=== PATIENT | male | born 1960 | race African-American/Black ===

== ENCOUNTER 2017-01-24 17:33 | Inpatient (IN) | payer OTHER ==
--- NOTE | 2017-01-24 17:42 | PDOC ---
History of Present Illness - General History Source: Patient, EMS Exam Limitations: Physical Impairment - History of Present Illness Initial Comments: 01/24/17 17:56 The patient is a 56 year old male, with a significant past medical history of hypertension, hyperlipidemia, diabetes mellitus, multiple CVAs(x4 one in 2005, one in 2006, and 2 in 2007) in the past with right sided hemiparesis(wheelchair bound due to CVAs), neuropathy, and ESRD on hemodialysis (, , Tue), who presents to the emergency department BIBA s/p stroke at unknown time earlier today. Per EMS, the patient presented to the dialysis center with stroke symptoms upon arrival, however, dialysis staff decided to call 911 two hours after the patient got there. However, per Claim Review Medical Director Dr. Prasad, the patient missed his dialysis this past Tuesday (01/22/17). Since his missed dialysis the patient had been feeling fatigued and tired. Today, the patient was sent to dialysis for several hours to see if he would improve. Upon arrival the patient had unintelligible speech and was fatigued. During his dialysis the patient b.p. fell, thus dialysis staff sent him to the ED for further evaluation. Per Dr. Prasad, the patient current deficits are from prior CVA's , however, today there is new onset of right arm swelling. The patient is currently unable to speak, but can nod his head that he understands questions being asked. The patients history is limited due to current clinical condition. Allergies: None reported. Past Surgical History: None reported. Social History: Non-smoker. Denies alcohol or drug use. PCP: Dr. Dillard This documentation was charted after patient was seen. However, the patient was examined immediately on arrival to the ED and sent for a head CT. <Negrito Baugh - Last Filed: 01/24/17 18:24> <Mohit Martinez - Last Filed: 01/24/17 19:05> - General Chief Complaint: CVA/TIA Stated Complaint: R/O STROKE Time Seen by Provider: 01/24/17 17:36 Past History <Negrito Baugh - Last Filed: 01/24/17 18:24> - Past Medical History Anemia: No Asthma: No Cancer: No Cardiac Disorders: Yes CVA: Yes (x 4IN 2005, IN 2006 MASSIVE STROKE, 2008 2 MINI STROKES.) COPD: No CHF: No Dementia: No Diabetes: Yes (NIDDM) Dialysis: Yes (TUES,THR,SAT,RT ARM FISTULA) GI Disorders: No Disorders: No HTN: Yes Hypercholesterolemia: Yes Liver Disease: No Seizures: No Thyroid Disease: No - Psycho/Social/Smoking Cessation Hx Anxiety: No Suicidal Ideation: No Smoking Status: No Smoking History: Never smoked Number of Cigarettes Smoked Daily: 0 Hx Alcohol Use: No Drug/Substance Use Hx: No Substance Use Type: None <Mohit Martinez - Last Filed: 01/24/17 19:05> - Past Medical History Allergies/Adverse Reactions: Allergies Allergy/AdvReac Type Severity Reaction Status Date / Time No Known Allergies Allergy Verified 09/11/16 11:59 Home Medications: Ambulatory Orders Aspirin/Dipyridamole [Aggrenox -] 1 combo PO BID 01/24/17 Escitalopram Oxalate [Lexapro -] 20 mg PO DAILY 01/24/17 Folic Acid - 30 mg PO DAILY 01/24/17 Gabapentin [Neurontin -] 100 mg PO DAILY 01/24/17 Insulin Glargine,Hum.rec.anlog [Lantus Solostar PEN (NF)] 0 units SQ HS Insulin NPH Hum/Reg Insulin Hm [Novolin 70-30 100 Unit/ml Vial] 100 unit SQ DAILY 01/24/17 Sevelamer Carbonate [Renvela] 800 mg PO CM 01/24/17 Simvastatin [Zocor -] 40 mg PO HS 01/24/17 Sitagliptin Phosphate [Januvia] 50 mg PO DAILY 01/24/17 Review of Systems - Review of Systems Able to Perform ROS?: No Comments:: 01/24/17 17:58 Patient's history is limited due to current clinical condition. GENERAL/CONSTITUTIONAL: +Fatigue, +tiredness. No fever or chills. HEAD, EYES, EARS, NOSE AND THROAT: No change in vision. No ear pain or discharge. No sore throat. CARDIOVASCULAR: No chest pain or shortness of breath. RESPIRATORY: No cough, wheezing, or hemoptysis. GASTROINTESTINAL: No nausea, vomiting, diarrhea or constipation. GENITOURINARY: No dysuria, frequency, or change in urination. MUSCULOSKELETAL: +Right arm swelling. No joint or muscle pain. No neck or back pain. SKIN: No rash NEUROLOGIC: +Decreased speech. No headache, vertigo, loss of consciousness. ENDOCRINE: No increased thirst. No abnormal weight change. HEMATOLOGIC/LYMPHATIC: No anemia, easy bleeding, or history of blood clots. ALLERGIC/IMMUNOLOGIC: No hives or skin allergy. <BaughBernadetterajwinder - Last Filed: 01/24/17 18:24> *Physical Exam - Physical Exam Comments: 01/24/17 18:03 GENERAL: Awake and alert. Patient can nod his head that he can answer questions.HEAD: Minimal facial paralysis EYES: PERRLA, EOMI, sclera anicteric, conjunctiva clear ENT: Auricles normal inspection, hearing grossly normal, nares patent, oropharynx clear without exudates. Moist mucosa NECK: Normal ROM, supple, no lymphadenopathy, JVD, or masses LUNGS: Breath sounds equal, clear to auscultation bilaterally. No wheezes, and no crackles HEART: Regular rate and rhythm, normal S1 and S2, no murmurs, rubs or gallops ABDOMEN: Soft, nontender, normoactive bowel sounds. No guarding, no rebound. No masses EXTREMITIES : No edema. No clubbing or cyanosis. No cords, erythema, or tenderness NEUROLOGICAL: Dense right leg and right arm paralysis. Unable to speak intelligibly. SKIN: Warm, Dry, normal turgor, no rashes or lesions noted. <Bernadette Baughrajwinder - Last Filed: 01/24/17 18:24> NIH Stroke Scale - Last Known Well Date/Time & Onset Date Last Known Well: 01/24/17 (Unkown Time of Onset) - Initial Evaluation Level of consciousness: Alert Ask patient the month and their age: Answers both correctly Ask patient to open & close eyes; make fist and let go: Obeys both correctly Best gaze (horizontal eye movement): Normal Visual field testing: No visual field loss Facial paresis (Show teeth/raise eyebrows/close eyes tight): Minor paralysis ( flattened nasolabial fold, asymmetry on smiling) Motor Function: Left Arm: Some effort against gravity Motor Function: Right Arm: No movement Motor Function: Left Leg: No effort against gravity Motor Function: Right Leg: No movement Limb Ataxia: No ataxia Sensory(Use pinprick test arms,legs,trunk,face/side to side): Mild to moderate decrease in sensation Best language (Describe picture, name items, read sentences): Severe aphasia Dysarthria (read several words): Near unintelligible or unable to speak Extinction and Inattention: No abnormality - Total Score NIH Stroke Scale Score: 19 <Mohit Martinez - Last Filed: 01/24/17 19:05> Critical Care Time/MDM Note - Medical Decision Making Note: 01/24/17 18:04 EXAM: Head CT INTERPRETED BY: Dr. Whitman REVIEWED BY: Dr. Martinez IMPRESSION: No definite CT evidence of acute pathology. Small chronic right frontal subcortical infarct. Small chronic right pontine infarct. Documentation prepared by Negrito Baugh, acting as medical chemist for Mohit Martinez DO. <Negrito Baugh - Last Filed: 01/24/17 18:24> - Medical Decision Making Note: 01/24/17 17:38 I, Dr. Mohit Martinez, attest that this document has been prepared under my direction and personally reviewed by me in its entirety. I further attest, that it accurately reflects all work, treatment, procedures and medical decision -making performed by me. <Mohit Martinez - Last Filed: 01/24/17 19:05> Discharge Disposition <Negrito Baugh - Last Filed: 01/24/17 18:24> - Discharge Dispostion Admit: Yes <Mohit Martinez - Last Filed: 01/24/17 19:05> - Diagnosis Old cerebrovascular accident (CVA) without late effect, Swelling of right upper extremity, Confusion - Discharge Dispostion Condition at time of disposition: Improved - Referrals Referrals: Rachell Dillard [Primary Care Provider] -
[2017-01-24] MEDS ORDERED: SODIUM CHLORIDE 1,000 ML IV SCH ×2 (17:45→19:30)
[2017-01-24 18:15] VITALS: BMI 31.4
[2017-01-24 18:53] LABS: BASOPHIL 0.3 % (0-2.0); EOSINOPHIL 1.6 % (0-4.5); MCH 32.5 pg (25.7-33.7); MCHC 32.9 g/dl (32.0-35.9); MEAN CELL VOLUME 98.6 fl (80-96); MEAN PLT VOLUME 8.1 fl (7.5-11.1); NEUTROPHILS 79.6 % (42.8-82.8); PLATELET COUNT 262 K/MM3 (134-434); WHITE BLOOD COUNT 10.9 K/mm3 (4.0-10.0)
[2017-01-24 19:04] LABS: INR 1.1 (0.82-1.09); PROTHROMBIN TIME (PATIENT) 12.1 SEC (9.98-11.88)
[2017-01-24 19:16] LABS: ALBUMIN 3.8 g/dl (3.4-5.0); ANION GAP 13 (8-16); BILIRUBIN,TOTAL 0.3 mg/dL (0.2-1.0); CALCIUM 8.2 mg/dL (8.5-10.1); CHOLESTEROL 133 mg/dL (50-200); CO2 23 mmol/L (21-32); GLUCOSE,RANDOM 132 mg/dL (74-106); LDL CHOLESTEROL (ONLY SJRH) 68 mg/dL (5-100); SGPT/ALT 18 U/L (12-78); TOT PROT 7.8 g/dl (6.4-8.2)
--- NOTE | 2017-01-24 19:16 | HP ---
[id number] HISTORY OF PRESENT ILLNESS: The patient is a 56 year old male, accompanied by , with a significant past medical history of hypertension, hyperlipidemia, diabetes mellitus, multiple CVAs(x4 one in 2005, one in 2006, and 2 in 2007) in the past with right sided hemiparesis(wheelchair bound due to CVAs), neuropathy, and ESRD on hemodialysis (, , Tue), who presented to the emergency department [facility] for AMS. In the emergency department the patient was on bipap. As per the patient missed dialysis on Tuesday and was told to go in today. The patient's stated that he was sent home from dialysis after 3 hours because he was not responding well to his treatment. As per the patient began feeling weak and confused during dialysis and symptoms worsened after leaving dialysis. Patient's notes that he has missed Tuesday dialysis in the past but did not experience similar symptoms. ER course was notable for: (1) Normal potassium (2) Negative head CT (3) Hypercapnic on EBG Recent Travel: PAST MEDICAL HISTORY: Hypertension, hyperlipidemia, diabetes mellitus, CVA x4, right sided hemiparesis , neuropathy, and ESRD (on HD , , Tue). PAST SURGICAL HISTORY: None reported Social History: Smoking: None reported Alcohol: None reported Drugs: None reported Family History: None reported HOME MEDICATIONS: Home Medications Medication Instructions Recorded Aspirin/Dipyridamole [Aggrenox -] 1 combo PO BID 01/24/17 Escitalopram Oxalate [Lexapro -] 20 mg PO DAILY 01/24/17 Folic Acid - 30 mg PO DAILY 01/24/17 Gabapentin [Neurontin -] 100 mg PO DAILY 01/24/17 Insulin Glargine,Hum.rec.anlog 0 units SQ HS 01/24/17 [Lantus Solostar PEN (NF)] Insulin NPH Hum/Reg Insulin Hm 100 unit SQ DAILY 01/24/17 [Novolin 70-30 100 Unit/ml Vial] Sevelamer Carbonate [Renvela] 800 mg PO CM 01/24/17 Simvastatin [Zocor -] 40 mg PO HS 01/24/17 Sitagliptin Phosphate [Januvia] 50 mg PO DAILY 01/24/17 REVIEW OF SYSTEMS CONSTITUTIONAL: Absent: fever, chills, diaphoresis, weight change HEENT: Absent: rhinorrhea, nasal congestion, throat pain, throat swelling, difficulty swallowing, mouth swelling, ear pain, eye pain, visual changes CARDIOVASCULAR: Absent: chest pain, syncope, palpitations, irregular heart rate, lightheadedness , peripheral edema RESPIRATORY: Absent: cough, shortness of breath, dyspnea with exertion, orthopnea, wheezing, stridor, hemoptysis GASTROINTESTINAL: Absent: abdominal pain, abdominal distension, nausea, vomiting, diarrhea, constipation, melena, hematochezia GENITOURINARY: Absent: dysuria, frequency, urgency, hesitancy, hematuria, flank pain, genital pain MUSCULOSKELETAL: Absent: myalgia, arthralgia, joint swelling, back pain, neck pain SKIN: Absent: rash, itching, pallor HEMATOLOGIC/IMMUNOLOGIC: Absent: easy bleeding, easy bruising, lymphadenopathy, frequent infections ENDOCRINE: Absent: unexplained weight gain, unexplained weight loss, heat intolerance, cold intolerance NEUROLOGIC: Present: Altered mental status Absent: headache, focal weakness or paresthesias, dizziness, unsteady gait, seizure, bladder or bowel incontinence PSYCHIATRIC: Absent: anxiety, depression, suicidal or homicidal ideation, hallucinations. PHYSICAL EXAMINATION Vital Signs - 24 hr 01/24/17 17:35 Temperature 97.6 F Pulse Rate 61 Respiratory 20 Rate Blood Pressure 103/80 O2 Sat by Pulse 98 Oximetry (%) GENERAL: (+) Male lying in bed, on bipap, able to follow commands. HEAD: Normal with no signs of trauma. EYES: Pupils equal, round and reactive to light, extraocular movements intact, sclera anicteric, conjunctiva clear. No lid lag. EARS, NOSE, THROAT: Ears normal, nares patent, oropharynx clear without exudates. Moist mucous membranes. NECK: Normal range of motion, supple without lymphadenopathy, JVD, or masses. LUNGS: (+) Decreased breath sounds at bases. Clear to auscultation bilaterally. No wheezes, and no crackles. No accessory muscle use. HEART: Regular rate and rhythm, normal S1 and S2 without murmur, rub or gallop. ABDOMEN: (+) Obese, soft, nontender, not distended, normoactive bowel sounds, no guarding, no rebound, no masses. No hepatomegaly or splenomegaly. MUSCULOSKELETAL: Normal range of motion at all joints. No bony deformities or tenderness. No CVA tenderness. UPPER EXTREMITIES: (+) Right arm edema. 2+ pulses, warm, well-perfused. No cyanosis. No clubbing. Cap refill <2 seconds. LOWER EXTREMITIES: 2+ pulses, warm, well-perfused. No calf tenderness. No peripheral edema. NEUROLOGICAL: Cranial nerves II-XII intact. Normal speech. Normal gait. PSYCHIATRIC: Cooperative. Good eye contact. Appropriate mood and affect. SKIN: Warm, dry, normal turgor, no rashes or lesions noted. Laboratory Results - last 24 hr 01/24/17 01/24/17 01/24/17 18:44 18:44 18:44 WBC 10.9 H RBC 3.99 L D Hgb 13.0 D Hct 39.3 D MCV 98.6 H MCHC 32.9 RDW 15.0 Plt Count 262 D MPV 8.1 Neutrophils % 79.6 Lymphocytes % 11.1 D Monocytes % 7.4 Eosinophils % 1.6 Basophils % 0.3 INR 1.10 Sodium 138 Potassium 4.8 D Chloride 102 Carbon Dioxide 23 Anion Gap 13 BUN 49 H Creatinine 10.1 H* Creat Clearance w eGFR 5.32 Random Glucose 132 H Calcium 8.2 L Total Bilirubin 0.3 D AST 19 D ALT 18 Alkaline Phosphatase 71 D Creatine Kinase 830 H D Creatine Kinase Index 0.4 CK-MB (CK-2) 2.950 Troponin I < 0.02 Total Protein 7.8 Albumin 3.8 Triglycerides 162 H Cholesterol 133 Total LDL Cholesterol 68 HDL Cholesterol [address] without contrast Clinical information: evaluate for CVA No intracranial hemorrhage is identified. There is no evidence of acute infarction within the limitations of CT. No definite interval change is identified in comparison to a previous CT exam of 03/29/2009. There is a small chronic infarct within the right paramedian aspect of the basis pontis. A small chronic right frontal subcortical infarct is noted. No obvious mass lesion is seen. There is no extra-axial fluid collection. The ventricles and cisterns appear unremarkable. Atherosclerotic vascular calcifications are noted which are more prominent than would be expected for the patient's chronologic age. Correlate with clinical risk factors. Impression: No definite CT evidence of acute pathology. Small chronic right frontal subcortical infarct. Small chronic right pontine infarct. Reported By: Mark Whitman MD 2. EXAM: X-RAY CHEST No focal lung consolidation or pleural effusions. Cardiomegaly versus heart size accentuated by hypoinflation lungs. Prominent descending arota and right paratracheal soft tissues, presumably accentuated by rotation. THIS DOCUMENT HAS BEEN ELECTRONICALLY SIGNED Sharona Ramey M.D. 3. ECG Impression: Normal sinus rhythm. Nonspecific T wave abnormality. Abnormal ECG. ASSESSMENT/PLAN: The patient is a 56 year old male with a significant past medical history of hypertension, hyperlipidemia, diabetes mellitus, multiple CVAs(x4 one in 2005, one in 2006, and 2 in 2007) in the past with right sided hemiparesis(wheelchair bound due to CVAs), neuropathy, and ESRD on hemodialysis (, , Tue), who presents with AMS and inability to speak. 1. AMS-CVA/TIA/Hypercapnic respiratory failure -Continue with bipap -Repeat ABG -CT head negative but show old chronic infarcts -MRI brain without contrast -Neurology consult -Trend troponin -ECG -TSH B12 and ESR in AM -Lipid panel -Continue with aggrenox -CVC in AM -ECHO complete carotid US -Chest x-ray stat -Uremic encephalopathy 2. CKD- on esrd s/p HD today - Nephrology consult 3. HTN -Continue home meds 4. Diabetes -Finger sticks -Rapid acting insulin -Recently assessed 5. HLD -Continue statin 6. Right arm swelling -Duplex stat 7. DVT PPX -SCDs Admit to stroke tele. Documentation prepared by Avtar Oconnell, acting as medical aide for Dr. Genevieve Diaz MD. Addendum: Patient with no improvement in ABG. Transfer to ICU for AMS/ intubation. Intubated in ICU. 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 Critical care time 40 minutes. Visit type - Critical Care Critical Care patient: Yes Total Critical Care Time (in minutes): 40 Critical Care Statement: The care of this patient involved high complexity decision making to prevent further life threatening deterioration of the patient 's condition and/or to evalute & treat vital organ system(s) failure or risk of failure. <Genevieve Diaz - Last Filed: 01/25/17 19:18> Visit type - Emergency Visit Emergency Visit: Yes ED Registration Date: 01/24/17 Care time: The patient presented to the Emergency Department on the above date and was hospitalized for further evaluation of their emergent condition. - New Patient This patient is new to me today: Yes Date on this admission: 01/25/17 - Critical Care Critical Care patient: Yes Total Critical Care Time (in minutes): 40 Critical Care Statement: The care of this patient involved high complexity decision making to prevent further life threatening deterioration of the patient 's condition and/or to evalute & treat vital organ system(s) failure or risk of failure.
[2017-01-24 19:22] LABS: ALK PHOS 71 U/L (45-117); TROPONIN I < 0.02 ng/ml (0.00-0.05)
[2017-01-24 19:25] LABS: SGOT/AST 19 U/L (15-37)
[2017-01-24 19:27] LABS: CREATININE 10.1 mg/dL (0.7-1.3)
[2017-01-24] MEDS ORDERED: SEVELAMER CARBONATE 800 MG TAB (FP) PO SCH (19:45)
[2017-01-24 20:07] LABS: ARTERIAL BLD GAS O2 SATURATION 95.3 % (90-98.9); ARTERIAL BLOOD GAS BASE EXCESS -3.9 meq/l (-2-2); ARTERIAL BLOOD GAS HCO3 24.2 meq/L (22-26); ARTERIAL BLOOD GAS PO2 92.7 mmHg (80-100)
[2017-01-24 20:09] LABS: ALLENS TEST POSITIVE; ART PUNCT SITE LEFT RADIAL; ARTERIAL BLOOD GAS pH 7.22 (7.35-7.45); LPM/O2% 2L; PT. ON O2? YES; TYPE OF O2 NASAL
[2017-01-24 21:04] LABS: ARTERIAL BLOOD GAS BASE EXCESS -4.1 meq/l (-2-2); ARTERIAL BLOOD GAS HCO3 23.9 meq/L (22-26); ARTERIAL BLOOD GAS PO2 98.1 mmHg (80-100)
[2017-01-24 21:05] LABS: ALLENS TEST POSITIVE; ART PUNCT SITE LEFT RADIAL; LPM/O2% 30; PT. ON O2? YES; TYPE OF O2 BIPAP; VENT RATE 14; VT/PRESS 16/4
[2017-01-24 21:12] LABS: ARTERIAL BLOOD GAS pH 7.23 (7.35-7.45)
[2017-01-24 21:56] LABS: BASOPHIL 0.2 % (0-2.0); EOSINOPHIL 1.9 % (0-4.5); MCH 32.6 pg (25.7-33.7); MCHC 32.5 g/dl (32.0-35.9); MEAN CELL VOLUME 100.3 fl (80-96); MEAN PLT VOLUME 7.6 fl (7.5-11.1); PLATELET COUNT 237 K/MM3 (134-434); RDW 14.9 % (11.9-15.9)
[2017-01-24] MEDS: INSULIN SLIDING SCALE (NOVOLOG) 1 VIAL SQ SCH (22:00)
[2017-01-24] MEDS ORDERED: ASPIRIN/DIPYRIDAMOLE 25 MG/200 MG CAPSULE (FP) PO SCH (22:00)
[2017-01-24] MEDS ORDERED: ATORVASTATIN CA 20 MG TABLET (FP) PO SCH (22:00)
[2017-01-25 00:22] LABS: ARTERIAL BLOOD GAS HCO3 23.5 meq/L (22-26); ARTERIAL BLOOD GAS PO2 91.9 mmHg (80-100)
[2017-01-25 00:23] LABS: ALLENS TEST POSITIVE; ART PUNCT SITE LEFT RADIAL; LPM/O2% 30%; PT. ON O2? YES; TYPE OF O2 BIPAP; VT/PRESS 20/4
[2017-01-25 00:24] LABS: ARTERIAL BLOOD GAS pH 7.21 (7.35-7.45); VENT RATE 20
[2017-01-25] MEDS ORDERED: PROPOFOL 100 ML ONE (01:18)
[2017-01-25] MEDS ORDERED: MIDAZOLAM HCL 2 MG/2 ML SINGLE DOSE VIAL ONE (01:34)
[2017-01-25] MEDS ORDERED: MIDAZOLAM HCL 2 MG/2 ML SINGLE DOSE VIAL IVPUSH ONE (01:45)
[2017-01-25] MEDS: PROPOFOL 100 ML IVPB SCH (02:00)
[2017-01-25] MEDS ORDERED: SUCCINYLCHOLINE CHLORIDE 200 MG/10 ML VIAL ONE (02:06)
--- NOTE | 2017-01-25 02:18 | PN ---
Progress Note (short form) - Note Progress Note: called to intubate this patient who is in acute respiratory failure.Patient being ambu bagged with 100% o2. Propofol 100mg was given IV.DL with glige scope.VCV 7.5.Posative Etco2.Advised ABG and CXR.P 85,Bp 165/84 Spo2 100% on o2 100%.
--- NOTE | 2017-01-25 02:26 | CONSULT ---
Consult Consult Specialty:: Pulm/CC - History of Present Illness History of Present Illness: Pt is a 56yr old man with PMHx of HTN, HLD, ESRD (HD T//Tue), DM, CVAx4 with rt side hemiparesis, wheelchair bound and neuropathy. He presents to the ER from dialysis center with "stroke symptoms". Per report pt with missed dialysis on 01/22 secondary to malfunctioning wheelchair. On 01/24 during dialysis he had reported unintelligible speech and increased fatigue with drop in BP and sent to ER here at [facility]. Pt with increasing lethargy and respiratory acidosis unimproved with bipap on floor and transferred to the ICU. Upon assessment pt is lethargic but arousable, speech garbled, copious secretions (tenacious/ greenish yellow) and drooling. Poor inspiratory effort. SBP 140s, HR 70s, 100% on RA. Pt intubated for acute hypercapneic respiratory failure. 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 Cardio/Vascular: Yes: HTN, Hyperlipdemia Renal/: Yes: Renal Failure, Hemodialysis Endocrine: Yes: Diabetes Mellitus - Past Surgical History Past Surgical History: Yes: AV Fistula/Graft - Alcohol/Substance Use Hx Alcohol Use: No - Smoking History Smoking history: Never smoked Have you smoked in the past 12 months: No Aproximately how many cigarettes per day: 0 Home Medications - Allergies Allergies/Adverse Reactions: Allergies Allergy/AdvReac Type Severity Reaction Status Date / Time No Known Allergies Allergy Verified 09/11/16 11:59 - Home Medications Home Medications: Ambulatory Orders Aggrenox - 1 tablet 01/24/17 Aspirin/Dipyridamole [Aggrenox -] 1 combo PO BID 01/24/17 Escitalopram Oxalate [Lexapro -] 20 mg PO BID 01/24/17 Folic Acid - 30 mg PO DAILY 01/24/17 Gabapentin [Neurontin -] 100 mg PO BID 01/24/17 Insulin Glargine,Hum.rec.anlog [Lantus Solostar PEN (NF)] 0 units SQ HS Insulin NPH Hum/Reg Insulin Hm [Novolin 70-30 100 Unit/ml Vial] 100 unit SQ DAILY 01/24/17 Sevelamer Carbonate [Renvela] 800 mg PO TID 01/24/17 Simvastatin [Zocor -] 40 mg PO HS 01/24/17 Sitagliptin Phosphate [Januvia] 50 mg PO DAILY 01/24/17 Family Disease History - Family Disease History Family History: Unable to Obtain Family Disease History: Heart Disease: Father, Mother, CA: Mother Review of Systems Unable to obtain ROS, reason: ABBIE 2nd clinical condion Physical Exam Vital Signs: Vital Signs Period Temp Pulse Resp BP Sys/Todd Pulse Ox Last 24 Hr 97.6 F-98.1 F 61-87 13-20 103-137/72-97 97-100 Intake & Output 01/22/17 01/23/17 01/24/17 01/25/17 22:59 23:59 23:59 23:59 Weight 245 lb 245 lb Constitutional: Yes: Well Nourished, No Distress, Calm Eyes: Yes: WNL HENT: Yes: Drooling, Other (crowded oralpharynx) Cardiovascular: Yes: S1, S2 Respiratory: Yes: Diminished, Wheezes (faint expiratory), Other (poor inspiratory effort) Gastrointestinal: Yes: Abdomen, Obese, Hypoactive Bowel Sounds ...Rectal Exam: Yes: Deferred Musculoskeletal: Yes: Other (rt side hemiparesis) Edema: No Peripheral Pulses WNL: Yes (+1 bilateral pedal pulses) Integumentary: Yes: Other (appears dry) Neurological: Yes: Aphasia, Facial Droop (rt) Labs: Abnormal Lab Results 01/24/17 01/24/17 01/24/17 18:44 18:44 20:00 WBC 10.9 H RBC 3.99 L D MCV 98.6 H ABG pH 7.22 L* ABG pCO2 at Pt Temp 60.9 H* ABG Base Excess -3.9 L BUN 49 H Creatinine 10.1 H* Random Glucose 132 H Calcium 8.2 L Creatine Kinase 830 H D Triglycerides 162 H 01/24/17 01/24/17 01/25/17 21:02 21:40 00:11 WBC 11.0 H RBC 3.99 L MCV 100.3 H ABG pH 7.23 L* 7.21 L* ABG pCO2 at Pt Temp 59.3 H 61.3 H* ABG Base Excess -4.1 L -5.0 L BUN Creatinine Random Glucose Calcium Creatine Kinase Triglycerides Imaging - Results Chest X-ray: Image Reviewed Cat Scan: Report Reviewed Ultrasound: Report Reviewed (duplex) Assessment/Plan Pt is a 56yr old man with PMHx of HTN, HLD, ESRD (HD T/Th/Sat), DM, CVAx4 with rt side hemiparesis, wheelchair bound and neuropathy. Pt now in the ICU for acute hypercapneic respiratory failure requiring intubation, AMS with possible CVA +/- metabolic encephalopathy. Pulm: Intubation in setting of acute hypercapneic respiratory failure, likely component of OHS -Continue intubation overnight -Fio2 for sat >94% -f/u chest xray/abg -Nebulizers prn ID: -f/u cultures -Consult -Will start Ceftriaxone, continue as clinically warranted Neuro: s/p code winslow, no acute pathology noted on head CT. Low suspicion but possible seizure activity upon presentation to ICU (brief, self resolved drooling/"gurgling" and rapid eye movement) -Consult -Repeat head ct -Mri when more stable -Sedation with versed -Consider EEG -Pain management Renal: -Consult -HD per renal -Renal dose medication -Monitor electrolytes Cardiac -F/u cardiac enzymes -BP control -Statin Endo: -BGM -Glycemic control Prophylactic -PPI -Aspiration precautions -DVT
[2017-01-25 02:44] LABS: ARTERIAL BLD GAS O2 SATURATION 97.1 % (90-98.9); ARTERIAL BLOOD GAS BASE EXCESS -4.5 meq/l (-2-2); ARTERIAL BLOOD GAS HCO3 22.3 meq/L (22-26)
[2017-01-25 02:45] LABS: ALLENS TEST POSITIVE; ART PUNCT SITE LEFT RADIAL; LPM/O2% 40; MECH. VENT. YES; PT. ON O2? YES; TYPE OF O2 VENT; VENT RATE 16; VT/PRESS 450
[2017-01-25] MEDS: MIDAZOLAM 100 MG in SODIUM CHLORIDE 100 ML IVPB SCH (02:45)
[2017-01-25] MEDS: FENTANYL INJECTION 500 MCG in DEXTROSE 5%-WATER - 90 ML IJ SCH ×2 (02:45→07:01)
[2017-01-25 02:46] LABS: ARTERIAL BLOOD GAS pH 7.26 (7.35-7.45)
[2017-01-25] MEDS ORDERED: DOPAMINE 400 MG/D5W - 250 ML IVPB ONE (04:31)
[2017-01-25 04:40] LABS: BASOPHIL 0.4 % (0-2.0); EOSINOPHIL 1.4 % (0-4.5); MCH 32.9 pg (25.7-33.7); MCHC 33.4 g/dl (32.0-35.9); MEAN CELL VOLUME 98.7 fl (80-96); MEAN PLT VOLUME 7.5 fl (7.5-11.1); PLATELET COUNT 204 K/MM3 (134-434); RDW 14.5 % (11.9-15.9)
[2017-01-25 04:53] LABS: INR 1.13 (0.82-1.09); PROTHROMBIN TIME (PATIENT) 12.5 SEC (9.98-11.88)
[2017-01-25 04:56] LABS: ACTIVATED PTT 29.8 SECONDS (26.9-34.4)
[2017-01-25 05:05] LABS: C-REACTIVE PROTEIN 0.4 MG/DL (0.00-0.3); CALCIUM 8.2 mg/dL (8.5-10.1); MAGNESIUM 2.2 mg/dL (1.8-2.4); PHOSPHOROUS 6.5 mg/dL (2.5-4.9)
[2017-01-25 05:11] LABS: MAGNESIUM 2.2 mg/dL (1.8-2.4); PHOSPHOROUS 6.2 mg/dL (2.5-4.9); THYROID STIMULATING HORMONE 4.57 uIU/ml (0.358-3.74)
[2017-01-25 05:13] LABS: CREATININE 12.5 mg/dL (0.7-1.3)
[2017-01-25] MEDS ORDERED: CEFTRIAXONE 50 ML IVPB ONE (05:22)
[2017-01-25 06:20] LABS: ERYTHROCYTE SEDIMENTATION RATE 52 mm/hr (0-20)
[2017-01-25] MEDS: INSULIN SLIDING SCALE (NOVOLOG) 1 VIAL SQ SCH ×6 (06:44→18:36)
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
[2017-01-25 09:09] LABS: HIV 1 & 2 AB NEGATIVE; HIV 1 AGp24 NEGATIVE
[2017-01-25] MEDS ORDERED: FOLIC ACID 1 MG TABLET (FP) PO SCH (10:00)
[2017-01-25] MEDS ORDERED: GABAPENTIN 100 MG CAPSULE (FP) PO SCH (10:00)
[2017-01-25] MEDS ORDERED: ESCITALOPRAM OXALATE 20 MG TABLET (FP) PO SCH (10:00)
--- NOTE | 2017-01-25 12:08 | PN ---
Teaching Attending Note Name of Resident: Bruce Lorenzo ATTENDING PHYSICIAN STATEMENT I saw and evaluated the patient. I reviewed the resident's note and discussed the case with the resident. I agree with the resident's findings and plan as documented. SUBJECTIVE: unable to obtain hx . events over night noted for worsening mental status and intubation OBJECTIVE: intubated , sedated. Neuro: unable to evaluate facial symmetry while intubated. L pupil reactive to light . R pupil not reactive to direct light but reactive to indirect light , cataract noted in R eye . unable to evaluate strength and sensation Lungs : CTAB anteriorly Ext: no edema . poor feet care CV: RRR, no MRG ASSESSMENT AND PLAN: 56 Y/o man with h/o CVAs, ESRD , IDDM , and other medical problems who presented with AMS and dysarthria after HD . He was intubated shortly after admission due to worsening mental status 1- AMS, dysarthria: possibly due to a new stroke. Hypotension was noted in HD out pt unit , which might have contributed . - cont intubation for air way protection. extubate when appropriate. - check MRI of the brain to r/o new stroke - Echo pending ( last o ne in 2012 with NL EF and some valvular problems ) - Resume aggrenox. if he has a new stroke , might consider switching to a new anti-platelet agent - monitor bP and avoid hypotension . permissive HTN until ischemic stroke is ruled out - he has no signs of infection at this point. 2- Acute hypercapnic resp failure . CO2 improved , but ABG still show Met acidosis . likely due to uremia . Lactic acid NL . - cont vent 3- ESRD: on HD TTS . - getting HD now in ICU - renal on board - cont renvela 4- DM : will confirm his home meds . in mean time , SSI q6 hr , switch to AC when extubated 5- DVT px : start heparin sq Critical Care Total Critical Care Time (in minutes): 35 Critical Care Statement: The care of this patient involved high complexity decision making to prevent further life threatening deterioration of the patient 's condition and/or to evalute & treat vital organ system(s) failure or risk of failure.
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
[2017-01-25] MEDS ORDERED: ASPIRIN 300 MG SUPP.RECT RC ONE (12:26)
--- NOTE | 2017-01-25 12:28 | PROC ---
Central Line Insertion Indication: Poor Venous Access Risks and Benefits Explained: No (emergent due to lack of access) Central Line: Triple Lumen Catheter Anesthesia: 1% Lidocaine Sterile Technique: Yes Ultrasound Guided Assistance: Yes Position: Left Internal Jugular Post Insertion: Yes: Bilateral Chest Expansion, Chest X-Ray Ordered Sterile Dressing Applied: Yes
[2017-01-25] MEDS: ESCITALOPRAM OXALATE 20 MG TABLET (FP) PO SCH (12:34)
[2017-01-25] MEDS: ALBUMIN HUMAN 25% 100 ML VIAL IVPB SCH ×2 (14:00→14:01)
--- NOTE | 2017-01-25 16:01 | PN ---
Physical Exam: SUBJECTIVE: Patient seen and examined in the ICU. Intubated and sedated OBJECTIVE: Vital Signs Period Temp Pulse Resp BP Sys/Todd Pulse Ox Last 24 Hr 98 F-98.8 F 62-95 13-21 99-192/61-105 97-100 GENERAL: Intubated and sedated EYES: PERRL, extraocular movements intact, sclera anicteric, conjunctiva clear. No ptosis. ENT: Ears normal, nares patent, oropharynx clear without exudates, moist mucous membranes. NECK: Trachea midline, full range of motion, supple. LUNGS: Breath sounds equal, clear to auscultation bilaterally, no wheezes HEART: Regular rate and rhythm S1 S2 ABDOMEN: Soft, no grimacing to palpation nondistended, hypoactive bowel sounds EXTREMITIES: no edema. NEUROLOGICAL: Could not do an accurate neurological exam as patient is intubated and sedated on versed and fentanyl. Right pupils minimally reactive on my exam. Right eye cataracts. left eye reactive to light. right eye reactive when light is shining into left eye. Reflexes: biceps jerk and knee jerk are brisk bilaterally Laboratory Results - last 24 hr 01/24/17 01/25/17 01/25/17 21:59 00:11 00:13 WBC RBC Hgb Hct MCV MCHC RDW Plt Count MPV Neutrophils % Lymphocytes % Monocytes % Eosinophils % Basophils % ESR INR PTT (Actin FS) Puncture Site Left radial ABG pH 7.21 L* ABG pCO2 at Pt Temp 61.3 H* ABG pO2 at Pt Temp 91.9 ABG HCO3 23.5 ABG O2 Sat (Measured) 95.0 ABG O2 Content 17.5 ABG Base Excess -5.0 L Eliseo Test Positive O2 Delivery Device Bipap Oxygen Flow Rate 30% Vent Mode S/t Vent Rate 20 Mechanical Rate PEEP 0.0 Pressure Support Vent 20/4 Sodium Potassium Chloride Carbon Dioxide Anion Gap BUN Creatinine POC Glucometer 105.42046 135 Random Glucose Lactic Acid Calcium Phosphorus Magnesium Troponin I C-Reactive Protein Vitamin B12 TSH HIV 1&2 Antibody Screen HIV P24 Antigen 01/25/17 01/25/17 01/25/17 02:20 04:25 04:30 WBC RBC Hgb Hct MCV MCHC RDW Plt Count MPV Neutrophils % Lymphocytes % Monocytes % Eosinophils % Basophils % ESR INR PTT (Actin FS) Puncture Site Left radial ABG pH 7.26 L ABG pCO2 at Pt Temp 51.2 H ABG pO2 at Pt Temp 104.0 H ABG HCO3 22.3 ABG O2 Sat (Measured) 97.1 ABG O2 Content 16.3 ABG Base Excess -4.5 L Eliseo Test Positive O2 Delivery Device Vent Oxygen Flow Rate 40 Vent Mode A/c Vent Rate 16 Mechanical Rate Yes PEEP 10.0 Pressure Support Vent 450 Sodium 137 Potassium 5.1 Chloride 101 Carbon Dioxide 24 Anion Gap 12 BUN 58 H Creatinine 12.5 H* D POC Glucometer 121.95045 Random Glucose 101 D Lactic Acid Calcium 8.2 L Phosphorus 6.5 H D Magnesium 2.2 Troponin I C-Reactive Protein 0.4 H Vitamin B12 915 H TSH 4.57 H HIV 1&2 Antibody Screen HIV P24 Antigen 01/25/17 01/25/17 01/25/17 04:30 04:30 04:30 WBC 10.0 RBC 3.44 L Hgb 11.3 L D Hct 33.9 L D MCV 98.7 H MCHC 33.4 RDW 14.5 Plt Count 204 MPV 7.5 Neutrophils % 81.0 Lymphocytes % 8.3 D Monocytes % 8.9 Eosinophils % 1.4 Basophils % 0.4 ESR 52 H INR 1.13 PTT (Actin FS) 29.8 Puncture Site ABG pH ABG pCO2 at Pt Temp ABG pO2 at Pt Temp ABG HCO3 ABG O2 Sat (Measured) ABG O2 Content ABG Base Excess Eliseo Test O2 Delivery Device Oxygen Flow Rate Vent Mode Vent Rate Mechanical Rate PEEP Pressure Support Vent Sodium Potassium Chloride Carbon Dioxide Anion Gap BUN Creatinine POC Glucometer Random Glucose Lactic Acid 0.834 Calcium Phosphorus Magnesium Troponin I C-Reactive Protein Vitamin B12 TSH HIV 1&2 Antibody Screen HIV P24 Antigen 01/25/17 01/25/17 01/25/17 04:30 04:30 05:05 WBC RBC Hgb Hct MCV MCHC RDW Plt Count MPV Neutrophils % Lymphocytes % Monocytes % Eosinophils % Basophils % ESR INR PTT (Actin FS) Puncture Site ABG pH ABG pCO2 at Pt Temp ABG pO2 at Pt Temp ABG HCO3 ABG O2 Sat (Measured) ABG O2 Content ABG Base Excess Eliseo Test O2 Delivery Device Oxygen Flow Rate Vent Mode Vent Rate Mechanical Rate PEEP Pressure Support Vent Sodium Potassium Chloride Carbon Dioxide Anion Gap BUN Creatinine POC Glucometer Random Glucose Lactic Acid Calcium Phosphorus 6.2 H Magnesium 2.2 Troponin I < 0.02 C-Reactive Protein Vitamin B12 TSH HIV 1&2 Antibody Screen Negative HIV P24 Antigen Negative 01/25/17 01/25/17 11:00 11:25 WBC RBC Hgb Hct MCV MCHC RDW Plt Count MPV Neutrophils % Lymphocytes % Monocytes % Eosinophils % Basophils % ESR INR PTT (Actin FS) Puncture Site ABG pH ABG pCO2 at Pt Temp ABG pO2 at Pt Temp ABG HCO3 ABG O2 Sat (Measured) ABG O2 Content ABG Base Excess Eliseo Test O2 Delivery Device Oxygen Flow Rate Vent Mode Vent Rate Mechanical Rate PEEP Pressure Support Vent Sodium Potassium Chloride Carbon Dioxide Anion Gap BUN Creatinine POC Glucometer 77.66452 Random Glucose Lactic Acid Calcium Phosphorus Magnesium Troponin I < 0.02 C-Reactive Protein Vitamin B12 TSH HIV 1&2 Antibody Screen HIV P24 Antigen Active Medications Generic Name Dose Route Start Last Admin Trade Name Freq PRN Reason Stop Dose Admin Aspirin 81 mg 01/26/17 10:00 Asa - NGT DAILY [facility] Escitalopram Oxalate 20 mg 01/25/17 10:00 01/25/17 12:34 Lexapro - PO Not Given DAILY [facility] Heparin Sodium (Porcine) 5,000 unit 01/25/17 15:15 Heparin - SQ TID [facility] Fentanyl 500 mcg/ Dextrose 100 mls @ 10 mls/hr 01/25/17 02:45 01/25/17 07:01 IJ 01/26/17 02:44 20 mls/hr TITR JASON Administration 50 MCG/HR Midazolam HCl 100 mg/ Sodium 100 mls @ 3 mls/hr 01/25/17 02:45 01/25/17 03:00 Chloride IVPB 5 mg/hr TITR JASON Titration Protocol 3 MG/HR Propofol 100 mls @ 3.334 mls/hr 01/25/17 02:00 01/25/17 02:00 Diprivan - IVPB 3.334 mls/hr TITR JASON Administration Protocol 5 MCG/KG/MIN Insulin Aspart 1 vial 01/25/17 15:15 01/25/17 15:25 Novolog Vial Sliding Scale - SQ Not Given Q6HPO JASON Protocol ASSESSMENT/PLAN: 56M with multiple medical problems including multiple CVAs x4, ESRD on HD Tue/ /Tue, DM (insulin dependant) presented to the emergency room after dialysis he was noted to have unintelligible speech, altered mental status, hypotension, and given his history concern for CVA. Altered mental status. There is a concern for another stroke. patient was hypotensive at the dialysis center and low blood pressure leading to low cerebral perfusion pressure makes this patient at risk for CVA. CT scan negative for acute stroke will need MRI Aggrenox can not be crushed so will give 325 aspirin and then 81 daily resume aggrenox when able to take PO if patient did have a CVA on aggrenox it is worth exploring whether he should be switched to another antiplatelet will discuss this with neurology f/u echo Carotid duplex WNL Premissive hypertension for now continue ventilatory support for now-daily awakening trials to assess for extubation ESRD on HD was dialyzed today in ICU continue Renvela-ordered Renal consult appreciated DM: ISS q6h for now while intubated Acute Hypercapneic respiratory failure: patient intubated for airway protection altered mental status and hypercapnea Patient still has metabolic acidosis likely secondary to uremia vs an unmeasured acid in the blood cotninue ventilatory support daily awakening trials to assess for extubation HLD: on Zocor as outpatient ICU team to send lipid panel Restart Zocor FEN: no IVF no electrolyte issues if unable to be extubated tomorrow consider starting enteral feeds PPx: HSQ protonix start tomorrow if still intubated PT consult when able to participate patient seen and case discussed with attending Dr. Diaz Visit type - Emergency Visit Emergency Visit: Yes ED Registration Date: 01/24/17 Care time: The patient presented to the Emergency Department on the above date and was hospitalized for further evaluation of their emergent condition. - New Patient This patient is new to me today: Yes Date on this admission: 01/25/17 - Critical Care Critical Care patient: Yes Total Critical Care Time (in minutes): 60 Critical Care Statement: The care of this patient involved high complexity decision making to prevent further life threatening deterioration of the patient 's condition and/or to evalute & treat vital organ system(s) failure or risk of failure.
--- NOTE | 2017-01-25 16:06 | PN ---
Physical Exam: SUBJECTIVE: Patient seen and examined at bedside. He's intubated and sedated. OBJECTIVE: Sedated and intubated on mechanical ventilation Vent settings: AC, RR 16, TV 550, FiO2 40, PEEP 10 Off pressors On versed 5mcg and fentanyl 25mcg Left IJ placed on 01/25, day 1 Vital Signs Period Temp Pulse Resp BP Sys/Todd Pulse Ox Last 24 Hr 98 F-98.8 F 62-95 13-21 99-192/61-105 97-100 GENERAL: Intubated and sedated, RSS -1 EYES: sclera anicteric, conjunctiva clear, R cataract LUNGS: CTAB HEART: distant heart sounds ABDOMEN: Soft, obese, not distended, no grimace on face upon palpation EXTREMITIES: cold 4 extremities, No edema ABG Results ABG pH 7.26 (7.35-7.45) L 01/25/17 02:20 ABG pCO2 at Pt Temp 51.2 mmHg (35-45) H 01/25/17 02:20 ABG pO2 at Pt Temp 104.0 mmHg (80-100) H 01/25/17 02:20 ABG HCO3 22.3 meq/L (22-26) 01/25/17 02:20 ABG O2 Sat (Measured) 97.1 % (90-98.9) 01/25/17 02:20 ABG O2 Content 16.3 % vol (15-22) 01/25/17 02:20 ABG Base Excess -4.5 meq/l (-2-2) L 01/25/17 02:20 CBCD WBC 10.0 K/mm3 (4.0-10.0) 01/25/17 04:30 RBC 3.44 M/mm3 (4.00-5.60) L 01/25/17 04:30 Hgb 11.3 GM/dL (11.7-16.9) L D 01/25/17 04:30 Hct 33.9 % (35.4-49) L D 01/25/17 04:30 MCV 98.7 fl (80-96) H 01/25/17 04:30 MCHC 33.4 g/dl (32.0-35.9) 01/25/17 04:30 RDW 14.5 % (11.9-15.9) 01/25/17 04:30 Plt Count 204 K/MM3 (134-434) 01/25/17 04:30 MPV 7.5 fl (7.5-11.1) 01/25/17 04:30 CMP Sodium 137 mmol/L (136-145) 01/25/17 04:30 Potassium 5.1 mmol/L (3.5-5.1) 01/25/17 04:30 Chloride 101 mmol/L (98-107) 01/25/17 04:30 Carbon Dioxide 24 mmol/L (21-32) 01/25/17 04:30 Anion Gap 12 (8-16) 01/25/17 04:30 BUN 58 mg/dL (7-18) H 01/25/17 04:30 Creatinine 12.5 mg/dL (0.7-1.3) H* D 01/25/17 04:30 Creat Clearance w eGFR 5.32 (>60) 01/24/17 18:44 Calcium 8.2 mg/dL (8.5-10.1) L 01/25/17 04:30 Total Bilirubin 0.3 mg/dL (0.2-1.0) D 01/24/17 18:44 AST 19 U/L (15-37) D 01/24/17 18:44 ALT 18 U/L (12-78) 01/24/17 18:44 Alkaline Phosphatase 71 U/L (45-117) D 01/24/17 18:44 Total Protein 7.8 g/dl (6.4-8.2) 01/24/17 18:44 Albumin 3.8 g/dl (3.4-5.0) 01/24/17 18:44 Intake & Output 01/22/17 01/23/17 01/24/17 01/25/17 22:59 23:59 23:59 23:59 Intake Total 480 Output Total 500 Balance -20 Weight 111.13 kg 105.035 kg Active Medications Generic Name Dose Route Start Last Admin Trade Name Freq PRN Reason Stop Dose Admin Aspirin 81 mg 01/26/17 10:00 Asa - NGT DAILY [facility] Escitalopram Oxalate 20 mg 01/25/17 10:00 01/25/17 12:34 Lexapro - PO Not Given DAILY JASON Fentanyl 500 mcg/ Dextrose 100 mls @ 10 mls/hr 01/25/17 02:45 01/25/17 07:01 IJ 01/26/17 02:44 20 mls/hr TITR JASON Administration 50 MCG/HR Midazolam HCl 100 mg/ Sodium 100 mls @ 3 mls/hr 01/25/17 02:45 01/25/17 03:00 Chloride IVPB 5 mg/hr TITR JASON Titration Protocol 3 MG/HR Propofol 100 mls @ 3.334 mls/hr 01/25/17 02:00 01/25/17 02:00 Diprivan - IVPB 3.334 mls/hr TITR JASON Administration Protocol 5 MCG/KG/MIN Insulin Aspart 1 vial 01/25/17 06:00 01/25/17 12:34 Novolog Vial Sliding Scale - SQ Not Given Q4HPO JASON Protocol Microbiology 01/25/17 06:00 Sputum - Endotrachea Suction/Ventilator Gram Stain - Final 01/25/17 06:00 Nasopharyngeal Swab Influenza Types A,B Antigen (TRAY) - Final 01/25/17 06:00 Nasopharyngeal Swab - Final Imaging CXR on 01/25: The endotracheal tube and nasogastric tube are present. Again noted is a tortuous aorta with weak inspiration and prominent mediastinum. New left jugular line. No pneumothorax. ET tube and NG tube US doppler of Arm on 01/24: There is no sonographic evidence of DVT involving the right arm. Soft tissue edema is noted. Carotid doppler on 01/24: Minimal atherosclerotic disease with no evidence of hemodynamically significant stenoses CT head on 01/24: No definite CT evidence of acute pathology. Small chronic right frontal subcortical infarct. Small chronic right pontine infarct ASSESSMENT/PLAN: 56 yo wheelchair bound M h/o HTN, HLD, ESRD on HD, DM2 and neuropathy, multiple CVA with R hemiparesis admitted to the ICU for acute respiratory failure and AMS. Pulm: Acute respiratory failure - Intubated on vent - ABG improving - SBT tomorrow - Maintain O2 Sat > 88% - Daily CXR and ABG Neuro: AMS 2/2 metabolic encephalopathy vs. stroke - Missed 1 dialysis * BUN/Cr on admission 49/10 * received HD today - CT shows chronic infarcts * new stroke on aggrenox? * MRI when stable - BP control SBP < 220 * lopressor push PRN and hold when SBP < 140 - F/U lipid and a1c - Restart asa PO (currently on asa via NGT), lipitor, and aggrenox - Neuro consult appreciated ID: Elevated WBC without fever - Resolved - Normal lactic acid - Negative CXR - Infection unlikely, observe off abx Renal: ESRD on HD - HD in unit - Renal consult appreciated - Restart renvela after starting feed - Renally dose all meds Endo: DM2 - Maintain normaglycemia at 60 to 180 - On sliding scale - BGM FEN - IVF held - Cont. to monitor lytes - NPO, will try enteral feed tomorrow Prophylaxis - DVT: heparin SQ 5000 BID - GI: start PPI tomorrow if remained intubated Disposition - Cont. to monitor in ICU Code status - Full code Visit type - Emergency Visit Emergency Visit: No - New Patient This patient is new to me today: Yes Date on this admission: 01/25/17 - Critical Care Critical Care patient: Yes Total Critical Care Time (in minutes): 50 Critical Care Statement: The care of this patient involved high complexity decision making to prevent further life threatening deterioration of the patient 's condition and/or to evalute & treat vital organ system(s) failure or risk of failure.
[2017-01-25] MEDS ORDERED: METOPROLOL TARTRATE 5 MG/5 ML VIAL IVPUSH PRN (16:16)
[2017-01-25] MEDS: HEPARIN NA (PORCINE) 5,000 UNITS/ML 1ML VIAL SQ SCH ×2 (17:40→22:45)
[2017-01-25] MEDS: SEVELAMER CARBONATE 800 MG TAB (FP) PO SCH (17:54)
[2017-01-25 18:00] LABS: CALCIUM 8.6 mg/dL (8.5-10.1); MAGNESIUM 1.9 mg/dL (1.8-2.4); PHOSPHOROUS 2.6 mg/dL (2.5-4.9)
[2017-01-26] MEDS: INSULIN SLIDING SCALE (NOVOLOG) 1 VIAL SQ SCH ×5 (00:14→17:50)
[2017-01-26] MEDS ORDERED: NOREPINEPHRINE BITARTRATE 4 MG/4 ML ML IV ONE (03:30)
[2017-01-26] MEDS ORDERED: ACETAMINOPHEN 1000 MG/100 ML VIAL (NON FORMULARY) IVPB ONE (03:40)
[2017-01-26] MEDS ORDERED: VANCOMYCIN 1 GRAM (PRE-DOCKED) 250 ML IVPB ONE (03:41)
[2017-01-26] MEDS ORDERED: SODIUM CHLORIDE 250 ML IV STA (03:59)
--- NOTE | 2017-01-26 03:59 | PN ---
Progress Note (short form) - Note Progress Note: Called to bedside 0320 for acute drop in bp, SBP 70s. Gen: Arousable on 3mg/hr Versed and 5mcg/hr Fentanyl Pulm: No adventitious breath sounds appreciated in anterior bowers Cardiac: SBP 70s, HR low 100s sinus on tele, s1/s2 Ab: Hypoactive bowel sounds, no grimace with palpation : Anuric Ex: Warm to touch, weak peripheral pulses +thrill on rt arm fistula SBP 70s, HR 100s, temp 101.1 rectal Vent AC mode 550/17/35/10 with o2 sat 100% -Will start Levophed -Reculture -Ceftriaxone/Vanc -Stat labs -IV Tylenol for fever -Continue mechanical ventilation through the night with sedation -Flat plate abdomen (hypoactive b.s and no bowel movement during hospital stay per RN) -Chest xray -f/u abg -Q2H CVP -Strict i/os
[2017-01-26 04:05] LABS: MCH 32.8 pg (25.7-33.7); MCHC 34.1 g/dl (32.0-35.9); MEAN CELL VOLUME 96.2 fl (80-96); MEAN PLT VOLUME 7.8 fl (7.5-11.1); PLATELET COUNT 204 K/MM3 (134-434); RDW 14.5 % (11.9-15.9); WHITE BLOOD COUNT 9.3 K/mm3 (4.0-10.0)
[2017-01-26 04:10] LABS: ARTERIAL BLD GAS O2 SATURATION 99.2 % (90-98.9); ARTERIAL BLOOD GAS BASE EXCESS 2.5 meq/l (-2-2); ARTERIAL BLOOD GAS HCO3 24.1 meq/L (22-26)
[2017-01-26 04:11] LABS: ALLENS TEST POSITIVE; ART PUNCT SITE LEFT RADIAL; ARTERIAL BLOOD GAS pH 7.54 (7.35-7.45); LPM/O2% 35%; MECH. VENT. YES; PT. ON O2? YES; TYPE OF O2 MECH VENT; VENT RATE 17; VT/PRESS 550
[2017-01-26] MEDS: NOREPINEPHRINE BITARTRATE 16,000 MCG in DEXTROSE 5%-WATER - 484 ML IV SCH (04:12)
[2017-01-26] MEDS: CEFTRIAXONE 50 ML IVPB SCH ×2 (04:12→10:33)
[2017-01-26 04:19] LABS: INR 1.22 (0.82-1.09); PROTHROMBIN TIME (PATIENT) 13.5 SEC (9.98-11.88)
[2017-01-26] MEDS: PROPOFOL 100 ML IVPB SCH (04:20)
[2017-01-26 04:21] LABS: ACTIVATED PTT 37.2 SECONDS (26.9-34.4)
[2017-01-26] MEDS: MIDAZOLAM 100 MG in SODIUM CHLORIDE 100 ML IVPB SCH (04:21)
[2017-01-26 04:28] LABS: ALBUMIN 3.3 g/dl (3.4-5.0); CALCIUM 8.7 mg/dL (8.5-10.1); MAGNESIUM 1.9 mg/dL (1.8-2.4); PHOSPHOROUS 3.5 mg/dL (2.5-4.9); TOT PROT 6.8 g/dl (6.4-8.2)
[2017-01-26 04:33] LABS: BILIRUBIN,TOTAL 0.5 mg/dL (0.2-1.0)
[2017-01-26 04:35] LABS: CREATININE 10.4 mg/dL (0.7-1.3)
[2017-01-26 04:40] LABS: TROPONIN I 0.06 ng/ml (0.00-0.05)
[2017-01-26] MEDS: HEPARIN NA (PORCINE) 5,000 UNITS/ML 1ML VIAL SQ SCH (06:18)
[2017-01-26] MEDS: ATORVASTATIN CA 80 MG TABLET (FP) PO SCH (06:18)
[2017-01-26] MEDS ORDERED: FENTANYL INJECTION 500 MCG in DEXTROSE 5%-WATER - 90 ML IJ SCH (06:30)
--- NOTE | 2017-01-26 09:42 | PN ---
Progress Note (short form) - Note Progress Note: ID consult dictated imp/reccd 56 year old man with PMH esrd/hd, multiple CVA, HTN, DM wheel chair bound due to right hemiparesis admitted 01/24/17 with weakness, confusion, aphasic in ED but nodding yes/no to questions no fevers on admission he developed hypercapneic respiratory failure and was intubated 01/25 early am central line placed 01/25 last night he developed fever and hypotension cultures were drawn and he was started on vancomycin and ceftriaxone levophed started as well for hypotension this am with guaic positive black NGT drainage sedated and intubated +NGT +Left IJ CVP right arm swelling acute respiratory failure fevers/hypotension- possible sepsis ?aspiration suspicion for new cva UGI bleed esrd/hd history CVA DM agree with present antibiotic converage-vanco/rocephin ?pneumonia in the setting of recent intubation-f/u cultures, consider chest ct as cxray is not revealing consider repeat head ct as we cannot do MRI while patient is on vent check vanco level, redose less then 15 (d/w iCU resident)
[2017-01-26] MEDS: SEVELAMER CARBONATE 800 MG TAB (FP) PO SCH ×3 (09:44→17:32)
[2017-01-26] MEDS: ESCITALOPRAM OXALATE 20 MG TABLET (FP) PO SCH (09:44)
[2017-01-26] MEDS ORDERED: PANTOPRAZOLE SODIUM 100 ML IVPB ONE (09:45)
[2017-01-26] MEDS: ASPIRIN 81 MG CHEWABLE TABLETS NGT SCH (10:38)
[2017-01-26 11:06] LABS: ALLENS TEST POSITIVE; ART PUNCT SITE RIGHT RADIAL; ARTERIAL BLOOD GAS BASE EXCESS 1.4 meq/l (-2-2); ARTERIAL BLOOD GAS HCO3 24.1 meq/L (22-26); LPM/O2% 21%; PT. ON O2? NO
[2017-01-26 11:07] LABS: ARTERIAL BLOOD GAS pH 7.48 (7.35-7.45); MECH. VENT. ESPRIT; TYPE OF O2 MEC.VENT; VENT RATE 12; VT/PRESS 550
--- NOTE | 2017-01-26 11:12 | CONS ---
DATE OF CONSULTATION: DATE OF DICTATION: 01/26/2017 REQUESTING PHYSICIAN: Hospitalist Service. SATIN FINISHER: Ratna Shah M.D. HISTORY OF PRESENT ILLNESS: This is a 56-year-old man with a past medical history of end-stage renal disease on dialysis. He has had multiple CVAs in the past with left and a right hemiparesis. He is wheelchair-bound, who was sent by the lasting floorworker to the emergency room on January 24 for change in mental status. He had missed dialysis on Tuesday and, then when he arrived at dialysis on Tuesday, he was complaining of weakness. He later had confusion and lethargy. He became hypotensive and he was sent from dialysis to the emergency room. In the emergency room, he was noted to be aphasic, but alert and able to nod yes and no. He had a head CT that did not show any new CVA. He had no fevers. He developed progressive hypercapnic respiratory failure. He was intubated by Anesthesia overnight early January 25. He later that day had a central in placed. He was noted as well to have swelling of his right arm, which is the arm with his AV fistula. He had a duplex of that arm done and no evidence of DVT. He was noted to have soft tissue swelling. Overnight, he developed fever with hypotension. He was noted as well to have dark drainage from his NG tube, which was guaiac positive. He had blood cultures drawn. He was given vancomycin and Rocephin. I am asked to see him for his fever and hypotension. PAST MEDICAL HISTORY: His past medical history is notable for a CVA. He has had multiple CVAs in the past, hypertension, hyperlipidemia, end-stage renal disease on dialysis, diabetes, and he has an AV fistula. He has a right-sided hemiparesis left over from his a CVA and he has a history of neuropathy. SOCIAL HISTORY: He lives at home with his . There is no history of any cigarette, alcohol, or drug use. FAMILY HISTORY: Not available, as the patient is intubated. MEDICATIONS: His home medications include: 1. Aggrenox. 2. Lexapro. 3. Folic acid. 4. Neurontin. 5. Insulin. 6. Renvela. 7. Zocor. 8. Januvia. ALLERGIES: He has no known drug allergies. REVIEW OF SYSTEMS: No review of systems is obtainable, as the patient is intubated and sedated, though per the admitting H and P, the review of systems was essentially normal. PHYSICAL EXAMINATION: General: He is intubated and sedated. Vitals: His temperature is 99.9 rectally. His T max is 101.2 rectally. His pulse is 83. His blood pressure is 104/79 and his respiratory rate is 12. His vent FIO2 is 40%. HEENT: He is normocephalic. His eyes are anicteric. Neck: Supple. He is orally intubated. He has an NG tube in place with dark drainage. Lungs: Have diminished breath sounds at the bases. Heart: Regular rate and rhythm. Abdomen: Soft. He has no distention. He has active bowel sounds. Extremities: Are without edema. They are cool. He has a left IJ in place and he has diffuse swelling of his right arm. LABORATORY DATA: His labs are notable for a white count of 10.9 on admission, this morning 9.3, hemoglobin 11.3, platelets are 204. INR is 1.2. BUN 42 and creatinine 10.4. CPK is 2323 with a troponin of 0.06 and his HIV testing is negative. Influenza swab was done and is negative and blood cultures and sputum culture are pending. Chest x-ray shows no definite infiltrate. In summary, this is a 56-year-old man with fever, hypotension, on pressors, possible sepsis. One possible source would be his lungs, as he was intubated 24 hours ago for hypercapnic respiratory failure and was noted to have copious secretions. I would follow up his cultures. I would consider a chest CT, as his chest x-ray is not revealing. I would consider repeat CT of his head, as we cannot do an MRI while he is on the vent. I agree with his present antibiotic coverage of vancomycin and Rocephin. I would check a vancomycin level and re-dose if less than 15. This was discussed with the ICU resident. In summary, this is a man with fever, hypotension, possible sepsis, possible aspiration given the fact he was recently intubated. Suspicion for a new CVA has been raised currently with the GI bleed as well on the setting of end-stage renal disease on dialysis. This is all in the setting of acute respiratory failure and intubation 24 hours ago. Further recommendations to follow based on his clinical course. Maryann ORDAZ/[id number]
--- NOTE | 2017-01-26 11:13 | EKG ---
Test Reason : Blood Pressure : / mmHG Vent. Rate : 083 BPM Atrial Rate : 083 BPM P-R Int : 184 ms QRS Dur : 094 ms QT Int : 408 ms P-R-T Axes : 054 006 052 degrees QTc Int : 479 ms NORMAL SINUS RHYTHM NORMAL ECG WHEN COMPARED WITH ECG OF 24-JAN-2017 18:21, NONSPECIFIC T WAVE ABNORMALITY, IMPROVED IN LATERAL LEADS Confirmed by STEPHANIE HERNANDEZ, SHABBIR ([id number]) on 01/26/2017 11:13:29 AM Referred By: SARA Confirmed By:SHABBIR BROWN MD
--- NOTE | 2017-01-26 12:24 | CON.NEURO ---
Consult Consult Specialty:: NEUROLOGY Reason for Consultation:: altered mental status, syncope, - History of Present Illness History of Present Illness: 56 year old male, with past medical history of hypertension, hyperlipidemia, diabetes mellitus, multiple CVAs(x4 one in 2005, one in 2006, and 2 in 2007) in the past with right sided hemiparesis(wheelchair bound due to CVAs), neuropathy , and ESRD on hemodialysis (, , Tue), was admitted two days ago for altered mental status during dialysis. He missed his dialysis on Tuesday as he had problems with his scooter. He presented to HD on Tuesday and complained of weakness. He developed increased confusion and lethargy during dialysis, became hypotensive during dialysis. He was taken off and sent to the ER . He had a ct scan of the head that was negative for new acute pathology, bleed. He developed progressive shortness of breath through the night and was intubated. He is currently intubated and sedated in the ICU. 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 Cardio/Vascular: Yes: HTN, Hyperlipdemia Renal/: Yes: Renal Failure, Hemodialysis Endocrine: Yes: Diabetes Mellitus - Past Surgical History Past Surgical History: Yes: AV Fistula/Graft - Alcohol/Substance Use Hx Alcohol Use: No - Smoking History Smoking history: Never smoked Have you smoked in the past 12 months: No Aproximately how many cigarettes per day: 0 Home Medications - Allergies Allergies/Adverse Reactions: Allergies Allergy/AdvReac Type Severity Reaction Status Date / Time No Known Allergies Allergy Verified 09/11/16 11:59 - Home Medications Home Medications: Ambulatory Orders Aggrenox - 1 tablet 01/24/17 Aspirin/Dipyridamole [Aggrenox -] 1 combo PO BID 01/24/17 Escitalopram Oxalate [Lexapro -] 20 mg PO BID 01/24/17 Folic Acid - 30 mg PO DAILY 01/24/17 Gabapentin [Neurontin -] 100 mg PO BID 01/24/17 Insulin Glargine,Hum.rec.anlog [Lantus Solostar PEN (NF)] 0 units SQ HS Insulin NPH Hum/Reg Insulin Hm [Novolin 70-30 100 Unit/ml Vial] 100 unit SQ DAILY 01/24/17 Sevelamer Carbonate [Renvela] 800 mg PO TID 01/24/17 Simvastatin [Zocor -] 40 mg PO HS 01/24/17 Sitagliptin Phosphate [Januvia] 50 mg PO DAILY 01/24/17 Family Disease History - Family Disease History Family Disease History: Heart Disease: Father, Mother, CA: Mother Review of Systems - Review of Systems Constitutional: reports: No Symptoms Eyes: reports: No Symptoms HENT: reports: No Symptoms Neck: reports: No Symptoms Cardiovascular: reports: No Symptoms Respiratory: reports: No Symptoms Gastrointestinal: reports: No Symptoms Musculoskeletal: reports: No Symptoms, Muscle Weakness Neurological: reports: Pre-Existing Deficit (right hemiparesis.), Unsteady Gait Endocrine: reports: No Symptoms Hematology/Lymphatic: reports: No Symptoms Physical Exam-Neuro Vital Signs: Vital Signs Temperature 99.9 F H 01/26/17 08:00 Pulse Rate 85 01/26/17 11:30 Respiratory Rate 12 01/26/17 11:30 Blood Pressure 104/79 01/26/17 08:00 O2 Sat by Pulse Oximetry (%) 94 L 01/26/17 11:30 Constitutional: Yes: No Distress Neck: Yes: Supple, Trachea Midline Cardiovascular: Yes: Regular Rate and Rhythm, S1, S2 Respiratory: Yes: Regular, CTA Bilaterally, Mechanically Ventilated Gastrointestinal: Yes: Normal Bowel Sounds, Soft Renal/: Yes: Other (dialysis patient) Musculoskeletal: Yes: WNL, Other (sedated) Edema: Yes Edema: LLE: 2+, RLE: 2+ Labs: CBC, BMP 01/26/17 03:45 01/26/17 03:45 INR, PTT INR 1.22 (0.82-1.09) H 01/26/17 03:45 - Neuro Exam Level Of Consciousness: Yes: Sedated Eyes: Yes: PERRLA Dominant Hand: Right Cranial Nerves II-XII Intact: Yes DTR's: 1+ Left Bicep, 1+ Right Bicep, 1+ Left Tricep, 1+ Right Tricep, 1+ Left Brachioradialis, 1+ Right Brachioradialis, 1+ Left Achilles, 1+ Right Achilles Gait: Deferred (the patient is sedated, open eyes spontaneously, no facial droop. ) NIH Stroke Scale - Total Score NIH Stroke Scale Score: 0 Imaging - Results Chest X-ray: Report Reviewed, Image Reviewed Cat Scan: Report Reviewed, Image Reviewed Ultrasound: Report Reviewed, Image Reviewed Problem List - Problems (1) Old cerebrovascular accident (CVA) without late effect Code(s): Z86.73 - PRSNL HX OF TIA (TIA), AND CEREB INFRC W/O RESID DEFICITS (2) Syncope and collapse Code(s): R55 - SYNCOPE AND COLLAPSE (3) Dialysis patient Code(s): Z99.2 - DEPENDENCE ON RENAL DIALYSIS (4) Hypotension Code(s): I95.9 - HYPOTENSION, UNSPECIFIED (5) Hemiparesis Code(s): G81.90 - HEMIPLEGIA, UNSPECIFIED AFFECTING UNSPECIFIED SIDE Assessment/Plan 56 year old male with pmhx of ESRD on HD, DM, multiple CVA, residual right hemiparesis, wheelchairbound and HTN who was admitted two days ago for altered mental status during dialysis. He missed his dialysis on Tuesday as he had problems with his scooter. He presented to HD on Tuesday and complained of weakness. He developed increased confusion and lethargy during dialysis, became hypotensive during dialysis. He was taken off and sent to the ER . He had a ct scan of the head that was negative for new acute pathology, bleed. He developed progressive shortness of breath through the night and was intubated. He is currently intubated and sedated in the ICU. Impression: syncope and collapse, hypotension during dialysis, metabolic encephalopathy, sepsis. Plan: - CT head is negative for intracranial bleed. - patient is sedated - check urine culture, blood culture, treat sepsis per medical team. - DVT prophylaxis - iv.fluids, correct electrolytes - continues aggrenox for now. - echocardiogram, doppler carotids , lipids profile. Critical Care Time spent in ICU 45min. thank you for this referral will follow.
--- NOTE | 2017-01-26 13:12 | PN ---
Physical Exam: SUBJECTIVE: Patient seen and examined at bedside in the ICU. remains intubated and sedated. He had a hypotensive episode early this morning at 3am. He was also febrile. He was pancultured and labs drawn. levophed gtt started he also has coffee grounds in the NG tube. OBJECTIVE: Vital Signs Period Temp Pulse Resp BP Sys/Todd Pulse Ox Last 24 Hr 98.4 F-101.2 F 66-105 12-18 75-137/51-89 94-100 GENERAL: Intubated and sedated EYES: PERRL, extraocular movements intact, sclera anicteric, conjunctiva clear. No ptosis. ENT: Ears normal, nares patent, oropharynx clear without exudates, moist mucous membranes. NECK: Trachea midline, full range of motion, supple. LUNGS: Breath sounds equal, clear to auscultation bilaterally, no wheezes HEART: Regular rate and rhythm S1 S2 ABDOMEN: Soft, no grimacing to palpation nondistended, hypoactive bowel sounds EXTREMITIES: no edema. NEUROLOGICAL: Could not do an accurate neurological exam as patient is intubated and sedated on versed and fentanyl. Right and left pupils are reactive to light today. Right eye cataracts. Reflexes: right biceps jerk is brisk otherwise bilateral knee jerks and left biceps jerk are 2+ Laboratory Results - last 24 hr 01/25/17 01/25/17 01/25/17 15:18 17:00 18:16 WBC RBC Hgb Hct MCV MCHC RDW Plt Count MPV INR PTT (Actin FS) Puncture Site ABG pH ABG pCO2 at Pt Temp ABG pO2 at Pt Temp ABG HCO3 ABG O2 Sat (Measured) ABG O2 Content ABG Base Excess Eliseo Test O2 Delivery Device Oxygen Flow Rate Vent Mode Vent Rate Mechanical Rate PEEP Pressure Support Vent Sodium 141 Potassium 3.5 D Chloride 99 Carbon Dioxide 27 Anion Gap 15 BUN 33 H D Creatinine 8.0 H* D Creat Clearance w eGFR POC Glucometer 70.31090 89.15158 Random Glucose 105 Hemoglobin A1c % Lactic Acid Calcium 8.6 Phosphorus 2.6 D Magnesium 1.9 Total Bilirubin AST ALT Alkaline Phosphatase Creatine Kinase Creatine Kinase Index CK-MB (CK-2) CK-MB (CK-2) Rel Index Troponin I Total Protein Albumin Triglycerides Cholesterol Total LDL Cholesterol HDL Cholesterol 01/25/17 01/26/17 01/26/17 22:53 03:40 03:45 WBC RBC Hgb Hct MCV MCHC RDW Plt Count MPV INR PTT (Actin FS) Puncture Site ABG pH ABG pCO2 at Pt Temp ABG pO2 at Pt Temp ABG HCO3 ABG O2 Sat (Measured) ABG O2 Content ABG Base Excess Eliseo Test O2 Delivery Device Oxygen Flow Rate Vent Mode Vent Rate Mechanical Rate PEEP Pressure Support Vent Sodium 141 Potassium 3.7 Chloride 101 Carbon Dioxide 27 Anion Gap 13 BUN 42 H D Creatinine 10.4 H* D Creat Clearance w eGFR 5.15 POC Glucometer [phone] Random Glucose 115 H Hemoglobin A1c % Lactic Acid 1.709 Calcium 8.7 Phosphorus 3.5 D Magnesium 1.9 Total Bilirubin 0.5 D AST 61 H D ALT 24 D Alkaline Phosphatase 57 Creatine Kinase Creatine Kinase Index CK-MB (CK-2) CK-MB (CK-2) Rel Index Troponin I Total Protein 6.8 Albumin 3.3 L Triglycerides 169 H Cholesterol 117 Total LDL Cholesterol 61 HDL Cholesterol 43 01/26/17 01/26/17 01/26/17 03:45 03:45 03:45 WBC 9.3 RBC 3.46 L Hgb 11.3 L Hct 33.3 L MCV 96.2 H MCHC 34.1 RDW 14.5 Plt Count 204 MPV 7.8 INR 1.22 H PTT (Actin FS) 37.2 H Puncture Site ABG pH ABG pCO2 at Pt Temp ABG pO2 at Pt Temp ABG HCO3 ABG O2 Sat (Measured) ABG O2 Content ABG Base Excess Eliseo Test O2 Delivery Device Oxygen Flow Rate Vent Mode Vent Rate Mechanical Rate PEEP Pressure Support Vent Sodium Potassium Chloride Carbon Dioxide Anion Gap BUN Creatinine Creat Clearance w eGFR POC Glucometer Random Glucose Hemoglobin A1c % 5.0 Lactic Acid Calcium Phosphorus Magnesium Total Bilirubin AST ALT Alkaline Phosphatase Creatine Kinase Creatine Kinase Index CK-MB (CK-2) CK-MB (CK-2) Rel Index Troponin I Total Protein Albumin Triglycerides Cholesterol Total LDL Cholesterol HDL Cholesterol 01/26/17 01/26/17 01/26/17 03:45 03:45 04:00 WBC RBC Hgb Hct MCV MCHC RDW Plt Count MPV INR PTT (Actin FS) Puncture Site Left radial ABG pH 7.54 H D ABG pCO2 at Pt Temp 28.5 L D ABG pO2 at Pt Temp 140.0 H D ABG HCO3 24.1 ABG O2 Sat (Measured) 99.2 H ABG O2 Content 16.2 ABG Base Excess 2.5 H Eliseo Test Positive O2 Delivery Device Mech vent Oxygen Flow Rate 35% Vent Mode A/c Vent Rate 17 Mechanical Rate Yes PEEP 10.0 Pressure Support Vent 550 Sodium Potassium Chloride Carbon Dioxide Anion Gap BUN Creatinine Creat Clearance w eGFR POC Glucometer Random Glucose Hemoglobin A1c % Lactic Acid Calcium Phosphorus Magnesium Total Bilirubin AST ALT Alkaline Phosphatase Creatine Kinase 2323 H D Creatine Kinase Index 0.6 CK-MB (CK-2) 13.075 H CK-MB (CK-2) Rel Index Cancelled Troponin I 0.06 H D Total Protein Albumin Triglycerides Cholesterol Total LDL Cholesterol HDL Cholesterol 01/26/17 01/26/17 11:00 11:08 WBC RBC Hgb Hct MCV MCHC RDW Plt Count MPV INR PTT (Actin FS) Puncture Site Right radial ABG pH 7.48 H ABG pCO2 at Pt Temp 32.9 L ABG pO2 at Pt Temp 82.0 D ABG HCO3 24.1 ABG O2 Sat (Measured) 96.0 ABG O2 Content 14.6 L ABG Base Excess 1.4 Eliseo Test Positive O2 Delivery Device Mec.vent Oxygen Flow Rate 21% Vent Mode A/c Vent Rate 12 Mechanical Rate Esprit PEEP 10.0 Pressure Support Vent 550 Sodium Potassium Chloride Carbon Dioxide Anion Gap BUN Creatinine Creat Clearance w eGFR POC Glucometer 133.44870 Random Glucose Hemoglobin A1c % Lactic Acid Calcium Phosphorus Magnesium Total Bilirubin AST ALT Alkaline Phosphatase Creatine Kinase Creatine Kinase Index CK-MB (CK-2) CK-MB (CK-2) Rel Index Troponin I Total Protein Albumin Triglycerides Cholesterol Total LDL Cholesterol HDL Cholesterol Active Medications Generic Name Dose Route Start Last Admin Trade Name Freq PRN Reason Stop Dose Admin Aspirin 81 mg 01/26/17 10:00 01/26/17 10:38 Asa - NGT 81 mg DAILY JASON Administration Atorvastatin Calcium 80 mg 01/26/17 06:00 01/26/17 06:18 Lipitor - PO 80 mg DAILY@0600 JASON Administration Escitalopram Oxalate 20 mg 01/25/17 10:00 01/26/17 09:44 Lexapro - PO Not Given DAILY [facility] Heparin Sodium (Porcine) 5,000 unit 01/25/17 15:15 01/26/17 06:18 Heparin - SQ 5,000 unit TID JASON Administration Propofol 100 mls @ 3.334 mls/hr 01/25/17 02:00 01/26/17 04:20 Diprivan - IVPB Not Given TITR [facility] Protocol 5 MCG/KG/MIN Norepinephrine Bitartrate 16, 500 mls @ 9.37 mls/hr 01/26/17 03:30 01/26/17 04: 19 000 mcg/ Dextrose IV 4 mcg/min TITR [facility] Titration Protocol 5 MCG/MIN Ceftriaxone Sodium 50 mls @ 100 mls/hr 01/26/17 03:45 01/26/17 10:33 Rocephin 1gm Ivpb (Pre-Docked) IVPB 100 mls/hr DAILY [facility] Administration Insulin Aspart 1 vial 01/25/17 15:15 01/26/17 11:11 Novolog Vial Sliding Scale - SQ Not Given Q6HPO [facility] Protocol Sevelamer Carbonate 800 mg 01/25/17 17:30 01/26/17 11:03 Renvela - PO Not Given TIDCM [facility] ASSESSMENT/PLAN: 56M with multiple medical problems including multiple CVAs x4, ESRD on HD Tue/ /Sat, DM (insulin dependant) presented to the emergency room after dialysis he was noted to have unintelligible speech, altered mental status, hypotension, and given his history concern for CVA. Altered mental status. There is a concern for another stroke. however after discussing case with neurology it is unlikely patient had a stroke. it is more likely patient had a hypotensive/syncopal event. but patient was hypotensive at the dialysis center and low blood pressure leading to low cerebral perfusion pressure makes this patient at risk for CVA. CT scan negative for acute stroke will need MRI-intubated and not stable for MRI at this time Aspirin 81mg daily if patient did have a CVA on aggrenox it is worth exploring whether he should be switched to another antiplatelet will discuss this with neurology-since it is not likely patient had a stroke he should go back on aggrenox when able to take PO (can not be crushed give aspirin) echo-techinically difficult study right and left ventricular function could not be assess otherwise normal echo. Echo from 2015 WNL Carotid duplex WNL continue ventilatory support for now-daily awakening trials to assess for extubation Upper GI bleed: quickly resolved likely from NG tube trauma observe Troponinemia: Troponin was negative x3 after admission this troponin that is 0.06 was sent during his hypotensive episode no EKG changes likely from demand ischemia secondary to hypotension Sepsis/septic shock: patient was hypotensive and febrile now on levophed gtt possible infectious source could be aspiration during intubation ID consult appreciated continue vanco by level and rocephin for now CT chest when patient is stable per ID to r/o PNA wean off levophed as tolerated ESRD on HD dialysis per nephrology continue Renvela-ordered Renal consult appreciated DM: ISS q6h for now while intubated Acute Hypercapneic respiratory failure: Metabolic acidosis resolved patient intubated for airway protection altered mental status and hypercapnea continue ventilatory support daily awakening trials to assess for extubation HLD: on Zocor as outpatient ICU team to send lipid panel continue Zocor FEN: no IVF no electrolyte issues enteral feeds were being considered but patient now having upper GI bleed-keep NPO for now PPx: HSQ/SCDs protonix IV PT consult when able to participate patient seen and case discussed with attending Dr. moon Visit type - Emergency Visit Emergency Visit: Yes ED Registration Date: 01/24/17 Care time: The patient presented to the Emergency Department on the above date and was hospitalized for further evaluation of their emergent condition. - New Patient This patient is new to me today: No - Critical Care Critical Care patient: Yes Total Critical Care Time (in minutes): 45 Critical Care Statement: The care of this patient involved high complexity decision making to prevent further life threatening deterioration of the patient 's condition and/or to evalute & treat vital organ system(s) failure or risk of failure.
--- NOTE | 2017-01-26 13:26 | PN ---
Physical Exam: SUBJECTIVE: Patient seen and examined at bedside. He's intubated and sedated. OBJECTIVE: Sedated and intubated on mechanical ventilation Vent settings: AC, RR 12, TV 550, FiO2 20, PEEP 10 On levophed 4mcg On versed 5mcg and fentanyl 25mcg since midnight, all stopped at 12:47pm Left IJ placed on 01/25, day 2 Last Vital Signs Temp Pulse Resp BP Pulse Ox 99.9 F H 85 12 104/79 94 L 01/26/17 08:00 01/26/17 11:30 01/26/17 11:30 01/26/17 08:00 01/26/17 11:30 GENERAL: Intubated and sedated on pressor, RSS -5 EYES: R cataract, b/l constricted pupils, non-reactive LUNGS: CTAB HEART: distant heart sounds ABDOMEN: Soft, obese, not distended, no grimace on face upon palpation EXTREMITIES: warm extremities, No edema ABG Results ABG pH 7.48 (7.35-7.45) H 01/26/17 11:00 ABG pCO2 at Pt Temp 32.9 mmHg (35-45) L 01/26/17 11:00 ABG pO2 at Pt Temp 82.0 mmHg (80-100) D 01/26/17 11:00 ABG HCO3 24.1 meq/L (22-26) 01/26/17 11:00 ABG O2 Sat (Measured) 96.0 % (90-98.9) 01/26/17 11:00 ABG O2 Content 14.6 % vol (15-22) L 01/26/17 11:00 ABG Base Excess 1.4 meq/l (-2-2) 01/26/17 11:00 CBCD WBC 9.3 K/mm3 (4.0-10.0) 01/26/17 03:45 RBC 3.46 M/mm3 (4.00-5.60) L 01/26/17 03:45 Hgb 11.3 GM/dL (11.7-16.9) L 01/26/17 03:45 Hct 33.3 % (35.4-49) L 01/26/17 03:45 MCV 96.2 fl (80-96) H 01/26/17 03:45 MCHC 34.1 g/dl (32.0-35.9) 01/26/17 03:45 RDW 14.5 % (11.9-15.9) 01/26/17 03:45 Plt Count 204 K/MM3 (134-434) 01/26/17 03:45 MPV 7.8 fl (7.5-11.1) 01/26/17 03:45 CMP Sodium 141 mmol/L (136-145) 01/26/17 03:45 Potassium 3.7 mmol/L (3.5-5.1) 01/26/17 03:45 Chloride 101 mmol/L (98-107) 01/26/17 03:45 Carbon Dioxide 27 mmol/L (21-32) 01/26/17 03:45 Anion Gap 13 (8-16) 01/26/17 03:45 BUN 42 mg/dL (7-18) H D 01/26/17 03:45 Creatinine 10.4 mg/dL (0.7-1.3) H* D 01/26/17 03:45 Creat Clearance w eGFR 5.15 (>60) 01/26/17 03:45 Calcium 8.7 mg/dL (8.5-10.1) 01/26/17 03:45 Total Bilirubin 0.5 mg/dL (0.2-1.0) D 01/26/17 03:45 AST 61 U/L (15-37) H D 01/26/17 03:45 ALT 24 U/L (12-78) D 01/26/17 03:45 Alkaline Phosphatase 57 U/L (45-117) 01/26/17 03:45 Total Protein 6.8 g/dl (6.4-8.2) 01/26/17 03:45 Albumin 3.3 g/dl (3.4-5.0) L 01/26/17 03:45 Intake & Output 01/23/17 01/24/17 01/25/17 01/26/17 23:59 23:59 23:59 23:59 Intake Total 630 670 Output Total 500 100 Balance 130 570 Weight 111.13 kg 105.035 kg 106 kg Active Medications Generic Name Dose Route Start Last Admin Trade Name Freq PRN Reason Stop Dose Admin Aspirin 81 mg 01/26/17 10:00 01/26/17 10:38 Asa - NGT 81 mg DAILY JASON Administration Atorvastatin Calcium 80 mg 01/26/17 06:00 01/26/17 06:18 Lipitor - PO 80 mg DAILY@0600 JASON Administration Escitalopram Oxalate 20 mg 01/25/17 10:00 01/26/17 09:44 Lexapro - PO Not Given DAILY [facility] Heparin Sodium (Porcine) 5,000 unit 01/25/17 15:15 01/26/17 06:18 Heparin - SQ 5,000 unit TID JASON Administration Midazolam HCl 100 mg/ Sodium 100 mls @ 3 mls/hr 01/25/17 02:45 01/26/17 04:21 Chloride IVPB Not Given TITR [facility] Protocol 3 MG/HR Propofol 100 mls @ 3.334 mls/hr 01/25/17 02:00 01/26/17 04:20 Diprivan - IVPB Not Given TITR [facility] Protocol 5 MCG/KG/MIN Norepinephrine Bitartrate 16, 500 mls @ 9.37 mls/hr 01/26/17 03:30 01/26/17 04: 19 000 mcg/ Dextrose IV 4 mcg/min TITR [facility] Titration Protocol 5 MCG/MIN Ceftriaxone Sodium 50 mls @ 100 mls/hr 01/26/17 03:45 01/26/17 10:33 Rocephin 1gm Ivpb (Pre-Docked) IVPB 100 mls/hr DAILY [facility] Administration Fentanyl 500 mcg/ Dextrose 100 mls @ 5 mls/hr 01/26/17 06:30 01/26/17 06:40 IJ 5 mls/hr TITR [facility] Administration 25 MCG/HR Insulin Aspart 1 vial 01/25/17 15:15 01/26/17 11:11 Novolog Vial Sliding Scale - SQ Not Given Q6HPO [facility] Protocol Sevelamer Carbonate 800 mg 01/25/17 17:30 01/26/17 11:03 Renvela - PO Not Given TIDCM [facility] Microbiology 01/25/17 06:00 Sputum - Endotrachea Suction/Ventilator Gram Stain - Final 01/25/17 06:00 Nasopharyngeal Swab Influenza Types A,B Antigen (TRAY) - Final 01/25/17 06:00 Nasopharyngeal Swab - Final Imaging CXR on 01/26: No change KUB on 01/26: retained stool , vascular calcifications, NG tube with tip in stomach CXR on 01/25: The endotracheal tube and nasogastric tube are present. Again noted is a tortuous aorta with weak inspiration and prominent mediastinum. New left jugular line. No pneumothorax. ET tube and NG tube US doppler of Arm on 01/24: There is no sonographic evidence of DVT involving the right arm. Soft tissue edema is noted. Carotid doppler on 01/24: Minimal atherosclerotic disease with no evidence of hemodynamically significant stenoses CT head on 01/24: No definite CT evidence of acute pathology. Small chronic right frontal subcortical infarct. Small chronic right pontine infarct ASSESSMENT/PLAN: 56 yo wheelchair bound M h/o HTN, HLD, ESRD on HD, DM2 and neuropathy, multiple CVA with R hemiparesis admitted to the ICU for acute respiratory failure and AMS. Pulm: Acute respiratory failure - Intubated on vent - Respiratory alkolosis on ABG * decreased RR from 14 to 12 * follow up ABG shows improvement - SBT daily - Maintain O2 Sat > 88% - Daily CXR and ABG Neuro: AMS 2/2 metabolic encephalopathy vs. stroke - Heavily sedated, please avoid versed * Propofol if necessary - CT shows chronic infarcts * New stroke unlikely * MRI when stable - BP control SBP < 220 * lopressor push PRN and hold when SBP < 140 - A1C and LDL at goal - Restart lipitor and aggrenox when stable ID: Fever - Overnight fever Tmax 101.2F - Normal lactic acid - Negative CXR - F/U blood cultures - Started on rocephin and vanco (both day 1) GI: UGI likely 2/2 stress ulcer - Blood observed in NG tube - Start on PPI gtt - Trend H&H Renal: ESRD on HD (T, , Tue) - HD at bedside tomorrow - Restart renvela after starting feed - Renally dose all meds Endo: DM2 - Maintain normaglycemia at 60 to 180 - On sliding scale - BGM FEN - IVF PRN to maintain MAP > 65% - Cont. to monitor lytes - NPO, will try enteral feed tomorrow Prophylaxis - DVT: Heparin SQ held due to blood in NGT - GI: Protonix Disposition - Cont. to monitor in ICU Code status - Full code Visit type - Emergency Visit Emergency Visit: No - New Patient This patient is new to me today: No - Critical Care Critical Care patient: Yes Total Critical Care Time (in minutes): 45 Critical Care Statement: The care of this patient involved high complexity decision making to prevent further life threatening deterioration of the patient 's condition and/or to evalute & treat vital organ system(s) failure or risk of failure.
--- NOTE | 2017-01-26 13:27 | PN ---
Teaching Attending Note Name of Resident: Min Perrin ATTENDING PHYSICIAN STATEMENT I saw and evaluated the patient. I reviewed the resident's note and discussed the case with the resident. I agree with the resident's findings and plan as documented. SUBJECTIVE: Patient seen and examined in the ICU. Intubated and sedated on Versed/ Fentanyl. Currently on 5 mcq NE for hemodynamic support. AC mode of vent, 21% FiO2. CXR: ETT slightly high / clear lung bowers Intake & Output 01/23/17 01/24/17 01/25/17 01/26/17 23:59 23:59 23:59 23:59 Intake Total 630 670 Output Total 500 100 Balance 130 570 Weight 245 lb 231 lb 9 oz 233 lb 11.04 oz Last Vital Signs Temp Pulse Resp BP Pulse Ox 99.9 F H 85 12 104/79 94 L 01/26/17 08:00 01/26/17 11:30 01/26/17 11:30 01/26/17 08:00 01/26/17 11:30 Active Medications Aspirin (Asa -) 81 mg NGT DAILY ON LICENSE OF [facility] Last Admin: 01/26/17 10:38 Dose: 81 mg Atorvastatin Calcium (Lipitor -) 80 mg PO DAILY@0600 ON LICENSE OF [facility] Last Admin: 01/26/17 06:18 Dose: 80 mg Escitalopram Oxalate (Lexapro -) 20 mg PO DAILY ON LICENSE OF [facility] Last Admin: 01/26/17 09:44 Dose: Not Given Heparin Sodium (Porcine) (Heparin -) 5,000 unit SQ TID ON LICENSE OF [facility] Last Admin: 01/26/17 06:18 Dose: 5,000 unit Propofol (Diprivan -) 100 mls @ 3.334 mls/hr IVPB TITR JASNO; 5 MCG/KG/MIN PRN Reason: Protocol Last Admin: 01/26/17 04:20 Dose: Not Given Norepinephrine Bitartrate 16, (000 mcg/ Dextrose) 500 mls @ 9.37 mls/hr IV TITR JASON; 5 MCG/MIN PRN Reason: Protocol Last Titration: 01/26/17 04:19 Dose: 4 mcg/min Ceftriaxone Sodium (Rocephin 1gm Ivpb (Pre-Docked)) 50 mls @ 100 mls/hr IVPB DAILY ON LICENSE OF [facility] Last Admin: 01/26/17 10:33 Dose: 100 mls/hr Insulin Aspart (Novolog Vial Sliding Scale -) 1 vial SQ Q6HPO ON LICENSE OF [facility] PRN Reason: Protocol Last Admin: 01/26/17 11:11 Dose: Not Given Sevelamer Carbonate (Renvela -) 800 mg PO TIDCM ON LICENSE OF [facility] Last Admin: 01/26/17 11:03 Dose: Not Given Constitutional: Yes: Intubated and sedated Eyes: Yes: (-) Icterus Cardiovascular: Yes: S1, S2 Respiratory: Yes: Mechanically Ventilated, clear Gastrointestinal: Yes: Soft, Abdomen, Obese Renal/: Yes: No taylor Musculoskeletal: Yes: WNL Edema: LLE: Trace, RLE: Trace Neurological: Yes: Sedated Labs: Laboratory Results - last 24 hr 01/25/17 01/25/17 01/25/17 15:18 17:00 18:16 WBC RBC Hgb Hct MCV MCHC RDW Plt Count MPV INR PTT (Actin FS) Puncture Site ABG pH ABG pCO2 at Pt Temp ABG pO2 at Pt Temp ABG HCO3 ABG O2 Sat (Measured) ABG O2 Content ABG Base Excess Eliseo Test O2 Delivery Device Oxygen Flow Rate Vent Mode Vent Rate Mechanical Rate PEEP Pressure Support Vent Sodium 141 Potassium 3.5 D Chloride 99 Carbon Dioxide 27 Anion Gap 15 BUN 33 H D Creatinine 8.0 H* D Creat Clearance w eGFR POC Glucometer 70.92523 89.99934 Random Glucose 105 Hemoglobin A1c % Lactic Acid Calcium 8.6 Phosphorus 2.6 D Magnesium 1.9 Total Bilirubin AST ALT Alkaline Phosphatase Creatine Kinase Creatine Kinase Index CK-MB (CK-2) CK-MB (CK-2) Rel Index Troponin I Total Protein Albumin Triglycerides Cholesterol Total LDL Cholesterol HDL Cholesterol 01/25/17 01/26/17 01/26/17 22:53 03:40 03:45 WBC RBC Hgb Hct MCV MCHC RDW Plt Count MPV INR PTT (Actin FS) Puncture Site ABG pH ABG pCO2 at Pt Temp ABG pO2 at Pt Temp ABG HCO3 ABG O2 Sat (Measured) ABG O2 Content ABG Base Excess Eliseo Test O2 Delivery Device Oxygen Flow Rate Vent Mode Vent Rate Mechanical Rate PEEP Pressure Support Vent Sodium 141 Potassium 3.7 Chloride 101 Carbon Dioxide 27 Anion Gap 13 BUN 42 H D Creatinine 10.4 H* D Creat Clearance w eGFR 5.15 POC Glucometer 94.59060 Random Glucose 115 H Hemoglobin A1c % Lactic Acid 1.709 Calcium 8.7 Phosphorus 3.5 D Magnesium 1.9 Total Bilirubin 0.5 D AST 61 H D ALT 24 D Alkaline Phosphatase 57 Creatine Kinase Creatine Kinase Index CK-MB (CK-2) CK-MB (CK-2) Rel Index Troponin I Total Protein 6.8 Albumin 3.3 L Triglycerides 169 H Cholesterol 117 Total LDL Cholesterol 61 HDL Cholesterol 43 01/26/17 01/26/17 01/26/17 03:45 03:45 03:45 WBC 9.3 RBC 3.46 L Hgb 11.3 L Hct 33.3 L MCV 96.2 H MCHC 34.1 RDW 14.5 Plt Count 204 MPV 7.8 INR 1.22 H PTT (Actin FS) 37.2 H Puncture Site ABG pH ABG pCO2 at Pt Temp ABG pO2 at Pt Temp ABG HCO3 ABG O2 Sat (Measured) ABG O2 Content ABG Base Excess Eliseo Test O2 Delivery Device Oxygen Flow Rate Vent Mode Vent Rate Mechanical Rate PEEP Pressure Support Vent Sodium Potassium Chloride Carbon Dioxide Anion Gap BUN Creatinine Creat Clearance w eGFR POC Glucometer Random Glucose Hemoglobin A1c % 5.0 Lactic Acid Calcium Phosphorus Magnesium Total Bilirubin AST ALT Alkaline Phosphatase Creatine Kinase Creatine Kinase Index CK-MB (CK-2) CK-MB (CK-2) Rel Index Troponin I Total Protein Albumin Triglycerides Cholesterol Total LDL Cholesterol HDL Cholesterol 01/26/17 01/26/17 01/26/17 03:45 03:45 04:00 WBC RBC Hgb Hct MCV MCHC RDW Plt Count MPV INR PTT (Actin FS) Puncture Site Left radial ABG pH 7.54 H D ABG pCO2 at Pt Temp 28.5 L D ABG pO2 at Pt Temp 140.0 H D ABG HCO3 24.1 ABG O2 Sat (Measured) 99.2 H ABG O2 Content 16.2 ABG Base Excess 2.5 H Eliseo Test Positive O2 Delivery Device Mech vent Oxygen Flow Rate 35% Vent Mode A/c Vent Rate 17 Mechanical Rate Yes PEEP 10.0 Pressure Support Vent 550 Sodium Potassium Chloride Carbon Dioxide Anion Gap BUN Creatinine Creat Clearance w eGFR POC Glucometer Random Glucose Hemoglobin A1c % Lactic Acid Calcium Phosphorus Magnesium Total Bilirubin AST ALT Alkaline Phosphatase Creatine Kinase 2323 H D Creatine Kinase Index 0.6 CK-MB (CK-2) 13.075 H CK-MB (CK-2) Rel Index Cancelled Troponin I 0.06 H D Total Protein Albumin Triglycerides Cholesterol Total LDL Cholesterol HDL Cholesterol 01/26/17 01/26/17 11:00 11:08 WBC RBC Hgb Hct MCV MCHC RDW Plt Count MPV INR PTT (Actin FS) Puncture Site Right radial ABG pH 7.48 H ABG pCO2 at Pt Temp 32.9 L ABG pO2 at Pt Temp 82.0 D ABG HCO3 24.1 ABG O2 Sat (Measured) 96.0 ABG O2 Content 14.6 L ABG Base Excess 1.4 Eliseo Test Positive O2 Delivery Device Mec.vent Oxygen Flow Rate 21% Vent Mode A/c Vent Rate 12 Mechanical Rate Esprit PEEP 10.0 Pressure Support Vent 550 Sodium Potassium Chloride Carbon Dioxide Anion Gap BUN Creatinine Creat Clearance w eGFR POC Glucometer 133.24976 Random Glucose Hemoglobin A1c % Lactic Acid Calcium Phosphorus Magnesium Total Bilirubin AST ALT Alkaline Phosphatase Creatine Kinase Creatine Kinase Index CK-MB (CK-2) CK-MB (CK-2) Rel Index Troponin I Total Protein Albumin Triglycerides Cholesterol Total LDL Cholesterol HDL Cholesterol Problem List - Problems (1) Hypotension Code(s): I95.9 - HYPOTENSION, UNSPECIFIED (2) Anemia Code(s): D64.9 - ANEMIA, UNSPECIFIED (3) CVA (cerebral vascular accident) Code(s): I63.9 - CEREBRAL INFARCTION, UNSPECIFIED (4) End stage renal disease on dialysis Code(s): N18.6 - END STAGE RENAL DISEASE Z99.2 - DEPENDENCE ON RENAL DIALYSIS IMP: HTN HPL Previous CVA -> now with suspected new CARPENTER REPAIR insult Acute Respiratory Failure R/O Septic Shock Assessment/Plan Minimize sedation to assess mental status and neuro status HD per renal Vent settings were adjusted VTE prophylaxis Enteral feeds Cautious hydration ABX per ID ECHO Wean trials once mental status improves Neuro evaluation Dr Lehman CCTime 35"
--- NOTE | 2017-01-26 13:32 | EKG ---
Test Reason : Blood Pressure : / mmHG Vent. Rate : 066 BPM Atrial Rate : 066 BPM P-R Int : 168 ms QRS Dur : 096 ms QT Int : 430 ms P-R-T Axes : 035 000 035 degrees QTc Int : 450 ms NORMAL SINUS RHYTHM NONSPECIFIC T WAVE ABNORMALITY ABNORMAL ECG WHEN COMPARED WITH ECG OF 11-SEP-2016 13:39, NO SIGNIFICANT CHANGE WAS FOUND Confirmed by SHABBIR BROWN MD ([id number]) on 01/26/2017 1:31:42 PM Referred By: Confirmed By:SHABBIR BROWN MD
[2017-01-26 14:45] LABS: MCH 32.6 pg (25.7-33.7); MCHC 33.7 g/dl (32.0-35.9); MEAN CELL VOLUME 96.8 fl (80-96); MEAN PLT VOLUME 7.7 fl (7.5-11.1); PLATELET COUNT 162 K/MM3 (134-434); RDW 14.8 % (11.9-15.9); WHITE BLOOD COUNT 7.9 K/mm3 (4.0-10.0)
[2017-01-26 15:18] LABS: INR 1.22 (0.82-1.09); PROTHROMBIN TIME (PATIENT) 13.5 SEC (9.98-11.88)
--- NOTE | 2017-01-26 15:19 | PN ---
Progress Note, Physician History of Present Illness: Pt seen and examined at bedside. He was given fentanyl and versed last night. He is currently sedated. - Current Medication List Current Medications: Active Medications Aspirin (Asa -) 81 mg NGT DAILY [facility] Last Admin: 01/26/17 10:38 Dose: 81 mg Atorvastatin Calcium (Lipitor -) 80 mg PO DAILY@0600 [facility] Last Admin: 01/26/17 06:18 Dose: 80 mg Escitalopram Oxalate (Lexapro -) 20 mg PO DAILY [facility] Last Admin: 01/26/17 09:44 Dose: Not Given Heparin Sodium (Porcine) (Heparin -) 5,000 unit SQ TID [facility] Last Admin: 01/26/17 06:18 Dose: 5,000 unit Propofol (Diprivan -) 100 mls @ 3.334 mls/hr IVPB TITR JASON; 5 MCG/KG/MIN PRN Reason: Protocol Last Admin: 01/26/17 04:20 Dose: Not Given Norepinephrine Bitartrate 16, (000 mcg/ Dextrose) 500 mls @ 9.37 mls/hr IV TITR JASON; 5 MCG/MIN PRN Reason: Protocol Last Titration: 01/26/17 04:19 Dose: 4 mcg/min Ceftriaxone Sodium (Rocephin 1gm Ivpb (Pre-Docked)) 50 mls @ 100 mls/hr IVPB DAILY [facility] Last Admin: 01/26/17 10:33 Dose: 100 mls/hr Pantoprazole Sodium (Protonix 40mg Ivpb (Pre-Docked)) 100 mls @ 200 mls/hr IVPB DAILY [facility] Insulin Aspart (Novolog Vial Sliding Scale -) 1 vial SQ Q6HPO [facility] PRN Reason: Protocol Last Admin: 01/26/17 11:11 Dose: Not Given Sevelamer Carbonate (Renvela -) 800 mg PO TIDCM [facility] Last Admin: 01/26/17 11:03 Dose: Not Given - Objective Vital Signs: Vital Signs Temperature 99.3 F 01/26/17 12:00 Pulse Rate 82 01/26/17 14:00 Respiratory Rate 12 01/26/17 14:00 Blood Pressure 120/89 01/26/17 14:00 O2 Sat by Pulse Oximetry (%) 94 L 01/26/17 11:30 Constitutional: Yes: Calm Eyes: Yes: Conjunctiva Clear Cardiovascular: Yes: S1, S2 Respiratory: Yes: Mechanically Ventilated Gastrointestinal: Yes: Abdomen, Obese Genitourinary: Yes: Incontinence Musculoskeletal: Yes: Muscle Weakness Edema: No Neurological: Yes: Other (sedated) Labs: CBC, BMP 01/26/17 14:30 01/26/17 03:45 INR, PTT INR 1.22 (0.82-1.09) H 01/26/17 03:45 - ....Imaging Chest X-ray: Report Reviewed Problem List - Problems (1) Hypotension Code(s): I95.9 - HYPOTENSION, UNSPECIFIED (2) Anemia Code(s): D64.9 - ANEMIA, UNSPECIFIED (3) CVA (cerebral vascular accident) Code(s): I63.9 - CEREBRAL INFARCTION, UNSPECIFIED (4) End stage renal disease on dialysis Code(s): N18.6 - END STAGE RENAL DISEASE Z99.2 - DEPENDENCE ON RENAL DIALYSIS Assessment/Plan Current Medications Generic Name Dose Route Start Last Admin Trade Name Freq PRN Reason Stop Dose Admin Aspirin 81 mg 01/26/17 10:00 01/26/17 10:38 Asa - NGT 81 mg DAILY JASON Administration Atorvastatin Calcium 80 mg 01/26/17 06:00 01/26/17 06:18 Lipitor - PO 80 mg DAILY@0600 JASON Administration Escitalopram Oxalate 20 mg 01/25/17 10:00 01/26/17 09:44 Lexapro - PO Not Given DAILY JASON Heparin Sodium (Porcine) 5,000 unit 01/25/17 15:15 01/26/17 06:18 Heparin - SQ 5,000 unit TID JASON Administration Propofol 100 mls @ 3.334 mls/hr 01/25/17 02:00 01/26/17 04:20 Diprivan - IVPB Not Given TITR JASON Protocol 5 MCG/KG/MIN Norepinephrine Bitartrate 16, 500 mls @ 9.37 mls/hr 01/26/17 03:30 01/26/17 04: 19 000 mcg/ Dextrose IV 4 mcg/min TITR JASON Titration Protocol 5 MCG/MIN Ceftriaxone Sodium 50 mls @ 100 mls/hr 01/26/17 03:45 01/26/17 10:33 Rocephin 1gm Ivpb (Pre-Docked) IVPB 100 mls/hr DAILY JASON Administration Pantoprazole Sodium 100 mls @ 200 mls/hr 01/27/17 10:00 Protonix 40mg Ivpb (Pre-Docked) IVPB DAILY [facility] Insulin Aspart 1 vial 01/25/17 15:15 01/26/17 11:11 Novolog Vial Sliding Scale - SQ Not Given Q6HPO [facility] Protocol Sevelamer Carbonate 800 mg 01/25/17 17:30 01/26/17 11:03 Renvela - PO Not Given TIDCM [facility] Impression 1. ESRD 2. hx of HTN 3. DM 4. hx CVA 5. hyperlipidemia 6. altered mental status 7. hypotension 8. acute respiratory failure Plan - stop sedation to assess mental status - HD in am - anicetoero input appreciated - discussed with ICU team - titrate down levophed as tolerated - will follow Dr Prasad
[2017-01-26 15:21] LABS: ACTIVATED PTT 35.5 SECONDS (26.9-34.4)
--- NOTE | 2017-01-26 15:22 | PN ---
Teaching Attending Note Name of Resident: Bruce Lorenzo ATTENDING PHYSICIAN STATEMENT I saw and evaluated the patient. I reviewed the resident's note and discussed the case with the resident. I agree with the resident's findings and plan as documented. Vital Signs Temperature 99.3 F 01/26/17 12:00 Pulse Rate 82 01/26/17 14:00 Respiratory Rate 12 01/26/17 14:00 Blood Pressure 120/89 01/26/17 14:00 O2 Sat by Pulse Oximetry (%) 94 L 01/26/17 11:30 CBCD WBC 7.9 K/mm3 (4.0-10.0) 01/26/17 14:30 RBC 3.31 M/mm3 (4.00-5.60) L 01/26/17 14:30 Hgb 10.8 GM/dL (11.7-16.9) L 01/26/17 14:30 Hct 32.1 % (35.4-49) L 01/26/17 14:30 MCV 96.8 fl (80-96) H 01/26/17 14:30 MCHC 33.7 g/dl (32.0-35.9) 01/26/17 14:30 RDW 14.8 % (11.9-15.9) 01/26/17 14:30 Plt Count 162 K/MM3 (134-434) D 01/26/17 14:30 MPV 7.7 fl (7.5-11.1) 01/26/17 14:30 CMP Sodium 141 mmol/L (136-145) 01/26/17 03:45 Potassium 3.7 mmol/L (3.5-5.1) 01/26/17 03:45 Chloride 101 mmol/L (98-107) 01/26/17 03:45 Carbon Dioxide 27 mmol/L (21-32) 01/26/17 03:45 Anion Gap 13 (8-16) 01/26/17 03:45 BUN 42 mg/dL (7-18) H D 01/26/17 03:45 Creatinine 10.4 mg/dL (0.7-1.3) H* D 01/26/17 03:45 Creat Clearance w eGFR 5.15 (>60) 01/26/17 03:45 Random Glucose 115 mg/dL (74-106) H 01/26/17 03:45 Calcium 8.7 mg/dL (8.5-10.1) 01/26/17 03:45 Total Bilirubin 0.5 mg/dL (0.2-1.0) D 01/26/17 03:45 AST 61 U/L (15-37) H D 01/26/17 03:45 ALT 24 U/L (12-78) D 01/26/17 03:45 Alkaline Phosphatase 57 U/L (45-117) 01/26/17 03:45 Total Protein 6.8 g/dl (6.4-8.2) 01/26/17 03:45 Albumin 3.3 g/dl (3.4-5.0) L 01/26/17 03:45 CARDIAC ENZYMES Creatine Kinase 2323 IU/L (39-308) H D 01/26/17 03:45 Troponin I 0.06 ng/ml (0.00-0.05) H D 01/26/17 03:45 Current Medications Generic Name Dose Route Start Last Admin Trade Name Seble PRN Reason Stop Dose Admin Aspirin 81 mg 01/26/17 10:00 01/26/17 10:38 Asa - NGT 81 mg DAILY JASON Administration Atorvastatin Calcium 80 mg 01/26/17 06:00 01/26/17 06:18 Lipitor - PO 80 mg DAILY@0600 JASON Administration Escitalopram Oxalate 20 mg 01/25/17 10:00 01/26/17 09:44 Lexapro - PO Not Given DAILY JASON Heparin Sodium (Porcine) 5,000 unit 01/25/17 15:15 01/26/17 06:18 Heparin - SQ 5,000 unit TID JASON Administration Propofol 100 mls @ 3.334 mls/hr 01/25/17 02:00 01/26/17 04:20 Diprivan - IVPB Not Given TITR JASON Protocol 5 MCG/KG/MIN Norepinephrine Bitartrate 16, 500 mls @ 9.37 mls/hr 01/26/17 03:30 01/26/17 04: 19 000 mcg/ Dextrose IV 4 mcg/min TITR JASON Titration Protocol 5 MCG/MIN Ceftriaxone Sodium 50 mls @ 100 mls/hr 01/26/17 03:45 01/26/17 10:33 Rocephin 1gm Ivpb (Pre-Docked) IVPB 100 mls/hr DAILY JASON Administration Pantoprazole Sodium 100 mls @ 200 mls/hr 01/27/17 10:00 Protonix 40mg Ivpb (Pre-Docked) IVPB DAILY [facility] Insulin Aspart 1 vial 01/25/17 15:15 01/26/17 11:11 Novolog Vial Sliding Scale - SQ Not Given Q6HPO [facility] Protocol Sevelamer Carbonate 800 mg 01/25/17 17:30 01/26/17 11:03 Renvela - PO Not Given TIDCM [facility] Home Medications Medication Instructions Recorded Aggrenox - 1 tablet 01/24/17 Aspirin/Dipyridamole [Aggrenox -] 1 combo PO BID 01/24/17 Escitalopram Oxalate [Lexapro -] 20 mg PO BID 01/24/17 Folic Acid - 30 mg PO DAILY 01/24/17 Gabapentin [Neurontin -] 100 mg PO BID 01/24/17 Insulin Glargine,Hum.rec.anlog 0 units SQ HS 01/24/17 [Lantus Solostar PEN (NF)] Insulin NPH Hum/Reg Insulin Hm 100 unit SQ DAILY 01/24/17 [Novolin 70-30 100 Unit/ml Vial] Sevelamer Carbonate [Renvela] 800 mg PO TID 01/24/17 Simvastatin [Zocor -] 40 mg PO HS 01/24/17 Sitagliptin Phosphate [Januvia] 50 mg PO DAILY 01/24/17 ASSESSMENT AND PLAN: Patient is a 56 yo man with h/o CVAs, ESRD , IDDM , presented with AMS and dysarthria after HD . He was intubated shortly after admission due to worsening mental status #AMS, dysarthria: r/o acute CVA with hx of CVA Resume aggrenox ; MRI of the brain to r/o new stroke once extubated. Neuro is on case. # Acute hypercapnic respiratory failure s/p intubation , patient is in ICU # Septic shock on pressor, on levophed gtt and IV antibiotic for Sepsis with hypotension ;ID consult appreciated continue vanco by level and rocephin ; CT chest when patient is stable per ID to r/o PNA wean off levophed as tolerated ; Echo result reviewed ( last one in 2012 with NL EF and some valvular problems ) # ESRD: on HD(TTS), getting HD now in ICU , nephrology appreciated cont jessaa # DM : SS with coverage SSI q6 hr DVT px : heparin sq/ SCDs
[2017-01-26 15:36] LABS: TROPONIN I 0.23 ng/ml (0.00-0.05)
--- NOTE | 2017-01-26 17:07 | CON.CARD ---
Consult Consult Specialty:: Cardiology Referred by:: Hospitalists Reason for Consultation:: Elevated troponin - History of Present Illness Chief Complaint: Admitted with altered mental status, intubated History of Present Illness: 56 year old man with a history of HTN, HLD, DM II, multiple prior CVAs, ESRD on HD admitted with AMS and intubated for airway protection. Overnight last night pt developed hypotension, cardiac enzymes were done and troponin was noted to be slightly elevated. repeat troponin later this am increased slightly. Pt. seen and examined today with at bedside. Pt intubated, unresponsive. No reported history of chest pain. Pts states that he had a "small [place]" years ago and saw a inside sales specialist and some tests were done but that he never had a cardiac cath. 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 Cardio/Vascular: Yes: HTN, Hyperlipdemia Renal/: Yes: Renal Failure, Hemodialysis Endocrine: Yes: Diabetes Mellitus - Past Surgical History Past Surgical History: Yes: AV Fistula/Graft - Alcohol/Substance Use Hx Alcohol Use: No - Smoking History Smoking history: Never smoked Have you smoked in the past 12 months: No Aproximately how many cigarettes per day: 0 - Social History Usual Living Arrangement: With Spouse ADL: Family Assistance History of Recent Travel: No Home Medications - Allergies Allergies/Adverse Reactions: Allergies Allergy/AdvReac Type Severity Reaction Status Date / Time No Known Allergies Allergy Verified 09/11/16 11:59 - Home Medications Home Medications: Ambulatory Orders Aggrenox - 1 tablet 01/24/17 Aspirin/Dipyridamole [Aggrenox -] 1 combo PO BID 01/24/17 Escitalopram Oxalate [Lexapro -] 20 mg PO BID 01/24/17 Folic Acid - 30 mg PO DAILY 01/24/17 Gabapentin [Neurontin -] 100 mg PO BID 01/24/17 Insulin Glargine,Hum.rec.anlog [Lantus Solostar PEN (NF)] 0 units SQ HS Insulin NPH Hum/Reg Insulin Hm [Novolin 70-30 100 Unit/ml Vial] 100 unit SQ DAILY 01/24/17 Sevelamer Carbonate [Renvela] 800 mg PO TID 01/24/17 Simvastatin [Zocor -] 40 mg PO HS 01/24/17 Sitagliptin Phosphate [Januvia] 50 mg PO DAILY 01/24/17 Family Disease History - Family Disease History Family Disease History: Heart Disease: Father, Mother, CA: Mother Review of Systems - Review of Systems Constitutional: reports: Lethargy, Malaise, Weakness. denies: No Symptoms, Chills, Diaphoresis, Fever, Loss of Appetite, Night Sweats, Unintentional Wgt. Loss, Other Eyes: denies: No Symptoms, Blind Spots, Blurred Vision, Double Vision, Eye Pain , Floaters, Photophobia, Recent Change in Vision, Other HENT: denies: No Symptoms, Difficult Swallowing, Ear Discharge, Ear Pain, Epistaxis, Gingival Bleeding, Hearing Loss, Mouth Swelling, Nasal Congestion, Ocular Prosthesis, Throat Pain, Toothache, Ringing in Ears, Other Neck: denies: No Symptoms, Decreased ROM, Lumps, Pain on Movement, Stiffness, Swollen Glands, Tenderness, Other Cardiovascular: denies: No Symptoms, Chest Pain, Edema, Palpitations, Shortness of Breath, Other Respiratory: denies: No Symptoms, Cough, Exercise Intolerance, Hemoptysis, Orthopnea, PND, Snoring, SOB, SOB on Exertion, Wheezing, Other Gastrointestinal: denies: No Symptoms, Abdominal Pain, Bloating, Constipation, Diarrhea, Dysphagia, Indigestion, Melena, Nausea, Rectal Bleeding, Vomiting, Vomiting Blood, Other Genitourinary: denies: No Symptoms, Burning, Discharge, Dysuria, Flank Pain, Frequency, Hematuria, Incontinence, Lesions, Menses, Pain, Testicular Mass, Testicular Pain, Testicular Swelling, Urgency, Vaginal Bleeding, Other Breasts: denies: No Symptoms Reported, See HPI, Breast Implants, Discharge from Nipple, Lumps, Pain, Skin Changes, Other Musculoskeletal: denies: No Symptoms, Back Pain, Crepitus, Decreased ROM, Extremity Pain, Joint Pain, Joint Swelling, Muscle Pain, Muscle Cramps, Muscle Weakness, Other Integumentary: denies: No Symptoms, Blister, Bruising, Change in Color, Eczema, Erythema, Incision, Lesions, Lump, Pallor, Pruritis, Rash, Wound, Other Neurological: reports: Change in LOC, Change in Speech, Confusion, Pre-Existing Deficit, Weakness. denies: No Symptoms, Dizziness, Headache, Incoordination, Numbness, Parasthesia, Seizure, Syncope, Tremors, Unsteady Gait, Other Endocrine: denies: No Symptoms, Excessive Sweating, Flushing, Increased Hunger, Increased Thirst, Intolerance to Cold, Intolerance to Heat, Unexplained Weight Gain, Unexplained Weight Loss, Other Hematology/Lymphatic: denies: No Symptoms, Easily Bruised, Excessive Bleeding, Swollen Glands, Other Psychiatric: denies: No Symptoms, Altered Sleep Pattern, Anxiety, Depression, Hallucinations, Panic, Paranoia, Suicidal, Other - Risk Factors Known Risk Factors: Yes: Diabetes Mellitus, Hypercholesterolemia, Hypertension, Prior [place] /Emb Stroke Vital Signs: Vital Signs Temperature 99.3 F 01/26/17 12:00 Pulse Rate 82 01/26/17 14:00 Respiratory Rate 12 01/26/17 16:46 Blood Pressure 120/89 01/26/17 14:00 O2 Sat by Pulse Oximetry (%) 94 L 01/26/17 11:30 Constitutional: Yes: No Distress, Calm, Obese HENT: Yes: Atraumatic, Normocephalic Neck: Yes: Supple Respiratory: Yes: Regular, CTA Bilaterally, Intubated, Mechanically Ventilated. No: Rales, Rhonchi, Wheezes Gastrointestinal: Yes: Normal Bowel Sounds, Soft. No: Distention, Tenderness Cardiovascular: Yes: Regular Rate and Rhythm. No: Bradycardia, Tachycardia, Pulse Irregular, Gallop, Rub, Varicosities JVD: No Carotid Bruit: No PMI: Non-Displaced Heart Sounds: Yes: S1, S2. No: Split S2, S3, S4, Clicks, Gallop, Rub, Bruit Murmur: No: Systolic Murmur, Diastolic Murmur Musculoskeletal: Yes: Other (unable to assess) Extremities: Yes: WNL Edema: No Peripheral Pulses WNL: Yes Peripheral Pulses: 2+ Left Doralis Pedis, 2+ Right Dorsalis Pedis Integumentary: Yes: WNL Neurological: Yes: Unresponsive. No: Alert, Oriented Psychiatric: No: Alert, Oriented - Other Data Labs, Other Data: CBC, BMP 01/26/17 14:30 01/26/17 03:45 INR, PTT INR 1.22 (0.82-1.09) H 01/26/17 14:30 Troponin, BNP 01/26/17 01/26/17 01/26/17 03:45 14:30 14:30 Troponin I 0.06 H D 0.23 H D Cancelled Troponin, BNP 01/26/17 01/26/17 01/26/17 03:45 14:30 14:30 Troponin I 0.06 H D 0.23 H D Cancelled ekg- 01/26/17 nsr 83bpm, nonspecific ST abnl, no sig change from prior ekgs Echo: Report Reviewed Imaging - Results Chest X-ray: Report Reviewed, Image Reviewed EKG: Report Reviewed, Image Reviewed Other: Report Reviewed, Image Reviewed (tele-nsr, sinus tach, occ PVCs, no sig arrhythmia) Assessment/Plan 56 year old man with a history of HTN, HLD, DM II, multiple prior CVAs, ESRD on HD admitted with AMS and intubated for airway protection. Overnight last night pt developed hypotension, cardiac enzymes were done and troponin was noted to be slightly elevated. repeat troponin later this am increased slightly. No reported history of chest pain. Pts states that he had a "small [place]" years ago and saw a inside sales specialist and some tests were done but that he never had a cardiac cath. Elevated troponin-minimally elevated and not significantly trending up -ck level has been elevated since admission with normal troponin levels for the first 2 days of admission -evaluate for alternative sources of elevated CK as trend profile does not fit type 1 [place] -elevated troponin likely secondary to demand ischemia secondary to hypotensive episode in setting of ESRD, less likely type I [place] -echo reviewed, technically difficult study, unable to assess LV function -hypotensive episode last night unlikely secondary to an [place] (given only minimal elevation in troponin), BP has normalized today -ekg showed no sign of ischemia -cont to trend cardiac enzymes -hold off on heparin for now unless troponin trends up significantly, intracerebral pathology still uncertain, no bleed seen on initial CT ehad -cont ASA either alone or in combo with Aggrenox whichever preferred as per neurology -cont statin -once extubated plan to repeat echo to re-evaluate LV function -would likely benefit from an ischemic evaluation prior to discharge, will determine timing once extubated -f/up blood cultures done today to evaluate for possible sepsis
[2017-01-26 21:56] LABS: TROPONIN I 0.25 ng/ml (0.00-0.05)
[2017-01-26] MEDS ORDERED: amLODIPine BESYLATE 5 MG TABLET (FP) PO ONE (23:47)
[2017-01-27] MEDS ORDERED: amLODIPine BESYLATE 5 MG TABLET (FP) NGT ONE (00:15)
[2017-01-27] MEDS: INSULIN SLIDING SCALE (NOVOLOG) 1 VIAL SQ SCH ×3 (00:43→12:49)
[2017-01-27] MEDS ORDERED: METOPROLOL TARTRATE 5 MG/5 ML VIAL IVPUSH ONE (02:06)
[2017-01-27] MEDS ORDERED: ACETAMINOPHEN 325 MG TABLET (FP) PO PRN (02:08)
[2017-01-27] MEDS: PROPOFOL 100 ML IVPB SCH (02:15)
[2017-01-27] MEDS ORDERED: SODIUM CHLORIDE 500 ML IV SCH (02:30)
[2017-01-27] MEDS: NOREPINEPHRINE BITARTRATE 16,000 MCG in DEXTROSE 5%-WATER - 484 ML IV SCH (03:30)
[2017-01-27] MEDS ORDERED: SODIUM CHLORIDE 1,000 ML IV SCH (05:11)
[2017-01-27 06:02] LABS: MCH 32.5 pg (25.7-33.7); MCHC 33.6 g/dl (32.0-35.9); MEAN CELL VOLUME 96.6 fl (80-96); PLATELET COUNT 202 K/MM3 (134-434); RDW 14.7 % (11.9-15.9); WHITE BLOOD COUNT 9.8 K/mm3 (4.0-10.0)
[2017-01-27 06:06] LABS: HEP B SURFACE AB Reactive (.)
[2017-01-27 06:17] LABS: INR 1.23 (0.82-1.09); PROTHROMBIN TIME (PATIENT) 13.6 SEC (9.98-11.88)
[2017-01-27 06:20] LABS: ACTIVATED PTT 34.3 SECONDS (26.9-34.4)
[2017-01-27 06:29] LABS: ALBUMIN 3.2 g/dl (3.4-5.0); CALCIUM 8.7 mg/dL (8.5-10.1); MAGNESIUM 2.1 mg/dL (1.8-2.4)
[2017-01-27] MEDS: HEPARIN NA (PORCINE) 5,000 UNITS/ML 1ML VIAL SQ SCH ×3 (06:33→22:26)
[2017-01-27 06:38] LABS: BILIRUBIN,TOTAL 0.5 mg/dL (0.2-1.0); PHOSPHOROUS 6.7 mg/dL (2.5-4.9); TOT PROT 6.8 g/dl (6.4-8.2)
[2017-01-27] MEDS: ATORVASTATIN CA 80 MG TABLET (FP) PO SCH (06:39)
[2017-01-27 06:48] LABS: TROPONIN I 0.2 ng/ml (0.00-0.05)
[2017-01-27 06:50] LABS: CREATININE 13.4 mg/dL (0.7-1.3)
[2017-01-27 07:30] LABS: ALLENS TEST POSITIVE; ART PUNCT SITE RIGHT RADIAL; ARTERIAL BLD GAS O2 SATURATION 95.7 % (90-98.9); ARTERIAL BLOOD GAS BASE EXCESS 1.1 meq/l (-2-2); ARTERIAL BLOOD GAS HCO3 24.5 meq/L (22-26); ARTERIAL BLOOD GAS PO2 80.6 mmHg (80-100); ARTERIAL BLOOD GAS pH 7.45 (7.35-7.45); LPM/O2% 21%; MECH. VENT. Y; PT. ON O2? NO; TYPE OF O2 VENT
[2017-01-27 07:31] LABS: VENT RATE 12; VT/PRESS 550
[2017-01-27 08:07] LABS: HEP B SURFACE AB Reactive (.)
--- NOTE | 2017-01-27 08:15 | PN ---
Progress Note, Physician Chief Complaint: ID ICU follow up for this 56 year old male with multiple comorbities including ESRD obesity hypertension prior IN CVA admitted with respiratory failure. Noted to be febrile Cultures obtained and empiric therapy Vancomycin and Ceftriaxone given day 2 Intubated mechanical ventilation. - Current Medication List Current Medications: Active Medications Acetaminophen (Tylenol -) 650 mg PO Q6H PRN PRN Reason: FEVER OR PAIN Last Admin: 01/27/17 03:13 Dose: 650 mg Albumin Human (Albumin Human 25% -) 12.5 gm IVPB Q30M [facility] Aspirin (Asa -) 81 mg NGT DAILY [facility] Last Admin: 01/26/17 10:38 Dose: 81 mg Atorvastatin Calcium (Lipitor -) 80 mg PO DAILY@0600 [facility] Last Admin: 01/27/17 06:39 Dose: 80 mg Escitalopram Oxalate (Lexapro -) 20 mg PO DAILY [facility] Last Admin: 01/26/17 09:44 Dose: Not Given Heparin Sodium (Porcine) (Heparin -) 5,000 unit SQ TID [facility] Last Admin: 01/27/17 06:33 Dose: 5,000 unit Propofol (Diprivan -) 100 mls @ 3.334 mls/hr IVPB TITR [facility]ASON; 5 MCG/KG/MIN PRN Reason: Protocol Last Admin: 01/27/17 02:15 Dose: Not Given Norepinephrine Bitartrate 16, (000 mcg/ Dextrose) 500 mls @ 9.37 mls/hr IV TITR JASON; 5 MCG/MIN PRN Reason: Protocol Last Admin: 01/27/17 03:30 Dose: Not Given Ceftriaxone Sodium (Rocephin 1gm Ivpb (Pre-Docked)) 50 mls @ 100 mls/hr IVPB DAILY [facility] Last Admin: 01/26/17 10:33 Dose: 100 mls/hr Pantoprazole Sodium (Protonix 40mg Ivpb (Pre-Docked)) 100 mls @ 200 mls/hr IVPB DAILY [facility] Sodium Chloride (Normal Saline -) 1,000 mls @ 75 mls/hr IV ASDIR [facility] Last Admin: 01/27/17 06:35 Dose: 75 mls/hr Insulin Aspart (Novolog Vial Sliding Scale -) 1 vial SQ Q6HPO [facility] PRN Reason: Protocol Last Admin: 01/27/17 06:35 Dose: Not Given Sevelamer Carbonate (Renvela -) 800 mg PO TIDCM [facility]ON Last Admin: 01/26/17 17:32 Dose: Not Given - Objective Vital Signs: Vital Signs Temperature 99.5 F 01/27/17 06:00 Pulse Rate 86 01/27/17 06:00 Respiratory Rate 12 01/27/17 06:00 Blood Pressure 144/90 01/27/17 06:00 O2 Sat by Pulse Oximetry (%) 98 01/26/17 22:00 Constitutional: Yes: Obese, Other (Intubated) Neck: Yes: Other (ET tube) Cardiovascular: Yes: Regular Rate and Rhythm, S1, S2. No: Murmur, Rub Respiratory: Yes: WNL, Regular, CTA Bilaterally. No: Rales, Rhonchi, Wheezes Gastrointestinal: Yes: WNL, Normal Bowel Sounds, Soft. No: Tenderness, Tenderness, Rebound Edema: No Labs: CBC, BMP 01/27/17 05:30 01/27/17 05:30 INR, PTT INR 1.23 (0.82-1.09) H 01/27/17 05:30 Problem List - Problems (1) Dialysis patient Code(s): Z99.2 - DEPENDENCE ON RENAL DIALYSIS (2) Sepsis Code(s): A41.9 - SEPSIS, UNSPECIFIED ORGANISM Assessment/Plan Microbiology 01/25/17 06:00 Sputum - Endotrachea Suction/Ventilator Gram Stain - Final 01/25/17 06:00 Nasopharyngeal Swab Influenza Types A,B Antigen (TRAY) - Final 01/25/17 06:00 Nasopharyngeal Swab - Final 01/26/17 03:45 Blood - Peripheral Venous Blood Culture - Preliminary NO GROWTH OBTAINED AFTER 24 HOURS, INCUBATION TO CONTINUE FOR 4 DAYS. 01/26/17 03:45 Blood - Peripheral Venous Blood Culture - Preliminary NO GROWTH OBTAINED AFTER 24 HOURS, INCUBATION TO CONTINUE FOR 4 DAYS. 01/25/17 06:00 Sputum - Endotrachea Suction/Ventilator Sputum Culture - Preliminary Pending Organism 01/25/17 06:00 Nasopharyngeal Swab Respiratory Virus Panel - Preliminary Laboratory Tests 01/27/17 01/27/17 01/27/17 05:30 05:30 05:30 WBC 9.8 Hgb 10.9 L Hct 32.3 L Plt Count 202 D INR 1.23 H ABG pH ABG pCO2 at Pt Temp ABG pO2 at Pt Temp Oxygen Flow Rate BUN 54 H D Creatinine 13.4 H* D Troponin I Random Vancomycin 16.321 01/27/17 01/27/17 05:30 07:25 WBC Hgb Hct Plt Count INR ABG pH 7.45 ABG pCO2 at Pt Temp 36.2 ABG pO2 at Pt Temp 80.6 Oxygen Flow Rate 21% BUN Creatinine Troponin I 0.20 H Random Vancomycin Assessment Sepsis syndrome ? PNA aspiration source Chest xray reviewed infiltrate not seen Febrile 101 on pressors ESRD Obesity Diabetes Respiratory failure Plan Pending sputum culture broaden coverage lung pathogens Zosyn Sputum c/s pending Critical care time spent today 40 minutes Alan Phillips MD
[2017-01-27] MEDS: SEVELAMER CARBONATE 800 MG TAB (FP) PO SCH ×3 (08:31→18:05)
--- NOTE | 2017-01-27 09:13 | PN ---
Progress Note, Physician Chief Complaint: alert cannot move right side, apparently old residual defect Febrile Currently not on pressors TELE: NSR, rare VPCs - Current Medication List Current Medications: Active Medications Acetaminophen (Tylenol -) 650 mg PO Q6H PRN PRN Reason: FEVER OR PAIN Last Admin: 01/27/17 03:13 Dose: 650 mg Albumin Human (Albumin Human 25% -) 12.5 gm IVPB Q30M [facility] Aspirin (Asa -) 81 mg NGT DAILY [facility] Last Admin: 01/26/17 10:38 Dose: 81 mg Atorvastatin Calcium (Lipitor -) 80 mg PO DAILY@0600 [facility] Last Admin: 01/27/17 06:39 Dose: 80 mg Escitalopram Oxalate (Lexapro -) 20 mg PO DAILY [facility] Last Admin: 01/26/17 09:44 Dose: Not Given Heparin Sodium (Porcine) (Heparin -) 5,000 unit SQ TID [facility] Last Admin: 01/27/17 06:33 Dose: 5,000 unit Propofol (Diprivan -) 100 mls @ 3.334 mls/hr IVPB TITR JASON; 5 MCG/KG/MIN PRN Reason: Protocol Last Admin: 01/27/17 02:15 Dose: Not Given Norepinephrine Bitartrate 16, (000 mcg/ Dextrose) 500 mls @ 9.37 mls/hr IV TITR JASON; 5 MCG/MIN PRN Reason: Protocol Last Admin: 01/27/17 03:30 Dose: Not Given Pantoprazole Sodium (Protonix 40mg Ivpb (Pre-Docked)) 100 mls @ 200 mls/hr IVPB DAILY [facility] Piperacillin Sod/Tazobactam Sod (Zosyn 2.25gm Ivpb (Pre-Docked)) 50 mls @ 100 mls/hr IVPB Q8H-IV [facility] PRN Reason: Protocol Insulin Aspart (Novolog Vial Sliding Scale -) 1 vial SQ Q6HPO [facility] PRN Reason: Protocol Last Admin: 01/27/17 06:35 Dose: Not Given Sevelamer Carbonate (Renvela -) 800 mg PO TIDCM [facility] Last Admin: 01/27/17 08:31 Dose: Not Given - Objective Vital Signs: Vital Signs Temperature 99.5 F 01/27/17 06:00 Pulse Rate 86 01/27/17 06:00 Respiratory Rate 12 01/27/17 06:00 Blood Pressure 144/90 03/16/17 06:00 O2 Sat by Pulse Oximetry (%) 98 01/26/17 22:00 HENT: Yes: Other (+ ETT) Cardiovascular: Yes: Regular Rate and Rhythm Respiratory: Yes: Other (clear anteriorly) Gastrointestinal: Yes: Soft, Abdomen, Obese Edema: Yes Edema: LLE: 1+, RLE: 1+ Labs: CBC, BMP 01/27/17 05:30 01/27/17 05:30 INR, PTT INR 1.23 (0.82-1.09) H 01/27/17 05:30 Selected Entries 01/26/17 01/26/17 01/26/17 03:05 06:00 07:00 Temperature 101.2 F H 100.6 F H 100.5 F H 01/27/17 01/27/17 02:00 04:00 Temperature 100.2 F H 100.1 F H Laboratory Tests 01/26/17 01/26/17 01/26/17 03:45 14:30 21:00 WBC Hgb Plt Count ABG pH ABG pCO2 at Pt Temp ABG O2 Sat (Measured) Sodium Potassium Creatinine Creatine Kinase Troponin I 0.06 H D 0.23 H D 0.25 H 01/27/17 01/27/17 01/27/17 05:30 05:30 05:30 WBC 9.8 Hgb 10.9 L Plt Count 202 D ABG pH ABG pCO2 at Pt Temp ABG O2 Sat (Measured) Sodium 138 Potassium 3.9 Creatinine 13.4 H* D Creatine Kinase 1830 H Troponin I 0.20 H 01/27/17 07:25 WBC Hgb Plt Count ABG pH 7.45 ABG pCO2 at Pt Temp 36.2 ABG O2 Sat (Measured) 95.7 Sodium Potassium Creatinine Creatine Kinase Troponin I - ....Imaging EKG: Image Reviewed Assessment/Plan IMP: ESRD Acute respiratory failure Fever, sepsis Elevated TnI REC: Suspect elevated TnI (mild and relatively flat trend) due to sepsis syndrome in setting ESRD. ECG does not suggest acute [place]. Continue Abx as per ID, follow cultures. ASA daily. Ischemic work up when extubated and infection resolved.
[2017-01-27] MEDS: ESCITALOPRAM OXALATE 20 MG TABLET (FP) PO SCH (10:00)
--- NOTE | 2017-01-27 10:01 | PN ---
Progress Note (short form) - Note Progress Note: RENAL Pt seen during HD he is intubated but nods yes when asked if he remembers me he is off sedation Last Vital Signs Temp Pulse Resp BP Pulse Ox 99.5 F 86 12 144/90 97 01/27/17 06:00 01/27/17 06:00 01/27/17 06:00 01/27/17 06:00 01/27/17 09:00 lungs clear cvs s1s2 rr +samia abd soft, not tender ext no edema neuro awake, intubated CBC, BMP 01/27/17 05:30 01/27/17 05:30 Current Medications Generic Name Dose Route Start Last Admin Trade Name Freq PRN Reason Stop Dose Admin Acetaminophen 650 mg 01/27/17 02:08 01/27/17 03:13 Tylenol - PO 650 mg Q6H PRN Administration FEVER OR PAIN Albumin Human 12.5 gm 01/27/17 15:30 Albumin Human 25% - IVPB Q30M [facility] Aspirin 81 mg 01/26/17 10:00 01/26/17 10:38 Asa - NGT 81 mg DAILY [facility] Administration Atorvastatin Calcium 80 mg 01/26/17 06:00 01/27/17 06:39 Lipitor - PO 80 mg DAILY@0600 [facility] Administration Escitalopram Oxalate 20 mg 01/25/17 10:00 01/26/17 09:44 Lexapro - PO Not Given DAILY [facility] Heparin Sodium (Porcine) 5,000 unit 01/25/17 15:15 01/27/17 06:33 Heparin - SQ 5,000 unit TID [facility] Administration Propofol 100 mls @ 3.334 mls/hr 01/25/17 02:00 01/27/17 02:15 Diprivan - IVPB Not Given TITR JASON Protocol 5 MCG/KG/MIN Norepinephrine Bitartrate 16, 500 mls @ 9.37 mls/hr 01/26/17 03:30 01/27/17 03: 30 000 mcg/ Dextrose IV Not Given TITR JASON Protocol 5 MCG/MIN Pantoprazole Sodium 100 mls @ 200 mls/hr 01/27/17 10:00 Protonix 40mg Ivpb (Pre-Docked) IVPB DAILY [facility] Piperacillin Sod/Tazobactam Sod 50 mls @ 100 mls/hr 01/27/17 10:00 Zosyn 2.25gm Ivpb (Pre-Docked) IVPB Q8H-IV [facility] Protocol Insulin Aspart 1 vial 01/25/17 15:15 01/27/17 06:35 Novolog Vial Sliding Scale - SQ Not Given Q6HPO [facility]ASON Protocol Sevelamer Carbonate 800 mg 01/25/17 17:30 01/27/17 08:31 Renvela - PO Not Given TIDCM JASON Impression 1. ESRD 2. HTN 3. DM 4. hx CVA 5. hyperlipidemia 6. altered mental status 7. hypotension 8. acute respiratory failure 9mssa in sputum Plan will dialyze against a 3k bath continue other meds wean as tolerated taper levophed MV
--- NOTE | 2017-01-27 13:35 | PN ---
Physical Exam: SUBJECTIVE: Patient seen and examined. hypertensive overnight off levophed gtt being dilayzed OBJECTIVE: Vital Signs Period Temp Pulse Resp BP Sys/Todd Pulse Ox Last 24 Hr 99.4 F-100.2 F 82-108 12-16 117-174/86-113 97-99 GENERAL: Intubated and sedated EYES: EOMI ENT: moist mucous membranes. NECK: Trachea midline, full range of motion, supple. LUNGS: Breath sounds equal, clear to auscultation bilaterally, no wheezes HEART: Regular rate and rhythm S1 S2 ABDOMEN: Soft, no grimacing to palpation nondistended, hypoactive bowel sounds EXTREMITIES: no edema. NEUROLOGICAL:awake alert while intubated. answers questions by nodding yes or no Laboratory Results - last 24 hr 01/25/17 01/25/17 01/26/17 05:05 11:00 03:45 WBC RBC Hgb Hct MCV MCHC RDW Plt Count MPV INR PTT (Actin FS) Puncture Site ABG pH ABG pCO2 at Pt Temp ABG pO2 at Pt Temp ABG HCO3 ABG O2 Sat (Measured) ABG O2 Content ABG Base Excess Eliseo Test O2 Delivery Device Oxygen Flow Rate Vent Mode Vent Rate Mechanical Rate PEEP Pressure Support Vent Sodium Potassium Chloride Carbon Dioxide Anion Gap BUN Creatinine Creat Clearance w eGFR POC Glucometer Random Glucose Calcium Phosphorus Magnesium Total Bilirubin AST ALT Alkaline Phosphatase Creatine Kinase Creatine Kinase Index CK-MB (CK-2) CK-MB (CK-2) Rel Index Troponin I Total Protein Albumin Random Vancomycin Hepatitis A Ab Total Negative Hep Bs Antigen Negative Negative Hep Bs Antibody Reactive Hep Bs Ab Concentration Reactive Hep B Core Total Ab Negative Hepatitis C Antibody <0.1 01/26/17 01/26/17 01/26/17 14:30 14:30 14:30 WBC 7.9 RBC 3.31 L Hgb 10.8 L Hct 32.1 L MCV 96.8 H MCHC 33.7 RDW 14.8 Plt Count 162 D MPV 7.7 INR 1.22 H PTT (Actin FS) 35.5 H Puncture Site ABG pH ABG pCO2 at Pt Temp ABG pO2 at Pt Temp ABG HCO3 ABG O2 Sat (Measured) ABG O2 Content ABG Base Excess Eliseo Test O2 Delivery Device Oxygen Flow Rate Vent Mode Vent Rate Mechanical Rate PEEP Pressure Support Vent Sodium Potassium Chloride Carbon Dioxide Anion Gap BUN Creatinine Creat Clearance w eGFR POC Glucometer Random Glucose Calcium Phosphorus Magnesium Total Bilirubin AST ALT Alkaline Phosphatase Creatine Kinase 2537 H Creatine Kinase Index 0.4 CK-MB (CK-2) 9.976 H CK-MB (CK-2) Rel Index Troponin I 0.23 H D Total Protein Albumin Random Vancomycin 17.088 Hepatitis A Ab Total Hep Bs Antigen Hep Bs Antibody Hep Bs Ab Concentration Hep B Core Total Ab Hepatitis C Antibody 01/26/17 01/26/17 01/26/17 14:30 14:30 17:44 WBC RBC Hgb Hct MCV MCHC RDW Plt Count MPV INR PTT (Actin FS) Puncture Site ABG pH ABG pCO2 at Pt Temp ABG pO2 at Pt Temp ABG HCO3 ABG O2 Sat (Measured) ABG O2 Content ABG Base Excess Eliseo Test O2 Delivery Device Oxygen Flow Rate Vent Mode Vent Rate Mechanical Rate PEEP Pressure Support Vent Sodium Potassium Chloride Carbon Dioxide Anion Gap BUN Creatinine Creat Clearance w eGFR POC Glucometer 105.77810 Random Glucose Calcium Phosphorus Magnesium Total Bilirubin AST ALT Alkaline Phosphatase Creatine Kinase Cancelled Creatine Kinase Index CK-MB (CK-2) CK-MB (CK-2) Rel Index Cancelled Troponin I Cancelled Total Protein Albumin Random Vancomycin Hepatitis A Ab Total Hep Bs Antigen Hep Bs Antibody Hep Bs Ab Concentration Hep B Core Total Ab Hepatitis C Antibody 01/26/17 01/26/17 01/27/17 21:00 21:00 00:36 WBC RBC Hgb Hct MCV MCHC RDW Plt Count MPV INR PTT (Actin FS) Puncture Site ABG pH ABG pCO2 at Pt Temp ABG pO2 at Pt Temp ABG HCO3 ABG O2 Sat (Measured) ABG O2 Content ABG Base Excess Eliseo Test O2 Delivery Device Oxygen Flow Rate Vent Mode Vent Rate Mechanical Rate PEEP Pressure Support Vent Sodium Potassium Chloride Carbon Dioxide Anion Gap BUN Creatinine Creat Clearance w eGFR POC Glucometer 148.14847 Random Glucose Calcium Phosphorus Magnesium Total Bilirubin AST ALT Alkaline Phosphatase Creatine Kinase 2262 H Creatine Kinase Index 0.4 CK-MB (CK-2) 8.211 H CK-MB (CK-2) Rel Index Cancelled Troponin I 0.25 H Total Protein Albumin Random Vancomycin Hepatitis A Ab Total Hep Bs Antigen Hep Bs Antibody Hep Bs Ab Concentration Hep B Core Total Ab Hepatitis C Antibody 01/27/17 01/27/17 01/27/17 05:30 05:30 05:30 WBC 9.8 RBC 3.35 L Hgb 10.9 L Hct 32.3 L MCV 96.6 H MCHC 33.6 RDW 14.7 Plt Count 202 D MPV 8.0 INR 1.23 H PTT (Actin FS) 34.3 Puncture Site ABG pH ABG pCO2 at Pt Temp ABG pO2 at Pt Temp ABG HCO3 ABG O2 Sat (Measured) ABG O2 Content ABG Base Excess Eliseo Test O2 Delivery Device Oxygen Flow Rate Vent Mode Vent Rate Mechanical Rate PEEP Pressure Support Vent Sodium 138 Potassium 3.9 Chloride 98 Carbon Dioxide 25 Anion Gap 15 BUN 54 H D Creatinine 13.4 H* D Creat Clearance w eGFR 3.84 POC Glucometer Random Glucose 117 H Calcium 8.7 Phosphorus 6.7 H D Magnesium 2.1 Total Bilirubin 0.5 AST 52 H ALT 27 Alkaline Phosphatase 56 Creatine Kinase Creatine Kinase Index CK-MB (CK-2) CK-MB (CK-2) Rel Index Troponin I Total Protein 6.8 Albumin 3.2 L Random Vancomycin 16.321 Hepatitis A Ab Total Hep Bs Antigen Hep Bs Antibody Hep Bs Ab Concentration Hep B Core Total Ab Hepatitis C Antibody 01/27/17 01/27/17 01/27/17 05:30 05:30 05:37 WBC RBC Hgb Hct MCV MCHC RDW Plt Count MPV INR PTT (Actin FS) Puncture Site ABG pH ABG pCO2 at Pt Temp ABG pO2 at Pt Temp ABG HCO3 ABG O2 Sat (Measured) ABG O2 Content ABG Base Excess Eliseo Test O2 Delivery Device Oxygen Flow Rate Vent Mode Vent Rate Mechanical Rate PEEP Pressure Support Vent Sodium Potassium Chloride Carbon Dioxide Anion Gap BUN Creatinine Creat Clearance w eGFR POC Glucometer 140.82290 Random Glucose Calcium Phosphorus Magnesium Total Bilirubin AST ALT Alkaline Phosphatase Creatine Kinase 1830 H Creatine Kinase Index CK-MB (CK-2) CK-MB (CK-2) Rel Index Cancelled Troponin I 0.20 H Total Protein Albumin Random Vancomycin Hepatitis A Ab Total Hep Bs Antigen Hep Bs Antibody Hep Bs Ab Concentration Hep B Core Total Ab Hepatitis C Antibody 01/27/17 01/27/17 07:25 12:48 WBC RBC Hgb Hct MCV MCHC RDW Plt Count MPV INR PTT (Actin FS) Puncture Site Right radial ABG pH 7.45 ABG pCO2 at Pt Temp 36.2 ABG pO2 at Pt Temp 80.6 ABG HCO3 24.5 ABG O2 Sat (Measured) 95.7 ABG O2 Content 14.5 L ABG Base Excess 1.1 Eliseo Test Positive O2 Delivery Device Vent Oxygen Flow Rate 21% Vent Mode A/c Vent Rate 12 Mechanical Rate Y PEEP 10.0 Pressure Support Vent 550 Sodium Potassium Chloride Carbon Dioxide Anion Gap BUN Creatinine Creat Clearance w eGFR POC Glucometer 139.55016 Random Glucose Calcium Phosphorus Magnesium Total Bilirubin AST ALT Alkaline Phosphatase Creatine Kinase Creatine Kinase Index CK-MB (CK-2) CK-MB (CK-2) Rel Index Troponin I Total Protein Albumin Random Vancomycin Hepatitis A Ab Total Hep Bs Antigen Hep Bs Antibody Hep Bs Ab Concentration Hep B Core Total Ab Hepatitis C Antibody Active Medications Generic Name Dose Route Start Last Admin Trade Name Freq PRN Reason Stop Dose Admin Acetaminophen 650 mg 01/27/17 02:08 01/27/17 03:13 Tylenol - PO 650 mg Q6H PRN Administration FEVER OR PAIN Albumin Human 12.5 gm 01/27/17 15:30 Albumin Human 25% - IVPB Q30M [facility] Aspirin 81 mg 01/26/17 10:00 01/26/17 10:38 Asa - NGT 81 mg DAILY [facility] Administration Atorvastatin Calcium 80 mg 01/26/17 06:00 01/27/17 06:39 Lipitor - PO 80 mg DAILY@0600 [facility] Administration Escitalopram Oxalate 20 mg 01/25/17 10:00 01/26/17 09:44 Lexapro - PO Not Given DAILY [facility] Heparin Sodium (Porcine) 5,000 unit 01/25/17 15:15 01/27/17 06:33 Heparin - SQ 5,000 unit TID [facility] Administration Propofol 100 mls @ 3.334 mls/hr 01/25/17 02:00 01/27/17 02:15 Diprivan - IVPB Not Given TITR [facility] Protocol 5 MCG/KG/MIN Norepinephrine Bitartrate 16, 500 mls @ 9.37 mls/hr 01/26/17 03:30 01/27/17 03: 30 000 mcg/ Dextrose IV Not Given TITR [facility] Protocol 5 MCG/MIN Pantoprazole Sodium 100 mls @ 200 mls/hr 01/27/17 10:00 Protonix 40mg Ivpb (Pre-Docked) IVPB DAILY [facility] Piperacillin Sod/Tazobactam Sod 50 mls @ 100 mls/hr 01/27/17 10:00 Zosyn 2.25gm Ivpb (Pre-Docked) IVPB Q8H-IV [facility] Protocol Insulin Aspart 1 vial 01/25/17 15:15 01/27/17 12:49 Novolog Vial Sliding Scale - SQ Not Given Q6HPO [facility] Protocol Sevelamer Carbonate 800 mg 01/25/17 17:30 01/27/17 08:31 Renvela - PO Not Given TIDCM [facility] ASSESSMENT/PLAN: 56M with multiple medical problems including multiple CVAs x4, ESRD on HD e/ /Sat, DM (insulin dependant) presented to the emergency room after dialysis he was noted to have unintelligible speech, altered mental status, hypotension, and given his history concern for CVA. Altered mental status. There is a concern for another stroke. however after discussing case with neurology it is unlikely patient had a stroke. it is more likely patient had a hypotensive/syncopal event. but patient was hypotensive at the dialysis center and low blood pressure leading to low cerebral perfusion pressure makes this patient at risk for CVA. CT scan negative for acute stroke will need MRI-intubated and not stable for MRI at this time Aspirin 81mg daily if patient did have a CVA on aggrenox it is worth exploring whether he should be switched to another antiplatelet will discuss this with neurology-since it is not likely patient had a stroke he should go back on aggrenox when able to take PO (can not be crushed give aspirin) echo-techinically difficult study right and left ventricular function could not be assess otherwise normal echo. Echo from 2014 WNL Carotid duplex WNL awake off sedation wean to extubate today Upper GI bleed: quickly resolved likely from NG tube trauma observe Troponinemia: Troponin was negative x3 after admission this troponin that is 0.06 was sent during his hypotensive episode no EKG changes likely from demand ischemia secondary to hypotension cardiology consult appreciated and noted demand likely from hypotension no intervention at this time-work up when stable Sepsis/septic shock: patient was hypotensive and febrile off levophed gtt possible infectious source could be aspiration during intubation ID consult appreciated changed to zosyn today continue vanco by level 17 today will not give a dose of vanco CT chest when patient is stable per ID to r/o PNA wean off levophed as tolerated Sputum Cx growing MSSA so far will follow up final ESRD on HD dialysis per nephrology-dialyzed today continue Renvela-ordered Renal consult appreciated DM: ISS q6h for now while intubated Acute Hypercapneic respiratory failure: ABG much improved today Metabolic acidosis resolved patient intubated for airway protection altered mental status and hypercapnea continue ventilatory support extubate today CXR noted-unchanged HLD: on Zocor as outpatient continue Zocor FEN: no IVF no electrolyte issues Diet when extubated start CLD and advance as tolerated may need speech and swallow PPx: HSQ/SCDs protonix IV PT consult when able to participate Visit type - Emergency Visit Emergency Visit: Yes ED Registration Date: 01/24/17 Care time: The patient presented to the Emergency Department on the above date and was hospitalized for further evaluation of their emergent condition. - New Patient This patient is new to me today: No - Critical Care Critical Care patient: Yes Total Critical Care Time (in minutes): 45 Critical Care Statement: The care of this patient involved high complexity decision making to prevent further life threatening deterioration of the patient 's condition and/or to evalute & treat vital organ system(s) failure or risk of failure. - Discharge Referral Referred to [facility] No
--- NOTE | 2017-01-27 13:41 | PN ---
Physical Exam: SUBJECTIVE: Patient seen and examined at bedside. He's still intubated but he's awake, alert , able to interact with his best effort. He follows commands and nods/shakes his head to questions. Per nurse, patient had no acute event overnight. OBJECTIVE: Intubated on mechanical ventilation Vent settings: AC, RR 12, TV 550, FiO2 20, PEEP 5 Left IJ placed on 01/25, day 3 Vital Signs Period Temp Pulse Resp BP Sys/Todd Pulse Ox Last 24 Hr 99.4 F-100.2 F 82-108 12-16 117-174/86-113 97-99 GENERAL: Intubated, awake, alert, follows commands, RSS 0 LUNGS: CTAB HEART: distant heart sounds ABDOMEN: Soft, obese, not distended, no grimace on face upon palpation EXTREMITIES: warm extremities, No edema ABG Results ABG pH 7.45 (7.35-7.45) 01/27/17 07:25 ABG pCO2 at Pt Temp 36.2 mmHg (35-45) 01/27/17 07:25 ABG pO2 at Pt Temp 80.6 mmHg (80-100) 01/27/17 07:25 ABG HCO3 24.5 meq/L (22-26) 01/27/17 07:25 ABG O2 Sat (Measured) 95.7 % (90-98.9) 01/27/17 07:25 ABG O2 Content 14.5 % vol (15-22) L 01/27/17 07:25 ABG Base Excess 1.1 meq/l (-2-2) 01/27/17 07:25 CBCD WBC 9.8 K/mm3 (4.0-10.0) 01/27/17 05:30 RBC 3.35 M/mm3 (4.00-5.60) L 01/27/17 05:30 Hgb 10.9 GM/dL (11.7-16.9) L 01/27/17 05:30 Hct 32.3 % (35.4-49) L 01/27/17 05:30 MCV 96.6 fl (80-96) H 01/27/17 05:30 MCHC 33.6 g/dl (32.0-35.9) 01/27/17 05:30 RDW 14.7 % (11.9-15.9) 01/27/17 05:30 Plt Count 202 K/MM3 (134-434) D 01/27/17 05:30 MPV 8.0 fl (7.5-11.1) 01/27/17 05:30 CMP Sodium 138 mmol/L (136-145) 01/27/17 05:30 Potassium 3.9 mmol/L (3.5-5.1) 01/27/17 05:30 Chloride 98 mmol/L (98-107) 01/27/17 05:30 Carbon Dioxide 25 mmol/L (21-32) 01/27/17 05:30 Anion Gap 15 (8-16) 01/27/17 05:30 BUN 54 mg/dL (7-18) H D 01/27/17 05:30 Creatinine 13.4 mg/dL (0.7-1.3) H* D 01/27/17 05:30 Creat Clearance w eGFR 3.84 (>60) 01/27/17 05:30 Calcium 8.7 mg/dL (8.5-10.1) 01/27/17 05:30 Total Bilirubin 0.5 mg/dL (0.2-1.0) 01/27/17 05:30 AST 52 U/L (15-37) H 01/27/17 05:30 ALT 27 U/L (12-78) 01/27/17 05:30 Alkaline Phosphatase 56 U/L (45-117) 01/27/17 05:30 Total Protein 6.8 g/dl (6.4-8.2) 01/27/17 05:30 Albumin 3.2 g/dl (3.4-5.0) L 01/27/17 05:30 Intake & Output 01/24/17 01/25/17 01/26/17 01/27/17 23:59 23:59 23:59 23:59 Intake Total 630 945 295 Output Total 500 100 0 Balance 130 845 295 Weight 111.13 kg 105.035 kg 106 kg 108 kg Active Medications Generic Name Dose Route Start Last Admin Trade Name Freq PRN Reason Stop Dose Admin Acetaminophen 650 mg 01/27/17 02:08 01/27/17 03:13 Tylenol - PO 650 mg Q6H PRN Administration FEVER OR PAIN Albumin Human 12.5 gm 01/27/17 15:30 Albumin Human 25% - IVPB Q30M [facility] Aspirin 81 mg 01/26/17 10:00 01/26/17 10:38 Asa - NGT 81 mg DAILY [facility] Administration Atorvastatin Calcium 80 mg 01/26/17 06:00 01/27/17 06:39 Lipitor - PO 80 mg DAILY@0600 [facility] Administration Escitalopram Oxalate 20 mg 01/25/17 10:00 01/26/17 09:44 Lexapro - PO Not Given DAILY [facility] Heparin Sodium (Porcine) 5,000 unit 01/25/17 15:15 01/27/17 06:33 Heparin - SQ 5,000 unit TID [facility] Administration Propofol 100 mls @ 3.334 mls/hr 01/25/17 02:00 01/27/17 02:15 Diprivan - IVPB Not Given TITR [facility] Protocol 5 MCG/KG/MIN Norepinephrine Bitartrate 16, 500 mls @ 9.37 mls/hr 01/26/17 03:30 01/27/17 03: 30 000 mcg/ Dextrose IV Not Given TITR [facility] Protocol 5 MCG/MIN Pantoprazole Sodium 100 mls @ 200 mls/hr 01/27/17 10:00 Protonix 40mg Ivpb (Pre-Docked) IVPB DAILY [facility] Piperacillin Sod/Tazobactam Sod 50 mls @ 100 mls/hr 01/27/17 10:00 Zosyn 2.25gm Ivpb (Pre-Docked) IVPB Q8H-IV [facility] Protocol Insulin Aspart 1 vial 01/25/17 15:15 01/27/17 12:49 Novolog Vial Sliding Scale - SQ Not Given Q6HPO [facility] Protocol Sevelamer Carbonate 800 mg 01/25/17 17:30 01/27/17 08:31 Renvela - PO Not Given TIDCM [facility] Microbiology 01/25/17 06:00 Sputum - Endotrachea Suction/Ventilator Gram Stain - Final 01/25/17 06:00 Sputum - Endotrachea Suction/Ventilator Sputum Culture - Preliminary Presumptive Mssa (Pbp2a Neg) 01/26/17 03:40 Sputum - Endotrachea Suction/Ventilator Sputum Culture - Preliminary Presumptive Mssa (Pbp2a Neg) Imaging CXR on 01/27: No pnx, infiltrate, congestion CXR on 01/26: No change KUB on 01/26: retained stool , vascular calcifications, NG tube with tip in stomach CXR on 01/25: The endotracheal tube and nasogastric tube are present. Again noted is a tortuous aorta with weak inspiration and prominent mediastinum. New left jugular line. No pneumothorax. ET tube and NG tube US doppler of Arm on 01/24: There is no sonographic evidence of DVT involving the right arm. Soft tissue edema is noted. Carotid doppler on 01/24: Minimal atherosclerotic disease with no evidence of hemodynamically significant stenoses CT head on 01/24: No definite CT evidence of acute pathology. Small chronic right frontal subcortical infarct. Small chronic right pontine infarct ASSESSMENT/PLAN: 56 yo wheelchair bound M h/o HTN, HLD, ESRD on HD, DM2 and neuropathy, multiple CVA with R hemiparesis admitted to the ICU for acute respiratory failure and AMS. Pulm: Acute respiratory failure - Will extubate today - Respiratory acidosis resolved - Maintain O2 Sat > 88% Neuro: AMS 2/2 metabolic encephalopathy vs. stroke - Resolved - CT shows chronic infarcts * New stroke unlikely * Will cancel MRI - BP control SBP < 220 * lopressor push PRN and hold when SBP < 140 - A1C and LDL at goal - Restart lipitor and aggrenox when stable ID: Fever - Resolved - Normal lactic acid - Negative CXR - Blood cultures negative - Sputum cultures are growing likely MRSA - On rocephin and vanco (both day 2) * Vanco level therapeutic GI: UGI likely 2/2 stress ulcer - Resolved - H&H stable Renal: ESRD on HD (T, Th, Sat) - HD at bedside today - Restart renvela after starting feed - Renally dose all meds Endo: DM2 - Maintain normaglycemia at 60 to 180 - On sliding scale - BGM FEN - IVF PRN to maintain MAP > 65% - Cont. to monitor lytes - Enteral feed today after extubation Prophylaxis - DVT: Resume heparin - GI: D/C PPI Disposition - Cont. to monitor in ICU Code status - Full code Visit type - Emergency Visit Emergency Visit: No - New Patient This patient is new to me today: No - Critical Care Critical Care patient: Yes Total Critical Care Time (in minutes): 35 Critical Care Statement: The care of this patient involved high complexity decision making to prevent further life threatening deterioration of the patient 's condition and/or to evalute & treat vital organ system(s) failure or risk of failure.
[2017-01-27] MEDS: ASPIRIN 81 MG CHEWABLE TABLETS NGT SCH (14:00)
[2017-01-27] MEDS: PANTOPRAZOLE SODIUM 100 ML IVPB SCH (14:00)
[2017-01-27] MEDS: PIPERACILLIN/TAZOB 2.25 GM 50 ML IVPB SCH ×2 (15:00→20:26)
[2017-01-27] MEDS ORDERED: ALBUMIN HUMAN 25% 100 ML VIAL IVPB SCH (15:30)
[2017-01-27] MEDS ORDERED: METOPROLOL TARTRATE 5 MG/5 ML VIAL IVPUSH PRN (15:48)
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
[2017-01-27] MEDS ORDERED: ACETAMINOPHEN 1000 MG/100 ML VIAL (NON FORMULARY) IVPB PRN (16:06)
--- NOTE | 2017-01-27 16:15 | PN ---
Progress Note, Physician History of Present Illness: 56 year old male, with past medical history of hypertension, hyperlipidemia, diabetes mellitus, multiple CVAs(x4 one in 2005, one in 2006, and 2 in 2007) in the past with right sided hemiparesis(wheelchair bound due to CVAs), neuropathy , and ESRD on hemodialysis (, , Tue), was admitted two days ago for altered mental status during dialysis. He missed his dialysis on Tuesday as he had problems with his scooter. He presented to HD on Tuesday and complained of weakness. He developed increased confusion and lethargy during dialysis, became hypotensive during dialysis. He was taken off and sent to the ER . He had a ct scan of the head that was negative for new acute pathology, bleed. He developed progressive shortness of breath through the night and was intubated. He is currently intubated and sedated in the ICU. - Current Medication List Current Medications: Active Medications Acetaminophen (Tylenol -) 650 mg PO Q6H PRN PRN Reason: FEVER OR PAIN Last Admin: 01/27/17 03:13 Dose: 650 mg Acetaminophen (Ofirmev Injection -) 1,000 mg IVPB Q6H PRN PRN Reason: FEVER OR PAIN Stop: 01/28/17 10:07 Albumin Human (Albumin Human 25% -) 12.5 gm IVPB Q30M [facility] Aspirin (Asa -) 81 mg NGT DAILY [facility] Last Admin: 01/26/17 10:38 Dose: 81 mg Atorvastatin Calcium (Lipitor -) 80 mg PO DAILY@0600 [facility] Last Admin: 01/27/17 06:39 Dose: 80 mg Escitalopram Oxalate (Lexapro -) 20 mg PO DAILY [facility] Last Admin: 01/26/17 09:44 Dose: Not Given Heparin Sodium (Porcine) (Heparin -) 5,000 unit SQ TID [facility] Last Admin: 01/27/17 06:33 Dose: 5,000 unit Propofol (Diprivan -) 100 mls @ 3.334 mls/hr IVPB TITR [facility]; 5 MCG/KG/MIN PRN Reason: Protocol Last Admin: 01/27/17 02:15 Dose: Not Given Norepinephrine Bitartrate 16, (000 mcg/ Dextrose) 500 mls @ 9.37 mls/hr IV TITR [facility]; 5 MCG/MIN PRN Reason: Protocol Last Admin: 01/27/17 03:30 Dose: Not Given Pantoprazole Sodium (Protonix 40mg Ivpb (Pre-Docked)) 100 mls @ 200 mls/hr IVPB DAILY [facility] Piperacillin Sod/Tazobactam Sod (Zosyn 2.25gm Ivpb (Pre-Docked)) 50 mls @ 100 mls/hr IVPB Q8H-IV [facility] PRN Reason: Protocol Insulin Aspart (Novolog Vial Sliding Scale -) 1 vial SQ Q6HPO [facility] PRN Reason: Protocol Last Admin: 01/27/17 12:49 Dose: Not Given Metoprolol Tartrate (Lopressor Injection -) 5 mg IVPUSH Q4H PRN PRN Reason: HYPERTENSION Sevelamer Carbonate (Renvela -) 800 mg PO TIDCM [facility] Last Admin: 01/27/17 08:31 Dose: Not Given - Objective Vital Signs: Vital Signs Temperature 99.5 F 01/27/17 09:30 Pulse Rate 117 H 01/27/17 15:47 Respiratory Rate 12 01/27/17 13:57 Blood Pressure 124/93 01/27/17 13:05 O2 Sat by Pulse Oximetry (%) 98 01/27/17 15:47 Constitutional: Yes: Mild Distress Eyes: Yes: Conjunctiva Clear, EOM Intact, PERRL HENT: Yes: Atraumatic, Normocephalic Neck: Yes: Supple, Trachea Midline Cardiovascular: Yes: S1, S2 Respiratory: Yes: Regular, CTA Bilaterally, Mechanically Ventilated Gastrointestinal: Yes: Normal Bowel Sounds, Soft Genitourinary: Yes: Other (on dialysis) Extremities: Yes: External Rotation (RLE.spasticity , hemiplegia right.) Edema: Yes Edema: LUE: 1+, RUE: 2+, LLE: 1+, RLE: 2+ Peripheral Pulses WNL: Yes Peripheral Pulses: Left Radial: 1+, Right Radial: 1+ Neurological: Yes: Alert, Oriented, Cran Nerves II-XII Intact, Other (intubated , followin commands on the left) ...Motor Strength: LUE (4/5), LLE (4/5), RUE (0/5), RLE (0/5) Psychiatric: Yes: Alert, Oriented Labs: CBC, BMP 01/27/17 05:30 01/27/17 05:30 INR, PTT INR 1.23 (0.82-1.09) H 01/27/17 05:30 - ....Imaging MRI: Pending Problem List - Problems (1) Old cerebrovascular accident (CVA) without late effect Code(s): Z86.73 - PRSNL HX OF TIA (TIA), AND CEREB INFRC W/O RESID DEFICITS (2) Syncope and collapse Code(s): R55 - SYNCOPE AND COLLAPSE (3) Dialysis patient Code(s): Z99.2 - DEPENDENCE ON RENAL DIALYSIS (4) Hypotension Code(s): I95.9 - HYPOTENSION, UNSPECIFIED (5) Hemiparesis Code(s): G81.90 - HEMIPLEGIA, UNSPECIFIED AFFECTING UNSPECIFIED SIDE Assessment/Plan 56 year old male with pmhx of ESRD on HD, DM, multiple CVA, residual right hemiparesis, wheelchairbound and HTN who was admitted two days ago for altered mental status during dialysis. He missed his dialysis on Tuesday as he had problems with his scooter. He presented to HD on Tuesday and complained of weakness. He developed increased confusion and lethargy during dialysis, became hypotensive during dialysis. He was taken off and sent to the ER . He had a ct scan of the head that was negative for new acute pathology, bleed. He developed progressive shortness of breath through the night and was intubated. He is currently intubated and on dialysis in ICU. He is off sedation, right hemiplegia, following commands on the left Impression: syncope and collapse, hypotension during dialysis, metabolic encephalopathy, sepsis. Plan: - CT head is negative for intracranial bleed. - patient is intubated - treat sepsis per medical team. - DVT prophylaxis - iv.fluids, correct electrolytes - continues aggrenox for now. - echocardiogram, doppler carotids , lipids profile. - MRI brain when he is extubated. Critical Care Time spent in ICU 35min. thank you for this referral will follow.
[2017-01-27] MEDS ORDERED: ALBUTEROL SO4 2.5/IPRATROPIUM 0.5 INH SOL 3 ML VIAL.NEB. NEB PRN (17:14)
--- NOTE | 2017-01-27 22:01 | PN ---
Teaching Attending Note Name of Resident: Bruce Lorenzo ATTENDING PHYSICIAN STATEMENT I saw and evaluated the patient. I reviewed the resident's note and discussed the case with the resident. I agree with the resident's findings and plan as documented. s/p extubation today Vital Signs Temperature 99.9 F H 01/27/17 20:00 Pulse Rate 126 H 01/27/17 20:10 Respiratory Rate 21 01/27/17 20:10 Blood Pressure 127/68 01/27/17 20:10 O2 Sat by Pulse Oximetry (%) 98 01/27/17 20:10 CBCD WBC 9.8 K/mm3 (4.0-10.0) 01/27/17 05:30 RBC 3.35 M/mm3 (4.00-5.60) L 01/27/17 05:30 Hgb 10.9 GM/dL (11.7-16.9) L 01/27/17 05:30 Hct 32.3 % (35.4-49) L 01/27/17 05:30 MCV 96.6 fl (80-96) H 01/27/17 05:30 MCHC 33.6 g/dl (32.0-35.9) 01/27/17 05:30 RDW 14.7 % (11.9-15.9) 01/27/17 05:30 Plt Count 202 K/MM3 (134-434) D 01/27/17 05:30 MPV 8.0 fl (7.5-11.1) 01/27/17 05:30 CMP Sodium 138 mmol/L (136-145) 01/27/17 05:30 Potassium 3.9 mmol/L (3.5-5.1) 01/27/17 05:30 Chloride 98 mmol/L (98-107) 01/27/17 05:30 Carbon Dioxide 25 mmol/L (21-32) 01/27/17 05:30 Anion Gap 15 (8-16) 01/27/17 05:30 BUN 54 mg/dL (7-18) H D 01/27/17 05:30 Creatinine 13.4 mg/dL (0.7-1.3) H* D 01/27/17 05:30 Creat Clearance w eGFR 3.84 (>60) 01/27/17 05:30 Random Glucose 117 mg/dL (74-106) H 01/27/17 05:30 Calcium 8.7 mg/dL (8.5-10.1) 01/27/17 05:30 Total Bilirubin 0.5 mg/dL (0.2-1.0) 01/27/17 05:30 AST 52 U/L (15-37) H 01/27/17 05:30 ALT 27 U/L (12-78) 01/27/17 05:30 Alkaline Phosphatase 56 U/L (45-117) 01/27/17 05:30 Total Protein 6.8 g/dl (6.4-8.2) 01/27/17 05:30 Albumin 3.2 g/dl (3.4-5.0) L 01/27/17 05:30 CARDIAC ENZYMES Creatine Kinase 1830 IU/L (39-308) H 01/27/17 05:30 Troponin I 0.20 ng/ml (0.00-0.05) H 01/27/17 05:30 Current Medications Generic Name Dose Route Start Last Admin Trade Name Fre PRN Reason Stop Dose Admin Acetaminophen 650 mg 01/27/17 02:08 01/27/17 03:13 Tylenol - PO 650 mg Q6H PRN Administration FEVER OR PAIN Acetaminophen 1,000 mg 01/27/17 16:06 Ofirmev Injection - IVPB 01/28/17 10:07 Q6H PRN FEVER OR PAIN Albumin Human 12.5 gm 01/27/17 15:30 Albumin Human 25% - IVPB Q30M [facility] Albuterol/Ipratropium 1 amp 01/27/17 17:14 01/27/17 17:28 Duoneb - NEB 1 amp Q6H PRN Administration SHORTNESS OF BREATH Albuterol/Ipratropium 1 amp 01/27/17 22:00 Duoneb - NEB TIDR [facility] Aspirin 81 mg 01/26/17 10:00 01/27/17 14:00 Asa - NGT 81 mg DAILY [facility] Administration Atorvastatin Calcium 80 mg 01/26/17 06:00 01/27/17 06:39 Lipitor - PO 80 mg DAILY@0600 [facility] Administration Escitalopram Oxalate 20 mg 01/25/17 10:00 01/27/17 10:00 Lexapro - PO Not Given DAILY [facility] Heparin Sodium (Porcine) 5,000 unit 01/25/17 15:15 03/16/17 13:00 Heparin - SQ 5,000 unit TID [facility] Administration Pantoprazole Sodium 100 mls @ 200 mls/hr 01/27/17 10:00 01/27/17 14:00 Protonix 40mg Ivpb (Pre-Docked) IVPB 200 mls/hr DAILY [facility] Administration Piperacillin Sod/Tazobactam Sod 50 mls @ 100 mls/hr 01/27/17 10:00 01/27/17 20: 26 Zosyn 2.25gm Ivpb (Pre-Docked) IVPB 100 mls/hr Q8H-IV [facility] Administration Protocol Insulin Aspart 1 vial 01/25/17 15:15 01/27/17 12:49 Novolog Vial Sliding Scale - SQ Not Given Q6HPO [facility] Protocol Metoprolol Tartrate 5 mg 01/27/17 15:48 01/27/17 17:00 Lopressor Injection - IVPUSH 5 mg Q4H PRN Administration HYPERTENSION Sevelamer Carbonate 800 mg 01/25/17 17:30 01/27/17 18:05 Renvela - PO Not Given TIDCM [facility] Home Medications Medication Instructions Recorded Aggrenox - 1 tablet 01/24/17 Aspirin/Dipyridamole [Aggrenox -] 1 combo PO BID 01/24/17 Escitalopram Oxalate [Lexapro -] 20 mg PO BID 01/24/17 Folic Acid - 30 mg PO DAILY 01/24/17 Gabapentin [Neurontin -] 100 mg PO BID 01/24/17 Insulin Glargine,Hum.rec.anlog 0 units SQ HS 01/24/17 [Lantus Solostar PEN (NF)] Insulin NPH Hum/Reg Insulin Hm 100 unit SQ DAILY 01/24/17 [Novolin 70-30 100 Unit/ml Vial] Sevelamer Carbonate [Renvela] 800 mg PO TID 01/24/17 Simvastatin [Zocor -] 40 mg PO HS 01/24/17 Sitagliptin Phosphate [Januvia] 50 mg PO DAILY 01/24/17 ASSESSMENT AND PLAN: Patient is a 56 yo man with h/o CVAs, ESRD , IDDM , presented with AMS and dysarthria after HD . He was intubated shortly after admission due to worsening mental status # Acute hypercapnic respiratory failure s/p intubation, is extubated today, patient is in ICU #AMS change with dysarthria: r/o acute CVA with hx of CVA Resume aggrenox ; MRI of the brain to r/o new stroke. Neuro consult # s/p Septic shock s/p pressor, continue IV antibiotic for Sepsis ;ID consult appreciated continue with Zosyn. Echo result reviewed ( last echo was in 2012 ) # ESRD: on HD(TTS), getting HD now in ICU , nephrology appreciated cont renvela # DM : SS with coverage SSI q6 hr DVT px : heparin sq/ SCDs
[2017-01-27] MEDS ORDERED: PT OWN MED DRAWER 7, Y5N ONE (22:23)
[2017-01-27] MEDS: ALBUTEROL SO4 2.5/IPRATROPIUM 0.5 INH SOL 3 ML VIAL.NEB. NEB SCH (22:40)
[2017-01-28] MEDS: INSULIN SLIDING SCALE (NOVOLOG) 1 VIAL SQ SCH ×4 (00:04→17:19)
[2017-01-28] MEDS: PIPERACILLIN/TAZOB 2.25 GM 50 ML IVPB SCH ×3 (03:05→17:06)
[2017-01-28 05:36] LABS: MCH 32.7 pg (25.7-33.7); MCHC 33.5 g/dl (32.0-35.9); MEAN CELL VOLUME 97.5 fl (80-96); MEAN PLT VOLUME 8.3 fl (7.5-11.1); PLATELET COUNT 187 K/MM3 (134-434); RDW 14.3 % (11.9-15.9); WHITE BLOOD COUNT 9.8 K/mm3 (4.0-10.0)
[2017-01-28 06:00] LABS: ALBUMIN 3.3 g/dl (3.4-5.0); BILIRUBIN,TOTAL 0.7 mg/dL (0.2-1.0); TOT PROT 7.3 g/dl (6.4-8.2)
[2017-01-28 06:14] LABS: CREATININE 10.1 mg/dL (0.7-1.3)
[2017-01-28] MEDS: HEPARIN NA (PORCINE) 5,000 UNITS/ML 1ML VIAL SQ SCH ×3 (06:35→21:53)
[2017-01-28] MEDS: ATORVASTATIN CA 80 MG TABLET (FP) PO SCH (06:35)
[2017-01-28] MEDS: ALBUTEROL SO4 2.5/IPRATROPIUM 0.5 INH SOL 3 ML VIAL.NEB. NEB SCH ×3 (06:41→22:01)
--- NOTE | 2017-01-28 07:27 | PN ---
Progress Note, Physician Chief Complaint: ID ID follow up for sepsis and respiratory failure for this 56 year old male with altered mental status ESRD. Possibility of aspiration pneumonia considered Switched to Pip Tazobactam yesterday Now extubated alert and off pressors. - Current Medication List Current Medications: Active Medications Acetaminophen (Tylenol -) 650 mg PO Q6H PRN PRN Reason: FEVER OR PAIN Last Admin: 01/27/17 03:13 Dose: 650 mg Acetaminophen (Ofirmev Injection -) 1,000 mg IVPB Q6H PRN PRN Reason: FEVER OR PAIN Stop: 01/28/17 10:07 Albumin Human (Albumin Human 25% -) 12.5 gm IVPB Q30M [facility] Albuterol/Ipratropium (Duoneb -) 1 amp NEB Q6H PRN PRN Reason: SHORTNESS OF BREATH Last Admin: 01/27/17 17:28 Dose: 1 amp Albuterol/Ipratropium (Duoneb -) 1 amp NEB TIDR [facility] Last Admin: 01/28/17 06:41 Dose: 1 amp Aspirin (Asa -) 81 mg NGT DAILY [facility] Last Admin: 01/27/17 14:00 Dose: 81 mg Atorvastatin Calcium (Lipitor -) 80 mg PO DAILY@0600 [facility] Last Admin: 01/28/17 06:35 Dose: Not Given Escitalopram Oxalate (Lexapro -) 20 mg PO DAILY [facility] Last Admin: 01/27/17 10:00 Dose: Not Given Heparin Sodium (Porcine) (Heparin -) 5,000 unit SQ TID [facility] Last Admin: 01/28/17 06:35 Dose: 5,000 unit Pantoprazole Sodium (Protonix 40mg Ivpb (Pre-Docked)) 100 mls @ 200 mls/hr IVPB DAILY [facility] Last Admin: 01/27/17 14:00 Dose: 200 mls/hr Piperacillin Sod/Tazobactam Sod (Zosyn 2.25gm Ivpb (Pre-Docked)) 50 mls @ 100 mls/hr IVPB Q8H-IV [facility] PRN Reason: Protocol Last Admin: 01/28/17 03:05 Dose: 100 mls/hr Insulin Aspart (Novolog Vial Sliding Scale -) 1 vial SQ Q6HPO [facility] PRN Reason: Protocol Last Admin: 01/28/17 06:35 Dose: Not Given Metoprolol Tartrate (Lopressor Injection -) 5 mg IVPUSH Q4H PRN PRN Reason: HYPERTENSION Last Admin: 01/27/17 17:00 Dose: 5 mg Sevelamer Carbonate (Renvela -) 800 mg PO TIDCM [facility] Last Admin: 01/27/17 18:05 Dose: Not Given - Objective Vital Signs: Vital Signs Temperature 99.5 F 01/28/17 06:00 Pulse Rate 98 H 01/28/17 06:00 Respiratory Rate 22 01/28/17 06:00 Blood Pressure 117/93 01/28/17 06:00 O2 Sat by Pulse Oximetry (%) 98 01/27/17 20:10 Constitutional: Yes: No Distress, Obese Eyes: Yes: WNL, Conjunctiva Clear HENT: Yes: WNL, Atraumatic, Normocephalic Neck: Yes: WNL, Supple, Trachea Midline, Other (CVC) Cardiovascular: Yes: Regular Rate and Rhythm, S1, S2. No: Murmur, Rub Respiratory: Yes: WNL, Regular, CTA Bilaterally, Rhonchi. No: Rales Gastrointestinal: Yes: WNL, Normal Bowel Sounds, Soft. No: Splenomegaly, Tenderness, Tenderness, Rebound Edema: No Labs: CBC, BMP 01/28/17 05:20 01/28/17 05:20 INR, PTT INR 1.23 (0.82-1.09) H 01/27/17 05:30 Problem List - Problems (1) Dialysis patient Code(s): Z99.2 - DEPENDENCE ON RENAL DIALYSIS (2) Sepsis Code(s): A41.9 - SEPSIS, UNSPECIFIED ORGANISM (3) Aspiration pneumonia Code(s): J69.0 - PNEUMONITIS DUE TO INHALATION OF FOOD AND VOMIT Assessment/Plan Microbiology 01/26/17 03:40 Sputum - Endotrachea Suction/Ventilator Gram Stain - Final 01/25/17 06:00 Sputum - Endotrachea Suction/Ventilator Gram Stain - Final 01/26/17 03:45 Blood - Peripheral Venous Blood Culture - Preliminary NO GROWTH OBTAINED AFTER 48 HOURS, INCUBATION TO CONTINUE FOR 3 DAYS. 01/26/17 03:45 Blood - Peripheral Venous Blood Culture - Preliminary NO GROWTH OBTAINED AFTER 48 HOURS, INCUBATION TO CONTINUE FOR 3 DAYS. 01/26/17 03:40 Sputum - Endotrachea Suction/Ventilator Sputum Culture - Preliminary Presumptive Mssa (Pbp2a Neg) 01/25/17 06:00 Sputum - Endotrachea Suction/Ventilator Sputum Culture - Preliminary Presumptive Mssa (Pbp2a Neg) Laboratory Tests 01/27/17 01/28/17 01/28/17 07:25 05:20 05:20 WBC 9.8 Hgb 11.4 L Plt Count 187 ABG pH 7.45 ABG pO2 at Pt Temp 80.6 Oxygen Flow Rate 21% Potassium 3.7 BUN 33 H D Creatinine 10.1 H* D Random Vancomycin 01/28/17 05:20 WBC Hgb Plt Count ABG pH ABG pO2 at Pt Temp Oxygen Flow Rate Potassium BUN Creatinine Random Vancomycin 10.662 Assessment 56 year old obese male with ESRD DmM presents with sepsis syndrome altered mental status Respiratory failure Aspiration suspected ESRD MSSA ? colonizing airway DM Hypertension Plan Despite the sensitive organism MSSA I feel he may have aspirated and am more comfortable with broader coverage for aspiration mouth zainab with Zosyn CLinically improved now extubated off pressors. Now day 4 antibiotics Continue antibiotic for another 72 hours. Will follow up in am Critical care time spent 38 minutes. Alan HERNANDEZ
[2017-01-28] MEDS: SEVELAMER CARBONATE 800 MG TAB (FP) PO SCH ×3 (07:43→17:01)
--- NOTE | 2017-01-28 08:12 | PN ---
Teaching Attending Note Name of Resident: Bruce Lorenzo ATTENDING PHYSICIAN STATEMENT I saw and evaluated the patient. I reviewed the resident's note and discussed the case with the resident. I agree with the resident's findings and plan as documented. Patient is extubated c/o having swelling of his tongue. Vital Signs Temperature 99.5 F 01/28/17 06:00 Pulse Rate 98 H 01/28/17 06:00 Respiratory Rate 22 01/28/17 06:00 Blood Pressure 117/93 01/28/17 06:00 O2 Sat by Pulse Oximetry (%) 98 01/27/17 20:10 CBCD WBC 9.8 K/mm3 (4.0-10.0) 01/28/17 05:20 RBC 3.48 M/mm3 (4.00-5.60) L 01/28/17 05:20 Hgb 11.4 GM/dL (11.7-16.9) L 01/28/17 05:20 Hct 33.9 % (35.4-49) L 01/28/17 05:20 MCV 97.5 fl (80-96) H 01/28/17 05:20 MCHC 33.5 g/dl (32.0-35.9) 01/28/17 05:20 RDW 14.3 % (11.9-15.9) 01/28/17 05:20 Plt Count 187 K/MM3 (134-434) 01/28/17 05:20 MPV 8.3 fl (7.5-11.1) 01/28/17 05:20 CMP Sodium 138 mmol/L (136-145) 01/28/17 05:20 Potassium 3.7 mmol/L (3.5-5.1) 01/28/17 05:20 Chloride 96 mmol/L (98-107) L 01/28/17 05:20 Carbon Dioxide 31 mmol/L (21-32) D 01/28/17 05:20 Anion Gap 11 (8-16) 01/28/17 05:20 BUN 33 mg/dL (7-18) H D 01/28/17 05:20 Creatinine 10.1 mg/dL (0.7-1.3) H* D 01/28/17 05:20 Creat Clearance w eGFR 5.32 (>60) 01/28/17 05:20 Random Glucose 121 mg/dL (74-106) H 01/28/17 05:20 Calcium 9.0 mg/dL (8.5-10.1) 01/28/17 05:20 Total Bilirubin 0.7 mg/dL (0.2-1.0) D 01/28/17 05:20 AST 43 U/L (15-37) H 01/28/17 05:20 ALT 27 U/L (12-78) 01/28/17 05:20 Alkaline Phosphatase 63 U/L (45-117) 01/28/17 05:20 Total Protein 7.3 g/dl (6.4-8.2) 01/28/17 05:20 Albumin 3.3 g/dl (3.4-5.0) L 01/28/17 05:20 CARDIAC ENZYMES Creatine Kinase 1830 IU/L (39-308) H 01/27/17 05:30 Troponin I 0.20 ng/ml (0.00-0.05) H 01/27/17 05:30 Current Medications Generic Name Dose Route Start Last Admin Trade Name Freq PRN Reason Stop Dose Admin Acetaminophen 650 mg 01/27/17 02:08 01/27/17 03:13 Tylenol - PO 650 mg Q6H PRN Administration FEVER OR PAIN Acetaminophen 1,000 mg 01/27/17 16:06 Ofirmev Injection - IVPB 01/28/17 10:07 Q6H PRN FEVER OR PAIN Albumin Human 12.5 gm 01/27/17 15:30 Albumin Human 25% - IVPB Q30M [facility] Albuterol/Ipratropium 1 amp 01/27/17 17:14 01/27/17 17:28 Duoneb - NEB 1 amp Q6H PRN Administration SHORTNESS OF BREATH Albuterol/Ipratropium 1 amp 01/27/17 22:00 01/28/17 06:41 Duoneb - NEB 1 amp TIDR [facility] Administration Aspirin 81 mg 01/26/17 10:00 01/27/17 14:00 Asa - NGT 81 mg DAILY [facility] Administration Atorvastatin Calcium 80 mg 01/26/17 06:00 01/28/17 06:35 Lipitor - PO Not Given DAILY@0600 [facility] Escitalopram Oxalate 20 mg 01/25/17 10:00 01/27/17 10:00 Lexapro - PO Not Given DAILY [facility] Heparin Sodium (Porcine) 5,000 unit 01/25/17 15:15 01/28/17 06:35 Heparin - SQ 5,000 unit TID [facility] Administration Pantoprazole Sodium 100 mls @ 200 mls/hr 01/27/17 10:00 01/27/17 14:00 Protonix 40mg Ivpb (Pre-Docked) IVPB 200 mls/hr DAILY [facility] Administration Piperacillin Sod/Tazobactam Sod 50 mls @ 100 mls/hr 01/27/17 10:00 01/28/17 03: 05 Zosyn 2.25gm Ivpb (Pre-Docked) IVPB 100 mls/hr Q8H-IV [facility] Administration Protocol Insulin Aspart 1 vial 01/25/17 15:15 01/28/17 06:35 Novolog Vial Sliding Scale - SQ Not Given Q6HPO [facility] Protocol Metoprolol Tartrate 5 mg 01/27/17 15:48 01/27/17 17:00 Lopressor Injection - IVPUSH 5 mg Q4H PRN Administration HYPERTENSION Sevelamer Carbonate 800 mg 01/25/17 17:30 01/28/17 07:43 Renvela - PO Not Given TIDCM [facility] Home Medications Medication Instructions Recorded Aggrenox - 1 tablet 01/24/17 Aspirin/Dipyridamole [Aggrenox -] 1 combo PO BID 01/24/17 Escitalopram Oxalate [Lexapro -] 20 mg PO BID 01/24/17 Folic Acid - 30 mg PO DAILY 01/24/17 Gabapentin [Neurontin -] 100 mg PO BID 01/24/17 Insulin Glargine,Hum.rec.anlog 0 units SQ HS 01/24/17 [Lantus Solostar PEN (NF)] Insulin NPH Hum/Reg Insulin Hm 100 unit SQ DAILY 01/24/17 [Novolin 70-30 100 Unit/ml Vial] Sevelamer Carbonate [Renvela] 800 mg PO TID 01/24/17 Simvastatin [Zocor -] 40 mg PO HS 01/24/17 Sitagliptin Phosphate [Januvia] 50 mg PO DAILY 01/24/17 EXAM#: TYPE/EXAM: RESULT: [id number] US/CAROTID COLOR FLOW DOPP US HISTORY PROVIDED: CVA Real time and doppler evaluation of the carotid arteries demonstrates the following: Minimal atherosclerotic plaque is identified on real time imaging of the common carotid and proximal internal and external carotid arteries bilaterally. Doppler velocity measurements are within normal limits within these vessels with no velocity elevations suspicious for hemodynamically significant stenoses. Forward flow is present within the left vertebral artery. The right vertebral artery could not be identified and may be excluded. IMPRESSION: 1. Minimal atherosclerotic disease with no evidence of hemodynamically significant stenoses. 2. Nonvisualization of the right vertebral artery. Please see above discussion. ASSESSMENT AND PLAN: Patient is a 56 yo man with h/o CVAs, ESRD , IDDM , presented with AMS and dysarthria after HD . He was intubated shortly after admission due to worsening mental status. # Swelling of his tongue for unknown reason but possible due to intubation; discussed with the intencivist ,will add Decadron Iv for 72 hrs. # Acute hypercapnic respiratory failure s/p intubation and extubation , patient continues to be in ICU #AMS change with dysarthria improved : Resume aggrenox ; MRI of the brain to r/ o new stroke. Neuro consult # s/p Septic shock s/p pressor, continue IV antibiotic for Sepsis ;ID consult appreciated continue with Zosyn. Echo result reviewed ( last echo was in 2012 ) # ESRD: on HD(TTS), getting HD now in ICU , nephrology appreciated cont renvela # DM : SS with coverage SSI q6 hr DVT px : heparin sq/ SCDs
--- NOTE | 2017-01-28 08:23 | PN ---
Progress Note, Physician Chief Complaint: extubated, alert Denies CP TELE: NSR, periods of sinus tach post extubation - Current Medication List Current Medications: Active Medications Acetaminophen (Tylenol -) 650 mg PO Q6H PRN PRN Reason: FEVER OR PAIN Last Admin: 01/27/17 03:13 Dose: 650 mg Acetaminophen (Ofirmev Injection -) 1,000 mg IVPB Q6H PRN PRN Reason: FEVER OR PAIN Stop: 01/28/17 10:07 Albumin Human (Albumin Human 25% -) 12.5 gm IVPB Q30M [facility] Albuterol/Ipratropium (Duoneb -) 1 amp NEB Q6H PRN PRN Reason: SHORTNESS OF BREATH Last Admin: 01/27/17 17:28 Dose: 1 amp Albuterol/Ipratropium (Duoneb -) 1 amp NEB TIDR [facility] Last Admin: 01/28/17 06:41 Dose: 1 amp Aspirin (Asa -) 81 mg NGT DAILY [facility] Last Admin: 01/27/17 14:00 Dose: 81 mg Atorvastatin Calcium (Lipitor -) 80 mg PO DAILY@0600 [facility] Last Admin: 01/28/17 06:35 Dose: Not Given Escitalopram Oxalate (Lexapro -) 20 mg PO DAILY [facility] Last Admin: 01/27/17 10:00 Dose: Not Given Heparin Sodium (Porcine) (Heparin -) 5,000 unit SQ TID [facility] Last Admin: 01/28/17 06:35 Dose: 5,000 unit Pantoprazole Sodium (Protonix 40mg Ivpb (Pre-Docked)) 100 mls @ 200 mls/hr IVPB DAILY [facility] Last Admin: 01/27/17 14:00 Dose: 200 mls/hr Piperacillin Sod/Tazobactam Sod (Zosyn 2.25gm Ivpb (Pre-Docked)) 50 mls @ 100 mls/hr IVPB Q8H-IV [facility] PRN Reason: Protocol Last Admin: 01/28/17 03:05 Dose: 100 mls/hr Insulin Aspart (Novolog Vial Sliding Scale -) 1 vial SQ Q6HPO [facility] PRN Reason: Protocol Last Admin: 01/28/17 06:35 Dose: Not Given Metoprolol Tartrate (Lopressor Injection -) 5 mg IVPUSH Q4H PRN PRN Reason: HYPERTENSION Last Admin: 01/27/17 17:00 Dose: 5 mg Sevelamer Carbonate (Renvela -) 800 mg PO TIDCM [facility] Last Admin: 01/28/17 07:43 Dose: Not Given - Objective Vital Signs: Vital Signs Temperature 99.5 F 01/28/17 06:00 Pulse Rate 98 H 01/28/17 06:00 Respiratory Rate 22 01/28/17 06:00 Blood Pressure 117/93 01/28/17 06:00 O2 Sat by Pulse Oximetry (%) 98 01/27/17 20:10 Constitutional: Yes: No Distress Cardiovascular: Yes: Regular Rate and Rhythm Respiratory: Yes: Other (clear anteriorly and laterally, no wheezing) Gastrointestinal: Yes: Soft, Abdomen, Obese Edema: No Labs: CBC, BMP 01/28/17 05:20 01/28/17 05:20 INR, PTT INR 1.23 (0.82-1.09) H 01/27/17 05:30 Microbiology 01/26/17 03:40 Sputum - Endotrachea Suction/Ventilator Gram Stain - Final 01/25/17 06:00 Sputum - Endotrachea Suction/Ventilator Gram Stain - Final 01/26/17 03:45 Blood - Peripheral Venous Blood Culture - Preliminary NO GROWTH OBTAINED AFTER 48 HOURS, INCUBATION TO CONTINUE FOR 3 DAYS. 01/26/17 03:45 Blood - Peripheral Venous Blood Culture - Preliminary NO GROWTH OBTAINED AFTER 48 HOURS, INCUBATION TO CONTINUE FOR 3 DAYS. 01/26/17 03:40 Sputum - Endotrachea Suction/Ventilator Sputum Culture - Preliminary Presumptive Mssa (Pbp2a Neg) 01/25/17 06:00 Sputum - Endotrachea Suction/Ventilator Sputum Culture - Preliminary Presumptive Mssa (Pbp2a Neg) Laboratory Tests 01/27/17 01/28/17 01/28/17 05:30 05:20 05:20 WBC 9.8 Hgb 11.4 L Plt Count 187 Sodium 138 Potassium 3.7 BUN 33 H D Troponin I 0.20 H - ....Imaging EKG: Image Reviewed Assessment/Plan IMP: ESRD Acute respiratory failure Fever, sepsis Elevated TnI REC: Suspect elevated TnI (mild and relatively flat trend) due to sepsis syndrome in setting ESRD. ECG does not suggest acute ND. Continue Abx as per ID, follow cultures. ASA daily, statin. Ischemic work up when extubated and infection resolved- will aim for early next week.
[2017-01-28] MEDS: PANTOPRAZOLE SODIUM 100 ML IVPB SCH (09:32)
[2017-01-28] MEDS: ESCITALOPRAM OXALATE 20 MG TABLET (FP) PO SCH (09:32)
[2017-01-28] MEDS: ASPIRIN 81 MG CHEWABLE TABLETS NGT SCH (09:33)
[2017-01-28] MEDS ORDERED: ASPIRIN 300 MG SUPP.RECT RC SCH (10:30)
[2017-01-28] MEDS ORDERED: DEXAMETHASONE SOD PHOSPHATE 10 MG/1 ML VIAL IVPB SCH ×2 (11:00→11:17)
--- NOTE | 2017-01-28 11:21 | PN ---
Teaching Attending Note Name of Resident: Min Perrin ATTENDING PHYSICIAN STATEMENT I saw and evaluated the patient. I reviewed the resident's note and discussed the case with the resident. I agree with the resident's findings and plan as documented. SUBJECTIVE: Pt seen and examined in the ICU. Extubated yesterday without incident. States some shortness of breath and tongue swelling. OBJECTIVE: Last Vital Signs Temp Pulse Resp BP Pulse Ox 99.5 F 92 H 22 117/93 97 01/28/17 06:00 01/28/17 11:14 01/28/17 06:00 01/28/17 06:00 01/28/17 11:14 Intake & Output 01/25/17 01/26/17 01/27/17 01/28/17 23:59 23:59 23:59 23:59 Intake Total 630 945 345 Output Total 500 100 0 Balance 130 845 345 Weight 231 lb 9 oz 233 lb 11.04 oz 238 lb 1.6 oz 235 lb 14.314 oz Gen: mildly tachypneic at rest Heart: RRR Lung: distant breath sounds Abd: soft, nontender Ext: + UE edema CBC, BMP 01/28/17 05:20 01/28/17 05:20 Active Medications Acetaminophen (Tylenol -) 650 mg PO Q6H PRN PRN Reason: FEVER OR PAIN Last Admin: 01/27/17 03:13 Dose: 650 mg Albumin Human (Albumin Human 25% -) 12.5 gm IVPB Q30M [facility] Albuterol/Ipratropium (Duoneb -) 1 amp NEB Q6H PRN PRN Reason: SHORTNESS OF BREATH Last Admin: 01/27/17 17:28 Dose: 1 amp Albuterol/Ipratropium (Duoneb -) 1 amp NEB TIDR [facility] Last Admin: 01/28/17 06:41 Dose: 1 amp Aspirin (Asa -) 300 mg RC DAILY [facility] Atorvastatin Calcium (Lipitor -) 80 mg PO DAILY@0600 [facility] Last Admin: 01/28/17 06:35 Dose: Not Given Dexamethasone Sodium Phosphate (Decadron Injection -) 10 mg IVPB Q8H-IV [facility] Stop: 01/30/17 02:01 Escitalopram Oxalate (Lexapro -) 20 mg PO DAILY [facility] Last Admin: 01/28/17 09:32 Dose: Not Given Heparin Sodium (Porcine) (Heparin -) 5,000 unit SQ TID [facility] Last Admin: 01/28/17 06:35 Dose: 5,000 unit Pantoprazole Sodium (Protonix 40mg Ivpb (Pre-Docked)) 100 mls @ 200 mls/hr IVPB DAILY [facility] Last Admin: 01/28/17 09:32 Dose: 200 mls/hr Piperacillin Sod/Tazobactam Sod (Zosyn 2.25gm Ivpb (Pre-Docked)) 50 mls @ 100 mls/hr IVPB Q8H-IV [facility] PRN Reason: Protocol Last Admin: 01/28/17 09:32 Dose: 100 mls/hr Insulin Aspart (Novolog Vial Sliding Scale -) 1 vial SQ Q6HPO [facility] PRN Reason: Protocol Last Admin: 01/28/17 06:35 Dose: Not Given Metoprolol Tartrate (Lopressor Injection -) 5 mg IVPUSH Q4H PRN PRN Reason: HYPERTENSION Last Admin: 01/27/17 17:00 Dose: 5 mg Sevelamer Carbonate (Renvela -) 800 mg PO TIDCM [facility] Last Admin: 01/28/17 07:43 Dose: Not Given ASSESSMENT AND PLAN: s/p Acute Hypercapneic Respiratory Failure r/o Acute CVA h/o CVA r/o Aspiration Pneumonia s/p Septic Shock ESRD on HD DM - start decadron x 48 hrs then reassess need to continue - swallow evaluation - neuro checks - taper FiO2 to keep SpO2 >90% - antibiotics per ID - ASA - DVT/GI prophylaxis - can monitor on telemetry/stroke unit
--- NOTE | 2017-01-28 11:31 | PN ---
Physical Exam: SUBJECTIVE: Patient seen and examined at bedside extubated yesterday complains of tongue swelling and mild shortness of breath otherwise states he feels well OBJECTIVE: Vital Signs Period Temp Pulse Resp BP Sys/Todd Pulse Ox Last 24 Hr 99.5 F-100.2 F 92-126 12-22 117-146/68-102 97-98 GENERAL: awake alert NAD EYES: EOMI PERRLA ENT: moist mucous membranes. swollen tongue NECK: Trachea midline, full range of motion, supple. LUNGS: Breath sounds equal, clear to auscultation bilaterally, no wheezes HEART: Regular rate and rhythm S1 S2 ABDOMEN: Soft, non tender non distended EXTREMITIES: no edema. NEUROLOGICAL:able to move left upper and lower extremities right side weak at baseline no change per patient Laboratory Results - last 24 hr 01/27/17 01/27/17 01/27/17 12:48 18:14 22:28 WBC RBC Hgb Hct MCV MCHC RDW Plt Count MPV Sodium Potassium Chloride Carbon Dioxide Anion Gap BUN Creatinine Creat Clearance w eGFR POC Glucometer 139.48524 158.29528 153.46927 Random Glucose Calcium Total Bilirubin AST ALT Alkaline Phosphatase Total Protein Albumin Random Vancomycin 01/28/17 01/28/17 01/28/17 05:20 05:20 05:20 WBC 9.8 RBC 3.48 L Hgb 11.4 L Hct 33.9 L MCV 97.5 H MCHC 33.5 RDW 14.3 Plt Count 187 MPV 8.3 Sodium 138 Potassium 3.7 Chloride 96 L Carbon Dioxide 31 D Anion Gap 11 BUN 33 H D Creatinine 10.1 H* D Creat Clearance w eGFR 5.32 POC Glucometer Random Glucose 121 H Calcium 9.0 Total Bilirubin 0.7 D AST 43 H ALT 27 Alkaline Phosphatase 63 Total Protein 7.3 Albumin 3.3 L Random Vancomycin 10.662 Active Medications Generic Name Dose Route Start Last Admin Trade Name Freq PRN Reason Stop Dose Admin Acetaminophen 650 mg 01/27/17 02:08 01/27/17 03:13 Tylenol - PO 650 mg Q6H PRN Administration FEVER OR PAIN Albumin Human 12.5 gm 01/27/17 15:30 Albumin Human 25% - IVPB Q30M [facility] Albuterol/Ipratropium 1 amp 01/27/17 17:14 01/27/17 17:28 Duoneb - NEB 1 amp Q6H PRN Administration SHORTNESS OF BREATH Albuterol/Ipratropium 1 amp 01/27/17 22:00 01/28/17 06:41 Duoneb - NEB 1 amp TIDR [facility] Administration Aspirin 300 mg 01/29/17 10:00 Asa - RC DAILY [facility] Atorvastatin Calcium 80 mg 01/26/17 06:00 01/28/17 06:35 Lipitor - PO Not Given DAILY@0600 [facility] Dexamethasone Sodium Phosphate 10 mg 01/28/17 11:17 Decadron Injection - IVPB 01/30/17 02:01 Q8H-IV [facility] Escitalopram Oxalate 20 mg 01/25/17 10:00 01/28/17 09:32 Lexapro - PO Not Given DAILY [facility] [place] Heparin Sodium (Porcine) 5,000 unit 01/25/17 15:15 01/28/17 06:35 Heparin - SQ 5,000 unit TID [facility] Administration Pantoprazole Sodium 100 mls @ 200 mls/hr 01/27/17 10:00 01/28/17 09:32 Protonix 40mg Ivpb (Pre-Docked) IVPB 200 mls/hr DAILY [facility] Administration Piperacillin Sod/Tazobactam Sod 50 mls @ 100 mls/hr 01/27/17 10:00 01/28/17 09: 32 Zosyn 2.25gm Ivpb (Pre-Docked) IVPB 100 mls/hr Q8H-IV [facility] Administration Protocol Insulin Aspart 1 vial 01/25/17 15:15 01/28/17 06:35 Novolog Vial Sliding Scale - SQ Not Given Q6HPO [facility] [place] Protocol Metoprolol Tartrate 5 mg 01/27/17 15:48 01/27/17 17:00 Lopressor Injection - IVPUSH 5 mg Q4H PRN Administration HYPERTENSION Sevelamer Carbonate 800 mg 01/25/17 17:30 01/28/17 07:43 Renvela - PO Not Given TIDCM [facility] [place] ASSESSMENT/PLAN: 56M with multiple medical problems including multiple CVAs x4, ESRD on HD Tue/ /Sat, DM (insulin dependant) presented to the emergency room after dialysis he was noted to have unintelligible speech, altered mental status, hypotension, and given his history concern for CVA. Altered mental status. There is a concern for another stroke. however after discussing case with neurology it is unlikely patient had a stroke. it is more likely patient had a hypotensive/syncopal event. but patient was hypotensive at the dialysis center and low blood pressure leading to low cerebral perfusion pressure makes this patient at risk for CVA. CT scan negative for acute stroke will need MRI-intubated and not stable for MRI at this time Aspirin 300 rectal daily untila ble to tolerate PO when he does will start aggrenox if patient did have a CVA on aggrenox it is worth exploring whether he should be switched to another antiplatelet will discuss this with neurology-since it is not likely patient had a stroke he should go back on aggrenox when able to take PO (can not be crushed give aspirin) echo-techinically difficult study right and left ventricular function could not be assess otherwise normal echo. Echo from 2014 WNL Carotid duplex WNL extubated Speech and swallow evaluation today barium esophagram tongue swelling: start decadron 10mg q8h x6 doses better than yesterday per patient Upper GI bleed: quickly resolved likely from NG tube trauma observe Troponinemia: Troponin was negative x3 after admission this troponin that is 0.06 was sent during his hypotensive episode no EKG changes likely from demand ischemia secondary to hypotension cardiology consult appreciated and noted demand likely from hypotension no intervention at this time-ischemic work up when stable likely next week Sepsis/septic shock:resolving patient was hypotensive and febrile off levophed gtt possible infectious source could be aspiration during intubation ID consult appreciated continue zosyn today stop vancomycin CT chest when patient is stable per ID to r/o PNA off pressors Sputum Cx growing MSSA so far will follow up final ESRD on HD dialysis per nephrology-dialyzed today continue Renvela-ordered Renal consult appreciated DM: ISS q6h for now while intubated Acute Hypercapneic respiratory failure: resolved Metabolic acidosis resolved patient was intubated for airway protection altered mental status and hypercapnea now on facemask O2 HLD: on Zocor as outpatient continue Zocor FEN: no IVF no electrolyte issues Diet when extubated start CLD and advance as tolerated may need speech and swallow PPx: HSQ/SCDs protonix IV PT consult when able to participate Transfer to telemetry Visit type - Emergency Visit Emergency Visit: Yes ED Registration Date: 01/24/17 Care time: The patient presented to the Emergency Department on the above date and was hospitalized for further evaluation of their emergent condition. - New Patient This patient is new to me today: No - Critical Care Critical Care patient: Yes Total Critical Care Time (in minutes): 45 Critical Care Statement: The care of this patient involved high complexity decision making to prevent further life threatening deterioration of the patient 's condition and/or to evalute & treat vital organ system(s) failure or risk of failure.
--- NOTE | 2017-01-28 11:45 | PN ---
Physical Exam: SUBJECTIVE: Patient seen and examined at bedside. He's at his baseline mental status and reported no complaints. Per nurse, no acute event after extubation. OBJECTIVE: Extubated on ventimask 30% Left IJ placed on 01/25, day 4 Vital Signs Period Temp Pulse Resp BP Sys/Todd Pulse Ox Last 24 Hr 99.5 F-100.2 F 92-126 12-22 117-146/68-102 97-98 GENERAL: Extubated, awake, alert, oriented to time and place, follows commands, interactive, speech normal LUNGS: CTAB HEART: distant heart sounds ABDOMEN: Soft, obese, not distended, no grimace on face upon palpation EXTREMITIES: warm extremities, No edema NEURO: no facial droop, residual weakness in R upper and lower extremities CBCD WBC 9.8 K/mm3 (4.0-10.0) 01/28/17 05:20 RBC 3.48 M/mm3 (4.00-5.60) L 01/28/17 05:20 Hgb 11.4 GM/dL (11.7-16.9) L 01/28/17 05:20 Hct 33.9 % (35.4-49) L 01/28/17 05:20 MCV 97.5 fl (80-96) H 01/28/17 05:20 MCHC 33.5 g/dl (32.0-35.9) 01/28/17 05:20 RDW 14.3 % (11.9-15.9) 01/28/17 05:20 Plt Count 187 K/MM3 (134-434) 01/28/17 05:20 MPV 8.3 fl (7.5-11.1) 01/28/17 05:20 CMP Sodium 138 mmol/L (136-145) 01/28/17 05:20 Potassium 3.7 mmol/L (3.5-5.1) 01/28/17 05:20 Chloride 96 mmol/L (98-107) L 01/28/17 05:20 Carbon Dioxide 31 mmol/L (21-32) D 01/28/17 05:20 Anion Gap 11 (8-16) 01/28/17 05:20 BUN 33 mg/dL (7-18) H D 01/28/17 05:20 Creatinine 10.1 mg/dL (0.7-1.3) H* D 01/28/17 05:20 Creat Clearance w eGFR 5.32 (>60) 01/28/17 05:20 Calcium 9.0 mg/dL (8.5-10.1) 01/28/17 05:20 Total Bilirubin 0.7 mg/dL (0.2-1.0) D 01/28/17 05:20 AST 43 U/L (15-37) H 01/28/17 05:20 ALT 27 U/L (12-78) 01/28/17 05:20 Alkaline Phosphatase 63 U/L (45-117) 01/28/17 05:20 Total Protein 7.3 g/dl (6.4-8.2) 01/28/17 05:20 Albumin 3.3 g/dl (3.4-5.0) L 01/28/17 05:20 Intake & Output 01/25/17 01/26/17 01/27/17 01/28/17 23:59 23:59 23:59 23:59 Intake Total 630 945 345 Output Total 500 100 0 Balance 130 845 345 Weight 105.035 kg 106 kg 108 kg 107 kg Active Medications Generic Name Dose Route Start Last Admin Trade Name Freq PRN Reason Stop Dose Admin Acetaminophen 650 mg 01/27/17 02:08 01/27/17 03:13 Tylenol - PO 650 mg Q6H PRN Administration FEVER OR PAIN Albumin Human 12.5 gm 01/27/17 15:30 Albumin Human 25% - IVPB Q30M JASON Albuterol/Ipratropium 1 amp 01/27/17 17:14 01/27/17 17:28 Duoneb - NEB 1 amp Q6H PRN Administration SHORTNESS OF BREATH Albuterol/Ipratropium 1 amp 01/27/17 22:00 01/28/17 06:41 Duoneb - NEB 1 amp TIDR JASON Administration Aspirin 300 mg 01/29/17 10:00 Asa - RC DAILY JASON Atorvastatin Calcium 80 mg 01/26/17 06:00 01/28/17 06:35 Lipitor - PO Not Given DAILY@0600 J[facility] Dexamethasone Sodium Phosphate 10 mg 01/28/17 11:17 Decadron Injection - IVPB 01/30/17 02:01 Q8H-IV JASON Escitalopram Oxalate 20 mg 01/25/17 10:00 01/28/17 09:32 Lexapro - PO Not Given DAILY [facility] Heparin Sodium (Porcine) 5,000 unit 01/25/17 15:15 01/28/17 06:35 Heparin - SQ 5,000 unit TID JASON Administration Pantoprazole Sodium 100 mls @ 200 mls/hr 01/27/17 10:00 01/28/17 09:32 Protonix 40mg Ivpb (Pre-Docked) IVPB 200 mls/hr DAILY [facility] Administration Piperacillin Sod/Tazobactam Sod 50 mls @ 100 mls/hr 01/27/17 10:00 01/28/17 09: 32 Zosyn 2.25gm Ivpb (Pre-Docked) IVPB 100 mls/hr Q8H-IV JASON Administration Protocol Insulin Aspart 1 vial 01/25/17 15:15 01/28/17 06:35 Novolog Vial Sliding Scale - SQ Not Given Q6HPO [facility] Protocol Metoprolol Tartrate 5 mg 01/27/17 15:48 01/27/17 17:00 Lopressor Injection - IVPUSH 5 mg Q4H PRN Administration HYPERTENSION Sevelamer Carbonate 800 mg 01/25/17 17:30 01/28/17 07:43 Renvela - PO Not Given TIDCM [facility] Microbiology 01/26/17 03:40 Sputum - Endotrachea Suction/Ventilator Gram Stain - Final 01/26/17 03:40 Sputum - Endotrachea Suction/Ventilator Sputum Culture - Preliminary Staphylococcus Aureus 01/25/17 06:00 Sputum - Endotrachea Suction/Ventilator Gram Stain - Final 01/25/17 06:00 Sputum - Endotrachea Suction/Ventilator Sputum Culture - Preliminary Staphylococcus Aureus Imaging CXR on 01/27: No pnx, infiltrate, congestion CXR on 01/26: No change KUB on 01/26: retained stool , vascular calcifications, NG tube with tip in stomach CXR on 01/25: The endotracheal tube and nasogastric tube are present. Again noted is a tortuous aorta with weak inspiration and prominent mediastinum. New left jugular line. No pneumothorax. ET tube and NG tube US doppler of Arm on 01/24: There is no sonographic evidence of DVT involving the right arm. Soft tissue edema is noted. Carotid doppler on 01/24: Minimal atherosclerotic disease with no evidence of hemodynamically significant stenoses CT head on 01/24: No definite CT evidence of acute pathology. Small chronic right frontal subcortical infarct. Small chronic right pontine infarct ASSESSMENT/PLAN: 56 yo wheelchair bound M h/o HTN, HLD, ESRD on HD, DM2 and neuropathy, multiple CVA with R hemiparesis admitted to the ICU for acute respiratory failure and AMS. Pulm: Acute respiratory failure - Extubated, tolerating Ventimask 30% - Respiratory acidosis resolved - Maintain O2 Sat > 88% Neuro: AMS 2/2 metabolic encephalopathy vs. stroke - Resolved - CT shows chronic infarcts * New stroke unlikely * Will cancel MRI - BP control SBP < 220 * lopressor push PRN and hold when SBP < 140 - A1C and LDL at goal - Restart lipitor and aggrenox when stable * rectal asa now ID: Fever - Resolved - Normal lactic acid - Negative CXR - Blood cultures negative - Sputum cultures are growing s. aureas - On rzosyn for another 72 horus GI: UGI likely 2/2 stress ulcer - Resolved - H&H stable Renal: ESRD on HD (, , Tue) - HD yesterday - Restart renvela after starting feed - Renally dose all meds Endo: DM2 - Maintain normaglycemia at 60 to 180 - On sliding scale - BGM FEN - IVF PRN to maintain MAP > 65% - Cont. to monitor lytes - Enteral feed today after extubation Prophylaxis - DVT: Resume heparin - GI: PPI Disposition - Cont. to monitor in ICU Code status - Full code Visit type - Emergency Visit Emergency Visit: No - New Patient This patient is new to me today: No - Critical Care Critical Care patient: Yes Total Critical Care Time (in minutes): 45 Critical Care Statement: The care of this patient involved high complexity decision making to prevent further life threatening deterioration of the patient 's condition and/or to evalute & treat vital organ system(s) failure or risk of failure.
--- NOTE | 2017-01-28 12:06 | PN ---
Progress Note (short form) - Note Progress Note: RENAL Pt seen in the icu he has been extubatedand is comfortable not on pressors Last Vital Signs Temp Pulse Resp BP Pulse Ox 99.2 F 92 H 19 131/85 97 01/28/17 10:00 01/28/17 11:14 01/28/17 10:00 01/28/17 10:00 01/28/17 11:14 lungs clear cvs s1s2 rr +samia abd soft, not tender ext no edema neuro awake, intubated CBC, BMP 01/28/17 05:20 01/28/17 05:20 Current Medications Generic Name Dose Route Start Last Admin Trade Name Freq PRN Reason Stop Dose Admin Acetaminophen 650 mg 01/27/17 02:08 01/27/17 03:13 Tylenol - PO 650 mg Q6H PRN Administration FEVER OR PAIN Albumin Human 12.5 gm 01/27/17 15:30 Albumin Human 25% - IVPB Q30M JASON Albuterol/Ipratropium 1 amp 01/27/17 17:14 01/27/17 17:28 Duoneb - NEB 1 amp Q6H PRN Administration SHORTNESS OF BREATH Albuterol/Ipratropium 1 amp 01/27/17 22:00 01/28/17 06:41 Duoneb - NEB 1 amp TIDR JASON Administration Aspirin 300 mg 01/29/17 10:00 Asa - RC DAILY [facility] Atorvastatin Calcium 80 mg 01/26/17 06:00 01/28/17 06:35 Lipitor - PO Not Given DAILY@0600 JAS[facility] Dexamethasone Sodium Phosphate 10 mg 01/28/17 11:17 Decadron Injection - IVPB 01/30/17 02:01 Q8H-IV JASON Escitalopram Oxalate 20 mg 01/25/17 10:00 01/28/17 09:32 Lexapro - PO Not Given DAILY [facility] Heparin Sodium (Porcine) 5,000 unit 01/25/17 15:15 01/28/17 06:35 Heparin - SQ 5,000 unit TID JAS[facility] Administration Pantoprazole Sodium 100 mls @ 200 mls/hr 01/27/17 10:00 01/28/17 09:32 Protonix 40mg Ivpb (Pre-Docked) IVPB 200 mls/hr DAILY [facility] Administration Piperacillin Sod/Tazobactam Sod 50 mls @ 100 mls/hr 01/27/17 10:00 01/28/17 09: 32 Zosyn 2.25gm Ivpb (Pre-Docked) IVPB 100 mls/hr Q8H-IV JASON Administration Protocol Insulin Aspart 1 vial 01/25/17 15:15 01/28/17 06:35 Novolog Vial Sliding Scale - SQ Not Given Q6HPO [facility] Protocol Metoprolol Tartrate 5 mg 01/27/17 15:48 01/27/17 17:00 Lopressor Injection - IVPUSH 5 mg Q4H PRN Administration HYPERTENSION Sevelamer Carbonate 800 mg 01/25/17 17:30 01/28/17 07:43 Renvela - PO Not Given TIDCM JASON Impression 1. ESRD 2. HTN 3. DM 4. hx CVA 5. hyperlipidemia 6. altered mental status 7. hypotension 8. acute respiratory failure 9mssa in sputum Plan will redialyze again tomorrow continue antibiotics has been started on decadron monitor glucoses closely MV
--- NOTE | 2017-01-28 13:54 | CONSULT ---
Admitting History and Physical - Primary Care Physician PCP: Yuki Espitia - Admission History of Present Illness: Per EMR: "Patient is a 56 yo man with h/o CVAs, ESRD , IDDM , presented with AMS and dysarthria after HD . He was intubated shortly after admission due to worsening mental status #AMS, dysarthria: r/o acute CVA with hx of CVA Resume aggrenox ; MRI of the brain to r/o new stroke once extubated. Neuro is on case. # Acute hypercapnic respiratory failure s/p intubation , patient is in ICU " Pt extubated yesterday. He has been NPO since extubation. 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 h/o dysphagia, initially on puree/thick liquid, but improved. Hewas eating reg food and thin liquids before this admission. History - Admission Reason For Visit: CEREBROVASCULAR ACCIDENT(CVA) - Diagnostics X-ray: Report Reviewed CT Scan: Report Reviewed - General Mental Status: Alert and Oriented, Awake and Alert, Able to Follow Commands Attention: Intact Ability to Follow Directions: Excellent Head/Neck Control: Fair (Head support is weak, only able to support head briefly , resting head back in extended position in 30 seconds. Head extension adversely affects swallowing function) - Hearing Hearing: Normal Speech Evaluation - Communication Primary Language: SPANISH Communication: Yes: Dysarthria (Staff report tongue is swollen from intubation. Pt admitted with dysarthria. Tongue is symmetric with fair strength. Speech intelligibility is impaired on sentence level but more precise on word level and with reminders to "speak slowly and clearly." ddx of tongue swelling vs dysarthria sec new cva.) Oral Expression Ability: Yes: Mild Impairment, Moderate Impairment - Speech Production Able to Make Needs Known: Yes: Mildly Impaired Intelligibility: Yes: Mildly Impaired, Moderately Impaired - Speech Characteristics Voice Loudness: Normal Voice Pitch: Yes: Normal Voice Phonatory-based Quality: Yes: Dysphonia (mild) Speech Pattern: Impaired Speech Clarity: < 75% Nasal Resonance: Normal Articulation: Yes: Imprecise Rate of Speech: Too Fast - Language/Auditory Comprehension Follows: Yes: 2 Stage Simple Commands Observation: Able to respond to yes/no queries: Yes, Yes/No Confusion: No, Comprehends Conversational Speech: Yes - Language/Verbal Expression Able to Respond to Simple Queries: Yes: WNL - 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 Very weak volitional cough. Unable to bring up/experctorate phlegm from pharynx but good oral control.), Tongue Coated (mild white coating.perform mouth care;r/o gopi) Dentition: Yes: Adequate Facial Symmetry at Rest: Symmetrical Facial Symmetry on Retraction: Symmetrical Facial Movement: Controlled Pucker Lips: Normal Smile: Normal Lingual Movement: Normal, Symmetric Lingual Movement Strgth Against Opposition: Reduced Velopharyngeal Movement: Normal Laryngeal Elevation: Impaired Laryngeal Movement: Reduced Excursion, Labored,delay initiation, Reduced Velocity Rate of Intake: WFL Bolus Size: WFL Labial Seal: Impaired Bilaterally (Mild spillage of water out of oral cavity. Tongue thrust out of oral cavity while swallowing. Baseline?) Oral Prep Time: WFL A-P Transit: WFL Pocketing: None Timing of Swallow: Delayed Coughing/Throat Clear: No Change in Voice: No Recommendations - Speech Evaluation, Impression/Plan Impression: Pt is o x 3. Language formulation/expression/cognition is intact. Suspect dysarthria r/o cva. ddx tongue swelling. Impaired head support. Swallow is quite weak with tongue protrusion out of mouth while swallowing (ddx baseline tongue thrust vs weakness). Swallow onset quite delayed and labored while I supported pts head to neutral position to swallow. Laryngeal swallow reduced in strength and efficiency. - Disposition Discharge to: Rehabilitation Center - Dysphagia Impressions/Plan Swallowing Skills: Impaired Dysphagia Impressions: Mild Impairment, Moderate Impairment, Risk of Aspiration , Ongoing Evaluation *Silent aspiration: cannot be R/O at bedside Dysphagia Treatment Plan: Chin Tuck/Down (manually support head to neutral or flexed position. Effortful swallow Double swallow.), Safe Rate, 1/2 tsp. at a time, Elevate HOB during feed, Other (Pt is at risk of aspiration with poor head support and weakened swallow. With staff manually flexing his head, telling him to swallow hard x2, he may be able to tolerate puree and honey thick liquid on a tsp. He may fatique and not be ready for full meals. The sooner we can feed safely, the better the swallow will rehabilitate. Initially, consider trial of Magic cup only. Monitor tolerance. If increased congestion, vocal wetness, thoat clear, NPO, NGT feedings, MBS to further assess swallowing function.(IF PT CAN FIT IN FLOUROSCOPY EQUIP)) Recommendations: Modified Barium Swallow (when medically stable, IF PT CAN FIT IN FLOUROSCOPY EQUIP) - Recommendations Medication Administration: Crushed with applesauce Supplement: Magic Cup
[2017-01-28] MEDS ORDERED: ALBUTEROL SO4 2.5/IPRATROPIUM 0.5 INH SOL 3 ML VIAL.NEB. NEB PRN (14:19)
[2017-01-28] MEDS ORDERED: METOPROLOL TARTRATE 5 MG/5 ML VIAL IVPUSH PRN (14:19)
[2017-01-28] MEDS ORDERED: ACETAMINOPHEN 650 MG/20.3 ML ORAL SOLUTION (CUPS) GT PRN (14:19)
[2017-01-28] MEDS ORDERED: ACETAMINOPHEN 1000 MG/100 ML VIAL (NON FORMULARY) IVPB PRN (15:01)
--- NOTE | 2017-01-28 16:54 | PN ---
Progress Note (short form) - Note Progress Note: Vascular Surgery Called to evaluate right forearm avf. Question of whether pt is clearing properly in HD Right avf -- good thrill and bruit. US ordered to look at fistula. Will follow. Allen Allen DO
[2017-01-28] MEDS: DEXAMETHASONE SOD PHOSPHATE 10 MG/1 ML VIAL IVPB SCH (17:06)
[2017-01-28] MEDS ORDERED: AGGRENOX PO SCH (22:00)
[2017-01-29] MEDS: PIPERACILLIN/TAZOB 2.25 GM 50 ML IVPB SCH ×3 (02:14→17:18)
[2017-01-29] MEDS: DEXAMETHASONE SOD PHOSPHATE 10 MG/1 ML VIAL IVPB SCH ×3 (02:14→17:19)
[2017-01-29] MEDS: ATORVASTATIN CA 80 MG TABLET (FP) PO SCH (05:53)
[2017-01-29] MEDS: HEPARIN NA (PORCINE) 5,000 UNITS/ML 1ML VIAL SQ SCH ×3 (05:54→21:13)
[2017-01-29 06:01] LABS: MCH 33.2 pg (25.7-33.7); MCHC 34.1 g/dl (32.0-35.9); MEAN CELL VOLUME 97.5 fl (80-96); MEAN PLT VOLUME 8.6 fl (7.5-11.1); PLATELET COUNT 185 K/MM3 (134-434); RDW 14.5 % (11.9-15.9); WHITE BLOOD COUNT 9.5 K/mm3 (4.0-10.0)
[2017-01-29] MEDS: ALBUTEROL SO4 2.5/IPRATROPIUM 0.5 INH SOL 3 ML VIAL.NEB. NEB SCH ×3 (06:30→23:42)
[2017-01-29 06:39] LABS: ALBUMIN 3.2 g/dl (3.4-5.0); BILIRUBIN,TOTAL 0.6 mg/dL (0.2-1.0); CALCIUM 8.7 mg/dL (8.5-10.1); TOT PROT 7.3 g/dl (6.4-8.2)
[2017-01-29] MEDS ORDERED: HEPARIN NA (PORCINE) 5,000 UNITS/ML 1ML VIAL IVPUSH ONE (06:45)
[2017-01-29 07:20] LABS: CREATININE 13.4 mg/dL (0.7-1.3)
[2017-01-29] MEDS: ALBUMIN HUMAN 25% 100 ML VIAL IVPB SCH ×3 (08:00→10:22)
[2017-01-29] MEDS: HEPARIN NA (PORCINE) 5,000 UNITS/ML 1ML VIAL IVPUSH SCH ×3 (08:15→10:15)
--- NOTE | 2017-01-29 09:18 | PN ---
Progress Note, Physician Chief Complaint: ID Alert NAD Dialysis in progress - Current Medication List Current Medications: Active Medications Albuterol/Ipratropium (Duoneb -) 1 amp NEB Q6H PRN PRN Reason: SHORTNESS OF BREATH Albuterol/Ipratropium (Duoneb -) 1 amp NEB TIDR [facility] Last Admin: 01/29/17 06:30 Dose: 1 amp Aspirin (Asa -) 300 mg RC DAILY [facility] Atorvastatin Calcium (Lipitor -) 80 mg PO DAILY@0600 [facility] Last Admin: 01/29/17 05:53 Dose: Not Given Dexamethasone Sodium Phosphate (Decadron Injection -) 10 mg IVPB Q8H-IV [facility] Stop: 01/30/17 02:01 Last Admin: 01/29/17 02:14 Dose: 10 mg Escitalopram Oxalate (Lexapro -) 20 mg PO DAILY [facility] Heparin Sodium (Porcine) (Heparin -) 5,000 unit SQ TID [facility] Last Admin: 01/29/17 05:54 Dose: 5,000 unit Pantoprazole Sodium (Protonix 40mg Ivpb (Pre-Docked)) 100 mls @ 200 mls/hr IVPB DAILY [facility] Piperacillin Sod/Tazobactam Sod (Zosyn 2.25gm Ivpb (Pre-Docked)) 50 mls @ 100 mls/hr IVPB Q8H-IV [facility] PRN Reason: Protocol Last Admin: 01/29/17 02:14 Dose: 100 mls/hr Insulin Aspart (Novolog Vial Sliding Scale -) 1 vial SQ Q6HPO [facility] PRN Reason: Protocol Last Admin: 01/29/17 00:00 Dose: Not Given Metoprolol Tartrate (Lopressor Injection -) 5 mg IVPUSH Q4H PRN PRN Reason: HYPERTENSION Sevelamer Carbonate (Renvela -) 800 mg PO TIDCM [facility] Last Admin: 01/28/17 17:01 Dose: Not Given - Objective Vital Signs: Vital Signs Temperature 97.6 F 01/29/17 07:10 Pulse Rate 93 H 01/29/17 08:45 Respiratory Rate 18 01/29/17 08:45 Blood Pressure 117/86 01/29/17 08:45 O2 Sat by Pulse Oximetry (%) 97 01/28/17 21:00 Constitutional: Yes: Well Nourished, No Distress Neck: Yes: WNL, Supple Cardiovascular: Yes: S1, S2 Respiratory: Yes: WNL, Regular, CTA Bilaterally Gastrointestinal: Yes: Soft. No: Tenderness Extremities: Yes: Other (AV fistula right) Labs: CBC, BMP 01/29/17 05:00 01/29/17 05:00 INR, PTT INR 1.23 (0.82-1.09) H 01/27/17 05:30 Problem List - Problems (1) Dialysis patient Code(s): Z99.2 - DEPENDENCE ON RENAL DIALYSIS (2) Sepsis Code(s): A41.9 - SEPSIS, UNSPECIFIED ORGANISM (3) Aspiration pneumonia Code(s): J69.0 - PNEUMONITIS DUE TO INHALATION OF FOOD AND VOMIT Assessment/Plan Microbiology 01/26/17 03:40 Sputum - Endotrachea Suction/Ventilator Gram Stain - Final 01/26/17 03:40 Sputum - Endotrachea Suction/Ventilator Sputum Culture - Final Staphylococcus Aureus 01/25/17 06:00 Sputum - Endotrachea Suction/Ventilator Gram Stain - Final 01/25/17 06:00 Sputum - Endotrachea Suction/Ventilator Sputum Culture - Final Staphylococcus Aureus Laboratory Tests 01/29/17 05:00 WBC 9.5 Hgb 11.1 L Hct 32.7 L Plt Count 185 Assessment ESRD Aspiration Sepsis Respiratory failure Plan Will ask pharmacy to stop antibiotic in 48 hours Sign off Recall if needed Alan HERNANDEZ
[2017-01-29] MEDS ORDERED: ASPIRIN 300 MG SUPP.RECT RC SCH (10:00)
[2017-01-29] MEDS: SEVELAMER CARBONATE 800 MG TAB (FP) PO SCH ×3 (10:32→17:19)
[2017-01-29] MEDS: ESCITALOPRAM OXALATE 20 MG TABLET (FP) PO SCH (10:32)
--- NOTE | 2017-01-29 10:32 | PN ---
Progress Note (short form) - Note Progress Note: PULMONARY/CCM Pt seen and examined in the ICU. Breathing better today. Currently on HD. Tongue swelling better. Last Vital Signs Temp Pulse Resp BP Pulse Ox 97.6 F 85 18 126/90 97 01/29/17 07:10 01/29/17 10:15 01/29/17 10:15 01/29/17 10:15 01/28/17 21:00 Intake & Output 01/26/17 01/27/17 01/28/17 01/29/17 23:59 23:59 23:59 23:59 Intake Total 945 345 200 300 Output Total 100 0 0 100 Balance 845 345 200 200 Weight 233 lb 11.04 oz 238 lb 1.6 oz 235 lb 14.314 oz 233 lb 7.512 oz Gen: less tachypneic Heart: RRR Lung: decreased breath sounds at the bases Abd: soft, nontender Ext: + edema CBC, BMP 01/29/17 05:00 01/29/17 05:00 Active Medications Albuterol/Ipratropium (Duoneb -) 1 amp NEB Q6H PRN PRN Reason: SHORTNESS OF BREATH Albuterol/Ipratropium (Duoneb -) 1 amp NEB TIDR [facility] Last Admin: 01/29/17 06:30 Dose: 1 amp Aspirin (Asa -) 300 mg RC DAILY [facility] Atorvastatin Calcium (Lipitor -) 80 mg PO DAILY@0600 [facility] Last Admin: 01/29/17 05:53 Dose: Not Given Dexamethasone Sodium Phosphate (Decadron Injection -) 10 mg IVPB Q8H-IV [facility] Stop: 01/30/17 02:01 Last Admin: 01/29/17 02:14 Dose: 10 mg Escitalopram Oxalate (Lexapro -) 20 mg PO DAILY [facility] Heparin Sodium (Porcine) (Heparin -) 5,000 unit SQ TID [facility] Last Admin: 01/29/17 05:54 Dose: 5,000 unit Pantoprazole Sodium (Protonix 40mg Ivpb (Pre-Docked)) 100 mls @ 200 mls/hr IVPB DAILY [facility] Piperacillin Sod/Tazobactam Sod (Zosyn 2.25gm Ivpb (Pre-Docked)) 50 mls @ 100 mls/hr IVPB Q8H-IV [facility] PRN Reason: Protocol Stop: 01/31/17 02:01 Last Admin: 01/29/17 02:14 Dose: 100 mls/hr Insulin Aspart (Novolog Vial Sliding Scale -) 1 vial SQ Q6HPO [facility] PRN Reason: Protocol Last Admin: 01/29/17 00:00 Dose: Not Given Metoprolol Tartrate (Lopressor Injection -) 5 mg IVPUSH Q4H PRN PRN Reason: HYPERTENSION Sevelamer Carbonate (Renvela -) 800 mg PO TIDCM [facility] Last Admin: 01/28/17 17:01 Dose: Not Given A/P s/p Acute Hypercapneic Respiratory Failure r/o Acute CVA h/o CVA r/o Aspiration Pneumonia s/p Septic Shock ESRD on HD DM - continue decadron x 48 hrs then reassess need to continue - swallow evaluation in progress - neuro checks - taper FiO2 to keep SpO2 >90% - antibiotics per ID - ASA - DVT/GI prophylaxis - can monitor on telemetry/stroke unit
[2017-01-29] MEDS: ASPIRIN 300 MG SUPP.RECT RC SCH (10:33)
[2017-01-29] MEDS: PANTOPRAZOLE SODIUM 100 ML IVPB SCH (10:33)
--- NOTE | 2017-01-29 11:04 | PN ---
Physical Exam: SUBJECTIVE: Patient seen and examined Patient is comfortable with no acute distress, on a thickened diet OBJECTIVE: Vital Signs Period Temp Pulse Resp BP Sys/Todd Pulse Ox Last 24 Hr 97.6 F-99.1 F 77-102 18-22 115-159/73-104 97-97 GENERAL: The patient is awake, alert, and fully oriented, in no acute distress. HEAD: Normal with no signs of trauma. EYES: PERRL, extraocular movements intact, sclera anicteric, conjunctiva clear. No ptosis. ENT: Ears normal, nares patent, oropharynx clear without exudates, moist mucous membranes. NECK: Trachea midline, full range of motion, supple. LUNGS: Breath sounds equal, clear to auscultation bilaterally, no wheezes, no crackles, no accessory muscle use. HEART: Regular rate and rhythm, S1, S2 without murmur, rub or gallop. ABDOMEN: Soft, nontender, nondistended, normoactive bowel sounds, no guarding, no rebound, no hepatosplenomegaly, no masses. EXTREMITIES: 2+ pulses, warm, well-perfused, no edema. External Rotation ( RLE.spasticity , hemiplegia right.) NEUROLOGICAL: Cranial nerves II through XII grossly intact. Motor Strength: LUE (4/5), LLE (4/5), RUE (0/5), RLE (0/5) PSYCH: Normal mood, normal affect. SKIN: Warm, dry, normal turgor, no rashes or lesions noted Laboratory Results - last 24 hr 01/28/17 01/28/17 01/29/17 14:17 17:18 05:00 WBC 9.5 RBC 3.35 L Hgb 11.1 L Hct 32.7 L MCV 97.5 H MCHC 34.1 RDW 14.5 Plt Count 185 MPV 8.6 Sodium Potassium Chloride Carbon Dioxide Anion Gap BUN POC Glucometer 118.60751 [phone] Random Glucose Calcium Total Bilirubin AST ALT Alkaline Phosphatase Total Protein Albumin 01/29/17 05:00 WBC RBC Hgb Hct MCV MCHC RDW Plt Count MPV Sodium 140 Potassium 4.2 Chloride 99 Carbon Dioxide 30 Anion Gap 11 BUN 46 H D POC Glucometer Random Glucose 125 H Calcium 8.7 Total Bilirubin 0.6 AST 29 D ALT 25 Alkaline Phosphatase 64 Total Protein 7.3 Albumin 3.2 L Active Medications Generic Name Dose Route Start Last Admin Trade Name Freq PRN Reason Stop Dose Admin Albuterol/Ipratropium 1 amp 01/28/17 14:19 Duoneb - NEB Q6H PRN SHORTNESS OF BREATH Albuterol/Ipratropium 1 amp 01/28/17 22:00 01/29/17 06:30 Duoneb - NEB 1 amp TIDR JASON Administration Aspirin 300 mg 01/29/17 10:00 01/29/17 10:33 Asa - RC 300 mg DAILY JASON Administration Atorvastatin Calcium 80 mg 01/29/17 06:00 01/29/17 05:53 Lipitor - PO Not Given DAILY@0600 JASON Dexamethasone Sodium Phosphate 10 mg 01/28/17 18:00 01/29/17 10:33 Decadron Injection - IVPB 01/30/17 02:01 10 mg Q8H-IV JASON Administration Escitalopram Oxalate 20 mg 01/29/17 10:00 01/29/17 10:32 Lexapro - PO Not Given DAILY JASON Heparin Sodium (Porcine) 5,000 unit 01/28/17 22:00 01/29/17 05:54 Heparin - SQ 5,000 unit TID JASON Administration Pantoprazole Sodium 100 mls @ 200 mls/hr 01/29/17 10:00 01/29/17 10:33 Protonix 40mg Ivpb (Pre-Docked) IVPB 200 mls/hr DAILY JASON Administration Piperacillin Sod/Tazobactam Sod 50 mls @ 100 mls/hr 01/28/17 18:00 01/29/17 10: 33 Zosyn 2.25gm Ivpb (Pre-Docked) IVPB 01/31/17 02:01 100 mls/hr Q8H-IV JASON Administration Protocol Insulin Aspart 1 vial 01/28/17 18:00 01/29/17 00:00 Novolog Vial Sliding Scale - SQ Not Given Q6HPO [facility] Protocol Lidocaine/Aluminum/Magnesium/Simeth 5 ml 01/29/17 12:00 Magic Mouthwash *Sjr Formula* - MM Q6HPO JASON Metoprolol Tartrate 5 mg 01/28/17 14:19 Lopressor Injection - IVPUSH Q4H PRN HYPERTENSION Nystatin 500,000 units 01/29/17 12:00 Nystatin Oral Suspension - PO Q6HPO JASON Sevelamer Carbonate 800 mg 01/28/17 17:30 01/29/17 10:32 Renvela - PO Not Given TIDCM [facility] EXAM#: TYPE/EXAM: RESULT: [id number] US/CAROTID COLOR FLOW DOPP US HISTORY PROVIDED: CVA Real time and doppler evaluation of the carotid arteries demonstrates the following: Minimal atherosclerotic plaque is identified on real time imaging of the common carotid and proximal internal and external carotid arteries bilaterally. Doppler velocity measurements are within normal limits within these vessels with no velocity elevations suspicious for hemodynamically significant stenoses. Forward flow is present within the left vertebral artery. The right vertebral artery could not be identified and may be excluded. IMPRESSION: 1. Minimal atherosclerotic disease with no evidence of hemodynamically significant stenoses. 2. Nonvisualization of the right vertebral artery. Please see above discussion. ASSESSMENT AND PLAN: Patient is a 56 yo man with h/o CVAs, ESRD , IDDM , presented with AMS and dysarthria after HD . He was intubated shortly after admission due to worsening mental status. # Swelling of his tongue improving , on Iv Decadron continue for now. # Acute hypercapnic respiratory failure s/p intubation and extubation , patient continues to be in ICU #AMS change with dysarthria improved : on rectal aspirin/Lipitor continue ; MRI of the brain to r/o new stroke. Neuro consult # s/p Septic shock s/p pressor, continue IV antibiotic for Sepsis ;ID consult appreciated continue Zosyn. Echo result reviewed ( last echo was in 2012 ) # ESRD: on HD(TTS), getting HD now in ICU , nephrology appreciated cont renvela # DM : SS with coverage SSI q6 hr DVT Px; Heparin sq Visit type - Emergency Visit Emergency Visit: Yes ED Registration Date: 01/24/17 Care time: The patient presented to the Emergency Department on the above date and was hospitalized for further evaluation of their emergent condition. - New Patient This patient is new to me today: No - Critical Care Critical Care patient: No
--- NOTE | 2017-01-29 11:07 | PN ---
Progress Note, Physician Chief Complaint: Renal f/u Pt has been on HD C/O a sore throat and he failed the swallowing evaluation- Onmagic wash, Abx and Steroids He remains extubated and in no distress - Current Medication List Current Medications: Active Medications Albuterol/Ipratropium (Duoneb -) 1 amp NEB Q6H PRN PRN Reason: SHORTNESS OF BREATH Albuterol/Ipratropium (Duoneb -) 1 amp NEB TIDR [facility] Last Admin: 01/29/17 06:30 Dose: 1 amp Aspirin (Asa -) 300 mg RC DAILY [facility] Last Admin: 01/29/17 10:33 Dose: 300 mg Atorvastatin Calcium (Lipitor -) 80 mg PO DAILY@0600 [facility] Last Admin: 01/29/17 05:53 Dose: Not Given Dexamethasone Sodium Phosphate (Decadron Injection -) 10 mg IVPB Q8H-IV [facility] Stop: 01/30/17 02:01 Last Admin: 01/29/17 10:33 Dose: 10 mg Escitalopram Oxalate (Lexapro -) 20 mg PO DAILY [facility] Last Admin: 01/29/17 10:32 Dose: Not Given Heparin Sodium (Porcine) (Heparin -) 5,000 unit SQ TID [facility] Last Admin: 01/29/17 05:54 Dose: 5,000 unit Pantoprazole Sodium (Protonix 40mg Ivpb (Pre-Docked)) 100 mls @ 200 mls/hr IVPB DAILY [facility] Last Admin: 01/29/17 10:33 Dose: 200 mls/hr Piperacillin Sod/Tazobactam Sod (Zosyn 2.25gm Ivpb (Pre-Docked)) 50 mls @ 100 mls/hr IVPB Q8H-IV [facility] PRN Reason: Protocol Stop: 01/31/17 02:01 Last Admin: 01/29/17 10:33 Dose: 100 mls/hr Insulin Aspart (Novolog Vial Sliding Scale -) 1 vial SQ Q6HPO [facility] PRN Reason: Protocol Last Admin: 01/29/17 00:00 Dose: Not Given Lidocaine/Aluminum/Magnesium/Simeth (Magic Mouthwash *Sjr Formula* -) 5 ml MM Q6HPO [facility] Metoprolol Tartrate (Lopressor Injection -) 5 mg IVPUSH Q4H PRN PRN Reason: HYPERTENSION Nystatin (Nystatin Oral Suspension -) 500,000 units PO Q6HPO JASON Sevelamer Carbonate (Renvela -) 800 mg PO TIDCM [facility] Last Admin: 01/29/17 10:32 Dose: Not Given - Objective Vital Signs: Vital Signs Temperature 97.6 F 01/29/17 07:10 Pulse Rate 96 H 01/29/17 10:45 Respiratory Rate 18 01/29/17 10:45 Blood Pressure 121/89 01/29/17 10:45 O2 Sat by Pulse Oximetry (%) 97 01/28/17 21:00 Constitutional: Yes: No Distress Cardiovascular: Yes: S1, S2. No: JVD Respiratory: Yes: CTA Bilaterally, Other (EQUAL AIR ENTRY B/L) Extremities: Yes: Other (AV access being used in the RUE) Edema: LLE: Trace, RLE: Trace Labs: CBC, BMP 01/29/17 05:00 01/29/17 05:00 INR, PTT INR 1.23 (0.82-1.09) H 01/27/17 05:30 Assessment/Plan Impression 1. ESRD 2. HTN 3. DM 4. Hx CVA 5. Hyperlipidemia 6. S/P Acute respiratory failure 7. Mssa in sputum Plan HD as ordered with 2-3 liters of fluid removal To re assess pt's swallowing ability Abx Steroids as per CCM Dr Ocampo
--- NOTE | 2017-01-29 11:33 | PN ---
Progress Note, Physician History of Present Illness: seen and examined today in nad. extubated, awake, alert, communicative. on HD. no new complaints. - Current Medication List Current Medications: Active Medications Albuterol/Ipratropium (Duoneb -) 1 amp NEB Q6H PRN PRN Reason: SHORTNESS OF BREATH Albuterol/Ipratropium (Duoneb -) 1 amp NEB TIDR [facility] Last Admin: 01/29/17 06:30 Dose: 1 amp Aspirin (Asa -) 300 mg RC DAILY [facility] Last Admin: 01/29/17 10:33 Dose: 300 mg Atorvastatin Calcium (Lipitor -) 80 mg PO DAILY@0600 [facility] Last Admin: 01/29/17 05:53 Dose: Not Given Dexamethasone Sodium Phosphate (Decadron Injection -) 10 mg IVPB Q8H-IV [facility] Stop: 01/30/17 02:01 Last Admin: 01/29/17 10:33 Dose: 10 mg Escitalopram Oxalate (Lexapro -) 20 mg PO DAILY [facility] Last Admin: 01/29/17 10:32 Dose: Not Given Heparin Sodium (Porcine) (Heparin -) 5,000 unit SQ TID [facility] Last Admin: 01/29/17 05:54 Dose: 5,000 unit Pantoprazole Sodium (Protonix 40mg Ivpb (Pre-Docked)) 100 mls @ 200 mls/hr IVPB DAILY [facility] Last Admin: 01/29/17 10:33 Dose: 200 mls/hr Piperacillin Sod/Tazobactam Sod (Zosyn 2.25gm Ivpb (Pre-Docked)) 50 mls @ 100 mls/hr IVPB Q8H-IV [facility] PRN Reason: Protocol Stop: 01/31/17 02:01 Last Admin: 01/29/17 10:33 Dose: 100 mls/hr Insulin Aspart (Novolog Vial Sliding Scale -) 1 vial SQ Q6HPO JASON PRN Reason: Protocol Last Admin: 01/29/17 00:00 Dose: Not Given Lidocaine/Aluminum/Magnesium/Simeth (Magic Mouthwash *Sjr Formula* -) 5 ml MM Q6HPO [facility] Metoprolol Tartrate (Lopressor Injection -) 5 mg IVPUSH Q4H PRN PRN Reason: HYPERTENSION Nystatin (Nystatin Oral Suspension -) 500,000 units PO Q6HPO [facility] Sevelamer Carbonate (Renvela -) 800 mg PO TIDCM [facility] Last Admin: 01/29/17 10:32 Dose: Not Given - Objective Vital Signs: Vital Signs Temperature 98.5 F 01/29/17 11:06 Pulse Rate 93 H 01/29/17 11:06 Respiratory Rate 18 01/29/17 11:06 Blood Pressure 130/103 01/29/17 11:06 O2 Sat by Pulse Oximetry (%) 97 01/28/17 21:00 Constitutional: Yes: No Distress, Calm, Obese Eyes: Yes: Conjunctiva Clear, EOM Intact, PERRL HENT: Yes: Atraumatic, Normocephalic Cardiovascular: Yes: Regular Rate and Rhythm, S1, S2. No: Bradycardia, Tachycardia, Pulse Irregular, Bruit, JVD, Gallop, Murmur, Rub, S3, S4, Varicosities Respiratory: Yes: Regular, Diminished. No: Rales, Rhonchi, Wheezes Gastrointestinal: Yes: Normal Bowel Sounds, Soft. No: Distention, Tenderness Musculoskeletal: Yes: Muscle Weakness Edema: No Peripheral Pulses WNL: Yes Peripheral Pulses: Left Doralis Pedis: 2+, Right Dorsalis Pedis: 2+ Neurological: Yes: Alert, Pre-Existing Deficit Psychiatric: Yes: Alert Labs: CBC, BMP 01/29/17 05:00 01/29/17 05:00 INR, PTT INR 1.23 (0.82-1.09) H 01/27/17 05:30 - ....Imaging Chest X-ray: Report Reviewed, Image Reviewed EKG: Report Reviewed, Image Reviewed Other: Report Reviewed, Image Reviewed (tele-nsr, sinus tach, no sig arrhythmia) Assessment/Plan IMP: ESRD Acute respiratory failure Fever, sepsis Elevated TnI REC: Elevated troponin likely secondary to sepsis in setting ESRD Echo was poor study, unable to assess LV function, plan to repeat echo when can be positioned better No sig arrhythmias on telemetry Abx as per ID Cont ASA daily can be changed to 81mg po daily once tolerating po Cont statin Plan for ischemic work up early next week when condition improves medically
[2017-01-29] MEDS: NYSTATIN 500,000 UNITS/5 ML SUSPENSION PO SCH ×2 (11:41→17:18)
--- NOTE | 2017-01-29 12:47 | PN ---
Progress Note (short form) - Note Progress Note: Neurology Progress Note, Physician History of Present Illness: 56 year old male, with past medical history of hypertension, hyperlipidemia, diabetes mellitus, multiple CVAs(x4 one in 2005, one in 2006, and 2 in 2007) in the past with right sided hemiparesis(wheelchair bound due to CVAs), neuropathy , and ESRD on hemodialysis (, , Tue), admitted for altered mental status during dialysis. Seen by Dr. Zuniga several days ago. He had a ct scan of the head that was negative for new acute pathology, bleed. He developed progressive shortness of breath and was intubated. Active Medications Albuterol/Ipratropium (Duoneb -) 1 amp NEB Q6H PRN PRN Reason: SHORTNESS OF BREATH Albuterol/Ipratropium (Duoneb -) 1 amp NEB TIDR [facility] Last Admin: 01/29/17 06:30 Dose: 1 amp Aspirin (Asa -) 300 mg RC DAILY [facility] Last Admin: 01/29/17 10:33 Dose: 300 mg Atorvastatin Calcium (Lipitor -) 80 mg PO DAILY@0600 [facility] Last Admin: 01/29/17 05:53 Dose: Not Given Dexamethasone Sodium Phosphate (Decadron Injection -) 10 mg IVPB Q8H-IV [facility] Stop: 01/30/17 02:01 Last Admin: 01/29/17 10:33 Dose: 10 mg Escitalopram Oxalate (Lexapro -) 20 mg PO DAILY [facility] Last Admin: 01/29/17 10:32 Dose: Not Given Heparin Sodium (Porcine) (Heparin -) 5,000 unit SQ TID [facility] Last Admin: 01/29/17 05:54 Dose: 5,000 unit Pantoprazole Sodium (Protonix 40mg Ivpb (Pre-Docked)) 100 mls @ 200 mls/hr IVPB DAILY [facility] Last Admin: 01/29/17 10:33 Dose: 200 mls/hr Piperacillin Sod/Tazobactam Sod (Zosyn 2.25gm Ivpb (Pre-Docked)) 50 mls @ 100 mls/hr IVPB Q8H-IV [facility] PRN Reason: Protocol Stop: 01/31/17 02:01 Last Admin: 01/29/17 10:33 Dose: 100 mls/hr Insulin Aspart (Novolog Vial Sliding Scale -) 1 vial SQ Q6HPO [facility] PRN Reason: Protocol Last Admin: 01/29/17 00:00 Dose: Not Given Lidocaine/Aluminum/Magnesium/Simeth (Magic Mouthwash *Sjr Formula* -) 5 ml MM Q6HPO [facility] Metoprolol Tartrate (Lopressor Injection -) 5 mg IVPUSH Q4H PRN PRN Reason: HYPERTENSION Nystatin (Nystatin Oral Suspension -) 500,000 units PO Q6HPO [facility] Last Admin: 01/29/17 11:41 Dose: 500,000 units Sevelamer Carbonate (Renvela -) 800 mg PO TIDCM [facility] Last Admin: 01/29/17 10:32 Dose: Not Given - Objective Vital Signs Temperature 98.5 F 01/29/17 11:06 Pulse Rate 108 H 01/29/17 12:00 Respiratory Rate 21 01/29/17 12:00 Blood Pressure 129/94 01/29/17 12:00 O2 Sat by Pulse Oximetry (%) 97 01/28/17 21:00 Constitutional: Yes: Mild Distress Eyes: Yes: Conjunctiva Clear, EOM Intact, PERRL HENT: Yes: Atraumatic, Normocephalic Neck: Yes: Supple, Trachea Midline Cardiovascular: Yes: S1, S2 Respiratory: Yes: Regular, CTA Bilaterally, Mechanically Ventilated Gastrointestinal: Yes: Normal Bowel Sounds, Soft Genitourinary: Yes: Other (on dialysis) Extremities: Yes: External Rotation (RLE.spasticity , hemiplegia right.) Edema: Yes Edema: LUE: 1+, RUE: 2+, LLE: 1+, RLE: 2+ Peripheral Pulses WNL: Yes Peripheral Pulses: Left Radial: 1+, Right Radial: 1+ Neurological: Yes: Alert, Oriented, Cran Nerves II-XII Intact, Other (intubated , followin commands on the left) ...Motor Strength: LUE (4/5), LLE (4/5), RUE (0/5), RLE (0/5) Psychiatric: Yes: Alert, Oriented Labs: CBC, BMP 01/29/17 05:00 01/29/17 05:00 Problem List - Problems (1) Old cerebrovascular accident (CVA) without late effect Code(s): Z86.73 - PRSNL HX OF TIA (TIA), AND CEREB INFRC W/O RESID DEFICITS (2) Syncope and collapse Code(s): R55 - SYNCOPE AND COLLAPSE (3) Dialysis patient Code(s): Z99.2 - DEPENDENCE ON RENAL DIALYSIS (4) Hypotension Code(s): I95.9 - HYPOTENSION, UNSPECIFIED (5) Hemiparesis Code(s): G81.90 - HEMIPLEGIA, UNSPECIFIED AFFECTING UNSPECIFIED SIDE Assessment/Plan 56 year old male with pmhx of ESRD on HD, DM, multiple CVA, residual right hemiparesis, wheelchairbound and HTN who was admitted two days ago for altered mental status during dialysis. He missed his dialysis on Tuesday as he had problems with his scooter. He presented to HD on Tuesday and complained of weakness. He developed increased confusion and lethargy during dialysis, became hypotensive during dialysis. He was taken off and sent to the ER . He had a ct scan of the head that was negative for new acute pathology, bleed. IN ICU, continued right hemiplegia, following commands on the left. Medical mgmt ongoing. Continue aggrenox for now. MRI brain when able.
[2017-01-29] MEDS: MAG HYDROX/ALH/SMC/DPHA/LIDO 240 ML MOUTHWASH MM SCH ×2 (13:22→17:19)
[2017-01-29] MEDS: INSULIN SLIDING SCALE (NOVOLOG) 1 VIAL SQ SCH ×3 (13:27→17:36)
[2017-01-30] MEDS ORDERED: INSULIN (NOVOLOG) ASPART 100 UNITS/ML 10ML VIAL ONE ×3 (00:04→22:05)
[2017-01-30] MEDS: INSULIN SLIDING SCALE (NOVOLOG) 1 VIAL SQ SCH ×5 (00:06→22:26)
[2017-01-30] MEDS: NYSTATIN 500,000 UNITS/5 ML SUSPENSION PO SCH ×4 (00:06→17:00)
[2017-01-30] MEDS: MAG HYDROX/ALH/SMC/DPHA/LIDO 240 ML MOUTHWASH MM SCH ×3 (00:06→11:10)
[2017-01-30] MEDS: PIPERACILLIN/TAZOB 2.25 GM 50 ML IVPB SCH ×3 (01:23→17:00)
[2017-01-30] MEDS: DEXAMETHASONE SOD PHOSPHATE 10 MG/1 ML VIAL IVPB SCH (01:23)
[2017-01-30] MEDS: HEPARIN NA (PORCINE) 5,000 UNITS/ML 1ML VIAL SQ SCH ×3 (05:59→22:26)
[2017-01-30] MEDS: ATORVASTATIN CA 80 MG TABLET (FP) PO SCH (06:00)
[2017-01-30] MEDS: ALBUTEROL SO4 2.5/IPRATROPIUM 0.5 INH SOL 3 ML VIAL.NEB. NEB SCH ×3 (06:15→22:00)
[2017-01-30 07:26] LABS: MCH 32.3 pg (25.7-33.7); MEAN CELL VOLUME 97.8 fl (80-96); MEAN PLT VOLUME 8.4 fl (7.5-11.1); PLATELET COUNT 211 K/MM3 (134-434); RDW 14.8 % (11.9-15.9); WHITE BLOOD COUNT 12.9 K/mm3 (4.0-10.0)
--- NOTE | 2017-01-30 07:37 | PN ---
Teaching Attending Note Name of Resident: Bruce Lorenzo ATTENDING PHYSICIAN STATEMENT I saw and evaluated the patient. I reviewed the resident's note and discussed the case with the resident. I agree with the resident's findings and plan as documented. Vital Signs Temperature 98.1 F 01/30/17 06:00 Pulse Rate 99 H 01/30/17 06:00 Respiratory Rate 18 01/30/17 06:00 Blood Pressure 131/80 01/30/17 06:00 O2 Sat by Pulse Oximetry (%) 97 01/28/17 21:00 CBCD WBC 9.5 K/mm3 (4.0-10.0) 01/29/17 05:00 RBC 3.35 M/mm3 (4.00-5.60) L 01/29/17 05:00 Hgb 11.1 GM/dL (11.7-16.9) L 01/29/17 05:00 Hct 32.7 % (35.4-49) L 01/29/17 05:00 MCV 97.5 fl (80-96) H 01/29/17 05:00 MCHC 34.1 g/dl (32.0-35.9) 01/29/17 05:00 RDW 14.5 % (11.9-15.9) 01/29/17 05:00 Plt Count 185 K/MM3 (134-434) 01/29/17 05:00 MPV 8.6 fl (7.5-11.1) 01/29/17 05:00 CMP Sodium 140 mmol/L (136-145) 01/29/17 05:00 Potassium 4.2 mmol/L (3.5-5.1) 01/29/17 05:00 Chloride 99 mmol/L (98-107) 01/29/17 05:00 Carbon Dioxide 30 mmol/L (21-32) 01/29/17 05:00 Anion Gap 11 (8-16) 01/29/17 05:00 BUN 46 mg/dL (7-18) H D 01/29/17 05:00 Creatinine 13.4 mg/dL (0.7-1.3) H* D 01/29/17 05:00 Creat Clearance w eGFR 3.84 (>60) 01/29/17 05:00 Random Glucose 125 mg/dL (74-106) H 01/29/17 05:00 Calcium 8.7 mg/dL (8.5-10.1) 01/29/17 05:00 Total Bilirubin 0.6 mg/dL (0.2-1.0) 01/29/17 05:00 AST 29 U/L (15-37) D 01/29/17 05:00 ALT 25 U/L (12-78) 01/29/17 05:00 Alkaline Phosphatase 64 U/L (45-117) 01/29/17 05:00 Total Protein 7.3 g/dl (6.4-8.2) 01/29/17 05:00 Albumin 3.2 g/dl (3.4-5.0) L 01/29/17 05:00 CARDIAC ENZYMES Creatine Kinase 1830 IU/L (39-308) H 01/27/17 05:30 Troponin I 0.20 ng/ml (0.00-0.05) H 01/27/17 05:30 Current Medications Generic Name Dose Route Start Last Admin Trade Name Freq PRN Reason Stop Dose Admin Albuterol/Ipratropium 1 amp 01/28/17 14:19 Duoneb - NEB Q6H PRN SHORTNESS OF BREATH Albuterol/Ipratropium 1 amp 01/28/17 22:00 01/30/17 06:15 Duoneb - NEB 1 amp TIDR JASON Administration Aspirin 300 mg 01/29/17 10:00 01/29/17 10:33 Asa - RC 300 mg DAILY [facility] Administration Atorvastatin Calcium 80 mg 01/29/17 06:00 01/30/17 06:00 Lipitor - PO Not Given DAILY@0600 [facility] Escitalopram Oxalate 20 mg 01/29/17 10:00 01/29/17 10:32 Lexapro - PO Not Given DAILY [facility] Heparin Sodium (Porcine) 5,000 unit 01/28/17 22:00 01/30/17 05:59 Heparin - SQ 5,000 unit TID [facility] Administration Pantoprazole Sodium 100 mls @ 200 mls/hr 01/29/17 10:00 01/29/17 10:33 Protonix 40mg Ivpb (Pre-Docked) IVPB 200 mls/hr DAILY [facility] Administration Piperacillin Sod/Tazobactam Sod 50 mls @ 100 mls/hr 01/28/17 18:00 01/30/17 01: 23 Zosyn 2.25gm Ivpb (Pre-Docked) IVPB 01/31/17 02:01 100 mls/hr Q8H-IV [facility] Administration Protocol Insulin Aspart 1 vial 01/28/17 18:00 01/30/17 06:00 Novolog Vial Sliding Scale - SQ 2 units Q6HPO [facility] Administration Protocol Lidocaine/Aluminum/Magnesium/Simeth 5 ml 01/29/17 12:00 01/30/17 05:59 Magic Mouthwash *Sjr Formula* - MM 5 ml Q6HPO [facility] Administration Metoprolol Tartrate 5 mg 01/28/17 14:19 Lopressor Injection - IVPUSH Q4H PRN HYPERTENSION Nystatin 500,000 units 01/29/17 12:00 01/30/17 05:59 Nystatin Oral Suspension - PO 500,000 units Q6HPO [facility] Administration Sevelamer Carbonate 800 mg 01/28/17 17:30 01/29/17 17:19 Renvela - PO Not Given TIDCM [facility] Home Medications Medication Instructions Recorded Aggrenox - 1 tablet 01/24/17 Aspirin/Dipyridamole [Aggrenox -] 1 combo PO BID 01/24/17 Escitalopram Oxalate [Lexapro -] 20 mg PO BID 01/24/17 Folic Acid - 30 mg PO DAILY 01/24/17 Gabapentin [Neurontin -] 100 mg PO BID 01/24/17 Insulin Glargine,Hum.rec.anlog 0 units SQ HS 01/24/17 [Lantus Solostar PEN (NF)] Insulin NPH Hum/Reg Insulin Hm 100 unit SQ DAILY 01/24/17 [Novolin 70-30 100 Unit/ml Vial] Sevelamer Carbonate [Renvela] 800 mg PO TID 01/24/17 Simvastatin [Zocor -] 40 mg PO HS 01/24/17 Sitagliptin Phosphate [Januvia] 50 mg PO DAILY 01/24/17 US/CAROTID COLOR FLOW DOPP US HISTORY PROVIDED: CVA Real time and doppler evaluation of the carotid arteries demonstrates the following: Minimal atherosclerotic plaque is identified on real time imaging of the common carotid and proximal internal and external carotid arteries bilaterally. Doppler velocity measurements are within normal limits within these vessels with no velocity elevations suspicious for hemodynamically significant stenoses. Forward flow is present within the left vertebral artery. The right vertebral artery could not be identified and may be excluded. IMPRESSION: 1. Minimal atherosclerotic disease with no evidence of hemodynamically significant stenoses. 2. Nonvisualization of the right vertebral artery. Please see above discussion. ASSESSMENT AND PLAN: Patient is a 56 yo man with h/o CVAs, ESRD , IDDM , presented with AMS and dysarthria after HD . He was intubated shortly after admission due to worsening mental status. # Acute oral thrush on Nyastatin continue # Swelling of his tongue improved s/p Iv Decadron completed 2 day course # Acute hypercapnic respiratory failure s/p intubation and extubation ,patient is comfortable on Tele floor now. #AMS change with dysarthria improved : on rectal aspirin/Lipitor continue ; MRI of the brain as per neuro to r/o new stroke. Neuro consult # s/p Septic shock s/p pressor, continue IV antibiotic for Sepsis ;ID consult appreciated continue IV Zosyn. Echo result reviewed ( last echo was in 2012 ) # ESRD: on HD(TTS) continue , nephrology appreciated cont renvela # DM : SS with coverage SSI q6 hr DVT Px; Heparin sq
[2017-01-30 07:52] LABS: ALBUMIN 3.9 g/dl (3.4-5.0); CALCIUM 9.7 mg/dL (8.5-10.1); MAGNESIUM 2.6 mg/dL (1.8-2.4); PHOSPHOROUS 3.2 mg/dL (2.5-4.9)
[2017-01-30 07:59] LABS: BILIRUBIN,TOTAL 0.5 mg/dL (0.2-1.0); TOT PROT 8.5 g/dl (6.4-8.2)
[2017-01-30] MEDS: SEVELAMER CARBONATE 800 MG TAB (FP) PO SCH ×3 (08:04→16:58)
[2017-01-30 08:20] LABS: CREATININE 9.8 mg/dL (0.7-1.3)
[2017-01-30] MEDS ORDERED: PT OWN MED DRAWER 7, Y5N ONE ×3 (09:04→22:33)
[2017-01-30] MEDS: PANTOPRAZOLE SODIUM 100 ML IVPB SCH (09:09)
[2017-01-30] MEDS: ESCITALOPRAM OXALATE 20 MG TABLET (FP) PO SCH (09:10)
[2017-01-30] MEDS: ASPIRIN 300 MG SUPP.RECT RC SCH (09:18)
--- NOTE | 2017-01-30 09:45 | PN ---
Progress Note, Physician History of Present Illness: seen and examined today in nad. no overnight events. no new complaints. - Current Medication List Current Medications: Active Medications Albuterol/Ipratropium (Duoneb -) 1 amp NEB Q6H PRN PRN Reason: SHORTNESS OF BREATH Albuterol/Ipratropium (Duoneb -) 1 amp NEB TIDR [facility] Last Admin: 01/30/17 06:15 Dose: 1 amp Aspirin (Asa -) 300 mg RC DAILY [facility] Last Admin: 01/30/17 09:18 Dose: 300 mg Atorvastatin Calcium (Lipitor -) 80 mg PO DAILY@0600 [facility] Last Admin: 01/30/17 06:00 Dose: Not Given Escitalopram Oxalate (Lexapro -) 20 mg PO DAILY [facility] Last Admin: 01/30/17 09:10 Dose: Not Given Heparin Sodium (Porcine) (Heparin -) 5,000 unit SQ TID [facility] Last Admin: 01/30/17 05:59 Dose: 5,000 unit Pantoprazole Sodium (Protonix 40mg Ivpb (Pre-Docked)) 100 mls @ 200 mls/hr IVPB DAILY [facility] Last Admin: 01/30/17 09:09 Dose: 200 mls/hr Piperacillin Sod/Tazobactam Sod (Zosyn 2.25gm Ivpb (Pre-Docked)) 50 mls @ 100 mls/hr IVPB Q8H-IV [facility] PRN Reason: Protocol Stop: 01/31/17 02:01 Last Admin: 01/30/17 09:09 Dose: 100 mls/hr Insulin Aspart (Novolog Vial Sliding Scale -) 1 vial SQ Q6HPO [facility] PRN Reason: Protocol Last Admin: 01/30/17 06:00 Dose: 2 units Lidocaine/Aluminum/Magnesium/Simeth (Magic Mouthwash *Sjr Formula* -) 5 ml MM Q6HPO [facility] Last Admin: 01/30/17 05:59 Dose: 5 ml Metoprolol Tartrate (Lopressor Injection -) 5 mg IVPUSH Q4H PRN PRN Reason: HYPERTENSION Nystatin (Nystatin Oral Suspension -) 500,000 units PO Q6HPO [facility] Last Admin: 01/30/17 05:59 Dose: 500,000 units Sevelamer Carbonate (Renvela -) 800 mg PO TIDCM [facility] Last Admin: 01/30/17 08:04 Dose: Not Given - Objective Vital Signs: Vital Signs Temperature 98.1 F 01/30/17 06:00 Pulse Rate 99 H 01/30/17 06:00 Respiratory Rate 18 01/30/17 06:00 Blood Pressure 131/80 01/30/17 06:00 O2 Sat by Pulse Oximetry (%) 97 01/28/17 21:00 Constitutional: Yes: No Distress, Calm, Obese Eyes: Yes: Conjunctiva Clear HENT: Yes: Atraumatic, Normocephalic Neck: Yes: Supple, Trachea Midline Cardiovascular: Yes: Regular Rate and Rhythm, S1, S2. No: Bradycardia, Tachycardia, Pulse Irregular, Bruit, JVD, Gallop, Murmur, Rub, S3, S4, Varicosities Respiratory: Yes: Regular, Diminished. No: Rales, Rhonchi, Wheezes Gastrointestinal: Yes: Normal Bowel Sounds, Soft. No: Distention, Tenderness Edema: No Peripheral Pulses WNL: Yes Neurological: Yes: Alert, Oriented, Pre-Existing Deficit Psychiatric: Yes: Alert, Oriented Labs: CBC, BMP 01/30/17 06:15 01/30/17 06:15 INR, PTT INR 1.23 (0.82-1.09) H 01/27/17 05:30 - ....Imaging Chest X-ray: Report Reviewed, Image Reviewed EKG: Report Reviewed, Image Reviewed Other: Report Reviewed, Image Reviewed (tele-nsr, sinus tach, no sig arrhythmias recorded) Assessment/Plan IMP: ESRD Acute respiratory failure Fever, sepsis Elevated TnI REC: Mildly Elevated troponin that did not rise significantly likely secondary to sepsis in setting ESRD Initial Echo done while intubated was poor study, unable to assess LV function, will plan to repeat tomorrow No sig arrhythmias on telemetry Abx as per ID Cont ASA daily can be changed back to his aggrenox once tolerating po Resume statin when pt tolerating po meds Plan for ischemic work up with pharm nuclear stress test this week, prior to discharge but would wait until after Brain MRI is complete
--- NOTE | 2017-01-30 12:38 | PN ---
Physical Exam: SUBJECTIVE: Patient seen and examined at bedside no complaints wants to advance his diet tongue swelling much improved OBJECTIVE: Vital Signs Period Temp Pulse Resp BP Sys/Todd Pulse Ox Last 24 Hr 97.2 F-99.1 F 91-111 17-21 117-137/76-99 97 GENERAL: awake alert NAD EYES: EOMI PERRLA ENT: moist mucous membranes. thrush on tongue NECK: Trachea midline, full range of motion, supple. LUNGS: left sided crackles right side clear to auscultation HEART: Regular rate and rhythm S1 S2 ABDOMEN: Soft, non tender non distended EXTREMITIES: no edema. NEUROLOGICAL:able to move left upper and lower extremities right side weak at baseline no change per patient Laboratory Results - last 24 hr 01/29/17 01/29/17 01/29/17 05:00 13:27 17:35 WBC RBC Hgb Hct MCV MCHC RDW Plt Count MPV Sodium Potassium Chloride Carbon Dioxide Anion Gap BUN Creatinine 13.4 H* D Creat Clearance w eGFR 3.84 POC Glucometer [phone] Random Glucose Calcium Phosphorus Magnesium Total Bilirubin AST ALT Alkaline Phosphatase Total Protein Albumin 01/30/17 01/30/17 01/30/17 00:01 05:56 06:15 WBC 12.9 H D RBC 3.66 L Hgb 11.8 Hct 35.8 MCV 97.8 H MCHC 33.0 RDW 14.8 Plt Count 211 MPV 8.4 Sodium Potassium Chloride Carbon Dioxide Anion Gap BUN Creatinine Creat Clearance w eGFR POC Glucometer 211 206 Random Glucose Calcium Phosphorus Magnesium Total Bilirubin AST ALT Alkaline Phosphatase Total Protein Albumin 01/30/17 01/30/17 06:15 11:11 WBC RBC Hgb Hct MCV MCHC RDW Plt Count MPV Sodium 142 Potassium 3.9 Chloride 100 Carbon Dioxide 28 Anion Gap 14 BUN 39 H Creatinine 9.8 H* D Creat Clearance w eGFR 5.51 POC Glucometer 245 Random Glucose 190 H D Calcium 9.7 Phosphorus 3.2 D Magnesium 2.6 H D Total Bilirubin 0.5 AST 52 H D ALT 57 D Alkaline Phosphatase 96 D Total Protein 8.5 H Albumin 3.9 D Active Medications Generic Name Dose Route Start Last Admin Trade Name Freq PRN Reason Stop Dose Admin Albuterol/Ipratropium 1 amp 01/28/17 14:19 Duoneb - NEB Q6H PRN SHORTNESS OF BREATH Albuterol/Ipratropium 1 amp 01/28/17 22:00 01/30/17 06:15 Duoneb - NEB 1 amp TIDR [facility] Administration Atorvastatin Calcium 80 mg 01/29/17 06:00 01/30/17 06:00 Lipitor - PO Not Given DAILY@0600 [facility] Dipyridamole/Aspirin 1 combo 01/30/17 22:00 Aggrenox - PO BID [facility] Escitalopram Oxalate 20 mg 01/29/17 10:00 01/30/17 09:10 Lexapro - PO Not Given DAILY [facility] Heparin Sodium (Porcine) 5,000 unit 01/28/17 22:00 01/30/17 05:59 Heparin - SQ 5,000 unit TID [facility] Administration Pantoprazole Sodium 100 mls @ 200 mls/hr 01/29/17 10:00 01/30/17 09:09 Protonix 40mg Ivpb (Pre-Docked) IVPB 200 mls/hr DAILY [facility] Administration Piperacillin Sod/Tazobactam Sod 50 mls @ 100 mls/hr 01/28/17 18:00 01/30/17 09: 09 Zosyn 2.25gm Ivpb (Pre-Docked) IVPB 01/31/17 02:01 100 mls/hr Q8H-IV [facility] Administration Protocol Insulin Aspart 1 vial 01/28/17 18:00 01/30/17 06:00 Novolog Vial Sliding Scale - SQ 2 units Q6HPO [facility] Administration Protocol Lidocaine/Aluminum/Magnesium/Simeth 5 ml 01/29/17 12:00 01/30/17 11:10 Magic Mouthwash *Sjr Formula* - MM 5 ml Q6HPO [facility] Administration Metoprolol Tartrate 5 mg 01/28/17 14:19 Lopressor Injection - IVPUSH Q4H PRN HYPERTENSION Nystatin 500,000 units 01/29/17 12:00 01/30/17 11:10 Nystatin Oral Suspension - PO 500,000 units Q6HPO [facility] Administration Sevelamer Carbonate 800 mg 01/28/17 17:30 01/30/17 12:13 Renvela - PO Not Given TIDCM [facility] ASSESSMENT/PLAN: 56M with multiple medical problems including multiple CVAs x4, ESRD on HD Tue/ /Sat, DM (insulin dependant) presented to the emergency room after dialysis he was noted to have unintelligible speech, altered mental status, hypotension, and given his history concern for CVA. Altered mental status. There is a concern for another stroke. however after discussing case with neurology it is unlikely patient had a stroke. it is more likely patient had a hypotensive/syncopal event. but patient was hypotensive at the dialysis center and low blood pressure leading to low cerebral perfusion pressure makes this patient at risk for CVA. CT scan negative for acute stroke will need MRI stop aspirin start aggrenox today if patient did have a CVA on aggrenox it is worth exploring whether he should be switched to another antiplatelet will discuss this with neurology-since it is not likely patient had a stroke he should go back on aggrenox when able to take PO (can not be crushed give aspirin) echo-techinically difficult study right and left ventricular function could not be assess otherwise normal echo. Echo from 2015 WNL repeat Echo as it was a tachnically difficult study while he was intubated Carotid duplex WNL Speech and swallow evaluation appreciated might need barium esophogram tomorrow tongue swelling: decadron stopped better than yesterday per patient oral thrush: nystatin swish and swallow Troponinemia: Troponin was negative x3 after admission this troponin that is 0.06 was sent during his hypotensive episode no EKG changes likely from demand ischemia secondary to hypotension cardiology consult appreciated and noted demand likely from hypotension no intervention at this time-ischemic work up likely this week Sepsis/septic shock:resolved patient was hypotensive and febrile off levophed gtt possible infectious source could be aspiration during intubation ID consult appreciated continue zosyn today will stop tomorrow if OK with ID stop vancomycin ESRD on HD dialysis per nephrology continue Renvela-ordered Renal consult appreciated vascular consult appreciated to evaluate HD Access-ultrasound ordered will follow up DM: ISS achs Acute Hypercapneic respiratory failure: resolved Metabolic acidosis resolved patient was intubated for airway protection altered mental status and hypercapnea now on room air HLD: on Zocor as outpatient continue Zocor Psych/depression: continue lexapro FEN: no IVF no electrolyte issues advance today to dysphagia puree with honey thickened liquids PPx: HSQ/SCDs protonix PT consult Visit type - Emergency Visit Emergency Visit: Yes ED Registration Date: 01/24/17 Care time: The patient presented to the Emergency Department on the above date and was hospitalized for further evaluation of their emergent condition. - New Patient This patient is new to me today: No - Critical Care Critical Care patient: No
--- NOTE | 2017-01-30 13:12 | PN ---
Progress Note, Physician Chief Complaint: Renal f/u Pt complaining of wanting to eat but has been choking on ice so NPO Oral cavity with thrush Serum Mag is elevated on magnesium hydroxide - Current Medication List Current Medications: Active Medications Albuterol/Ipratropium (Duoneb -) 1 amp NEB Q6H PRN PRN Reason: SHORTNESS OF BREATH Albuterol/Ipratropium (Duoneb -) 1 amp NEB TIDR [facility] Last Admin: 01/30/17 06:15 Dose: 1 amp Atorvastatin Calcium (Lipitor -) 80 mg PO DAILY@0600 [facility] Last Admin: 01/30/17 06:00 Dose: Not Given Dipyridamole/Aspirin (Aggrenox -) 1 combo PO BID [facility] Escitalopram Oxalate (Lexapro -) 20 mg PO DAILY [facility] Last Admin: 01/30/17 09:10 Dose: Not Given Heparin Sodium (Porcine) (Heparin -) 5,000 unit SQ TID [facility] Last Admin: 01/30/17 05:59 Dose: 5,000 unit Pantoprazole Sodium (Protonix 40mg Ivpb (Pre-Docked)) 100 mls @ 200 mls/hr IVPB DAILY [facility] Last Admin: 01/30/17 09:09 Dose: 200 mls/hr Piperacillin Sod/Tazobactam Sod (Zosyn 2.25gm Ivpb (Pre-Docked)) 50 mls @ 100 mls/hr IVPB Q8H-IV [facility] PRN Reason: Protocol Stop: 01/31/17 02:01 Last Admin: 01/30/17 09:09 Dose: 100 mls/hr Insulin Aspart (Novolog Vial Sliding Scale -) 1 vial SQ Q6HPO [facility] PRN Reason: Protocol Last Admin: 01/30/17 12:40 Dose: 4 units Lidocaine/Aluminum/Magnesium/Simeth (Magic Mouthwash *Sjr Formula* -) 5 ml MM Q6HPO [facility] Last Admin: 01/30/17 11:10 Dose: 5 ml Metoprolol Tartrate (Lopressor Injection -) 5 mg IVPUSH Q4H PRN PRN Reason: HYPERTENSION Nystatin (Nystatin Oral Suspension -) 500,000 units PO Q6HPO [facility] Last Admin: 01/30/17 11:10 Dose: 500,000 units Sevelamer Carbonate (Renvela -) 800 mg PO TIDCM [facility] Last Admin: 01/30/17 12:13 Dose: Not Given - Objective Vital Signs: Vital Signs Temperature 98.2 F 01/30/17 10:59 Pulse Rate 91 H 01/30/17 10:59 Respiratory Rate 18 01/30/17 10:59 Blood Pressure 130/99 01/30/17 10:59 O2 Sat by Pulse Oximetry (%) 97 01/30/17 09:00 Constitutional: Yes: No Distress Cardiovascular: Yes: Murmur, S1, S2. No: JVD Respiratory: Yes: CTA Bilaterally Gastrointestinal: Yes: Soft. No: Tenderness, Rebound Edema: (No LE edema ) Labs: CBC, BMP 01/30/17 06:15 01/30/17 06:15 INR, PTT INR 1.23 (0.82-1.09) H 01/27/17 05:30 Laboratory Tests 01/30/17 06:15 Phosphorus 3.2 D Magnesium 2.6 H D Assessment/Plan Impression 1. ESRD 2. HTN 3. DM 4. Hx CVA 5. Hyperlipidemia 6. S/P Acute respiratory failure 7. Mssa in sputum 8. Borderline high Magnesium in pt on Magnesium Hydroxide Plan Nystatin as ordered D/C Magic mouth wash for now and repeat magnesium level in am Next HD 02/01 Abx Steroids as per CCM Dr Ocampo
--- NOTE | 2017-01-30 13:26 | PN ---
Progress Note (short form) - Note Progress Note: PULMONARY Denies shortness of breath. Tongue swelling better. Wants to advance diet. Last Vital Signs Temp Pulse Resp BP Pulse Ox 98.2 F 91 H 18 130/99 97 01/30/17 10:59 01/30/17 10:59 01/30/17 10:59 01/30/17 10:59 01/30/17 09:00 Gen: less tachypneic Heart: RRR Lung: decreased breath sounds at the bases Abd: soft, nontender Ext: + edema CBC, BMP 01/30/17 06:15 01/30/17 06:15 Active Medications Albuterol/Ipratropium (Duoneb -) 1 amp NEB Q6H PRN PRN Reason: SHORTNESS OF BREATH Albuterol/Ipratropium (Duoneb -) 1 amp NEB TIDR [facility] Last Admin: 01/30/17 06:15 Dose: 1 amp Atorvastatin Calcium (Lipitor -) 80 mg PO DAILY@0600 [facility] Last Admin: 01/30/17 06:00 Dose: Not Given Dipyridamole/Aspirin (Aggrenox -) 1 combo PO BID [facility] Escitalopram Oxalate (Lexapro -) 20 mg PO DAILY [facility] Last Admin: 01/30/17 09:10 Dose: Not Given Heparin Sodium (Porcine) (Heparin -) 5,000 unit SQ TID [facility] Last Admin: 01/30/17 05:59 Dose: 5,000 unit Pantoprazole Sodium (Protonix 40mg Ivpb (Pre-Docked)) 100 mls @ 200 mls/hr IVPB DAILY [facility] Last Admin: 01/30/17 09:09 Dose: 200 mls/hr Piperacillin Sod/Tazobactam Sod (Zosyn 2.25gm Ivpb (Pre-Docked)) 50 mls @ 100 mls/hr IVPB Q8H-IV [facility] PRN Reason: Protocol Stop: 01/31/17 02:01 Last Admin: 01/30/17 09:09 Dose: 100 mls/hr Insulin Aspart (Novolog Vial Sliding Scale -) 1 vial SQ ACHS [facility] PRN Reason: Protocol Metoprolol Tartrate (Lopressor Injection -) 5 mg IVPUSH Q4H PRN PRN Reason: HYPERTENSION Nystatin (Nystatin Oral Suspension -) 500,000 units PO Q6HPO [facility] Last Admin: 01/30/17 11:10 Dose: 500,000 units Sevelamer Carbonate (Renvela -) 800 mg PO TIDCM [facility] Last Admin: 01/30/17 12:13 Dose: Not Given A/P s/p Acute Hypercapneic Respiratory Failure r/o Acute CVA h/o CVA r/o Aspiration Pneumonia s/p Septic Shock ESRD on HD DM - can d/c steroids - swallow evaluation in progress - neuro checks - taper FiO2 to keep SpO2 >90% - antibiotics per ID - ASA - DVT/GI prophylaxis
[2017-01-30] MEDS: ASPIRIN/DIPYRIDAMOLE 25 MG/200 MG CAPSULE (FP) PO SCH (22:26)
[2017-01-31] MEDS: PIPERACILLIN/TAZOB 2.25 GM 50 ML IVPB SCH (02:35)
[2017-01-31] MEDS: NYSTATIN 500,000 UNITS/5 ML SUSPENSION PO SCH ×4 (02:35→17:44)
[2017-01-31] MEDS: HEPARIN NA (PORCINE) 5,000 UNITS/ML 1ML VIAL SQ SCH ×3 (05:55→22:13)
[2017-01-31] MEDS: ATORVASTATIN CA 80 MG TABLET (FP) PO SCH (05:55)
[2017-01-31] MEDS: ALBUTEROL SO4 2.5/IPRATROPIUM 0.5 INH SOL 3 ML VIAL.NEB. NEB SCH ×3 (06:00→22:00)
[2017-01-31] MEDS: INSULIN SLIDING SCALE (NOVOLOG) 1 VIAL SQ SCH ×4 (06:04→22:14)
[2017-01-31 07:05] LABS: BASOPHIL 0.1 % (0-2.0); MCH 32.3 pg (25.7-33.7); MEAN CELL VOLUME 97.9 fl (80-96); MEAN PLT VOLUME 8.5 fl (7.5-11.1); NEUTROPHILS 80.5 % (42.8-82.8); PLATELET COUNT 219 K/MM3 (134-434); RDW 14.4 % (11.9-15.9); WHITE BLOOD COUNT 12.6 K/mm3 (4.0-10.0)
[2017-01-31 07:31] LABS: ALBUMIN 3.4 g/dl (3.4-5.0); CALCIUM 9.7 mg/dL (8.5-10.1); MAGNESIUM 2.7 mg/dL (1.8-2.4)
[2017-01-31 07:38] LABS: BILIRUBIN,TOTAL 0.6 mg/dL (0.2-1.0); TOT PROT 7.3 g/dl (6.4-8.2)
[2017-01-31 07:52] LABS: CREATININE 12.1 mg/dL (0.7-1.3)
[2017-01-31] MEDS: SEVELAMER CARBONATE 800 MG TAB (FP) PO SCH ×3 (09:59→17:44)
[2017-01-31] MEDS: ESCITALOPRAM OXALATE 20 MG TABLET (FP) PO SCH (09:59)
[2017-01-31] MEDS: ASPIRIN/DIPYRIDAMOLE 25 MG/200 MG CAPSULE (FP) PO SCH ×2 (10:00→22:14)
[2017-01-31] MEDS: PANTOPRAZOLE SODIUM 100 ML IVPB SCH (10:00)
--- NOTE | 2017-01-31 11:07 | PN ---
Progress Note, [employer] - Note Progress Note: Selected Entries 01/30/17 01/30/17 01/30/17 02:00 06:00 07:02 Supper NPO Temperature 99.0 F 98.1 F 01/30/17 01/30/17 01/30/17 10:59 15:00 18:00 Supper Temperature 98.2 F 98.3 F 97.8 F 01/30/17 01/30/17 01/31/17 18:30 22:00 02:00 Supper 50% 50% Temperature 97.5 F L 98.2 F 01/31/17 06:05 Supper Temperature 98.7 F Laboratory Tests 01/29/17 01/30/17 01/31/17 05:00 06:15 05:35 WBC 9.5 12.9 H D 12.6 H Pt on puree and honey thick liquid. Reported to tolerate today with good appetite. Nursing reported he had been coughing yesterday. For MBS.
--- NOTE | 2017-01-31 11:28 | PN ---
Progress Note, Physician History of Present Illness: seen and examined today in nad. no overnight events. no new complaints. - Current Medication List Current Medications: Active Medications Albuterol/Ipratropium (Duoneb -) 1 amp NEB Q6H PRN PRN Reason: SHORTNESS OF BREATH Albuterol/Ipratropium (Duoneb -) 1 amp NEB TIDR [facility] Last Admin: 01/31/17 06:00 Dose: 1 amp Atorvastatin Calcium (Lipitor -) 80 mg PO DAILY@0600 [facility] Last Admin: 01/31/17 05:55 Dose: 80 mg Dipyridamole/Aspirin (Aggrenox -) 1 combo PO BID [facility] Last Admin: 01/31/17 10:00 Dose: 1 combo Escitalopram Oxalate (Lexapro -) 20 mg PO DAILY [facility] Last Admin: 01/31/17 09:59 Dose: 20 mg Heparin Sodium (Porcine) (Heparin -) 5,000 unit SQ TID [facility] Last Admin: 01/31/17 05:55 Dose: 5,000 unit Pantoprazole Sodium (Protonix 40mg Ivpb (Pre-Docked)) 100 mls @ 200 mls/hr IVPB DAILY [facility] Last Admin: 01/31/17 10:00 Dose: 200 mls/hr Insulin Aspart (Novolog Vial Sliding Scale -) 1 vial SQ ACHS [facility] PRN Reason: Protocol Last Admin: 01/31/17 06:04 Dose: Not Given Metoprolol Tartrate (Lopressor Injection -) 5 mg IVPUSH Q4H PRN PRN Reason: HYPERTENSION Nystatin (Nystatin Oral Suspension -) 500,000 units PO Q6HPO [facility] Last Admin: 01/31/17 05:55 Dose: 500,000 units Sevelamer Carbonate (Renvela -) 800 mg PO TIDCM [facility] Last Admin: 01/31/17 09:59 Dose: 800 mg - Objective Vital Signs: Vital Signs Temperature 98.7 F 01/31/17 06:05 Pulse Rate 95 H 01/31/17 06:05 Respiratory Rate 20 01/31/17 06:05 Blood Pressure 149/87 01/31/17 06:05 O2 Sat by Pulse Oximetry (%) 97 01/30/17 22:00 Constitutional: Yes: No Distress, Calm, Obese Eyes: Yes: Conjunctiva Clear, EOM Intact HENT: Yes: Atraumatic, Normocephalic Cardiovascular: Yes: Regular Rate and Rhythm, S1, S2. No: Bradycardia, Tachycardia, Pulse Irregular, Bruit, JVD, Gallop, Murmur, Rub, S3, S4, Varicosities Respiratory: Yes: Regular, Diminished. No: Rales, Rhonchi, Wheezes Gastrointestinal: Yes: Normal Bowel Sounds, Soft. No: Distention, Tenderness Edema: No Peripheral Pulses WNL: Yes Peripheral Pulses: Left Doralis Pedis: 2+, Right Dorsalis Pedis: 2+ Neurological: Yes: Alert, Pre-Existing Deficit Psychiatric: Yes: Alert Labs: CBC, BMP 01/31/17 05:35 01/31/17 05:35 INR, PTT INR 1.23 (0.82-1.09) H 01/27/17 05:30 - ....Imaging Chest X-ray: Report Reviewed, Image Reviewed EKG: Report Reviewed, Image Reviewed Other: Report Reviewed, Image Reviewed (tele-nsr, sinus tach, pvcs) Assessment/Plan IMP: ESRD Acute respiratory failure Fever, sepsis Elevated TnI REC: Mildly Elevated troponin that did not rise significantly likely secondary to sepsis in setting ESRD Initial Echo done while intubated was poor study, unable to assess LV function, plan to repeat echo today to attempt to assess LV function No sig arrhythmias on telemetry Abx as per ID Now back on aggrenox Statin restarted Plan was for ischemic work up with pharm nuclear stress test after neuro work up complete, MRI brain was changed to a repeat Head CT which was done today. If pt is to remain inpatient for further work up can check nuclear stress test tomorrow, otherwise if pt is planned for discharge then stress test can be done as outpatient
--- NOTE | 2017-01-31 12:38 | PN ---
Teaching Attending Note Name of Resident: Bruce Lorenzo ATTENDING PHYSICIAN STATEMENT I saw and evaluated the patient. I reviewed the resident's note and discussed the case with the resident. I agree with the resident's findings and plan as documented. Patient is feeling better, swelling of the tongue improved, going for modified Barium swallow. Vital Signs Temperature 98.7 F 01/31/17 06:05 Pulse Rate 95 H 01/31/17 06:05 Respiratory Rate 20 01/31/17 06:05 Blood Pressure 149/87 01/31/17 06:05 O2 Sat by Pulse Oximetry (%) 97 01/30/17 22:00 CBCD WBC 12.6 K/mm3 (4.0-10.0) H 01/31/17 05:35 RBC 3.49 M/mm3 (4.00-5.60) L 01/31/17 05:35 Hgb 11.3 GM/dL (11.7-16.9) L 01/31/17 05:35 Hct 34.2 % (35.4-49) L 01/31/17 05:35 MCV 97.9 fl (80-96) H 01/31/17 05:35 MCHC 33.0 g/dl (32.0-35.9) 01/31/17 05:35 RDW 14.4 % (11.9-15.9) 01/31/17 05:35 Plt Count 219 K/MM3 (134-434) 01/31/17 05:35 MPV 8.5 fl (7.5-11.1) 01/31/17 05:35 CMP Sodium 143 mmol/L (136-145) 01/31/17 05:35 Potassium 3.7 mmol/L (3.5-5.1) 01/31/17 05:35 Chloride 98 mmol/L (98-107) 01/31/17 05:35 Carbon Dioxide 28 mmol/L (21-32) 01/31/17 05:35 Anion Gap 17 (8-16) H 01/31/17 05:35 BUN 59 mg/dL (7-18) H D 01/31/17 05:35 Creatinine 12.1 mg/dL (0.7-1.3) H* D 01/31/17 05:35 Creat Clearance w eGFR 4.32 (>60) 01/31/17 05:35 Random Glucose 159 mg/dL (74-106) H 01/31/17 05:35 Calcium 9.7 mg/dL (8.5-10.1) 01/31/17 05:35 Total Bilirubin 0.6 mg/dL (0.2-1.0) 01/31/17 05:35 AST 54 U/L (15-37) H 01/31/17 05:35 ALT 76 U/L (12-78) D 01/31/17 05:35 Alkaline Phosphatase 81 U/L (45-117) 01/31/17 05:35 Total Protein 7.3 g/dl (6.4-8.2) 01/31/17 05:35 Albumin 3.4 g/dl (3.4-5.0) 01/31/17 05:35 CARDIAC ENZYMES Creatine Kinase 1830 IU/L (39-308) H 01/27/17 05:30 Troponin I 0.20 ng/ml (0.00-0.05) H 01/27/17 05:30 Current Medications Generic Name Dose Route Start Last Admin Trade Name Freq PRN Reason Stop Dose Admin Albuterol/Ipratropium 1 amp 01/28/17 14:19 Duoneb - NEB Q6H PRN SHORTNESS OF BREATH Albuterol/Ipratropium 1 amp 01/28/17 22:00 01/31/17 06:00 Duoneb - NEB 1 amp TIDR JASON Administration Atorvastatin Calcium 80 mg 01/29/17 06:00 01/31/17 05:55 Lipitor - PO 80 mg DAILY@0600 [facility] Administration Dipyridamole/Aspirin 1 combo 01/30/17 22:00 01/31/17 10:00 Aggrenox - PO 1 combo BID [facility] Administration Escitalopram Oxalate 20 mg 01/29/17 10:00 01/31/17 09:59 Lexapro - PO 20 mg DAILY J[facility] Administration Heparin Sodium (Porcine) 5,000 unit 01/28/17 22:00 01/31/17 05:55 Heparin - SQ 5,000 unit TID J[facility] Administration Pantoprazole Sodium 100 mls @ 200 mls/hr 01/29/17 10:00 01/31/17 10:00 Protonix 40mg Ivpb (Pre-Docked) IVPB 200 mls/hr DAILY [facility] Administration Insulin Aspart 1 vial 01/30/17 16:30 01/31/17 06:04 Novolog Vial Sliding Scale - SQ Not Given ACHS [facility] Protocol Metoprolol Tartrate 5 mg 01/28/17 14:19 Lopressor Injection - IVPUSH Q4H PRN HYPERTENSION Nystatin 500,000 units 01/29/17 12:00 01/31/17 05:55 Nystatin Oral Suspension - PO 500,000 units Q6HPO [facility] Administration Sevelamer Carbonate 800 mg 01/28/17 17:30 01/31/17 09:59 Renvela - PO 800 mg TIDCM JASON Administration Home Medications Medication Instructions Recorded Aggrenox - 1 tablet 01/24/17 Aspirin/Dipyridamole [Aggrenox -] 1 combo PO BID 01/24/17 Escitalopram Oxalate [Lexapro -] 20 mg PO BID 01/24/17 Folic Acid - 30 mg PO DAILY 01/24/17 Gabapentin [Neurontin -] 100 mg PO BID 01/24/17 Insulin Glargine,Hum.rec.anlog 0 units SQ HS 01/24/17 [Lantus Solostar PEN (NF)] Insulin NPH Hum/Reg Insulin Hm 100 unit SQ DAILY 01/24/17 [Novolin 70-30 100 Unit/ml Vial] Sevelamer Carbonate [Renvela] 800 mg PO TID 01/24/17 Simvastatin [Zocor -] 40 mg PO HS 01/24/17 Sitagliptin Phosphate [Januvia] 50 mg PO DAILY 01/24/17 Microbiology 01/25/17 06:00 Nasopharyngeal Swab Respiratory Virus Panel - Final 01/26/17 03:45 Blood - Peripheral Venous Blood Culture - Final NO GROWTH AFTER 5 DAYS INCUBATION 01/26/17 03:45 Blood - Peripheral Venous Blood Culture - Final NO GROWTH AFTER 5 DAYS INCUBATION 01/26/17 03:40 Sputum - Endotrachea Suction/Ventilator Gram Stain - Final 01/26/17 03:40 Sputum - Endotrachea Suction/Ventilator Sputum Culture - Final Staphylococcus Aureus 01/25/17 06:00 Sputum - Endotrachea Suction/Ventilator Gram Stain - Final 01/25/17 06:00 Sputum - Endotrachea Suction/Ventilator Sputum Culture - Final Staphylococcus Aureus 01/25/17 06:00 Nasopharyngeal Swab Influenza Types A,B Antigen (TRAY) - Final 01/25/17 06:00 Nasopharyngeal Swab - Final US/CAROTID COLOR FLOW DOPP US HISTORY PROVIDED: CVA Real time and doppler evaluation of the carotid arteries demonstrates the following: Minimal atherosclerotic plaque is identified on real time imaging of the common carotid and proximal internal and external carotid arteries bilaterally. Doppler velocity measurements are within normal limits within these vessels with no velocity elevations suspicious for hemodynamically significant stenoses. Forward flow is present within the left vertebral artery. The right vertebral artery could not be identified and may be excluded. IMPRESSION: 1. Minimal atherosclerotic disease with no evidence of hemodynamically significant stenoses. 2. Nonvisualization of the right vertebral artery. Please see above discussion. ASSESSMENT AND PLAN: Patient is a 56 yo man with h/o CVAs, ESRD , IDDM , presented with AMS and dysarthria after HD . He was intubated shortly after admission due to worsening mental status. # WBC is trending up possible due to IV steroid that the patient was on will monitor since the patient is off Antibiotic now, but the vitals stable with HR of 95. # s/p Acute hypercapnic respiratory failure s/p intubation and extubation , patient is comfortable. # s/p Septic shock s/p pressor, completed IV antibiotic for Sepsis , monitor off antibiotics, call ID if needed. Echo result reviewed ( last echo was in 2012 ) # Swelling of his tongue improved s/p Iv Decadron completed 2 day course # Acute oral thrush on Nyastatin continue since patient also received Steroids. #AMS change with dysarthria improved : on rectal aspirin/Lipitor continue ; CT of the head is ordered as per neuro to r/o new stroke. Neuro consult [place] [facility] [place]. # ESRD: on HD(TTS) continue , nephrology appreciated cont renvela # DM : SS with coverage SSI q6 hr DVT Px; Heparin sq Going for stress test will follow
--- NOTE | 2017-01-31 14:17 | PN ---
Progress Note, Physician History of Present Illness: pulmonary alert,nad,-resp distress. swallowing eval noted - Current Medication List Current Medications: Active Medications Albuterol/Ipratropium (Duoneb -) 1 amp NEB Q6H PRN PRN Reason: SHORTNESS OF BREATH Albuterol/Ipratropium (Duoneb -) 1 amp NEB [facility]IDR [facility] Last Admin: 01/31/17 06:00 Dose: 1 amp Atorvastatin Calcium (Lipitor -) 80 mg PO DAILY@0600 [facility] Last Admin: 01/31/17 05:55 Dose: 80 mg Dipyridamole/Aspirin (Aggrenox -) 1 combo PO BID [facility] Last Admin: 01/31/17 10:00 Dose: 1 combo Escitalopram Oxalate (Lexapro -) 20 mg PO DAILY [facility] Last Admin: 01/31/17 09:59 Dose: 20 mg Heparin Sodium (Porcine) (Heparin -) 5,000 unit SQ TID [facility] Last Admin: 01/31/17 05:55 Dose: 5,000 unit Pantoprazole Sodium (Protonix 40mg Ivpb (Pre-Docked)) 100 mls @ 200 mls/hr IVPB DAILY [facility] Last Admin: 01/31/17 10:00 Dose: 200 mls/hr Insulin Aspart (Novolog Vial Sliding Scale -) 1 vial SQ ACHS [facility] PRN Reason: Protocol Last Admin: 01/31/17 06:04 Dose: Not Given Metoprolol Tartrate (Lopressor Injection -) 5 mg IVPUSH Q4H PRN PRN Reason: HYPERTENSION Nystatin (Nystatin Oral Suspension -) 500,000 units PO Q6HPO [facility] Last Admin: 01/31/17 05:55 Dose: 500,000 units Sevelamer Carbonate (Renvela -) 800 mg PO TIDCM [facility] Last Admin: 01/31/17 09:59 Dose: 800 mg - Objective Vital Signs: Vital Signs Temperature 98.7 F 01/31/17 06:05 Pulse Rate 95 H 01/31/17 06:05 Respiratory Rate 20 01/31/17 06:05 Blood Pressure 149/87 01/31/17 06:05 O2 Sat by Pulse Oximetry (%) 97 01/30/17 22:00 Constitutional: Yes: Well Nourished, Calm Eyes: Yes: WNL HENT: Yes: WNL Neck: Yes: WNL Cardiovascular: Yes: Regular Rate and Rhythm, S1, S2 Respiratory: Yes: Diminished Gastrointestinal: Yes: Normal Bowel Sounds, Soft Extremities: Yes: WNL Edema: No Labs: CBC, BMP 01/31/17 05:35 01/31/17 05:35 INR, PTT INR 1.23 (0.82-1.09) H 01/27/17 05:30 Problem List - Problems (1) Aspiration pneumonia Code(s): J69.0 - PNEUMONITIS DUE TO INHALATION OF FOOD AND VOMIT (2) Confusion Code(s): R41.0 - DISORIENTATION, UNSPECIFIED (3) Dialysis patient Code(s): Z99.2 - DEPENDENCE ON RENAL DIALYSIS (4) Old cerebrovascular accident (CVA) without late effect Code(s): Z86.73 - PRSNL HX OF TIA (TIA), AND CEREB INFRC W/O RESID DEFICITS (5) Swelling of right upper extremity Code(s): M79.89 - OTHER SPECIFIED SOFT TISSUE DISORDERS (6) CVA (cerebral vascular accident) Code(s): I63.9 - CEREBRAL INFARCTION, UNSPECIFIED (7) End stage renal disease on dialysis Code(s): N18.6 - END STAGE RENAL DISEASE Z99.2 - DEPENDENCE ON RENAL DIALYSIS (8) Sepsis Code(s): A41.9 - SEPSIS, UNSPECIFIED ORGANISM Assessment/Plan A/P s/p Acute Hypercapneic Respiratory Failure r/o Acute CVA h/o CVA r/o Aspiration Pneumonia s/p Septic Shock ESRD on HD DM - aspiration precautions - swallow evaluation in progress - neuro checks - taper FiO2 to keep SpO2 >90% - antibiotics per ID - ASA - DVT/GI prophylaxis DR MOORE
--- NOTE | 2017-01-31 15:19 | PN ---
Physical Exam: SUBJECTIVE: Patient seen and examined at bedside no complains feels well in good spirits today OBJECTIVE: Vital Signs Period Temp Pulse Resp BP Sys/Todd Pulse Ox Last 24 Hr 97.5 F-98.7 F 89-110 18-20 131-149/87-96 97-98 GENERAL: awake alert NAD EYES: EOMI PERRLA ENT: moist mucous membranes. thrush on tongue-improving NECK: Trachea midline, full range of motion, supple. LUNGS: CTAB HEART: Regular rate and rhythm S1 S2 ABDOMEN: Soft, non tender non distended EXTREMITIES: no edema. NEUROLOGICAL:able to move left upper and lower extremities right side weak at baseline no change per patient Laboratory Results - last 24 hr 01/30/17 01/30/17 01/31/17 16:52 22:18 05:35 WBC RBC Hgb Hct MCV MCHC RDW Plt Count MPV Neutrophils % Lymphocytes % Monocytes % Eosinophils % Basophils % Sodium 143 Potassium 3.7 Chloride 98 Carbon Dioxide 28 Anion Gap 17 H BUN 59 H D Creatinine 12.1 H* D Creat Clearance w eGFR 4.32 POC Glucometer 323 191 Random Glucose 159 H Calcium 9.7 Magnesium 2.7 H Total Bilirubin 0.6 AST 54 H ALT 76 D Alkaline Phosphatase 81 Total Protein 7.3 Albumin 3.4 01/31/17 01/31/17 01/31/17 05:35 05:46 14:15 WBC 12.6 H RBC 3.49 L Hgb 11.3 L Hct 34.2 L MCV 97.9 H MCHC 33.0 RDW 14.4 Plt Count 219 MPV 8.5 Neutrophils % 80.5 Lymphocytes % 10.1 D Monocytes % 9.3 Eosinophils % 0.0 D Basophils % 0.1 Sodium Potassium Chloride Carbon Dioxide Anion Gap BUN Creatinine Creat Clearance w eGFR POC Glucometer 148 192 Random Glucose Calcium Magnesium Total Bilirubin AST ALT Alkaline Phosphatase Total Protein Albumin Active Medications Generic Name Dose Route Start Last Admin Trade Name Freq PRN Reason Stop Dose Admin Albuterol/Ipratropium 1 amp 01/28/17 14:19 Duoneb - NEB Q6H PRN SHORTNESS OF BREATH Albuterol/Ipratropium 1 amp 01/28/17 22:00 01/31/17 13:30 Duoneb - NEB Not Given TIDR JASON Atorvastatin Calcium 80 mg 01/29/17 06:00 01/31/17 05:55 Lipitor - PO 80 mg DAILY@0600 [facility] Administration Dipyridamole/Aspirin 1 combo 01/30/17 22:00 01/31/17 10:00 Aggrenox - PO 1 combo BID JASON Administration Escitalopram Oxalate 20 mg 01/29/17 10:00 01/31/17 09:59 Lexapro - PO 20 mg DAILY JASON Administration Heparin Sodium (Porcine) 5,000 unit 01/28/17 22:00 01/31/17 14:28 Heparin - SQ 5,000 unit TID JASON Administration Pantoprazole Sodium 100 mls @ 200 mls/hr 01/29/17 10:00 01/31/17 10:00 Protonix 40mg Ivpb (Pre-Docked) IVPB 200 mls/hr DAILY [facility] Administration Insulin Aspart 1 vial 01/30/17 16:30 01/31/17 14:26 Novolog Vial Sliding Scale - SQ 2 units ACHS J[facility]ON Administration Protocol Metoprolol Tartrate 5 mg 01/28/17 14:19 Lopressor Injection - IVPUSH Q4H PRN HYPERTENSION Nystatin 500,000 units 01/29/17 12:00 01/31/17 14:29 Nystatin Oral Suspension - PO 500,000 units Q6HPO JASON Administration Sevelamer Carbonate 800 mg 01/28/17 17:30 01/31/17 14:28 Renvela - PO 800 mg TIDCM JASON Administration ASSESSMENT/PLAN: 56M with multiple medical problems including multiple CVAs x4, ESRD on HD Tue/ /Tue, DM (insulin dependant) presented to the emergency room after dialysis he was noted to have unintelligible speech, altered mental status, hypotension, and given his history concern for CVA. Altered mental status. There is a concern for another stroke. however after discussing case with neurology it is unlikely patient had a stroke. it is more likely patient had a hypotensive/syncopal event. but patient was hypotensive at the dialysis center and low blood pressure leading to low cerebral perfusion pressure makes this patient at risk for CVA. CT scan negative for acute stroke will need MRI stop aspirin start aggrenox today if patient did have a CVA on aggrenox it is worth exploring whether he should be switched to another antiplatelet will discuss this with neurology-since it is not likely patient had a stroke he should go back on aggrenox when able to take PO (can not be crushed give aspirin) echo-techinically difficult study right and left ventricular function could not be assess otherwise normal echo. Echo from 2015 WNL repeat Echo as it was a technically difficult study while he was intubated Carotid duplex WNL Speech and swallow evaluation appreciated might need barium esophogram tomorrow tongue swelling: decadron stopped better than yesterday per patient oral thrush: nystatin swish and swallow Troponinemia: Troponin was negative x3 after admission this troponin that is 0.06 was sent during his hypotensive episode no EKG changes likely from demand ischemia secondary to hypotension cardiology consult appreciated and noted demand likely from hypotension will order persantine stress test Sepsis/septic shock:resolved patient was hypotensive and febrile off levophed gtt possible infectious source could be aspiration during intubation ID consult appreciated continue zosyn today will stop tomorrow if OK with ID stop vancomycin ESRD on HD dialysis per nephrology-will dialyze tomorrow continue Renvela-ordered Renal consult appreciated vascular consult appreciated to evaluate HD Access-ultrasound ordered will follow up DM: ISS achs Acute Hypercapneic respiratory failure: resolved Metabolic acidosis resolved patient was intubated for airway protection altered mental status and hypercapnea now on room air HLD: on Zocor as outpatient continue Zocor Psych/depression: continue lexapro FEN: no IVF no electrolyte issues advance today to dysphagia chopped with thin liquids PPx: HSQ/SCDs protonix PT consult Pending placement at facility Visit type - Emergency Visit Emergency Visit: Yes ED Registration Date: 01/24/17 Care time: The patient presented to the Emergency Department on the above date and was hospitalized for further evaluation of their emergent condition. - New Patient This patient is new to me today: No - Critical Care Critical Care patient: No
--- NOTE | 2017-01-31 16:36 | PN ---
Progress Note, Physician History of Present Illness: Pt seen and examined at bedside. He is awake and alert. He denies shortness of breath. His mental status is back to baseline. - Current Medication List Current Medications: Active Medications Albuterol/Ipratropium (Duoneb -) 1 amp NEB Q6H PRN PRN Reason: SHORTNESS OF BREATH Albuterol/Ipratropium (Duoneb -) 1 amp NEB TIDR [facility] Last Admin: 01/31/17 13:30 Dose: Not Given Atorvastatin Calcium (Lipitor -) 80 mg PO DAILY@0600 [facility] Last Admin: 01/31/17 05:55 Dose: 80 mg Dipyridamole/Aspirin (Aggrenox -) 1 combo PO BID [facility] Last Admin: 01/31/17 10:00 Dose: 1 combo Escitalopram Oxalate (Lexapro -) 20 mg PO DAILY [facility] Last Admin: 01/31/17 09:59 Dose: 20 mg Heparin Sodium (Porcine) (Heparin -) 5,000 unit SQ TID [facility] Last Admin: 01/31/17 14:28 Dose: 5,000 unit Pantoprazole Sodium (Protonix 40mg Ivpb (Pre-Docked)) 100 mls @ 200 mls/hr IVPB DAILY [facility] Last Admin: 01/31/17 10:00 Dose: 200 mls/hr Insulin Aspart (Novolog Vial Sliding Scale -) 1 vial SQ ACHS [facility] PRN Reason: Protocol Last Admin: 01/31/17 14:26 Dose: 2 units Metoprolol Tartrate (Lopressor Injection -) 5 mg IVPUSH Q4H PRN PRN Reason: HYPERTENSION Nystatin (Nystatin Oral Suspension -) 500,000 units PO Q6HPO [facility] Last Admin: 01/31/17 14:29 Dose: 500,000 units Sevelamer Carbonate (Renvela -) 800 mg PO TIDCM [facility] Last Admin: 01/31/17 14:28 Dose: 800 mg - Objective Vital Signs: Vital Signs Temperature 97.8 F 01/31/17 14:00 Pulse Rate 85 01/31/17 14:00 Respiratory Rate 18 01/31/17 14:00 Blood Pressure 136/86 01/31/17 14:00 O2 Sat by Pulse Oximetry (%) 98 01/31/17 09:00 Constitutional: Yes: Calm Eyes: Yes: Conjunctiva Clear HENT: Yes: Atraumatic Neck: Yes: Supple Cardiovascular: Yes: S1, S2 Respiratory: Yes: CTA Bilaterally Gastrointestinal: Yes: Soft, Abdomen, Obese Genitourinary: Yes: WNL Musculoskeletal: Yes: Muscle Weakness Edema: No Neurological: Yes: Oriented, Pre-Existing Deficit Psychiatric: Yes: Oriented Labs: CBC, BMP 01/31/17 05:35 01/31/17 05:35 INR, PTT INR 1.23 (0.82-1.09) H 01/27/17 05:30 Problem List - Problems (1) Hypotension Code(s): I95.9 - HYPOTENSION, UNSPECIFIED (2) Anemia Code(s): D64.9 - ANEMIA, UNSPECIFIED (3) CVA (cerebral vascular accident) Code(s): I63.9 - CEREBRAL INFARCTION, UNSPECIFIED (4) End stage renal disease on dialysis Code(s): N18.6 - END STAGE RENAL DISEASE Z99.2 - DEPENDENCE ON RENAL DIALYSIS Assessment/Plan Current Medications Generic Name Dose Route Start Last Admin Trade Name Freq PRN Reason Stop Dose Admin Albuterol/Ipratropium 1 amp 01/28/17 14:19 Duoneb - NEB Q6H PRN SHORTNESS OF BREATH Albuterol/Ipratropium 1 amp 01/28/17 22:00 01/31/17 13:30 Duoneb - NEB Not Given TIDR JASON Atorvastatin Calcium 80 mg 01/29/17 06:00 01/31/17 05:55 Lipitor - PO 80 mg DAILY@0600 [facility] Administration Dipyridamole/Aspirin 1 combo 01/30/17 22:00 01/31/17 10:00 Aggrenox - PO 1 combo BID [facility] Administration Escitalopram Oxalate 20 mg 01/29/17 10:00 01/31/17 09:59 Lexapro - PO 20 mg DAILY [facility] Administration Heparin Sodium (Porcine) 5,000 unit 01/28/17 22:00 01/31/17 14:28 Heparin - SQ 5,000 unit TID [facility] Administration Pantoprazole Sodium 100 mls @ 200 mls/hr 01/29/17 10:00 01/31/17 10:00 Protonix 40mg Ivpb (Pre-Docked) IVPB 200 mls/hr DAILY [facility] Administration Insulin Aspart 1 vial 01/30/17 16:30 01/31/17 14:26 Novolog Vial Sliding Scale - SQ 2 units ACHS [facility] Administration Protocol Metoprolol Tartrate 5 mg 01/28/17 14:19 Lopressor Injection - IVPUSH Q4H PRN HYPERTENSION Nystatin 500,000 units 01/29/17 12:00 01/31/17 14:29 Nystatin Oral Suspension - PO 500,000 units Q6HPO [facility] Administration Sevelamer Carbonate 800 mg 01/28/17 17:30 01/31/17 14:28 Renvela - PO 800 mg TIDCM [facility] Administration Impression 1. ESRD 2. hx of HTN 3. DM 4. hx CVA 5. hyperlipidemia 6. altered mental status 7. hypotension 8. acute respiratory failure Plan - mental status is back to baseline - HD in am - discussed with medical team - cont current meds - discharge planning - will need neuro follow up - will follow Dr Prasad
[2017-01-31] MEDS ORDERED: MINERAL OIL/PET HY-PHL TOPICAL OINTMENT 454 GM JAR TP PRN (20:44)
[2017-01-31] MEDS ORDERED: PT OWN MED DRAWER 7, Y5N ONE (21:58)
[2017-01-31] MEDS ORDERED: INSULIN (NOVOLOG) ASPART 100 UNITS/ML 10ML VIAL ONE (21:59)
[2017-02-01] MEDS: NYSTATIN 500,000 UNITS/5 ML SUSPENSION PO SCH ×4 (01:00→17:21)
[2017-02-01] MEDS: HEPARIN NA (PORCINE) 5,000 UNITS/ML 1ML VIAL SQ SCH (06:10)
[2017-02-01] MEDS: ATORVASTATIN CA 80 MG TABLET (FP) PO SCH (06:10)
[2017-02-01] MEDS: INSULIN SLIDING SCALE (NOVOLOG) 1 VIAL SQ SCH ×4 (06:19→21:38)
[2017-02-01] MEDS: ALBUTEROL SO4 2.5/IPRATROPIUM 0.5 INH SOL 3 ML VIAL.NEB. NEB SCH ×3 (06:58→22:14)
[2017-02-01 07:02] LABS: MCH 32.7 pg (25.7-33.7); MCHC 33.5 g/dl (32.0-35.9); MEAN CELL VOLUME 97.5 fl (80-96); PLATELET COUNT 237 K/MM3 (134-434); RDW 14.4 % (11.9-15.9); WHITE BLOOD COUNT 9.9 K/mm3 (4.0-10.0)
[2017-02-01 07:03] LABS: CALCIUM 8.9 mg/dL (8.5-10.1)
[2017-02-01 07:16] LABS: CREATININE 14.4 mg/dL (0.7-1.3)
[2017-02-01] MEDS ORDERED: EPOETIN ALFA 3,000 UNIT/1 ML ML IVPUSH ONE (08:30)
[2017-02-01] MEDS ORDERED: DIPYRIDAMOLE STRESS TEST 50 MG in DEXTROSE 5%-WATER - 40 ML IVPB ONE (10:30)
--- NOTE | 2017-02-01 10:44 | PN ---
Progress Note, Physician Chief Complaint: Seen and examined in cardiology no distress TELE: episodes of narrow complex, irregular tachycardia self limited. Suspicious for PAF - Current Medication List Current Medications: Active Medications Albuterol/Ipratropium (Duoneb -) 1 amp NEB Q6H PRN PRN Reason: SHORTNESS OF BREATH Albuterol/Ipratropium (Duoneb -) 1 amp NEB TIDR [facility] Last Admin: 02/01/17 06:58 Dose: 1 amp Atorvastatin Calcium (Lipitor -) 80 mg PO DAILY@0600 [facility] Last Admin: 02/01/17 06:10 Dose: Not Given Dipyridamole/Aspirin (Aggrenox -) 1 combo PO BID [facility] Last Admin: 01/31/17 22:14 Dose: 1 combo Emollient Ointment (Aquaphor -) 1 applic TP QSHIFT PRN PRN Reason: WOUND CARE Escitalopram Oxalate (Lexapro -) 20 mg PO DAILY [facility] Last Admin: 01/31/17 09:59 Dose: 20 mg Heparin Sodium (Porcine) (Heparin -) 5,000 unit SQ TID [facility] Last Admin: 02/01/17 06:10 Dose: 5,000 unit Pantoprazole Sodium (Protonix 40mg Ivpb (Pre-Docked)) 100 mls @ 200 mls/hr IVPB DAILY [facility] Last Admin: 01/31/17 10:00 Dose: 200 mls/hr Insulin Aspart (Novolog Vial Sliding Scale -) 1 vial SQ ACHS [facility] PRN Reason: Protocol Last Admin: 02/01/17 06:19 Dose: Not Given Metoprolol Tartrate (Lopressor Injection -) 5 mg IVPUSH Q4H PRN PRN Reason: HYPERTENSION Nystatin (Nystatin Oral Suspension -) 500,000 units PO Q6HPO [facility] Last Admin: 02/01/17 06:10 Dose: Not Given Sevelamer Carbonate (Renvela -) 800 mg PO TIDCM [facility] Last Admin: 01/31/17 17:44 Dose: 800 mg - Objective Vital Signs: Vital Signs Temperature 98.4 F 02/01/17 10:00 Pulse Rate 99 H 02/01/17 10:00 Respiratory Rate 20 02/01/17 10:00 Blood Pressure 138/84 02/01/17 10:00 O2 Sat by Pulse Oximetry (%) 94 L 01/31/17 22:00 Constitutional: Yes: No Distress Cardiovascular: Yes: Regular Rate and Rhythm Respiratory: Yes: CTA Bilaterally Gastrointestinal: Yes: Soft Edema: No Neurological: Yes: Alert Labs: CBC, BMP 02/01/17 05:35 02/01/17 05:35 INR, PTT INR 1.23 (0.82-1.09) H 01/27/17 05:30 Microbiology 01/26/17 03:45 Blood - Peripheral Venous Blood Culture - Final NO GROWTH AFTER 5 DAYS INCUBATION 01/26/17 03:45 Blood - Peripheral Venous Blood Culture - Final NO GROWTH AFTER 5 DAYS INCUBATION Laboratory Tests 02/01/17 02/01/17 05:35 05:35 WBC 9.9 Hgb 11.1 L Plt Count 237 Sodium 143 Potassium 4.2 BUN 74 H D Creatinine 14.4 H* Random Glucose 152 H Calcium 8.9 - ....Imaging EKG: Image Reviewed Assessment/Plan IMP: ESRD Acute respiratory failure Fever, sepsis Elevated TnI REC: Mildly Elevated troponin that did not rise significantly likely secondary to sepsis in setting ESRD Initial Echo done while intubated was poor study, unable to assess LV function, plan to repeat echo today to attempt to assess LV function Now back on aggrenox Completing nuclear stress test today. Would continue telemetry. Several runs noted suspicious for PAF. Patient states he was taking Xarelto- although he may not be accurate historian. If AF confirmed, would strongly suggest d/c Aggrenox and switch to NOAC, unless other medical contraindications. Will try to confirm prior history with family members.
--- NOTE | 2017-02-01 14:58 | PN ---
Progress Note, Physician History of Present Illness: Pt seen and examined at bedside. He is awake and alert. He denies chest pain or shortness of breath. - Current Medication List Current Medications: Active Medications Albuterol/Ipratropium (Duoneb -) 1 amp NEB Q6H PRN PRN Reason: SHORTNESS OF BREATH Albuterol/Ipratropium (Duoneb -) 1 amp NEB TIDR [facility] Last Admin: 02/01/17 14:00 Dose: Not Given Apixaban (Eliquis -) 5 mg PO BID [facility] Atorvastatin Calcium (Lipitor -) 80 mg PO DAILY@0600 [facility] Last Admin: 02/01/17 06:10 Dose: Not Given Emollient Ointment (Aquaphor -) 1 applic TP QSHIFT PRN PRN Reason: WOUND CARE Escitalopram Oxalate (Lexapro -) 20 mg PO DAILY [facility] Last Admin: 01/31/17 09:59 Dose: 20 mg Pantoprazole Sodium (Protonix 40mg Ivpb (Pre-Docked)) 100 mls @ 200 mls/hr IVPB DAILY [facility] Last Admin: 01/31/17 10:00 Dose: 200 mls/hr Insulin Aspart (Novolog Vial Sliding Scale -) 1 vial SQ ACHS [facility] PRN Reason: Protocol Last Admin: 02/01/17 06:19 Dose: Not Given Metoprolol Tartrate (Lopressor Injection -) 5 mg IVPUSH Q4H PRN PRN Reason: HYPERTENSION Nystatin (Nystatin Oral Suspension -) 500,000 units PO Q6HPO [facility] Last Admin: 02/01/17 06:10 Dose: Not Given Sevelamer Carbonate (Renvela -) 800 mg PO TIDCM [facility] Last Admin: 01/31/17 17:44 Dose: 800 mg - Objective Vital Signs: Vital Signs Temperature 98.4 F 02/01/17 10:00 Pulse Rate 99 H 02/01/17 10:00 Respiratory Rate 20 02/01/17 10:00 Blood Pressure 138/84 02/01/17 10:00 O2 Sat by Pulse Oximetry (%) 94 L 01/31/17 22:00 Constitutional: Yes: Calm Eyes: Yes: Conjunctiva Clear HENT: Yes: Atraumatic Neck: Yes: Supple Cardiovascular: Yes: S1, S2 Respiratory: Yes: CTA Bilaterally Gastrointestinal: Yes: Soft, Abdomen, Obese Genitourinary: Yes: WNL Musculoskeletal: Yes: Muscle Weakness Edema: No Neurological: Yes: Oriented, Pre-Existing Deficit Labs: CBC, BMP 02/01/17 05:35 02/01/17 05:35 INR, PTT INR 1.23 (0.82-1.09) H 01/27/17 05:30 Problem List - Problems (1) Hypotension Code(s): I95.9 - HYPOTENSION, UNSPECIFIED (2) Anemia Code(s): D64.9 - ANEMIA, UNSPECIFIED (3) CVA (cerebral vascular accident) Code(s): I63.9 - CEREBRAL INFARCTION, UNSPECIFIED (4) End stage renal disease on dialysis Code(s): N18.6 - END STAGE RENAL DISEASE Z99.2 - DEPENDENCE ON RENAL DIALYSIS Assessment/Plan Current Medications Generic Name Dose Route Start Last Admin Trade Name Freq PRN Reason Stop Dose Admin Albuterol/Ipratropium 1 amp 01/28/17 14:19 Duoneb - NEB Q6H PRN SHORTNESS OF BREATH Albuterol/Ipratropium 1 amp 01/28/17 22:00 02/01/17 14:00 Duoneb - NEB Not Given TIDR [facility] Apixaban 5 mg 02/01/17 22:00 Eliquis - PO BID [facility] Atorvastatin Calcium 80 mg 01/29/17 06:00 02/01/17 06:10 Lipitor - PO Not Given DAILY@0600 [facility] Emollient Ointment 1 applic 01/31/17 20:44 Aquaphor - TP QSHIFT PRN WOUND CARE Escitalopram Oxalate 20 mg 01/29/17 10:00 01/31/17 09:59 Lexapro - PO 20 mg DAILY [facility] Administration Pantoprazole Sodium 100 mls @ 200 mls/hr 01/29/17 10:00 01/31/17 10:00 Protonix 40mg Ivpb (Pre-Docked) IVPB 200 mls/hr DAILY [facility] Administration Insulin Aspart 1 vial 01/30/17 16:30 02/01/17 06:19 Novolog Vial Sliding Scale - SQ Not Given ACHS [facility] Protocol Metoprolol Tartrate 5 mg 01/28/17 14:19 Lopressor Injection - IVPUSH Q4H PRN HYPERTENSION Nystatin 500,000 units 01/29/17 12:00 02/01/17 06:10 Nystatin Oral Suspension - PO Not Given Q6HPO [facility] Sevelamer Carbonate 800 mg 01/28/17 17:30 01/31/17 17:44 Renvela - PO 800 mg TIDCM [facility] Administration Impression 1. ESRD 2. hx of HTN 3. DM 4. hx CVA 5. hyperlipidemia 6. altered mental status 7. hypotension 8. acute respiratory failure Plan - HD today - cardiology follow up - cont current meds - monitor BP - discharge planning - will need neuro follow up - will follow Dr Prasad
[2017-02-01] MEDS: SEVELAMER CARBONATE 800 MG TAB (FP) PO SCH ×3 (15:25→17:21)
[2017-02-01] MEDS: ESCITALOPRAM OXALATE 20 MG TABLET (FP) PO SCH (15:26)
[2017-02-01] MEDS: PANTOPRAZOLE SODIUM 100 ML IVPB SCH (15:26)
[2017-02-01] MEDS: ASPIRIN/DIPYRIDAMOLE 25 MG/200 MG CAPSULE (FP) PO SCH (15:38)
--- NOTE | 2017-02-01 16:07 | PN ---
Physical Exam: SUBJECTIVE: Patient seen and examined at bedside no issues overnight feels well telemetry reviewed with cardiology-lidia iraheta OBJECTIVE: Vital Signs Period Temp Pulse Resp BP Sys/Todd Pulse Ox Last 24 Hr 98.1 F-98.6 F 74-99 18-20 131-144/84-95 94 GENERAL: awake alert NAD EYES: EOMI PERRLA ENT: moist mucous membranes. thrush on tongue-improving NECK: Trachea midline, full range of motion, supple. LUNGS: CTAB HEART: Regular rate and rhythm S1 S2 ABDOMEN: Soft, non tender non distended EXTREMITIES: no edema. NEUROLOGICAL:able to move left upper and lower extremities right side weak at baseline no change per patient Laboratory Results - last 24 hr 01/31/17 01/31/17 02/01/17 17:28 22:09 05:35 WBC 9.9 RBC 3.41 L Hgb 11.1 L Hct 33.2 L MCV 97.5 H MCHC 33.5 RDW 14.4 Plt Count 237 MPV 9.0 Sodium Potassium Chloride Carbon Dioxide Anion Gap BUN Creatinine POC Glucometer 202 209 Random Glucose Calcium 02/01/17 02/01/17 05:35 06:13 WBC RBC Hgb Hct MCV MCHC RDW Plt Count MPV Sodium 143 Potassium 4.2 Chloride 97 L Carbon Dioxide 28 Anion Gap 18 H BUN 74 H D Creatinine 14.4 H* POC Glucometer 148 Random Glucose 152 H Calcium 8.9 Active Medications Generic Name Dose Route Start Last Admin Trade Name Freq PRN Reason Stop Dose Admin Albuterol/Ipratropium 1 amp 01/28/17 14:19 Duoneb - NEB Q6H PRN SHORTNESS OF BREATH Albuterol/Ipratropium 1 amp 01/28/17 22:00 02/01/17 14:00 Duoneb - NEB Not Given TIDR [facility] Apixaban 5 mg 02/01/17 22:00 Eliquis - PO BID [facility] Atorvastatin Calcium 80 mg 01/29/17 06:00 02/01/17 06:10 Lipitor - PO Not Given DAILY@0600 [facility] Emollient Ointment 1 applic 01/31/17 20:44 Aquaphor - TP QSHIFT PRN WOUND CARE Escitalopram Oxalate 20 mg 01/29/17 10:00 02/01/17 15:26 Lexapro - PO 20 mg DAILY [facility] Administration Pantoprazole Sodium 100 mls @ 200 mls/hr 01/29/17 10:00 02/01/17 15:26 Protonix 40mg Ivpb (Pre-Docked) IVPB 200 mls/hr DAILY [facility] Administration Insulin Aspart 1 vial 01/30/17 16:30 02/01/17 15:26 Novolog Vial Sliding Scale - SQ Not Given ACHS [facility] Protocol Metoprolol Tartrate 5 mg 01/28/17 14:19 Lopressor Injection - IVPUSH Q4H PRN HYPERTENSION Nystatin 500,000 units 01/29/17 12:00 02/01/17 15:26 Nystatin Oral Suspension - PO 500,000 units Q6HPO [facility] Administration Sevelamer Carbonate 800 mg 01/28/17 17:30 02/01/17 15:26 Renvela - PO 800 mg TIDCM [facility] Administration ASSESSMENT/PLAN: 56M with multiple medical problems including multiple CVAs x4, ESRD on HD Tue/ /Tue, DM (insulin dependant) presented to the emergency room after dialysis he was noted to have unintelligible speech, altered mental status, hypotension, and given his history concern for CVA. Altered mental status. There is a concern for another stroke. however after discussing case with neurology it is unlikely patient had a stroke. it is more likely patient had a hypotensive/syncopal event. but patient was hypotensive at the dialysis center and low blood pressure leading to low cerebral perfusion pressure makes this patient at risk for CVA. CT scan negative for acute stroke x2 stop aspirin start aggrenox today if patient did have a CVA on aggrenox it is worth exploring whether he should be switched to another antiplatelet will discuss this with neurology-since it is not likely patient had a stroke he went back on aggrenox repeat Echo result noted-impaired LV relaxation Stress test result noted Carotid duplex WNL Speech and swallow evaluation appreciated barium swallow results noted paroxysmal A. fib noted on telemetry: i was present when Dr. Mcelroy was talking to about NOACs vs Coumadin and he thoroughly explained risks benefits and alternatives as well as how aggrenox id not fully protective for this condition. she will discuss this with hid PMD and let us know. elimichael ordered for now pending decision for long term acute care registered nurse anticoagulation tongue swelling: decadron stopped better than yesterday per patient oral thrush: nystatin swish and swallow Troponinemia: Troponin was negative x3 after admission this troponin that is 0.06 was sent during his hypotensive episode no EKG changes likely from demand ischemia secondary to hypotension cardiology consult appreciated and noted demand likely from hypotension stress test results noted Sepsis/septic shock:resolved ESRD on HD dialysis per nephrology-will dialyze today continue Renvela-ordered Renal consult appreciated vascular consult appreciated to evaluate HD Access-ultrasound ordered will follow up DM: ISS achs Acute Hypercapneic respiratory failure: resolved on room air HLD: on Zocor as outpatient continue Zocor Psych/depression: continue lexapro FEN: no IVF no electrolyte issues dysphagia diet PPx: HSQ/SCDs protonix PT consult Pending placement at facility Visit type - Emergency Visit Emergency Visit: Yes ED Registration Date: 01/24/17 Care time: The patient presented to the Emergency Department on the above date and was hospitalized for further evaluation of their emergent condition. - New Patient This patient is new to me today: No - Critical Care Critical Care patient: No
--- NOTE | 2017-02-01 17:42 | PN ---
Teaching Attending Note Name of Resident: Bruce Lorenzo ATTENDING PHYSICIAN STATEMENT I saw and evaluated the patient. I reviewed the resident's note and discussed the case with the resident. I agree with the resident's findings and plan as documented. SUBJECTIVE: no fever or chills, no abd pain , no PASTOR , no visual changes OBJECTIVE: NAD, Awake and alert cooperative no facial droop, EOMI. strength in RUE 2/5 in RUE at elbow and shoulder . 0/5 in RLE prox and distally . 3/5 in LLE at knee and hip . R foot drop . 5/5 in LUE prox and distally CV: RRR, Lungs : CTAB on L side , limited exam on R ext : no edema , R foot drop ASSESSMENT AND PLAN: 56 Y/o man with h/o CVAs, ESRD , IDDM , and other medical problems who presented with AMS and dysarthria after HD . He was intubated shortly after admission due to worsening mental status 1- AMS, speech abnormality: likely due to transient hypotension VS TIA . resolved now - eliquis started instead of aggrenox due to suspicion for PAF on tele . - if family decides otherwise , will change to aggrenox 2- Trop leak : Stress test with fixed defect. nl EF . echo with nl EF and diastolic dysfunction . f/u as out pt 3- Acute hypercapnic resp failure: resolved 4- ESRD: cont HD 5- dispo : to rehab tomorrow
[2017-02-01] MEDS ORDERED: INSULIN (NOVOLOG) ASPART 100 UNITS/ML 10ML VIAL ONE ×2 (18:07→21:24)
[2017-02-01] MEDS: APIXABAN 5 MG TABLET PO SCH (21:38)
[2017-02-02] MEDS: NYSTATIN 500,000 UNITS/5 ML SUSPENSION PO SCH ×2 (00:30→06:48)
[2017-02-02] MEDS: ALBUTEROL SO4 2.5/IPRATROPIUM 0.5 INH SOL 3 ML VIAL.NEB. NEB SCH (05:45)
[2017-02-02] MEDS: INSULIN SLIDING SCALE (NOVOLOG) 1 VIAL SQ SCH (06:49)
[2017-02-02] MEDS: ATORVASTATIN CA 80 MG TABLET (FP) PO SCH (06:49)
[2017-02-02] MEDS ORDERED: METOPROLOL TARTRATE 50 MG TABLET (FP) PO STA (07:24)
[2017-02-02] MEDS: SEVELAMER CARBONATE 800 MG TAB (FP) PO SCH (08:40)
[2017-02-02] MEDS: ESCITALOPRAM OXALATE 20 MG TABLET (FP) PO SCH (09:40)
[2017-02-02] MEDS: APIXABAN 5 MG TABLET PO SCH (09:40)
[2017-02-02 09:50] LABS: CALCIUM 9.3 mg/dL (8.5-10.1)
[2017-02-02] MEDS ORDERED: PANTOPRAZOLE 40 MG TABLET (FP) PO SCH (10:00)
[2017-02-02] MEDS ORDERED: METOPROLOL TARTRATE 50 MG TABLET (FP) PO SCH (10:00)
[2017-02-02 10:04] LABS: CREATININE 9.5 mg/dL (0.7-1.3)
--- NOTE | 2017-02-02 10:19 | PN ---
Progress Note, ACCOUNT MANAGER EDUCATION - Note Progress Note: Selected Entries 02/01/17 02/01/17 02/01/17 02:00 06:00 10:00 Temperature 98.1 F 98.3 F 98.4 F 02/01/17 02/02/17 02/02/17 21:00 02:00 06:00 Temperature 98.5 F 98.5 F 98.2 F Laboratory Tests 02/01/17 05:35 WBC 9.9 Pt is tolerating chopped diet with thin liquid well. Pending discharge to [place]. Suggest continued swallowing f/u to advance diet with some soft solids,if tolerated.
[2017-02-02 11:26] VITALS: BP 117/85; PULSE 109; TEMP 98.1
--- NOTE | 2017-02-02 12:08 | PN ---
Teaching Attending Note Name of Resident: Bruce Lorenzo ATTENDING PHYSICIAN STATEMENT I saw and evaluated the patient. I reviewed the resident's note and discussed the case with the resident. I agree with the resident's findings and plan as documented. SUBJECTIVE: no fever or chills, no abd pain , no diarrhea OBJECTIVE: NAD, Awake and alert cooperative CV: RRR, Lungs : CTAB on both sides ext : no edema , R foot drop ASSESSMENT AND PLAN: 56 Y/o man with h/o CVAs, ESRD , IDDM , and other medical problems who presented with AMS and dysarthria after HD . He was intubated shortly after admission due to worsening mental status 1- AMS, speech abnormality: likely due to transient hypotension VS TIA . resolved now - cont eliquis . due to rhythm strips consistent with A fib . - case was d/w by resident. pt and family agree to eliquis 2- Trop leak : Stress test with fixed defect. nl EF . echo with nl EF and diastolic dysfunction . f/u as out pt 3- Acute hypercapnic resp failure: resolved 4- ESRD: cont HD TTS 5- Dm , will send o n 15 unit sof lantus in am and SSI as he did not require high doses of insulin while here ( was o n higher doses at home prior to admission ) 5- dispo : dc to rehab
--- NOTE | 2017-02-02 14:06 | DS ---
Physical Exam: SUBJECTIVE: Patient seen and examined at bedside no complaints in good spirits OBJECTIVE: Vital Signs Period Temp Pulse Resp BP Sys/Todd Pulse Ox Last 24 Hr 98.1 F-98.5 F 74-109 18-20 98-144/59-98 96-98 PHYSICAL EXAM GENERAL: awake alert NAD EYES: EOMI PERRLA ENT: moist mucous membranes. thrush on tongue-improving NECK: Trachea midline, full range of motion, supple. LUNGS: CTAB HEART: Regular rate and rhythm S1 S2 ABDOMEN: Soft, non tender non distended EXTREMITIES: no edema. NEUROLOGICAL:able to move left upper and lower extremities right side weak at baseline no change per patient LABS Laboratory Results - last 24 hr 02/01/17 02/01/17 02/02/17 17:21 20:47 06:00 Sodium 140 Potassium 3.7 Chloride 96 L Carbon Dioxide 27 Anion Gap 17 H BUN 41 H D Creatinine 9.5 H* D POC Glucometer 210 187 Random Glucose 159 H Calcium 9.3 02/02/17 06:39 Sodium Potassium Chloride Carbon Dioxide Anion Gap BUN Creatinine POC Glucometer 154 Random Glucose Calcium HOSPITAL COURSE: Date of Admission:01/24/17 Date of Discharge: 02/02/17 56M multiple medical problems presented to the ED from dialysis after he was noted to be hypotensive with unintelligable speech. He was intubated and admitted to the ICU and being worked up initially to rule out stroke. Initial CT and repeat CT did not show stroke. He was seen by neurology. extubated after bout 2-3 days of being intubated. He had no weakness noted other than his chronic right sided weakness. The working diagnosis then was that the patient had altered mental status from hypotension. The atient had medication changes to his insulin regimen as well as his metoprolol which was cut by half. PAtient also seen by cardiology as he leaked some troponins but this was likely from another hypotensive episode he had while in the ICU. when he was discharged form the ICU to a telemtry Bed review of his monitor showed he had paroxysmal A fib. He was started on eliquis after Dr. Mcelroy had a very long talk with the patient's about risks benefits and alternatives. she wanted PCP to clear it but agreed to discharge home on eliquis and if PCP changes his mind then he will let the rehab facility know. i called Dr. Rachell Dillard and he agreed with martin. all medication changes and hospital course explained to PCP. stable for discharge. Minutes to complete discharge: 45 Discharge Summary Reason For Visit: CEREBROVASCULAR ACCIDENT(CVA) Current Active Problems Fluid overload (Acute) Hypotension (Acute) Paroxysmal atrial fibrillation with rapid ventricular response (Acute) Diabetes (Chronic) Dialysis patient (Chronic) End stage renal disease on dialysis (Chronic) Condition: Improved - Instructions Diet, Activity, Other Instructions: insulin dose should be adjusted bases on his fingersticks beta anastasia dose may need to be adjusted based on heart rate and blood pressure eat a low fat low sodium low glycemic index diet follow up with your primary care doctor you need to see a carpet cleaner follow upw ti Dr. Mcelroy follow up with your delivery of shopping news continue dialysis as scheduled if you experience these symptoms again then go to the nearest emergency room your aggrenox was stopped you will be on eliquis Referrals: Dhruv Mcelroy MD [Staff Physician] - Rachell Dillard [Primary Care Provider] - 2 Weeks ( ) Disposition: LONGTERM FACILITY - Home Medications Comprehensive Discharge Medication List: Ambulatory Orders Escitalopram Oxalate [Lexapro -] 20 mg PO DAILY 01/24/17 Folic Acid - 1 mg PO DAILY 01/24/17 Gabapentin [Neurontin -] 100 mg PO HS 01/24/17 Sevelamer Carbonate [Renvela -] 800 mg PO TID 01/24/17 Simvastatin [Zocor -] 40 mg PO HS 01/24/17 Sitagliptin Phosphate [Januvia] 50 mg PO DAILY 01/24/17 Apixaban [Eliquis -] 5 mg PO BID tablet 02/02/17 Insulin Aspart [Novolog] See Protocol SQ AC #1 cartridge 02/02/17 Insulin Glargine,Hum.rec.anlog [Lantus (nf)] 15 units SQ AM #1 vial 02/02/17 Metoprolol Tartrate [Lopressor -] 50 mg PO BID tablet 02/02/17 Pantoprazole Sodium [Protonix -] 40 mg PO DAILY 02/02/17 This patient is new to me today: No Emergency Visit: No Critical Care patient: No - Discharge Referral Referred to [facility] Med P.[facility].: No
== END 2017-02-02 11:56 | DRG 208 ==
LOC: JER 17:33 → UNDOADMIN 19:05 → JERBED 19:05 → J4S 23:04 → JICU 01-25 01:34 → J4S 01-29 19:12
PROVIDERS: ADMIT Internal Medicine; ATTEND Internal Medicine
PROC: 5A0935Z Assistance with Respiratory Ventilation, Less than 24 Consecutive Hours (ICD-10-PCS; 2017-01-24)
PROC: 5A1945Z Respiratory Ventilation, 24-96 Consecutive Hours (ICD-10-PCS; principal; 2017-01-25)
PROC: 0BH17EZ Insertion of Endotracheal Airway into Trachea, Via Natural or Artificial Opening (ICD-10-PCS; 2017-01-25)
PROC: 05HN33Z Insertion of Infusion Device into Left Internal Jugular Vein, Percutaneous Approach (ICD-10-PCS; 2017-01-25)
PROC: B544ZZA Ultrasonography of Left Jugular Veins, Guidance (ICD-10-PCS; 2017-01-25)
PROC: 5A1D60Z (ICD-10-PCS; 2017-01-25)
DX: J96.02 Acute respiratory failure with hypercapnia (principal); N18.6 End stage renal disease; G93.49 Other encephalopathy; A41.9 Sepsis, unspecified organism; R65.21 Severe sepsis with septic shock; J69.0 Pneumonitis due to inhalation of food and vomit; G45.9 Transient cerebral ischemic attack, unspecified; I12.0 Hypertensive chronic kidney disease with stage 5 chronic kidney disease or end stage renal disease; I69.351 Hemiplegia and hemiparesis following cerebral infarction affecting right dominant side; K92.2 Gastrointestinal hemorrhage, unspecified; B37.0 Candidal stomatitis; I95.9 Hypotension, unspecified; E11.22 Type 2 diabetes mellitus with diabetic chronic kidney disease; Z99.2 Dependence on renal dialysis; E11.40 Type 2 diabetes mellitus with diabetic neuropathy, unspecified; Z79.4 Long term (current) use of insulin; R47.1 Dysarthria and anarthria; E78.5 Hyperlipidemia, unspecified; Z99.3 Dependence on wheelchair; H26.9 Unspecified cataract; D64.9 Anemia, unspecified; E66.9 Obesity, unspecified; Z68.30 Body mass index [BMI] 30.0-30.9, adult; Z71.3 Dietary counseling and surveillance; R79.89 Other specified abnormal findings of blood chemistry; F32.9 Major depressive disorder, single episode, unspecified; E83.41 Hypermagnesemia; I48.0 Paroxysmal atrial fibrillation
CPT/HCPCS: 31500; 36415; 36600; 70450-TC; 71010-TC; 74000-TC; 74230-TC; 78452-TC; 80048; 80053; 80061; 82140; 82465; 82550; 82553; 82607; 82803; 83036; 83605; 83718; 83721; 83735; 84100; 84443; 84478; 84484; 85025; 85027; 85610; 85651; 85730; 86140; 86704; 86706; 86708; 86850; 86900; 86901; 87040; 87070; 87186; 87205; 87254; 87340; 87389; 87804; 92611-GN; 93005; 93010; 93017; 93306-TC; 93880-TC; 93971; 94002; 94640; 94660; 97161-GP; 99285-25; A9502; G0480; J0885; J1245; J1644

== ENCOUNTER 2018-10-13 15:34 | Emergency (ER) | payer OTHER ==
--- NOTE | 2018-10-13 15:40 | PDOC ---
Rapid Medical Evaluation Time Seen by Provider: 10/13/18 15:36 Medical Evaluation: Allergies Allergy/AdvReac Type Severity Reaction Status Date / Time No Known Allergies Allergy Verified 09/11/16 11:59 10/13/18 15:39 I have performed a brief in-person evaluation of this patient. The patient presents with a chief complaint of: Worsening groin/gluteal ulcers per . Last seen in wound clinic at [place] several months ago. currently caring for wounds at home but states wounds gradually worsening. Not on abx currently. No f/c. H/o HTN, HLD, DM on HD (T/R/S), via RUE fistula, last dialyzed yesterday, multiple CVAs w/ R sided hemiparesis and W/C bound Pertinent physical exam findings:Hypotensive, rest of exam deferred to main ED providers I have ordered the following:labs The patient will proceed to the ED for further evaluation. 10/13/18 15:47 Discharge Disposition - Diagnosis Decubitus ulcers Qualifiers: Pressure injury location: other site Pressure injury stage: unspecified pressure injury stage Qualified Code(s): L89.899 - Pressure ulcer of other site , unspecified stage - Referrals Referrals: Rachell Dillard [Primary Care Provider] - - Patient Instructions - Post Discharge Activity
[2018-10-13 15:47] VITALS: BP 97/64; PULSE 80; TEMP 97.9; BMI 25.7
--- NOTE | 2018-10-13 16:10 | PDOC ---
Attending Attestation - Resident Resident Name: Wilman Lilly - ED Attending Attestation I have performed the following: I have examined & evaluated the patient, The case was reviewed & discussed with the resident, I agree w/resident's findings & plan, Exceptions are as noted - Medical Decision Making 10/13/18 16:10 I, Dr. Jessica Melgar, DO, attest that this document has been prepared under my direction and personally reviewed by me in its entirety. I further attest, that it accurately reflects all work, treatment, procedures and medical decision -making performed by me. 10/13/18 16:[address] Rivas office for eval of sacral wound -stage 1 skin breakdown that is clean, no purulent discharge, no redness, no erythema, no fluctuance, no induration to sacral area and R gluteal fold -no f/c -pt is wheelchair bound secondary to cva in past - states time for new wheelchair and needs an airmattress at home -will give wound measurements -no infection -discussed follow up with Dr. winkler for wound care recommendations -will give tylenol for pain -has topical ointments at home stable for dc to home 10/13/18 17:02 mildly elevated wbc, no fevers, no infectious complaints poss stress reaction and pain reaction <Jessica Melgar - Last Filed: 10/13/18 17:02> - HPI HPI: 10/13/18 17:11 The patient is a 58 year old male with past medical history significant for HTN , HLD, DM, CVA x4 (2005, 2006, 2007 x2) w/ right sided hemiparesis (wheelchair bound), ESRD (on HD , , and Sat, RUE fistula, last dialysis a day prior) presents to the emergency department with worsening wound. The patient had a hx of pressure ulcers and follows up at the [place] wound center. Per , the were unable to get an appointment with the wound clinic. The patient was seen at Dr. Rivas office prior to ER visit. Denies the use of antibiotic. Denies fever, chills, nausea, vomiting, diarrhea, or constipation. Allergies: NKDA Social history: None reported Surgical history: None reported PCP: Dr. Dillard - Physicial Exam PE: 10/13/18 17:12 GENERAL: The patient is a wheelchair bound secondary to CVA, The patient requires assistance with ADLs. Awake, alert, and fully oriented, in no acute distress HEAD: No signs of trauma EYES: PERRLA, EOMI, sclera anicteric, conjunctiva clear ENT: Auricles normal inspection, hearing grossly normal, nares patent, oropharynx clear without exudates. Moist mucosa NECK: Normal ROM, supple, no lymphadenopathy, JVD, or masses LUNGS: Breath sounds equal, clear to auscultation bilaterally. No wheezes, and no crackles HEART: Regular rate and rhythm, normal S1 and S2, no murmurs, rubs or gallops ABDOMEN: +obese. Soft, nontender. No guarding, no rebound. No masses EXTREMITIES: +Paraplegia of the legs with limited ROM of the right upper extremity. Legs extended. No edema. NEUROLOGICAL: No new neuro deficit. Baseline mental status per , no new neuro deficit. Normal speech. SKIN: +sacral wounds 1 larger stage 1 with no devitalized tissue, no fluctuance , no erythema, no purulent drainage, no abscess or bone exposure. R. gluteal fold smaller wounds. Warm, Dry, normal turgor, no rashes. - Medical Decision Making 10/13/18 17:13 Documentation prepared by Maritza Rodriguez, acting as medical technician assistant for Jessica Melgar DO. <Maritza Rodriguez - Last Filed: 10/13/18 17:13>
--- NOTE | 2018-10-13 16:25 | PDOC ---
History of Present Illness - General Chief Complaint: Wound Stated Complaint: BED SORES Time Seen by Provider: 10/13/18 15:36 - History of Present Illness Initial Comments: The patient is a 58M w/ a history of HTN, HLD, paroxismal a-fib (eliquis), CVA x4 (last 2006), ESRD (iHD) who presents for evaluation of pressure wounds. The patient usually follows up at [facility]. Per , pt was seen at Dr. Wall's office today for f/u regarding his RUE stent/fistula. Pt has not mentioned wounds to him. has been caring for wound with [facility]. Has not been to wound care clinic for 2 months in [place] and was told that our wound center does not accept their insurance. Reports BLE and R weakness 2/2 CVA and chronic; Spends most of his time in bed and uses wheelchair to get around. Needs assistance with most/all ADLs but is able to feed himself. Denies fevers/chills, N/V/C/D, burning with urination, blood in urine or stool, or recent illness/sick contacts 10/13/18 16:23 Past History - Past Medical History Allergies/Adverse Reactions: Allergies Allergy/AdvReac Type Severity Reaction Status Date / Time No Known Allergies Allergy Verified 10/13/18 15:39 Home Medications: Ambulatory Orders Escitalopram Oxalate [Lexapro -] 20 mg PO DAILY 01/24/17 Folic Acid - 1 mg PO DAILY 01/24/17 Gabapentin [Neurontin -] 100 mg PO HS 01/24/17 Sevelamer Carbonate [Renvela -] 800 mg PO TID 01/24/17 Simvastatin [Zocor -] 40 mg PO HS 01/24/17 Sitagliptin Phosphate [Januvia] 50 mg PO DAILY 01/24/17 Apixaban [Eliquis -] 5 mg PO BID tablet 02/02/17 Insulin Aspart [Novolog] See Protocol SQ AC #1 cartridge 02/02/17 Insulin Glargine,Hum.rec.anlog [Lantus (nf)] 15 units SQ AM #1 vial 02/02/17 Metoprolol Tartrate [Lopressor -] 50 mg PO BID tablet 02/02/17 Pantoprazole Sodium [Protonix -] 40 mg PO DAILY 02/02/17 Anemia: No Asthma: No Cancer: No Cardiac Disorders: Yes CVA: Yes (x 4IN 2006, IN 2006 MASSIVE STROKE, 2008 2 MINI STROKES.) COPD: No CHF: No Dementia: No Diabetes: Yes (NIDDM) Dialysis: Yes (TUES,THR,SAT,RT ARM FISTULA) GI Disorders: No Disorders: No HTN: Yes Hypercholesterolemia: Yes Liver Disease: No Seizures: No Thyroid Disease: No - Immunization History Immunization Up to Date: Yes - Suicide/Smoking/Psychosocial Hx Smoking Status: No Smoking History: Never smoked Have you smoked in the past 12 months: No Number of Cigarettes Smoked Daily: 0 Information on smoking cessation initiated: No Hx Alcohol Use: No Drug/Substance Use Hx: No Substance Use Type: None Review of Systems - Review of Systems Able to Perform ROS?: Yes Comments:: GENERAL/CONSTITUTIONAL: No fever or chills. HEAD, EYES, EARS, NOSE AND THROAT: No change in vision. No ear pain or discharge. No sore throat CARDIOVASCULAR: No chest pain or shortness of breath; LUE fistula GASTROINTESTINAL: No nausea, vomiting, diarrhea or constipation GENITOURINARY: No dysuria, frequency, or change in urination MUSCULOSKELETAL: +chronic R arm pain SKIN: per HPI NEUROLOGIC: +residual deficits from previous CVA (paraplegia, limited RUE movement) chronic ENDOCRINE: No increased thirst. No abnormal weight change HEMATOLOGIC/LYMPHATIC: No anemia, easy bleeding, or history of blood clots ALLERGIC/IMMUNOLOGIC: No hives or skin allergy 10/13/18 16:29 Is the patient limited Syriac proficient: No *Physical Exam - Vital Signs Last Vital Signs Temp Pulse Resp BP Pulse Ox 97.9 F 80 16 97/64 100 10/13/18 15:40 10/13/18 15:40 10/13/18 15:40 10/13/18 15:40 10/13/18 15:40 - Physical Exam Comments: GENERAL: Awake, alert, in no acute distress HEAD: No signs of trauma, normocephalic, atraumatic EYES: PERRLA, EOMI, sclera anicteric, conjunctiva clear ENT: Hearing grossly normal, nares patent, oropharynx clear without exudates. Moist mucosa LUNGS: No distress, clear to auscultation bilaterally HEART: Regular rate and rhythm, normal S1 and S2, no murmurs appreciated, peripheral pulses normal and equal bilaterally ABDOMEN: Soft, nontender, normoactive bowel sounds. No guarding, no rebound EXTREMITIES: Thin BLE extremities; RUE fistula; Pulses 2+ peripherally NEUROLOGICAL: Residual BLE and RUE weakness; Moderate aphasia; Follows commands SKIN: Stage I sacral wound, measurements in nurses' wound assessment; Stage I perineal wound, measurements in nurses' wound assessment 10/13/18 16:30 Moderate Sedation - Procedure Monitoring Vital Signs: Procedure Monitoring Vital Signs Temperature 97.9 F 10/13/18 15:40 Pulse Rate 80 10/13/18 15:40 Respiratory Rate 16 10/13/18 15:40 Blood Pressure 97/64 10/13/18 15:40 O2 Sat by Pulse Oximetry (%) 100 10/13/18 15:40 ED Treatment Course - LABORATORY CBC & Chemistry Diagram: 10/13/18 16:06 10/13/18 16:06 Medical Decision Making - Medical Decision Making The patient is a 58M who presents for evaluation of sacral pressure wounds ED Course Labs from triage; mild leukocytosis likely 2/2 stress response/pain. A febrile Cr 8; K 3.9. Last HD , has HD tomorrow. Stage 1 pressure wounds present on sacral region and inguinal region. No fluctuance, surrounding erythema, or purulence observed Patient counseled on wound care, follow up, discharge instructions, and return precautions Tylenol 975mg PO once for pain Plan for D/C w/ PCP and vascular/wound care f/u Patient and verbalized understanding and are in agreement Disp: home 10/13/18 17:03 *DC/Admit/Observation/Transfer Diagnosis at time of Disposition: Decubitus ulcers Qualifiers: Pressure injury location: other site Pressure injury stage: unspecified pressure injury stage Qualified Code(s): L89.899 - Pressure ulcer of other site , unspecified stage - Discharge Dispostion Disposition: HOME Condition at time of disposition: Stable Decision to Admit order: No - Referrals Referrals: Rachell Dillard [Primary Care Provider] - - Patient Instructions Printed Discharge Instructions: How to Prevent Pressure Ulcers Additional Instructions: You were seen in the Emergency Department today for evaluation of pressure wounds. Review the handout provided at discharge. Follow up with Dr. Wall. Also be sure to follow up with [facility] [facility] or our wound care center through Dr. Wall's office. The wound dimensions are included in your discharge paperwork. Continue the wound care previously suggested. Be sure to contact your wheelchair packaging sales representative to discuss modifying his seat. Return to the Emergency Department if you develop fevers/chills, worsening wounds, purulent drainage from the wound, increased redness, or any new/ concerning symptoms. - Post Discharge Activity
[2018-10-13 16:37] LABS: BASO % 0.8 % (0-2.0); EOS % 2.7 % (0-4.5); HEMATOCRIT 32.5 % (35.4-49); HEMOGLOBIN 11.2 GM/dL (11.7-16.9); LYMPH % 18.6 % (8-40); MCH 31.5 pg (25.7-33.7); MCHC 34.4 g/dl (32.0-35.9); MEAN CELL VOLUME 91.8 fl (80-96); MEAN PLT VOLUME 8.5 fl (7.5-11.1); MONO % 8.4 % (3.8-10.2); NEUT % 69.5 % (42.8-82.8); PLATELET COUNT 264 K/MM3 (134-434); RBC 3.54 M/mm3 (4.00-5.60); RDW 15.9 % (11.9-15.9); WHITE BLOOD COUNT 12.1 K/mm3 (4.0-10.0)
[2018-10-13] MEDS ORDERED: ACETAMINOPHEN 325 MG TABLET (FP) PO ONE (16:55)
[2018-10-13 17:06] LABS: ALBUMIN 3.7 g/dl (3.4-5.0); ALK PHOS 85 U/L (45-117); ANION GAP 17 MMOL/L (8-16); BILIRUBIN,TOTAL 0.4 mg/dL (0.2-1); BLOOD UREA NITROGEN 48 mg/dL (7-18); CALCIUM 9.4 mg/dL (8.5-10.1); CHLORIDE 100 mmol/L (98-107); CO2 22 mmol/L (21-32); GLUCOSE,RANDOM 149 mg/dL (74-106); POTASSIUM 3.9 mmol/L (3.5-5.1); SGOT/AST 17 U/L (15-37); SGPT/ALT 24 U/L (13-61); SODIUM 139 mmol/L (136-145)
[2018-10-13] MEDS ORDERED: ACETAMINOPHEN 325 MG TABLET (FP) ONE (17:06)
[2018-10-13 17:08] LABS: CREATININE 8.9 mg/dL (0.55-1.3)
== END 2018-10-13 17:10 | disposition home or self-care (01) ==
LOC: JER 15:34
DX: L89.899 Pressure ulcer of other site, unspecified stage (principal); I12.0 Hypertensive chronic kidney disease with stage 5 chronic kidney disease or end stage renal disease; N18.6 End stage renal disease; Z99.2 Dependence on renal dialysis; I48.91 Unspecified atrial fibrillation; Z86.73 Personal history of transient ischemic attack (TIA), and cerebral infarction without residual deficits; E78.5 Hyperlipidemia, unspecified; Z79.01 Long term (current) use of anticoagulants
CPT/HCPCS: 36415; 80053; 85025; 99281-25

== ENCOUNTER 2019-03-12 11:47 | Day surgery (SDC) | payer OTHER ==
[2019-03-12 12:15] VITALS: BMI 30.2
[2019-03-12] MEDS ORDERED: ACETAMINOPHEN 325 MG TABLET (FP) PO PRN (12:17)
[2019-03-12] MEDS ORDERED: ONDANSETRON 4 MG/2 ML VIAL IVPUSH PRN (12:17)
--- NOTE | 2019-03-12 12:27 | HP ---
History & Physical Update - Plan Currently as noted:: Venogram AV fistula
[2019-03-12] MEDS ORDERED: SODIUM CHLORIDE 1,000 ML IV SCH (12:30)
[2019-03-12 13:16] LABS: POTASSIUM 4.7 mmol/L (3.5-5.1)
[2019-03-12] MEDS ORDERED: LIDOCAINE HCL 1%, 10 MG/ML (20ML VIAL) PNB ONE (13:30)
[2019-03-12] MEDS ORDERED: MIDAZOLAM HCL 2 MG/2 ML SINGLE DOSE VIAL ONE (13:41)
--- NOTE | 2019-03-12 14:47 | OP ---
Operative Note - Note: Operative Date: 03/12/19 Pre-Operative Diagnosis: Malfunction AV fstula right arm Operation: Venoplasty AV fistula right arm Findings: Severe stenosis of distal AV fistula of right forearm. Patent cephalic and subclavian veins. No stenosis in subclavian stent. Post-Operative Diagnosis: Same as Pre-op Surgeon: Abhilash Wall Anesthesiologist/SQL SERVER DEVELOPER: Leighann Cool Anesthesia: Fractional
[2019-03-12 15:23] VITALS: TEMP 97.6
[2019-03-12 16:37] VITALS: PULSE 65
[2019-03-12 18:04] VITALS: BP 127/82
--- NOTE | 2019-03-12 23:52 | OP ---
DATE OF OPERATION: 03/12/2019 PROCEDURE: Ultrasound guided cannulation of the right arm arteriovenous fistula. Venogram and venoplasty of the fistula. PREOPERATIVE DIAGNOSIS: Malfunction of arteriovenous fistula right arm. POSTOPERATIVE DIAGNOSIS: Malfunction of arteriovenous fistula right arm. ANESTHESIA: Fractional. ANESTHESIOLOGIST: Leighann Cool MD OPERATIVE FINDINGS: The right radiocephalic fistula was patent with severe stenosis of the distal 4 cm of the vein. The proximal vein was patent with a moderate stenosis in the mid upper forearm. The previously placed subclavian stent was patent with no evidence of restenosis. OPERATIVE PROCEDURE: Following routine patient identification with side and site verification, intravenous sedation was established. The right arm was prepped with ChloraPrep. Timeout was performed. Using realtime duplex imaging, the cephalic vein in the right forearm was identified. Then 1% lidocaine was infiltrated in the skin overlying the vein. The vein was then cannulated in retrograde fashion with a micropuncture needle directed towards the hand. The microwire was advanced distally in the vein, and the needle was exchanged for a 5 Mont[place]erratian catheter. The wire was exchanged for a J-tipped wire, and the catheter exchanged for a 6 [place]atian sheath. An angle-tipped wire and catheter were then advanced distally through the arteriovenous anastomosis. Venogram was performed through the catheter with the above noted findings. The wire was replaced and advanced distally in the radial artery. The area of stenosis was dilated first with a 6-mm balloon, and then with an 8-mm balloon. This resulted in a significant improvement in the luminal diameter appearance in the venogram. A wire and catheter were then removed. The sheath was removed, and the puncture site closed with a mattress suture of 4-0 Biosyn. The vein was then re-accessed in the distal forearm, again using local anesthesia and ultrasound. A 2nd 6 Mont[place]erratian sheath was then placed, directed toward the heart. Wire was advanced proximally and the area of stenosis in the mid forearm treated with the 8-mm balloon. This resulted in resolution of any visible stenosis. There was free flow proximally. The sheath was removed, and the site closed with a suture. Sterile dressings were applied, and the patient was taken to the recovery room in stable condition. Maryann [id number] [facility] HOSPITALLázaro
== END 2019-03-12 17:30 | disposition home or self-care (01) ==
LOC: JASU-SURG 11:47
PROVIDERS: ATTEND Surgery
PROC: 057Y3ZZ Dilation of Upper Vein, Percutaneous Approach (ICD-10-PCS; principal; 2019-03-12 12:00)
DX: T82.898A Other specified complication of vascular prosthetic devices, implants and grafts, initial encounter (principal); I12.0 Hypertensive chronic kidney disease with stage 5 chronic kidney disease or end stage renal disease; E11.22 Type 2 diabetes mellitus with diabetic chronic kidney disease; N18.6 End stage renal disease; Z99.2 Dependence on renal dialysis; Z79.4 Long term (current) use of insulin
CPT/HCPCS: 36415; 76000-TC-FY; 82947; 82962; 84132

== ENCOUNTER 2021-01-22 13:35 | Inpatient (IN) | payer OTHER ==
[2021-01-22 14:56] LABS: BASO % 0.5 % (0-2.0); EOS % 3.4 % (0-4.5); HEMATOCRIT 22.4 % (35.4-49); HEMOGLOBIN 7.4 GM/dL (11.7-16.9); LYMPH % 6.3 % (8-40); MCH 30.6 pg (25.7-33.7); MCHC 33.2 g/dl (32.0-35.9); MEAN CELL VOLUME 92.3 fl (80-96); MEAN PLT VOLUME 7.5 fl (7.5-11.1); MONO % 8.6 % (3.8-10.2); NEUT % 81.2 % (42.8-82.8); PLATELET COUNT 270 K/MM3 (134-434); RBC 2.43 M/mm3 (4.00-5.60); RDW 13.9 % (11.9-15.9); WHITE BLOOD COUNT 12.9 K/mm3 (4.0-10.0)
[2021-01-22 15:07] LABS: INR 1.03 (0.83-1.09); PROTHROMBIN TIME (PATIENT) 12.7 SEC (9.7-13.0)
[2021-01-22 15:09] LABS: ACTIVATED PTT 19.2 SECONDS (25.2-36.5)
[2021-01-22 15:10] LABS: POTASSIUM 3.3 mmol/L (3.5-5.1)
[2021-01-22 15:12] LABS: CALCIUM 8.6 mg/dL (8.5-10.1); MAGNESIUM 2.2 mg/dL (1.8-2.4)
[2021-01-22 15:13] LABS: ALBUMIN 2.5 g/dl (3.4-5.0); BLOOD UREA NITROGEN 75.8 mg/dL (7-18)
[2021-01-22 15:16] LABS: PHOSPHOROUS 4.2 mg/dL (2.5-4.9)
[2021-01-22 15:17] LABS: BILIRUBIN,TOTAL 0.6 mg/dL (0.2-1)
[2021-01-22 15:18] LABS: TOT PROT 6.7 g/dl (6.4-8.2)
[2021-01-22 15:22] LABS: CREATININE 7.4 mg/dL (0.55-1.3)
[2021-01-22 15:43] LABS: ANISOCYTOSIS 0; MACROCYTOSIS 0; PLATELET ESTIMATE NORMAL
[2021-01-22] MEDS ORDERED: VANCOMYCIN 1 GM in D5W (PRE-DOCKED) 1,000 MG/250 ML IVPB ONE (17:10)
[2021-01-22] MEDS ORDERED: PIPERACILLIN/TAZOB 2.25 GM 2.25 GM/50 ML BAG IVPB ONE (19:34)
[2021-01-22] MEDS: PIPERACILLIN/TAZOB 2.25 GM 2.25 GM in DEXTROSE 5%-WATER - 50 ML IVPB SCH (20:11)
[2021-01-22 22:23] VITALS: BMI 26.6
[2021-01-22] MEDS: ATORVASTATIN CA 20 MG TABLET (FP) PO SCH (22:50)
[2021-01-22] MEDS: METOPROLOL TARTRATE 50 MG TABLET (FP) PO SCH (22:50)
[2021-01-22] MEDS: APIXABAN 2.5 MG TABLET PO SCH (22:50)
[2021-01-22] MEDS: INSULIN SLIDING SCALE (NOVOLOG) 1 VIAL SQ SCH (22:50)
[2021-01-23] MEDS ORDERED: PIPERACILLIN/TAZOBACTAM 2.25 GM VIAL IVPB ONE ×2 (01:27→09:34)
[2021-01-23] MEDS ORDERED: DEXTROSE 5%-WATER - 50 ML IVPB ONE ×3 (01:28→12:09)
[2021-01-23] MEDS: PIPERACILLIN/TAZOB 2.25 GM 2.25 GM in DEXTROSE 5%-WATER - 50 ML IVPB SCH ×4 (01:45→18:21)
[2021-01-23] MEDS: INSULIN SLIDING SCALE (NOVOLOG) 1 VIAL SQ SCH ×5 (06:54→22:20)
[2021-01-23 07:01] LABS: BASO % 0.6 % (0-2.0); EOS % 4.8 % (0-4.5); HEMATOCRIT 24.8 % (35.4-49); HEMOGLOBIN 8.7 GM/dL (11.7-16.9); MCH 32.1 pg (25.7-33.7); MEAN CELL VOLUME 91.9 fl (80-96); MEAN PLT VOLUME 7.2 fl (7.5-11.1); MONO % 8.7 % (3.8-10.2); NEUT % 79.9 % (42.8-82.8); PLATELET COUNT 261 K/MM3 (134-434); RDW 14.2 % (11.9-15.9); WHITE BLOOD COUNT 10.8 K/mm3 (4.0-10.0)
[2021-01-23 07:16] LABS: POTASSIUM 3.3 mmol/L (3.5-5.1)
[2021-01-23 07:18] LABS: ALBUMIN 2.5 g/dl (3.4-5.0); BLOOD UREA NITROGEN 81.9 mg/dL (7-18)
[2021-01-23 07:19] LABS: CALCIUM 8.9 mg/dL (8.5-10.1)
[2021-01-23 07:21] LABS: PHOSPHOROUS 5.1 mg/dL (2.5-4.9)
[2021-01-23 07:23] LABS: BILIRUBIN,TOTAL 0.6 mg/dL (0.2-1); MAGNESIUM 2.2 mg/dL (1.8-2.4); TOT PROT 6.4 g/dl (6.4-8.2)
[2021-01-23] MEDS: SEVELAMER CARBONATE 800 MG TAB (FP) PO SCH ×3 (08:17→16:43)
[2021-01-23] MEDS ORDERED: GABAPENTIN 300 MG CAPSULE PO SCH ×2 (10:00→22:00)
[2021-01-23 10:03] LABS: CREATININE 8.7 mg/dL (0.55-1.3)
[2021-01-23] MEDS: CEFTRIAXONE 1 GM in DEXTROSE 5%-WATER - 50 ML IVPB SCH ×2 (10:09→16:59)
[2021-01-23] MEDS: APIXABAN 2.5 MG TABLET PO SCH ×3 (10:17→22:04)
[2021-01-23] MEDS: levETIRAcetam 250 MG TABLET PO SCH ×2 (10:18→16:59)
[2021-01-23] MEDS: ESCITALOPRAM OXALATE 20 MG TABLET PO SCH (10:18)
[2021-01-23] MEDS: METOPROLOL TARTRATE 50 MG TABLET (FP) PO SCH (10:18)
[2021-01-23] MEDS ORDERED: EPOETIN ALFA-EPBX 10,000 UNIT/ML VIAL SQ ONE (12:00)
[2021-01-23] MEDS ORDERED: SODIUM CHLORIDE 250 ML IV PRN (12:00)
[2021-01-23] MEDS ORDERED: cefTRIAXone SODIUM 1 GM VIAL ONE (12:08)
[2021-01-23] MEDS ORDERED: ZINC OXIDE/PANTHENOL/VITAMIN E 56 GM TUBE TP PRN (16:53)
[2021-01-23] MEDS: ATORVASTATIN CA 20 MG TABLET (FP) PO SCH (22:04)
[2021-01-23] MEDS: GABAPENTIN 300 MG CAPSULE PO SCH (22:10)
[2021-01-24] MEDS: INSULIN SLIDING SCALE (NOVOLOG) 1 VIAL SQ SCH ×4 (06:12→23:22)
[2021-01-24 07:49] LABS: HEMATOCRIT 25.1 % (35.4-49); HEMOGLOBIN 8.8 GM/dL (11.7-16.9); MCHC 34.9 g/dl (32.0-35.9); MEAN CELL VOLUME 91.6 fl (80-96); MEAN PLT VOLUME 7.6 fl (7.5-11.1); PLATELET COUNT 256 K/MM3 (134-434); RBC 2.74 M/mm3 (4.00-5.60); RDW 14.6 % (11.9-15.9); WHITE BLOOD COUNT 9.1 K/mm3 (4.0-10.0)
[2021-01-24] MEDS: SEVELAMER CARBONATE 800 MG TAB (FP) PO SCH ×3 (08:02→18:14)
[2021-01-24 08:31] LABS: ALBUMIN 2.4 g/dl (3.4-5.0); CALCIUM 8.7 mg/dL (8.5-10.1)
[2021-01-24 08:34] LABS: CREATININE 6.1 mg/dL (0.55-1.3)
[2021-01-24 08:35] LABS: PHOSPHOROUS 3.4 mg/dL (2.5-4.9)
[2021-01-24 08:36] LABS: BILIRUBIN,TOTAL 0.7 mg/dL (0.2-1); TOT PROT 6.5 g/dl (6.4-8.2)
[2021-01-24 08:39] LABS: BLOOD UREA NITROGEN 39.4 mg/dL (7-18)
[2021-01-24] MEDS ORDERED: PT OWN MED DRAWER 7, Y5N ONE (09:31)
[2021-01-24] MEDS ORDERED: cefTRIAXone SODIUM 1 GM VIAL ONE (09:31)
[2021-01-24] MEDS ORDERED: DEXTROSE 5%-WATER - 50 ML IVPB ONE (09:32)
[2021-01-24] MEDS: GABAPENTIN 300 MG CAPSULE PO SCH ×2 (11:02→23:20)
[2021-01-24] MEDS: APIXABAN 2.5 MG TABLET PO SCH ×2 (11:03→23:19)
[2021-01-24] MEDS: FOLIC ACID 1 MG TABLET (FP) PO SCH (11:03)
[2021-01-24] MEDS: FINASTERIDE 5 MG TABLET (FP) PO SCH (11:03)
[2021-01-24] MEDS: ESCITALOPRAM OXALATE 20 MG TABLET PO SCH (11:03)
[2021-01-24] MEDS: CEFTRIAXONE 1 GM in DEXTROSE 5%-WATER - 50 ML IVPB SCH (11:04)
[2021-01-24] MEDS: levETIRAcetam 250 MG TABLET PO SCH (11:04)
[2021-01-24] MEDS ORDERED: ACETAMINOPHEN 325 MG TABLET (FP) ONE (17:27)
[2021-01-24] MEDS: ATORVASTATIN CA 20 MG TABLET (FP) PO SCH (23:20)
[2021-01-25] MEDS: INSULIN SLIDING SCALE (NOVOLOG) 1 VIAL SQ SCH ×4 (07:00→22:03)
[2021-01-25] MEDS ORDERED: traMADol HCL 50 MG TABLET PO PRN ×3 (09:24→14:06)
[2021-01-25] MEDS ORDERED: PT OWN MED DRAWER 7, Y5N ONE (10:53)
[2021-01-25] MEDS ORDERED: cefTRIAXone SODIUM 1 GM VIAL ONE (10:53)
[2021-01-25] MEDS ORDERED: DEXTROSE 5%-WATER - 50 ML IVPB ONE (10:54)
[2021-01-25] MEDS: GABAPENTIN 300 MG CAPSULE PO SCH ×2 (11:12→22:00)
[2021-01-25] MEDS: APIXABAN 2.5 MG TABLET PO SCH ×2 (11:12→22:00)
[2021-01-25] MEDS: FOLIC ACID 1 MG TABLET (FP) PO SCH (11:13)
[2021-01-25] MEDS: SEVELAMER CARBONATE 800 MG TAB (FP) PO SCH ×3 (11:15→18:42)
[2021-01-25] MEDS: levETIRAcetam 250 MG TABLET PO SCH (11:16)
[2021-01-25] MEDS: FINASTERIDE 5 MG TABLET (FP) PO SCH (11:17)
[2021-01-25] MEDS: ESCITALOPRAM OXALATE 20 MG TABLET PO SCH (11:18)
[2021-01-25] MEDS: CEFTRIAXONE 1 GM in DEXTROSE 5%-WATER - 50 ML IVPB SCH (11:19)
[2021-01-25] MEDS ORDERED: SODIUM CHLORIDE 250 ML IV PRN (14:39)
[2021-01-25] MEDS: ATORVASTATIN CA 20 MG TABLET (FP) PO SCH (22:00)
[2021-01-26] MEDS: INSULIN SLIDING SCALE (NOVOLOG) 1 VIAL SQ SCH ×3 (06:03→21:27)
[2021-01-26 08:01] LABS: HEMATOCRIT 23.3 % (35.4-49); MCH 32.1 pg (25.7-33.7); MCHC 34.4 g/dl (32.0-35.9); MEAN CELL VOLUME 93.2 fl (80-96); MEAN PLT VOLUME 7.9 fl (7.5-11.1); PLATELET COUNT 236 K/MM3 (134-434); RDW 14.6 % (11.9-15.9); WHITE BLOOD COUNT 9.8 K/mm3 (4.0-10.0)
[2021-01-26 08:19] LABS: ALBUMIN 2.4 g/dl (3.4-5.0); BLOOD UREA NITROGEN 62.8 mg/dL (7-18); CALCIUM 8.6 mg/dL (8.5-10.1); MAGNESIUM 2.2 mg/dL (1.8-2.4)
[2021-01-26 08:24] LABS: BILIRUBIN,TOTAL 0.6 mg/dL (0.2-1); TOT PROT 6.4 g/dl (6.4-8.2)
[2021-01-26] MEDS ORDERED: PT OWN MED DRAWER 7, Y5N ONE (09:02)
[2021-01-26 09:15] LABS: CREATININE 10.1 mg/dL (0.55-1.3)
[2021-01-26] MEDS ORDERED: VITAMIN B COMP W-C 1 EA TABLET (NEPHRO-VITE) PO SCH (10:00)
[2021-01-26] MEDS: FOLIC ACID 1 MG TABLET (FP) PO SCH (11:26)
[2021-01-26] MEDS: GABAPENTIN 300 MG CAPSULE PO SCH ×2 (11:27→21:27)
[2021-01-26] MEDS: levETIRAcetam 250 MG TABLET PO SCH (11:27)
[2021-01-26] MEDS: APIXABAN 2.5 MG TABLET PO SCH ×2 (11:27→21:27)
[2021-01-26] MEDS: FINASTERIDE 5 MG TABLET (FP) PO SCH (11:27)
[2021-01-26] MEDS: ESCITALOPRAM OXALATE 20 MG TABLET PO SCH (11:28)
[2021-01-26] MEDS: SEVELAMER CARBONATE 800 MG TAB (FP) PO SCH ×3 (11:28→18:30)
[2021-01-26] MEDS ORDERED: LOPERAMIDE HCL 1 MG/5 ML UNIT DOSE CUP PO ONE (12:18)
[2021-01-26] MEDS ORDERED: LOPERAMIDE HCL 2 MG CAPSULE PO ONE (12:40)
[2021-01-26] MEDS ORDERED: POTASSIUM CHLORIDE ORAL LIQUID 20 MEQ/15 ML PO ONE (16:13)
[2021-01-26] MEDS: ATORVASTATIN CA 20 MG TABLET (FP) PO SCH (21:27)
[2021-01-26 23:38] VITALS: BP 112/82; PULSE 78; TEMP 98.5
== END 2021-01-26 23:00 | disposition home or self-care (01) | DRG 312 ==
LOC: JER 13:35 → JERBED 16:31 → J4W 22:07
PROVIDERS: ADMIT Student in an Organized Health Care Education/Training Program; ATTEND Internal Medicine
PROC: 5A1D70Z Performance of Urinary Filtration, Intermittent, Less than 6 Hours Per Day (ICD-10-PCS; principal; 2021-01-26)
DX: R55 Syncope and collapse (principal); N18.6 End stage renal disease; I69.351 Hemiplegia and hemiparesis following cerebral infarction affecting right dominant side; I12.0 Hypertensive chronic kidney disease with stage 5 chronic kidney disease or end stage renal disease; E78.5 Hyperlipidemia, unspecified; I48.0 Paroxysmal atrial fibrillation; G83.89 Other specified paralytic syndromes; L89.312 Pressure ulcer of right buttock, stage 2; D72.829 Elevated white blood cell count, unspecified; D63.1 Anemia in chronic kidney disease; R56.9 Unspecified convulsions; I95.9 Hypotension, unspecified; Z99.2 Dependence on renal dialysis; E11.9 Type 2 diabetes mellitus without complications; E86.9 Volume depletion, unspecified; E66.9 Obesity, unspecified; Z68.26 Body mass index [BMI] 26.0-26.9, adult
CPT/HCPCS: 36415; 70450-TC; 71045-TC-FY; 74230-TC-FY; 76937; 80053; 82550; 82962; 83036; 83735; 84100; 84443; 84484; 85025; 85027; 85610; 85730; 86803; 87040; 87340; 92611-GN; 93005; 93010; 97161-GP; 99285-25; C9803; Q5106; U0003

== ENCOUNTER 2021-12-16 04:35 | Day surgery (SDC) | payer OTHER ==
[2021-12-14 13:01] VITALS: BMI 29.0
[2021-12-16] MEDS ORDERED: POVIDONE-IODINE OINTMENT 10% - 28.4 GM TUBE ONE (10:37)
[2021-12-16] MEDS ORDERED: PAPAVERINE HCL 30 MG/1 ML 10 ML VIAL NR ONE (10:38)
[2021-12-16] MEDS ORDERED: MIDAZOLAM HCL 2 MG/2 ML SINGLE DOSE VIAL ONE (11:27)
[2021-12-16] MEDS ORDERED: ceFAZolin SODIUM 1 GM VIAL ONE (11:45)
[2021-12-16] MEDS ORDERED: ceFAZolin SODIUM 1 GM VIAL IVPB ONE (11:48)
[2021-12-16] MEDS ORDERED: PROPOFOL 20 ML ONE (11:54)
[2021-12-16] MEDS ORDERED: LIDOCAINE HCL 1%, 10 MG/ML (20ML VIAL) INF ONE (11:59)
[2021-12-16] MEDS ORDERED: BACITRACIN 15 GM TUBE TOPICAL OINTMENT ONE (13:04)
[2021-12-16] MEDS ORDERED: POVIDONE-IODINE OINTMENT 10% - 28.4 GM TUBE TP ONE (13:10)
[2021-12-16] MEDS ORDERED: BACITRACIN 15 GM TUBE TOPICAL OINTMENT TP ONE (13:10)
[2021-12-16] MEDS ORDERED: ACETAMINOPHEN 1000 MG/100 ML BAG IVPB ONE ×2 (13:25→13:30)
[2021-12-16] MEDS ORDERED: traMADol HCL 50 MG TABLET PO ONE (13:54)
[2021-12-16] MEDS ORDERED: traMADol HCL 50 MG TABLET ONE (14:51)
[2021-12-16 16:41] VITALS: BP 129/69; PULSE 66; TEMP 97.8
== END 2021-12-16 15:55 | disposition home or self-care (01) ==
LOC: JASU-SURG 04:35
PROVIDERS: ATTEND Surgery
PROC: 03170ZD Bypass Right Brachial Artery to Upper Arm Vein, Open Approach (ICD-10-PCS; principal; 2021-12-16 11:00)
DX: T82.898A Other specified complication of vascular prosthetic devices, implants and grafts, initial encounter (principal); I12.0 Hypertensive chronic kidney disease with stage 5 chronic kidney disease or end stage renal disease; E11.22 Type 2 diabetes mellitus with diabetic chronic kidney disease; N18.5 Chronic kidney disease, stage 5; Z99.2 Dependence on renal dialysis
CPT/HCPCS: 36415; 82962; 84132; 94760; J0131

== ENCOUNTER 2023-04-26 12:02 | Inpatient (IN) | payer OTHER ==
[2023-04-26] MEDS ORDERED: ACETAMINOPHEN 500 MG TABLET (FP) PO ONE (12:55)
[2023-04-26] MEDS ORDERED: ACETAMINOPHEN 500 MG TABLET (FP) ONE (13:21)
[2023-04-26] MEDS ORDERED: morphine CARPU-JECT 2 MG/1 ML DISP.SYRIN IVPUSH ONE (15:00)
[2023-04-26] MEDS ORDERED: morphine SULFATE 4 MG/ML VIAL ONE (15:08)
[2023-04-26] MEDS ORDERED: SODIUM CHLORIDE 250 ML IV PRN (15:55)
[2023-04-26 15:59] LABS: BASO % 0.5 % (0-2.0); EOS % 0.9 % (0-4.5); HEMATOCRIT 31.7 % (35.4-49); HEMOGLOBIN 10.3 GM/dL (11.7-16.9); LYMPH % 8.9 % (8-40); MCH 31.5 pg (25.7-33.7); MCHC 32.5 g/dl (32.0-35.9); MEAN CELL VOLUME 96.8 fl (80-96); MEAN PLT VOLUME 7.4 fl (7.5-11.1); MONO % 8.8 % (3.8-10.2); NEUT % 80.9 % (42.8-82.8); PLATELET COUNT 246 10^3/uL (134-434); RBC 3.27 M/mm3 (4.00-5.60); RDW 15.4 % (11.9-15.9); WHITE BLOOD COUNT 12.8 K/mm3 (4.0-10.0)
[2023-04-26] MEDS ORDERED: SODIUM CHLORIDE 0.9% 500 ML INFUS.BAG IV ONE (16:05)
[2023-04-26 16:11] LABS: INR 1.2 (0.83-1.09); PROTHROMBIN TIME (PATIENT) 13.9 SEC (9.7-13.0)
[2023-04-26 16:14] LABS: ACTIVATED PTT 34.7 SECONDS (25.2-36.5)
[2023-04-26 16:17] LABS: CHLORIDE 106 mmol/L (98-107); POTASSIUM 4.3 mmol/L (3.5-5.1); SODIUM 143 mmol/L (136-145)
[2023-04-26 16:20] LABS: ANION GAP 13 MMOL/L (8-16); CO2 24 mmol/L (21-32); GLUCOSE,RANDOM 131 mg/dL (74-106)
[2023-04-26 16:21] LABS: ALBUMIN 3.2 g/dl (3.4-5.0); BLOOD UREA NITROGEN 48.4 mg/dL (7-18); MAGNESIUM 2.5 mg/dL (1.8-2.4)
[2023-04-26 16:23] LABS: SGPT/ALT 29 U/L (13-61)
[2023-04-26 16:24] LABS: SGOT/AST 41 U/L (15-37)
[2023-04-26 16:26] LABS: ALK PHOS 111 U/L (45-117)
[2023-04-26] MEDS ORDERED: LOPERAMIDE HCL 2 MG CAPSULE PO PRN (16:50)
[2023-04-26] MEDS ORDERED: HYDROmorphone HCl 2 MG/ML VIAL IVPUSH PRN (17:29)
[2023-04-26] MEDS: INSULIN SLIDING SCALE (NOVOLOG) 1 VIAL SQ SCH (21:30)
[2023-04-26] MEDS: GABAPENTIN 300 MG CAPSULE PO SCH (21:30)
[2023-04-26] MEDS: ATORVASTATIN CA 20 MG TABLET (FP) PO SCH (21:30)
[2023-04-26] MEDS: levETIRAcetam 500 MG TABLET (FP) PO SCH (21:30)
[2023-04-26] MEDS: ACETAMINOPHEN 1000 MG/100 ML BAG IVPB PRN (21:32)
[2023-04-27] MEDS: INSULIN SLIDING SCALE (NOVOLOG) 1 VIAL SQ SCH ×4 (06:05→21:48)
[2023-04-27 09:31] LABS: BASO % 0.5 % (0-2.0); EOS % 2.7 % (0-4.5); HEMATOCRIT 25.9 % (35.4-49); HEMOGLOBIN 8.5 GM/dL (11.7-16.9); LYMPH % 8.1 % (8-40); MCHC 32.7 g/dl (32.0-35.9); MEAN CELL VOLUME 97.9 fl (80-96); MEAN PLT VOLUME 7.4 fl (7.5-11.1); MONO % 8.8 % (3.8-10.2); NEUT % 79.9 % (42.8-82.8); PLATELET COUNT 178 10^3/uL (134-434); RBC 2.64 M/mm3 (4.00-5.60); RDW 14.9 % (11.9-15.9); WHITE BLOOD COUNT 8.6 K/mm3 (4.0-10.0)
[2023-04-27 09:47] LABS: ALBUMIN 2.9 g/dl (3.4-5.0); CALCIUM 8.3 mg/dL (8.5-10.1); MAGNESIUM 2.1 mg/dL (1.8-2.4)
[2023-04-27 09:48] LABS: BLOOD UREA NITROGEN 30.7 mg/dL (7-18)
[2023-04-27 09:50] LABS: CREATININE 7.3 mg/dL (0.55-1.3)
[2023-04-27 09:51] LABS: PHOSPHOROUS 2.9 mg/dL (2.5-4.9)
[2023-04-27 09:52] LABS: BILIRUBIN,TOTAL 0.7 mg/dL (0.2-1); TOT PROT 6.4 g/dl (6.4-8.2)
[2023-04-27] MEDS: ACETAMINOPHEN 1000 MG/100 ML BAG IVPB PRN (10:02)
[2023-04-27] MEDS: GABAPENTIN 300 MG CAPSULE PO SCH ×2 (10:44→21:49)
[2023-04-27] MEDS: FINASTERIDE 5 MG TABLET (FP) PO SCH (10:44)
[2023-04-27] MEDS: ESCITALOPRAM OXALATE 20 MG TABLET PO SCH (10:44)
[2023-04-27] MEDS ORDERED: SODIUM CHLORIDE 250 ML IV PRN (11:04)
[2023-04-27] MEDS ORDERED: HYDROmorphone HCl 2 MG/ML VIAL IVPB PRN (17:28)
[2023-04-27] MEDS ORDERED: ACETAMINOPHEN 1000 MG/100 ML BAG IVPB PRN (17:29)
[2023-04-27] MEDS: HYDROmorphone HCL 2 MG TABLET PO PRN (18:06)
[2023-04-27] MEDS: levETIRAcetam 500 MG TABLET (FP) PO SCH (21:49)
[2023-04-27] MEDS: ATORVASTATIN CA 20 MG TABLET (FP) PO SCH (21:49)
[2023-04-28] MEDS: INSULIN SLIDING SCALE (NOVOLOG) 1 VIAL SQ SCH ×4 (06:34→21:41)
[2023-04-28 10:30] LABS: HEMATOCRIT 22.9 % (35.4-49); HEMOGLOBIN 7.7 GM/dL (11.7-16.9); MCH 32.4 pg (25.7-33.7); MCHC 33.7 g/dl (32.0-35.9); MEAN PLT VOLUME 7.4 fl (7.5-11.1); PLATELET COUNT 147 10^3/uL (134-434); RBC 2.38 M/mm3 (4.00-5.60); RDW 15.3 % (11.9-15.9)
[2023-04-28 10:37] LABS: CHLORIDE 102 mmol/L (98-107); POTASSIUM 3.8 mmol/L (3.5-5.1); SODIUM 143 mmol/L (136-145)
[2023-04-28 10:39] LABS: CALCIUM 8.4 mg/dL (8.5-10.1)
[2023-04-28 10:40] LABS: ANION GAP 11 MMOL/L (8-16); BLOOD UREA NITROGEN 44.3 mg/dL (7-18); CO2 30 mmol/L (21-32); GLUCOSE,RANDOM 98 mg/dL (74-106)
[2023-04-28 10:43] LABS: MAGNESIUM 2.2 mg/dL (1.8-2.4)
[2023-04-28 10:47] LABS: PHOSPHOROUS 3.4 mg/dL (2.5-4.9)
[2023-04-28 10:48] LABS: CREATININE 9.4 mg/dL (0.55-1.3)
[2023-04-28] MEDS ORDERED: EPOETIN ALFA-EPBX 10,000 UNIT/ML VIAL SQ ONE (11:04)
[2023-04-28] MEDS: GABAPENTIN 300 MG CAPSULE PO SCH ×2 (13:55→21:40)
[2023-04-28] MEDS: FINASTERIDE 5 MG TABLET (FP) PO SCH (13:55)
[2023-04-28] MEDS: ESCITALOPRAM OXALATE 20 MG TABLET PO SCH (13:55)
[2023-04-28] MEDS: HYDROmorphone HCL 2 MG TABLET PO PRN (18:31)
[2023-04-28] MEDS: ACETAMINOPHEN 325 MG TABLET (FP) PO PRN (21:40)
[2023-04-28] MEDS: ATORVASTATIN CA 20 MG TABLET (FP) PO SCH (21:41)
[2023-04-28] MEDS: levETIRAcetam 500 MG TABLET (FP) PO SCH (21:41)
[2023-04-29] MEDS: HYDROmorphone HCL 2 MG TABLET PO PRN ×2 (01:58→15:21)
[2023-04-29] MEDS: ACETAMINOPHEN 325 MG TABLET (FP) PO PRN (05:38)
[2023-04-29] MEDS: INSULIN SLIDING SCALE (NOVOLOG) 1 VIAL SQ SCH ×3 (06:00→17:39)
[2023-04-29] MEDS ORDERED: BUPIVACAINE HCL/PF 0.5% (5MG/ML) 10 ML VIAL ONE (07:18)
[2023-04-29] MEDS ORDERED: PROPOFOL 20 ML ONE (07:24)
[2023-04-29] MEDS ORDERED: MIDAZOLAM HCL 2 MG/2 ML SINGLE DOSE VIAL ONE (07:24)
[2023-04-29 07:48] LABS: INR 1.54 (0.83-1.09); PROTHROMBIN TIME (PATIENT) 17.8 SEC (9.7-13.0)
[2023-04-29 07:56] LABS: BASO % 0.6 % (0-2.0); EOS % 3.7 % (0-4.5); HEMATOCRIT 24.8 % (35.4-49); HEMOGLOBIN 8.2 GM/dL (11.7-16.9); LYMPH % 8.7 % (8-40); MCH 31.9 pg (25.7-33.7); MEAN CELL VOLUME 96.5 fl (80-96); MEAN PLT VOLUME 7.5 fl (7.5-11.1); MONO % 11.1 % (3.8-10.2); NEUT % 75.9 % (42.8-82.8); PLATELET COUNT 156 10^3/uL (134-434); RBC 2.57 M/mm3 (4.00-5.60); RDW 15.5 % (11.9-15.9); WHITE BLOOD COUNT 10.3 K/mm3 (4.0-10.0)
[2023-04-29 08:01] LABS: POTASSIUM 3.2 mmol/L (3.5-5.1)
[2023-04-29 08:03] LABS: BLOOD UREA NITROGEN 22.8 mg/dL (7-18); CALCIUM 8.6 mg/dL (8.5-10.1)
[2023-04-29 08:04] LABS: ALBUMIN 2.8 g/dl (3.4-5.0)
[2023-04-29 08:07] LABS: CREATININE 6.5 mg/dL (0.55-1.3)
[2023-04-29 08:08] LABS: BILIRUBIN,TOTAL 0.5 mg/dL (0.2-1); TOT PROT 6.5 g/dl (6.4-8.2)
[2023-04-29] MEDS ORDERED: ceFAZolin SODIUM 1 GM VIAL IVPB ONE (08:27)
[2023-04-29] MEDS ORDERED: KCL 10 MEQ IVPB 10 MEQ/100 ML INFUS.BAG IVPB SCH ×2 (08:30→14:15)
[2023-04-29] MEDS ORDERED: DEXAMETHASONE SOD PHOSPHATE 4 MG/1 ML VIAL ONE (08:40)
[2023-04-29] MEDS ORDERED: ONDANSETRON 4 MG/2 ML VIAL ONE (08:40)
[2023-04-29] MEDS ORDERED: ceFAZolin SODIUM 1 GM VIAL ONE (08:40)
[2023-04-29] MEDS: ENOXAPARIN NA (PORCINE) 30 MG/0.3 ML DISP.SYRIN SQ SCH (09:00)
[2023-04-29] MEDS ORDERED: FLUMAZENIL 0.5 MG/5 ML VIAL ONE (09:28)
[2023-04-29] MEDS ORDERED: LOPERAMIDE HCL 2 MG CAPSULE PO PRN (09:44)
[2023-04-29] MEDS ORDERED: ACETAMINOPHEN 325 MG TABLET (FP) PO PRN (09:44)
[2023-04-29] MEDS ORDERED: HYDROmorphone HCl 2 MG/ML VIAL IVPB PRN (09:44)
[2023-04-29] MEDS ORDERED: ONDANSETRON 4 MG/2 ML VIAL IVPUSH PRN (09:53)
[2023-04-29] MEDS ORDERED: ENOXAPARIN NA (PORCINE) 30 MG/0.3 ML DISP.SYRIN SQ SCH (10:00)
[2023-04-29] MEDS ORDERED: ENOXAPARIN NA (PORCINE) 40 MG/0.4 ML DISP.SYRIN SQ SCH (10:00)
[2023-04-29] MEDS ORDERED: SODIUM CHLORIDE 1,000 ML IV SCH (10:00)
[2023-04-29] MEDS: ESCITALOPRAM OXALATE 20 MG TABLET PO SCH (14:00)
[2023-04-29] MEDS: FINASTERIDE 5 MG TABLET (FP) PO SCH (14:00)
[2023-04-29] MEDS: GABAPENTIN 300 MG CAPSULE PO SCH ×2 (14:00→22:06)
[2023-04-29] MEDS ORDERED: CEFAZOLIN 2 GM in DEXTROSE 5%-WATER - 50 ML IVPB SCH (15:00)
[2023-04-29] MEDS: CEFAZOLIN SODIUM 2 GM in DEXTROSE 5%-WATER 100 ML IVPB SCH ×2 (15:55→22:07)
[2023-04-29] MEDS: guaiFENesin/D-M SUGAR-FREE/ACLHOL-FREE (200 MG/10 MG) 5 ML PO SCH ×2 (17:39→23:16)
[2023-04-29] MEDS: levETIRAcetam 250 MG TABLET PO SCH (22:06)
[2023-04-29] MEDS: ATORVASTATIN CA 20 MG TABLET (FP) PO SCH (22:06)
[2023-04-30] MEDS ORDERED: SODIUM CHLORIDE 250 ML IV PRN (07:34)
[2023-04-30] MEDS: INSULIN SLIDING SCALE (NOVOLOG) 1 VIAL SQ SCH ×4 (08:35→21:47)
[2023-04-30] MEDS ORDERED: EPOETIN ALFA-EPBX 10,000 UNIT/ML VIAL IVPUSH ONE (09:00)
[2023-04-30 09:27] LABS: BASO % 0.3 % (0-2.0); HEMATOCRIT 20.2 % (35.4-49); LYMPH % 7.5 % (8-40); MCH 31.9 pg (25.7-33.7); MCHC 33.1 g/dl (32.0-35.9); MEAN CELL VOLUME 96.3 fl (80-96); MEAN PLT VOLUME 7.7 fl (7.5-11.1); MONO % 7.1 % (3.8-10.2); NEUT % 83.1 % (42.8-82.8); PLATELET COUNT 126 10^3/uL (134-434); RDW 15.5 % (11.9-15.9); WHITE BLOOD COUNT 8.7 K/mm3 (4.0-10.0)
[2023-04-30 09:30] LABS: HEMOGLOBIN 6.7 GM/dL (11.7-16.9)
[2023-04-30 09:42] LABS: CHLORIDE 101 mmol/L (98-107); POTASSIUM 3.3 mmol/L (3.5-5.1); SODIUM 143 mmol/L (136-145)
[2023-04-30 09:52] LABS: CALCIUM 8.1 mg/dL (8.5-10.1)
[2023-04-30 09:53] LABS: ANION GAP 12 MMOL/L (8-16); BLOOD UREA NITROGEN 36.2 mg/dL (7-18); CO2 29 mmol/L (21-32)
[2023-04-30 09:54] LABS: BILIRUBIN,TOTAL 0.4 mg/dL (0.2-1); TOT PROT 5.9 g/dl (6.4-8.2)
[2023-04-30 09:55] LABS: ALBUMIN 2.4 g/dl (3.4-5.0); GLUCOSE,RANDOM 168 mg/dL (74-106); SGOT/AST 24 U/L (15-37)
[2023-04-30 09:56] LABS: PHOSPHOROUS 3.8 mg/dL (2.5-4.9); SGPT/ALT 11 U/L (13-61)
[2023-04-30 09:59] LABS: ALK PHOS 85 U/L (45-117)
[2023-04-30 10:12] LABS: CREATININE 8.8 mg/dL (0.55-1.3)
[2023-04-30] MEDS ORDERED: ESCITALOPRAM OXALATE 10 MG TABLET ONE (11:45)
[2023-04-30] MEDS: guaiFENesin/D-M SUGAR-FREE/ACLHOL-FREE (200 MG/10 MG) 5 ML PO SCH ×2 (13:05→21:47)
[2023-04-30] MEDS: ENOXAPARIN NA (PORCINE) 30 MG/0.3 ML DISP.SYRIN SQ SCH (13:05)
[2023-04-30] MEDS: FINASTERIDE 5 MG TABLET (FP) PO SCH (13:05)
[2023-04-30] MEDS: GABAPENTIN 300 MG CAPSULE PO SCH ×2 (13:06→21:46)
[2023-04-30] MEDS: ESCITALOPRAM OXALATE 20 MG TABLET PO SCH (13:06)
[2023-04-30] MEDS: HYDROmorphone HCL 2 MG TABLET PO PRN ×2 (13:13→19:49)
[2023-04-30] MEDS: ATORVASTATIN CA 20 MG TABLET (FP) PO SCH (21:45)
[2023-04-30] MEDS: levETIRAcetam 250 MG TABLET PO SCH (21:46)
[2023-05-01 08:37] LABS: HEMATOCRIT 22.8 % (35.4-49); HEMOGLOBIN 7.6 GM/dL (11.7-16.9); MCH 31.3 pg (25.7-33.7); MCHC 33.4 g/dl (32.0-35.9); MEAN CELL VOLUME 93.5 fl (80-96); PLATELET COUNT 123 10^3/uL (134-434); RBC 2.44 M/mm3 (4.00-5.60); RDW 16.1 % (11.9-15.9); WHITE BLOOD COUNT 8.4 K/mm3 (4.0-10.0)
[2023-05-01 08:55] LABS: CHLORIDE 100 mmol/L (98-107); SODIUM 140 mmol/L (136-145)
[2023-05-01 08:59] LABS: BLOOD UREA NITROGEN 23.6 mg/dL (7-18); CO2 31 mmol/L (21-32); GLUCOSE,RANDOM 142 mg/dL (74-106)
[2023-05-01 09:01] LABS: CALCIUM 8.4 mg/dL (8.5-10.1); MAGNESIUM 1.9 mg/dL (1.8-2.4)
[2023-05-01 09:02] LABS: CREATININE 6.2 mg/dL (0.55-1.3); PHOSPHOROUS 2.2 mg/dL (2.5-4.9)
[2023-05-01 09:24] LABS: ANION GAP 10 MMOL/L (8-16); POTASSIUM 2.9 mmol/L (3.5-5.1)
[2023-05-01] MEDS ORDERED: POTASSIUM CHLORIDE ORAL LIQUID 20 MEQ/15 ML PO ONE (09:31)
[2023-05-01] MEDS ORDERED: ESCITALOPRAM OXALATE 10 MG TABLET ONE (09:46)
[2023-05-01] MEDS: ENOXAPARIN NA (PORCINE) 30 MG/0.3 ML DISP.SYRIN SQ SCH (10:01)
[2023-05-01] MEDS: FINASTERIDE 5 MG TABLET (FP) PO SCH (10:01)
[2023-05-01] MEDS: GABAPENTIN 300 MG CAPSULE PO SCH ×2 (10:01→22:23)
[2023-05-01] MEDS: ESCITALOPRAM OXALATE 20 MG TABLET PO SCH (10:07)
[2023-05-01] MEDS ORDERED: POTASSIUM PHOSPHATE 15 MM in SODIUM CHLORIDE 250 ML IVPB ONE (10:30)
[2023-05-01] MEDS ORDERED: LIDOCAINE 5% TOPICAL PATCH TP SCH (11:00)
[2023-05-01] MEDS: INSULIN SLIDING SCALE (NOVOLOG) 1 VIAL SQ SCH ×3 (11:00→22:21)
[2023-05-01] MEDS ORDERED: INSULIN (NOVOLOG) ASPART 100 UNITS/ML 10ML VIAL ONE (11:25)
[2023-05-01] MEDS: guaiFENesin/D-M SUGAR-FREE/ACLHOL-FREE (200 MG/10 MG) 5 ML PO SCH ×2 (11:39→22:22)
[2023-05-01] MEDS: HYDROmorphone HCL 2 MG TABLET PO PRN (14:48)
[2023-05-01] MEDS ORDERED: LIDOCAINE PATCH REMOVAL MC SCH (22:00)
[2023-05-01] MEDS: levETIRAcetam 250 MG TABLET PO SCH (22:22)
[2023-05-01] MEDS: ATORVASTATIN CA 20 MG TABLET (FP) PO SCH (22:23)
[2023-05-02] MEDS ORDERED: NALOXONE HCL 0.4 MG/ML VIAL IVPUSH ONE ×4 (00:31→02:53)
[2023-05-02] MEDS ORDERED: NALOXONE HCL 0.4 MG/ML VIAL ONE (00:32)
[2023-05-02 00:57] LABS: ARTERIAL BLD GAS O2 SATURATION 95.7 % (95-98); ARTERIAL BLOOD GAS BASE EXCESS 3.7 mmol/L (-2-2); ARTERIAL BLOOD GAS PO2 88.6 mmHg (80-100)
[2023-05-02 01:02] LABS: ALLENS TEST POSITIVE; VENT MODE S/T; VENT RATE 12
[2023-05-02 01:40] LABS: HEMATOCRIT 20.7 % (35.4-49); MCH 30.6 pg (25.7-33.7); MCHC 32.3 g/dl (32.0-35.9); MEAN CELL VOLUME 94.6 fl (80-96); MEAN PLT VOLUME 8.8 fl (7.5-11.1); PLATELET COUNT 168 10^3/uL (134-434); RBC 2.19 M/mm3 (4.00-5.60); RDW 16.1 % (11.9-15.9); WHITE BLOOD COUNT 11.8 K/mm3 (4.0-10.0)
[2023-05-02 02:01] LABS: INR 2.05 (0.83-1.09); PROTHROMBIN TIME (PATIENT) 23.6 SEC (9.7-13.0)
[2023-05-02 02:03] LABS: CHLORIDE 101 mmol/L (98-107); POTASSIUM 3.6 mmol/L (3.5-5.1); SODIUM 141 mmol/L (136-145)
[2023-05-02 02:06] LABS: ALBUMIN 2.5 g/dl (3.4-5.0); ANION GAP 10 MMOL/L (8-16); CO2 29 mmol/L (21-32); GLUCOSE,RANDOM 156 mg/dL (74-106)
[2023-05-02 02:09] LABS: PHOSPHOROUS 3.9 mg/dL (2.5-4.9); SGOT/AST 40 U/L (15-37); SGPT/ALT 9 U/L (13-61)
[2023-05-02 02:10] LABS: BILIRUBIN,TOTAL 0.4 mg/dL (0.2-1)
[2023-05-02 02:12] LABS: ALK PHOS 94 U/L (45-117)
[2023-05-02 02:21] LABS: CREATININE 7.9 mg/dL (0.55-1.3)
[2023-05-02 02:27] LABS: HEMOGLOBIN 6.7 GM/dL (11.7-16.9)
[2023-05-02] MEDS ORDERED: PROPOFOL 1,000,000 MCG/100 ML VIAL ONE (03:00)
[2023-05-02 03:48] LABS: ANISOCYTOSIS 3+; MACROCYTOSIS 0; OVALOCYTE 1+; SICKELED CELLS 2+
[2023-05-02] MEDS: PROPOFOL 1,000,000 MCG/100 ML VIAL IVPB SCH (03:55)
[2023-05-02] MEDS ORDERED: TRIPLE LUMEN FLUSH 4 ML ML IVPUSH PRN (04:03)
[2023-05-02] MEDS: NOREPINEPHRINE BITARTRATE/D5W 8 MG/250 ML BAG IVPB SCH (04:08)
[2023-05-02] MEDS ORDERED: VANCOMYCIN 1 GM/200 ML PREMIX BAG (RESTRICTED TO ID ONLY) IVPB ONE (04:35)
[2023-05-02] MEDS: PIPERACILLIN/TAZOB 2.25 GM 2.25 GM in DEXTROSE 5%-WATER - 50 ML IVPB SCH ×4 (05:07→21:18)
[2023-05-02] MEDS: ACETAMINOPHEN 650 MG/20.3 ML ORAL SOLUTION (CUPS) PO PRN (05:13)
[2023-05-02 05:55] LABS: ARTERIAL BLD GAS O2 SATURATION 98.5 % (95-98); ARTERIAL BLOOD GAS BASE EXCESS 1.6 mmol/L (-2-2); ARTERIAL BLOOD GAS PO2 118.8 mmHg (80-100); ARTERIAL BLOOD GAS pH 7.453 (7.350-7.450)
[2023-05-02 06:01] LABS: ALLENS TEST POSITIVE
[2023-05-02 06:02] LABS: VENT MODE AC; VENT RATE 16
[2023-05-02] MEDS: ENOXAPARIN NA (PORCINE) 30 MG/0.3 ML DISP.SYRIN SQ SCH (09:22)
[2023-05-02] MEDS: MUPIROCIN 2% TOPICAL OINTMENT FOR DECOLONIZATION NS SCH ×2 (09:22→21:19)
[2023-05-02] MEDS: LIDOCAINE 5% TOPICAL PATCH TP SCH (09:22)
[2023-05-02] MEDS: PANTOPRAZOLE SODIUM 40 MG VIAL IVPUSH SCH (09:22)
[2023-05-02] MEDS: INSULIN SLIDING SCALE (NOVOLOG) 1 VIAL SQ SCH (10:43)
[2023-05-02 10:53] LABS: BASO % 0.5 % (0-2.0); EOS % 3.2 % (0-4.5); HEMOGLOBIN 7.9 GM/dL (11.7-16.9); LYMPH % 7.7 % (8-40); MCH 30.7 pg (25.7-33.7); MEAN CELL VOLUME 92.9 fl (80-96); MEAN PLT VOLUME 8.6 fl (7.5-11.1); MONO % 10.7 % (3.8-10.2); NEUT % 77.9 % (42.8-82.8); PLATELET COUNT 132 10^3/uL (134-434); RBC 2.59 M/mm3 (4.00-5.60); RDW 16.3 % (11.9-15.9); WHITE BLOOD COUNT 10.5 K/mm3 (4.0-10.0)
[2023-05-02 10:59] LABS: CHLORIDE 102 mmol/L (98-107); POTASSIUM 3.1 mmol/L (3.5-5.1); SODIUM 144 mmol/L (136-145)
[2023-05-02 11:01] LABS: CALCIUM 8.2 mg/dL (8.5-10.1); GLUCOSE,RANDOM 172 mg/dL (74-106)
[2023-05-02 11:02] LABS: ANION GAP 12 MMOL/L (8-16); CO2 30 mmol/L (21-32)
[2023-05-02 11:05] LABS: PHOSPHOROUS 3.5 mg/dL (2.5-4.9)
[2023-05-02 11:06] LABS: CREATININE 8.7 mg/dL (0.55-1.3)
[2023-05-02 14:38] LABS: ARTERIAL BLD GAS O2 SATURATION 98.1 % (95-98); ARTERIAL BLOOD GAS BASE EXCESS -0.8 mmol/L (-2-2); ARTERIAL BLOOD GAS PO2 118.2 mmHg (80-100); ARTERIAL BLOOD GAS pH 7.343 (7.350-7.450)
[2023-05-02 14:39] LABS: ALLENS TEST POSITIVE
[2023-05-02 14:40] LABS: VENT MODE ST; VENT RATE 12
[2023-05-02] MEDS ORDERED: MIDAZOLAM HCL 2 MG/2 ML SINGLE DOSE VIAL IVPUSH STA (19:10)
[2023-05-02] MEDS ORDERED: KETAMINE HCL 200 MG/20 ML VIAL IVPUSH STA (19:12)
[2023-05-02] MEDS ORDERED: ROCURONIUM BROMIDE 50 MG/5 ML VIAL IV STA (19:13)
[2023-05-02 20:30] LABS: ARTERIAL BLOOD GAS BASE EXCESS -0.7 mmol/L (-2-2); ARTERIAL BLOOD GAS PO2 73.8 mmHg (80-100); ARTERIAL BLOOD GAS pH 7.295 (7.350-7.450)
[2023-05-02 20:32] LABS: VENT MODE S/T
[2023-05-02 20:33] LABS: VENT RATE 12
[2023-05-02] MEDS: LIDOCAINE PATCH REMOVAL MC SCH (21:18)
[2023-05-02] MEDS: CHLORHEXIDINE GLUCONATE 4% CLEANSER FOR DECOLONIZATION TP SCH (21:18)
[2023-05-02] MEDS ORDERED: LIDOCAINE PATCH REMOVAL MC SCH (22:00)
[2023-05-03] MEDS ORDERED: PIPERACILLIN/TAZOB 2.25 GM 2.25 GM in DEXTROSE 5%-WATER - 50 ML IVPB SCH (03:00)
[2023-05-03] MEDS: PROPOFOL 1,000,000 MCG/100 ML VIAL IVPB SCH (03:56)
[2023-05-03] MEDS: NOREPINEPHRINE BITARTRATE/D5W 8 MG/250 ML BAG IVPB SCH ×2 (05:58→08:15)
[2023-05-03 06:43] LABS: BASO % 1.4 % (0-2.0); EOS % 4.3 % (0-4.5); HEMOGLOBIN 7.4 GM/dL (11.7-16.9); LYMPH % 2.9 % (8-40); MCH 31.3 pg (25.7-33.7); MCHC 33.5 g/dl (32.0-35.9); MEAN CELL VOLUME 93.4 fl (80-96); MEAN PLT VOLUME 9.6 fl (7.5-11.1); MONO % 10.1 % (3.8-10.2); NEUT % 81.3 % (42.8-82.8); PLATELET COUNT 140 10^3/uL (134-434); RBC 2.36 M/mm3 (4.00-5.60); RDW 16.4 % (11.9-15.9); WHITE BLOOD COUNT 10.3 K/mm3 (4.0-10.0)
[2023-05-03] MEDS ORDERED: SODIUM CHLORIDE 250 ML IV PRN (07:00)
[2023-05-03 07:11] LABS: CHLORIDE 103 mmol/L (98-107); POTASSIUM 3.3 mmol/L (3.5-5.1); SODIUM 144 mmol/L (136-145)
[2023-05-03 07:15] LABS: CALCIUM 8.2 mg/dL (8.5-10.1)
[2023-05-03 07:16] LABS: ALBUMIN 2.1 g/dl (3.4-5.0); ANION GAP 12 MMOL/L (8-16); CO2 29 mmol/L (21-32); GLUCOSE,RANDOM 87 mg/dL (74-106); MAGNESIUM 2.1 mg/dL (1.8-2.4)
[2023-05-03 07:19] LABS: SGOT/AST 19 U/L (15-37)
[2023-05-03 07:20] LABS: BILIRUBIN,TOTAL 0.7 mg/dL (0.2-1)
[2023-05-03 07:21] LABS: TOT PROT 5.6 g/dl (6.4-8.2)
[2023-05-03 07:22] LABS: ALK PHOS 83 U/L (45-117)
[2023-05-03 07:33] LABS: CREATININE 10.4 mg/dL (0.55-1.3); SGPT/ALT < 6 U/L (13-61)
[2023-05-03] MEDS ORDERED: EPOETIN ALFA-EPBX 10,000 UNIT/ML VIAL SQ ONE (08:30)
[2023-05-03] MEDS: PANTOPRAZOLE SODIUM 40 MG VIAL IVPUSH SCH (09:32)
[2023-05-03] MEDS: ENOXAPARIN NA (PORCINE) 30 MG/0.3 ML DISP.SYRIN SQ SCH (09:32)
[2023-05-03] MEDS: LIDOCAINE 5% TOPICAL PATCH TP SCH (09:32)
[2023-05-03] MEDS: MUPIROCIN 2% TOPICAL OINTMENT FOR DECOLONIZATION NS SCH ×2 (09:33→21:43)
[2023-05-03] MEDS ORDERED: POTASSIUM CITRATE/CITRIC ACID 2 MEQ/ML ML PO ONE (14:14)
[2023-05-03] MEDS: PIPERACILLIN/TAZOB 2.25 GM 2.25 GM in DEXTROSE 5%-WATER - 50 ML IVPB SCH ×2 (15:40→21:42)
[2023-05-03] MEDS: CHLORHEXIDINE GLUCONATE 4% CLEANSER FOR DECOLONIZATION TP SCH (21:43)
[2023-05-03] MEDS: LIDOCAINE PATCH REMOVAL MC SCH (21:44)
[2023-05-04] MEDS: PIPERACILLIN/TAZOB 2.25 GM 2.25 GM in DEXTROSE 5%-WATER - 50 ML IVPB SCH ×4 (03:19→21:11)
[2023-05-04] MEDS: PROPOFOL 1,000,000 MCG/100 ML VIAL IVPB SCH (03:45)
[2023-05-04] MEDS: NOREPINEPHRINE BITARTRATE/D5W 8 MG/250 ML BAG IVPB SCH (04:15)
[2023-05-04 06:46] LABS: BASO % 0.4 % (0-2.0); EOS % 3.2 % (0-4.5); HEMATOCRIT 23.4 % (35.4-49); HEMOGLOBIN 7.7 GM/dL (11.7-16.9); LYMPH % 5.6 % (8-40); MCH 30.7 pg (25.7-33.7); MCHC 32.9 g/dl (32.0-35.9); MEAN CELL VOLUME 93.2 fl (80-96); MEAN PLT VOLUME 9.8 fl (7.5-11.1); MONO % 11.2 % (3.8-10.2); NEUT % 79.6 % (42.8-82.8); PLATELET COUNT 190 10^3/uL (134-434); RBC 2.51 M/mm3 (4.00-5.60); RDW 16.7 % (11.9-15.9); WHITE BLOOD COUNT 12.6 K/mm3 (4.0-10.0)
[2023-05-04 06:59] LABS: INR 2.89 (0.83-1.09); PROTHROMBIN TIME (PATIENT) 33.2 SEC (9.7-13.0)
[2023-05-04 07:01] LABS: ACTIVATED PTT 39.9 SECONDS (25.2-36.5)
[2023-05-04 07:10] LABS: CALCIUM 8.6 mg/dL (8.5-10.1)
[2023-05-04 07:11] LABS: ALBUMIN 2.2 g/dl (3.4-5.0); BLOOD UREA NITROGEN 39.5 mg/dL (7-18)
[2023-05-04 07:14] LABS: CREATININE 7.1 mg/dL (0.55-1.3); PHOSPHOROUS 1.6 mg/dL (2.5-4.9)
[2023-05-04 07:15] LABS: TOT PROT 5.9 g/dl (6.4-8.2)
[2023-05-04 07:16] LABS: BILIRUBIN,TOTAL 0.7 mg/dL (0.2-1)
[2023-05-04] MEDS: LIDOCAINE 5% TOPICAL PATCH TP SCH (09:44)
[2023-05-04] MEDS: MUPIROCIN 2% TOPICAL OINTMENT FOR DECOLONIZATION NS SCH ×2 (09:44→21:11)
[2023-05-04] MEDS: ENOXAPARIN NA (PORCINE) 30 MG/0.3 ML DISP.SYRIN SQ SCH (09:44)
[2023-05-04] MEDS: NAPH,MB-DB/K PH,MBDB POWDER PACKET PO SCH ×2 (09:51→21:11)
[2023-05-04] MEDS: PANTOPRAZOLE SODIUM 40 MG VIAL IVPUSH SCH (10:29)
[2023-05-04] MEDS: ACETAMINOPHEN 650 MG/20.3 ML ORAL SOLUTION (CUPS) PO PRN (21:09)
[2023-05-04] MEDS: LIDOCAINE PATCH REMOVAL MC SCH (21:11)
[2023-05-04] MEDS: CHLORHEXIDINE GLUCONATE 4% CLEANSER FOR DECOLONIZATION TP SCH (21:11)
[2023-05-05] MEDS: PIPERACILLIN/TAZOB 2.25 GM 2.25 GM in DEXTROSE 5%-WATER - 50 ML IVPB SCH ×5 (03:16→20:20)
[2023-05-05] MEDS ORDERED: SODIUM CHLORIDE 250 ML IV PRN (07:12)
[2023-05-05 07:17] LABS: BASO % 1.2 % (0-2.0); EOS % 3.4 % (0-4.5); HEMATOCRIT 22.4 % (35.4-49); HEMOGLOBIN 7.4 GM/dL (11.7-16.9); LYMPH % 5.5 % (8-40); MCH 30.8 pg (25.7-33.7); MCHC 33.1 g/dl (32.0-35.9); MEAN CELL VOLUME 93.2 fl (80-96); MEAN PLT VOLUME 9.2 fl (7.5-11.1); MONO % 8.8 % (3.8-10.2); NEUT % 81.1 % (42.8-82.8); PLATELET COUNT 198 10^3/uL (134-434); RDW 16.2 % (11.9-15.9); WHITE BLOOD COUNT 13.1 K/mm3 (4.0-10.0)
[2023-05-05] MEDS: NOREPINEPHRINE BITARTRATE/D5W 8 MG/250 ML BAG IVPB SCH (07:24)
[2023-05-05 07:43] LABS: CHLORIDE 96 mmol/L (98-107); POTASSIUM 3.1 mmol/L (3.5-5.1); SODIUM 139 mmol/L (136-145)
[2023-05-05 07:46] LABS: ALBUMIN 2.1 g/dl (3.4-5.0); ANION GAP 15 MMOL/L (8-16); BLOOD UREA NITROGEN 54.3 mg/dL (7-18); CALCIUM 8.3 mg/dL (8.5-10.1); CO2 28 mmol/L (21-32)
[2023-05-05 07:47] LABS: GLUCOSE,RANDOM 102 mg/dL (74-106)
[2023-05-05 07:49] LABS: PHOSPHOROUS 4.8 mg/dL (2.5-4.9); SGOT/AST 31 U/L (15-37); SGPT/ALT 9 U/L (13-61)
[2023-05-05 07:51] LABS: BILIRUBIN,TOTAL 0.8 mg/dL (0.2-1); TOT PROT 5.7 g/dl (6.4-8.2)
[2023-05-05 07:52] LABS: ALK PHOS 99 U/L (45-117)
[2023-05-05 07:53] LABS: CREATININE 8.9 mg/dL (0.55-1.3)
[2023-05-05] MEDS ORDERED: POTASSIUM CHLORIDE TABS 20 MEQ TABLET.ER (FP) PO ONE (08:00)
[2023-05-05] MEDS ORDERED: EPOETIN ALFA-EPBX 10,000 UNIT/ML VIAL IVPUSH ONE (09:00)
[2023-05-05] MEDS: POTASSIUM CHLORIDE TABS 20 MEQ TABLET.ER (FP) PO SCH ×2 (09:13→13:16)
[2023-05-05] MEDS: ACETAMINOPHEN 650 MG/20.3 ML ORAL SOLUTION (CUPS) PO PRN (09:13)
[2023-05-05] MEDS: PANTOPRAZOLE SODIUM 40 MG VIAL IVPUSH SCH (09:13)
[2023-05-05] MEDS: LIDOCAINE 5% TOPICAL PATCH TP SCH (09:14)
[2023-05-05] MEDS: ENOXAPARIN NA (PORCINE) 30 MG/0.3 ML DISP.SYRIN SQ SCH (09:14)
[2023-05-05] MEDS: MUPIROCIN 2% TOPICAL OINTMENT FOR DECOLONIZATION NS SCH ×2 (09:14→21:15)
[2023-05-05] MEDS: APIXABAN 2.5 MG TABLET PO SCH ×2 (11:05→21:15)
[2023-05-05] MEDS: FINASTERIDE 5 MG TABLET (FP) PO SCH (14:38)
[2023-05-05] MEDS: ESCITALOPRAM OXALATE 20 MG TABLET PO SCH (14:39)
[2023-05-05] MEDS ORDERED: LOPERAMIDE HCL 2 MG CAPSULE PO PRN (14:57)
[2023-05-05] MEDS: INSULIN SLIDING SCALE (NOVOLOG) 1 VIAL SQ SCH ×2 (16:13→21:15)
[2023-05-05] MEDS: LIDOCAINE PATCH REMOVAL MC SCH (21:15)
[2023-05-05] MEDS: CHLORHEXIDINE GLUCONATE 4% CLEANSER FOR DECOLONIZATION TP SCH (21:15)
[2023-05-05] MEDS ORDERED: ATORVASTATIN CA 40 MG TABLET (FP) PO SCH (22:00)
[2023-05-05] MEDS ORDERED: levETIRAcetam 250 MG TABLET PO SCH (22:00)
[2023-05-06] MEDS: PIPERACILLIN/TAZOB 2.25 GM 2.25 GM in DEXTROSE 5%-WATER - 50 ML IVPB SCH ×4 (02:03→20:36)
[2023-05-06] MEDS: INSULIN SLIDING SCALE (NOVOLOG) 1 VIAL SQ SCH ×4 (06:17→21:02)
[2023-05-06 07:05] LABS: BASO % 0.5 % (0-2.0); EOS % 1.9 % (0-4.5); HEMATOCRIT 24.5 % (35.4-49); MCH 30.7 pg (25.7-33.7); MCHC 32.6 g/dl (32.0-35.9); MEAN CELL VOLUME 94.4 fl (80-96); MEAN PLT VOLUME 9.6 fl (7.5-11.1); MONO % 11.3 % (3.8-10.2); NEUT % 80.3 % (42.8-82.8); PLATELET COUNT 257 10^3/uL (134-434); RDW 16.2 % (11.9-15.9)
[2023-05-06 07:16] LABS: POTASSIUM 3.1 mmol/L (3.5-5.1)
[2023-05-06 07:19] LABS: ALBUMIN 2.4 g/dl (3.4-5.0); CALCIUM 8.9 mg/dL (8.5-10.1)
[2023-05-06 07:20] LABS: BLOOD UREA NITROGEN 36.7 mg/dL (7-18)
[2023-05-06 07:22] LABS: CREATININE 6.1 mg/dL (0.55-1.3); PHOSPHOROUS 2.6 mg/dL (2.5-4.9)
[2023-05-06 07:24] LABS: BILIRUBIN,TOTAL 0.8 mg/dL (0.2-1); TOT PROT 6.3 g/dl (6.4-8.2)
[2023-05-06] MEDS: NOREPINEPHRINE BITARTRATE/D5W 8 MG/250 ML BAG IVPB SCH (07:29)
[2023-05-06] MEDS: FINASTERIDE 5 MG TABLET (FP) PO SCH (09:05)
[2023-05-06] MEDS: MUPIROCIN 2% TOPICAL OINTMENT FOR DECOLONIZATION NS SCH (09:05)
[2023-05-06] MEDS: ESCITALOPRAM OXALATE 20 MG TABLET PO SCH (09:05)
[2023-05-06] MEDS: PANTOPRAZOLE SODIUM 40 MG VIAL IVPUSH SCH (09:05)
[2023-05-06] MEDS: LIDOCAINE 5% TOPICAL PATCH TP SCH (09:05)
[2023-05-06] MEDS: APIXABAN 2.5 MG TABLET PO SCH ×2 (09:05→21:01)
[2023-05-06] MEDS ORDERED: SODIUM CHLORIDE 250 ML IV PRN (14:25)
[2023-05-06] MEDS ORDERED: POTASSIUM CHLORIDE ORAL LIQUID 20 MEQ/15 ML PO ONE (14:30)
[2023-05-06] MEDS: LOPERAMIDE HCL 2 MG CAPSULE PO PRN (17:35)
[2023-05-06 20:13] LABS: POTASSIUM 3.6 mmol/L (3.5-5.1)
[2023-05-06 20:15] LABS: CALCIUM 8.5 mg/dL (8.5-10.1)
[2023-05-06 20:16] LABS: BLOOD UREA NITROGEN 44.4 mg/dL (7-18)
[2023-05-06 20:19] LABS: CREATININE 7.1 mg/dL (0.55-1.3)
[2023-05-06] MEDS: CHLORHEXIDINE GLUCONATE 4% CLEANSER FOR DECOLONIZATION TP SCH (21:01)
[2023-05-06] MEDS: ATORVASTATIN CA 40 MG TABLET (FP) PO SCH (21:01)
[2023-05-06] MEDS: levETIRAcetam 250 MG TABLET PO SCH (21:02)
[2023-05-06] MEDS: LIDOCAINE PATCH REMOVAL MC SCH (21:02)
[2023-05-06] MEDS ORDERED: MUPIROCIN 2% TOPICAL OINTMENT FOR DECOLONIZATION NS SCH (22:00)
[2023-05-06] MEDS ORDERED: LIDOCAINE PATCH REMOVAL MC SCH (22:00)
[2023-05-07] MEDS: PIPERACILLIN/TAZOB 2.25 GM 2.25 GM in DEXTROSE 5%-WATER - 50 ML IVPB SCH ×4 (02:02→20:49)
[2023-05-07] MEDS: INSULIN SLIDING SCALE (NOVOLOG) 1 VIAL SQ SCH ×4 (06:19→21:36)
[2023-05-07] MEDS: ESCITALOPRAM OXALATE 20 MG TABLET PO SCH (09:36)
[2023-05-07] MEDS: LOPERAMIDE HCL 2 MG CAPSULE PO PRN ×2 (09:36→21:38)
[2023-05-07] MEDS: APIXABAN 2.5 MG TABLET PO SCH ×2 (09:36→21:39)
[2023-05-07] MEDS: PANTOPRAZOLE SODIUM 40 MG VIAL IVPUSH SCH (09:36)
[2023-05-07] MEDS: LIDOCAINE 5% TOPICAL PATCH TP SCH (09:36)
[2023-05-07] MEDS: ACETAMINOPHEN 650 MG/20.3 ML ORAL SOLUTION (CUPS) PO PRN (09:37)
[2023-05-07] MEDS: FINASTERIDE 5 MG TABLET (FP) PO SCH (09:37)
[2023-05-07] MEDS ORDERED: EPOETIN ALFA-EPBX 10,000 UNIT/ML VIAL SQ ONE (12:30)
[2023-05-07] MEDS ORDERED: MIDODRINE HCL 5 MG TABLET PO ONE (13:07)
[2023-05-07 17:28] LABS: HEMATOCRIT 25.6 % (35.4-49); HEMOGLOBIN 8.1 GM/dL (11.7-16.9); MCH 29.1 pg (25.7-33.7); MCHC 31.7 g/dl (32.0-35.9); MEAN CELL VOLUME 91.8 fl (80-96); MEAN PLT VOLUME 8.4 fl (7.5-11.1); PLATELET COUNT 284 10^3/uL (134-434); RBC 2.79 M/mm3 (4.00-5.60); RDW 16.2 % (11.9-15.9); WHITE BLOOD COUNT 14.4 K/mm3 (4.0-10.0)
[2023-05-07 17:48] LABS: CHLORIDE 104 mmol/L (98-107); SODIUM 145 mmol/L (136-145)
[2023-05-07 17:50] LABS: ALBUMIN 2.3 g/dl (3.4-5.0); CALCIUM 9.4 mg/dL (8.5-10.1); CO2 30 mmol/L (21-32); GLUCOSE,RANDOM 96 mg/dL (74-106)
[2023-05-07 17:53] LABS: CREATININE 2.8 mg/dL (0.55-1.3); SGOT/AST 41 U/L (15-37); SGPT/ALT 13 U/L (13-61)
[2023-05-07 17:55] LABS: BILIRUBIN,TOTAL 1.2 mg/dL (0.2-1); TOT PROT 6.4 g/dl (6.4-8.2)
[2023-05-07 17:56] LABS: ALK PHOS 142 U/L (45-117)
[2023-05-07 18:27] LABS: ANION GAP 11 MMOL/L (8-16); BLOOD UREA NITROGEN 15.4 mg/dL (7-18); POTASSIUM 2.9 mmol/L (3.5-5.1)
[2023-05-07] MEDS ORDERED: KCL 10 MEQ IVPB 10 MEQ/100 ML INFUS.BAG IVPB SCH (21:15)
[2023-05-07] MEDS ORDERED: POTASSIUM CHLORIDE ORAL LIQUID 20 MEQ/15 ML PO ONE (21:24)
[2023-05-07] MEDS: levETIRAcetam 250 MG TABLET PO SCH (21:38)
[2023-05-07] MEDS: ATORVASTATIN CA 40 MG TABLET (FP) PO SCH (21:38)
[2023-05-07] MEDS: CHLORHEXIDINE GLUCONATE 4% CLEANSER FOR DECOLONIZATION TP SCH (21:39)
[2023-05-07] MEDS: LIDOCAINE PATCH REMOVAL MC SCH (21:39)
[2023-05-08] MEDS ORDERED: POTASSIUM CHLORIDE ORAL LIQUID 20 MEQ/15 ML PO ONE (01:00)
[2023-05-08] MEDS: PIPERACILLIN/TAZOB 2.25 GM 2.25 GM in DEXTROSE 5%-WATER - 50 ML IVPB SCH ×4 (02:38→21:02)
[2023-05-08] MEDS: INSULIN SLIDING SCALE (NOVOLOG) 1 VIAL SQ SCH ×4 (06:42→21:02)
[2023-05-08] MEDS: FINASTERIDE 5 MG TABLET (FP) PO SCH (09:47)
[2023-05-08] MEDS: APIXABAN 2.5 MG TABLET PO SCH ×2 (09:47→21:02)
[2023-05-08] MEDS: ESCITALOPRAM OXALATE 20 MG TABLET PO SCH (09:47)
[2023-05-08] MEDS: LIDOCAINE 5% TOPICAL PATCH TP SCH (09:47)
[2023-05-08] MEDS: PANTOPRAZOLE SODIUM 40 MG VIAL IVPUSH SCH (09:47)
[2023-05-08] MEDS: LOPERAMIDE HCL 2 MG CAPSULE PO PRN ×2 (09:48→21:04)
[2023-05-08 12:12] LABS: BLOOD UREA NITROGEN 29.1 mg/dL (7-18); CALCIUM 9.1 mg/dL (8.5-10.1); CREATININE 5.7 mg/dL (0.55-1.3); POTASSIUM 3.6 mmol/L (3.5-5.1)
[2023-05-08] MEDS: ACETAMINOPHEN 650 MG/20.3 ML ORAL SOLUTION (CUPS) PO PRN (14:13)
[2023-05-08 14:15] VITALS: BMI 28.3
[2023-05-08] MEDS: levETIRAcetam 250 MG TABLET PO SCH (21:01)
[2023-05-08] MEDS: ATORVASTATIN CA 40 MG TABLET (FP) PO SCH (21:02)
[2023-05-08] MEDS: LIDOCAINE PATCH REMOVAL MC SCH (21:02)
[2023-05-08] MEDS: CHLORHEXIDINE GLUCONATE 4% CLEANSER FOR DECOLONIZATION TP SCH (21:02)
[2023-05-09] MEDS: PIPERACILLIN/TAZOB 2.25 GM 2.25 GM in DEXTROSE 5%-WATER - 50 ML IVPB SCH ×4 (02:02→20:59)
[2023-05-09] MEDS: INSULIN SLIDING SCALE (NOVOLOG) 1 VIAL SQ SCH ×4 (06:45→22:21)
[2023-05-09 07:54] LABS: POTASSIUM 3.7 mmol/L (3.5-5.1)
[2023-05-09 07:57] LABS: CALCIUM 8.6 mg/dL (8.5-10.1)
[2023-05-09 07:58] LABS: BLOOD UREA NITROGEN 39.2 mg/dL (7-18)
[2023-05-09 08:01] LABS: CREATININE 7.2 mg/dL (0.55-1.3)
[2023-05-09] MEDS: APIXABAN 2.5 MG TABLET PO SCH ×2 (10:09→21:46)
[2023-05-09] MEDS: ESCITALOPRAM OXALATE 20 MG TABLET PO SCH (10:09)
[2023-05-09] MEDS: PANTOPRAZOLE SODIUM 40 MG VIAL IVPUSH SCH (10:09)
[2023-05-09] MEDS: LOPERAMIDE HCL 2 MG CAPSULE PO PRN (10:09)
[2023-05-09] MEDS: FINASTERIDE 5 MG TABLET (FP) PO SCH (10:10)
[2023-05-09] MEDS: LIDOCAINE 5% TOPICAL PATCH TP SCH (10:10)
[2023-05-09] MEDS ORDERED: INSULIN (NOVOLOG) ASPART 100 UNITS/ML 10ML VIAL ONE (12:10)
[2023-05-09] MEDS: CHLORHEXIDINE GLUCONATE 4% CLEANSER FOR DECOLONIZATION TP SCH (21:46)
[2023-05-09] MEDS: levETIRAcetam 250 MG TABLET PO SCH (21:46)
[2023-05-09] MEDS: LIDOCAINE PATCH REMOVAL MC SCH (21:47)
[2023-05-09] MEDS: ATORVASTATIN CA 40 MG TABLET (FP) PO SCH (21:47)
[2023-05-10] MEDS: PIPERACILLIN/TAZOB 2.25 GM 2.25 GM in DEXTROSE 5%-WATER - 50 ML IVPB SCH ×4 (02:16→20:49)
[2023-05-10] MEDS: INSULIN SLIDING SCALE (NOVOLOG) 1 VIAL SQ SCH ×4 (06:02→22:41)
[2023-05-10 07:59] LABS: CHLORIDE 102 mmol/L (98-107); POTASSIUM 3.5 mmol/L (3.5-5.1); SODIUM 138 mmol/L (136-145)
[2023-05-10 08:00] LABS: BASO % 0.5 % (0-2.0); EOS % 5.3 % (0-4.5); HEMATOCRIT 22.3 % (35.4-49); HEMOGLOBIN 7.2 GM/dL (11.7-16.9); LYMPH % 6.2 % (8-40); MCH 30.4 pg (25.7-33.7); MCHC 32.6 g/dl (32.0-35.9); MEAN CELL VOLUME 93.3 fl (80-96); MEAN PLT VOLUME 9.2 fl (7.5-11.1); MONO % 11.1 % (3.8-10.2); NEUT % 76.9 % (42.8-82.8); PLATELET COUNT 311 10^3/uL (134-434); RBC 2.38 M/mm3 (4.00-5.60); RDW 15.8 % (11.9-15.9); WHITE BLOOD COUNT 10.7 K/mm3 (4.0-10.0)
[2023-05-10 08:03] LABS: BLOOD UREA NITROGEN 55.4 mg/dL (7-18); CALCIUM 8.6 mg/dL (8.5-10.1)
[2023-05-10 08:04] LABS: ALBUMIN 1.9 g/dl (3.4-5.0); ANION GAP 11 MMOL/L (8-16); CO2 25 mmol/L (21-32); GLUCOSE,RANDOM 141 mg/dL (74-106)
[2023-05-10 08:07] LABS: SGOT/AST 37 U/L (15-37); SGPT/ALT 17 U/L (13-61)
[2023-05-10 08:09] LABS: BILIRUBIN,TOTAL 0.6 mg/dL (0.2-1); TOT PROT 5.9 g/dl (6.4-8.2)
[2023-05-10 08:10] LABS: ALK PHOS 131 U/L (45-117)
[2023-05-10 08:24] LABS: CREATININE 8.5 mg/dL (0.55-1.3)
[2023-05-10] MEDS ORDERED: SODIUM CHLORIDE 250 ML IV PRN (08:33)
[2023-05-10] MEDS ORDERED: EPOETIN ALFA EPBX SQ ONE (08:50)
[2023-05-10] MEDS ORDERED: EPOETIN ALFA EPBX IVPUSH ONE (08:50)
[2023-05-10] MEDS: FINASTERIDE 5 MG TABLET (FP) PO SCH (09:10)
[2023-05-10] MEDS: LIDOCAINE 5% TOPICAL PATCH TP SCH (09:10)
[2023-05-10] MEDS: APIXABAN 2.5 MG TABLET PO SCH ×2 (09:10→21:56)
[2023-05-10] MEDS: PANTOPRAZOLE SODIUM 40 MG VIAL IVPUSH SCH (09:10)
[2023-05-10] MEDS: ESCITALOPRAM OXALATE 20 MG TABLET PO SCH (09:10)
[2023-05-10] MEDS ORDERED: EPOETIN ALFA-EPBX 10,000 UNIT/ML VIAL IVPUSH ONE (14:05)
[2023-05-10] MEDS: LIDOCAINE PATCH REMOVAL MC SCH (21:56)
[2023-05-10] MEDS: ATORVASTATIN CA 40 MG TABLET (FP) PO SCH (21:56)
[2023-05-10] MEDS: CHLORHEXIDINE GLUCONATE 4% CLEANSER FOR DECOLONIZATION TP SCH (21:56)
[2023-05-10] MEDS: levETIRAcetam 250 MG TABLET PO SCH (21:56)
[2023-05-11] MEDS: PIPERACILLIN/TAZOB 2.25 GM 2.25 GM in DEXTROSE 5%-WATER - 50 ML IVPB SCH ×2 (03:03→09:18)
[2023-05-11] MEDS: INSULIN SLIDING SCALE (NOVOLOG) 1 VIAL SQ SCH ×4 (06:58→22:58)
[2023-05-11 07:47] LABS: BASO % 0.4 % (0-2.0); EOS % 4.1 % (0-4.5); HEMATOCRIT 23.2 % (35.4-49); HEMOGLOBIN 7.6 GM/dL (11.7-16.9); LYMPH % 7.9 % (8-40); MCH 30.6 pg (25.7-33.7); MCHC 32.8 g/dl (32.0-35.9); MEAN CELL VOLUME 93.3 fl (80-96); MEAN PLT VOLUME 9.1 fl (7.5-11.1); MONO % 10.2 % (3.8-10.2); NEUT % 77.4 % (42.8-82.8); PLATELET COUNT 337 10^3/uL (134-434); RBC 2.49 M/mm3 (4.00-5.60); WHITE BLOOD COUNT 9.9 K/mm3 (4.0-10.0)
[2023-05-11 08:36] LABS: ALBUMIN 1.8 g/dl (3.4-5.0); BILIRUBIN,TOTAL 0.4 mg/dL (0.2-1); BLOOD UREA NITROGEN 28.3 mg/dL (7-18); CALCIUM 8.6 mg/dL (8.5-10.1); CREATININE 5.6 mg/dL (0.55-1.3); POTASSIUM 3.4 mmol/L (3.5-5.1); TOT PROT 6.2 g/dl (6.4-8.2)
[2023-05-11] MEDS: PANTOPRAZOLE SODIUM 40 MG VIAL IVPUSH SCH (09:19)
[2023-05-11] MEDS: FINASTERIDE 5 MG TABLET (FP) PO SCH (09:19)
[2023-05-11] MEDS: ESCITALOPRAM OXALATE 20 MG TABLET PO SCH (09:19)
[2023-05-11] MEDS: LIDOCAINE 5% TOPICAL PATCH TP SCH (09:19)
[2023-05-11] MEDS: APIXABAN 2.5 MG TABLET PO SCH ×2 (09:19→22:57)
[2023-05-11] MEDS: ACETAMINOPHEN 650 MG/20.3 ML ORAL SOLUTION (CUPS) PO PRN (09:25)
[2023-05-11] MEDS ORDERED: INSULIN (NOVOLOG) ASPART 100 UNITS/ML 10ML VIAL ONE ×3 (11:36→16:15)
[2023-05-11] MEDS: LIDOCAINE PATCH REMOVAL MC SCH (22:57)
[2023-05-11] MEDS: CHLORHEXIDINE GLUCONATE 4% CLEANSER FOR DECOLONIZATION TP SCH (22:57)
[2023-05-11] MEDS: levETIRAcetam 250 MG TABLET PO SCH (22:57)
[2023-05-11] MEDS: ATORVASTATIN CA 40 MG TABLET (FP) PO SCH (22:58)
[2023-05-12] MEDS: INSULIN SLIDING SCALE (NOVOLOG) 1 VIAL SQ SCH ×2 (07:39→12:37)
[2023-05-12 07:55] LABS: BASO % 0.4 % (0-2.0); EOS % 4.5 % (0-4.5); HEMATOCRIT 24.4 % (35.4-49); HEMOGLOBIN 7.8 GM/dL (11.7-16.9); LYMPH % 6.8 % (8-40); MCH 29.7 pg (25.7-33.7); MEAN CELL VOLUME 92.8 fl (80-96); NEUT % 80.3 % (42.8-82.8); PLATELET COUNT 364 10^3/uL (134-434); RBC 2.63 M/mm3 (4.00-5.60); RDW 15.9 % (11.9-15.9); WHITE BLOOD COUNT 10.5 K/mm3 (4.0-10.0)
[2023-05-12 08:23] LABS: ALBUMIN 1.8 g/dl (3.4-5.0); BLOOD UREA NITROGEN 41.3 mg/dL (7-18); CALCIUM 8.4 mg/dL (8.5-10.1)
[2023-05-12 08:24] LABS: CREATININE 7.2 mg/dL (0.55-1.3)
[2023-05-12 08:26] LABS: BILIRUBIN,TOTAL 0.4 mg/dL (0.2-1); TOT PROT 6.4 g/dl (6.4-8.2)
[2023-05-12] MEDS ORDERED: POTASSIUM CHLORIDE ORAL LIQUID 20 MEQ/15 ML PO ONE ×2 (08:30→12:45)
[2023-05-12] MEDS ORDERED: VITAMIN B COMP W-C 1 EA TABLET (NEPHRO-VITE) PO SCH (10:00)
[2023-05-12] MEDS ORDERED: EPOETIN ALFA-EPBX 10,000 UNIT/ML VIAL SQ ONE (11:00)
[2023-05-12] MEDS ORDERED: EPOETIN ALFA EPBX IVPUSH ONE (11:00)
[2023-05-12] MEDS ORDERED: SODIUM CHLORIDE 250 ML IV PRN (11:34)
[2023-05-12 12:31] VITALS: TEMP 97.9
[2023-05-12 12:34] VITALS: BP 120/62; PULSE 100; RESP 18
[2023-05-12] MEDS: LIDOCAINE 5% TOPICAL PATCH TP SCH (12:35)
[2023-05-12] MEDS: PANTOPRAZOLE SODIUM 40 MG VIAL IVPUSH SCH (12:35)
[2023-05-12] MEDS: APIXABAN 2.5 MG TABLET PO SCH (12:36)
[2023-05-12] MEDS: FINASTERIDE 5 MG TABLET (FP) PO SCH (12:37)
[2023-05-12] MEDS: ESCITALOPRAM OXALATE 20 MG TABLET PO SCH (12:37)
[2023-05-12] MEDS: ACETAMINOPHEN 650 MG/20.3 ML ORAL SOLUTION (CUPS) PO PRN (13:15)
== END 2023-05-12 13:25 | DRG 480 ==
LOC: JER 12:02 → JERBED 15:48 → J5S 20:37 → J6S 04-29 16:36 → JICU 05-02 02:27 → J2W 05-06 13:02
PROVIDERS: ADMIT Internal Medicine; ATTEND Internal Medicine
PROC: 0QS836Z Reposition Right Femoral Shaft with Intramedullary Internal Fixation Device, Percutaneous Approach (ICD-10-PCS; principal; 2023-04-29 08:00)
PROC: 30233N1 Transfusion of Nonautologous Red Blood Cells into Peripheral Vein, Percutaneous Approach (ICD-10-PCS; 2023-04-30)
PROC: 05H633Z Insertion of Infusion Device into Left Subclavian Vein, Percutaneous Approach (ICD-10-PCS; 2023-05-02)
PROC: 5A1935Z Respiratory Ventilation, Less than 24 Consecutive Hours (ICD-10-PCS; 2023-05-02)
PROC: 0BH17EZ Insertion of Endotracheal Airway into Trachea, Via Natural or Artificial Opening (ICD-10-PCS; 2023-05-02)
PROC: 5A1D70Z Performance of Urinary Filtration, Intermittent, Less than 6 Hours Per Day (ICD-10-PCS; 2023-05-07)
DX: S72.441A Displaced fracture of lower epiphysis (separation) of right femur, initial encounter for closed fracture (principal); J69.0 Pneumonitis due to inhalation of food and vomit; J96.02 Acute respiratory failure with hypercapnia; N18.6 End stage renal disease; R65.21 Severe sepsis with septic shock; G81.91 Hemiplegia, unspecified affecting right dominant side; I12.0 Hypertensive chronic kidney disease with stage 5 chronic kidney disease or end stage renal disease; D62 Acute posthemorrhagic anemia; E11.40 Type 2 diabetes mellitus with diabetic neuropathy, unspecified; M25.461 Effusion, right knee; T40.2X5A Adverse effect of other opioids, initial encounter; Y92.89 Other specified places as the place of occurrence of the external cause; E78.5 Hyperlipidemia, unspecified; E87.6 Hypokalemia; F32.A Depression, unspecified; W19.XXXA Unspecified fall, initial encounter; Y93.89 Activity, other specified; Y99.9 Unspecified external cause status; Z99.2 Dependence on renal dialysis; E83.39 Other disorders of phosphorus metabolism
CPT/HCPCS: 36415; 36430; 36600; 70450-TC; 71045-TC-FY; 72128-TC; 73110-TC-RT-FY; 73130-TC-RT-FY; 73564-TC-RT-FY; 73700-TC-RT; 76000-TC-FY; 76775-TC; 80048; 80053; 82308; 82803; 82962; 83605; 83735; 84100; 84484; 85025; 85027; 85384; 85610; 85730; 86704; 86705; 86708; 86803; 86850; 86900; 86901; 86922; 87040; 87070; 87186; 87205; 87340; 87517; 87635; 93005; 93010; 93306-TC; 94002; 94660; 94760; 97161-GP; 99285-25; C1713; P9038; P9058; Q5106

== ENCOUNTER 2024-08-15 04:23 | Day surgery (SDC) | payer OTHER ==
[2024-08-14 11:11] VITALS: BMI 26.4
[2024-08-15] MEDS ORDERED: HEPARIN NA (PORCINE) 5,000 UNITS/ML 1ML VIAL ONE (14:43)
[2024-08-15] MEDS ORDERED: LIDOCAINE HCL 1%, 10 MG/ML (20ML VIAL) ONE (14:43)
[2024-08-15] MEDS ORDERED: MIDAZOLAM HCL 2 MG/2 ML SINGLE DOSE VIAL ONE (15:17)
[2024-08-15] MEDS ORDERED: ceFAZolin SODIUM 1 GM VIAL ONE (15:26)
[2024-08-15] MEDS: LIDOCAINE HCL 1%, 10 MG/ML (20ML VIAL) INF ONE ×2 (15:40)
[2024-08-15 17:35] VITALS: RESP 18
[2024-08-15 18:17] VITALS: BP 139/72; PULSE 63; TEMP 97.2
== END 2024-08-15 17:40 | disposition home or self-care (01) ==
LOC: JASU-SURG 04:23
PROVIDERS: ATTEND Surgery
PROC: 05793DZ Dilation of Right Brachial Vein with Intraluminal Device, Percutaneous Approach (ICD-10-PCS; principal; 2024-08-15 13:00)
DX: T82.41XA Breakdown (mechanical) of vascular dialysis catheter, initial encounter (principal); Y83.8 Other surgical procedures as the cause of abnormal reaction of the patient, or of later complication, without mention of misadventure at the time of the procedure; I87.1 Compression of vein; I12.0 Hypertensive chronic kidney disease with stage 5 chronic kidney disease or end stage renal disease; E11.22 Type 2 diabetes mellitus with diabetic chronic kidney disease; N18.6 End stage renal disease; Z99.2 Dependence on renal dialysis
CPT/HCPCS: 76000-TC-FY; 82962; J1644

== ENCOUNTER 2025-01-24 14:26 | Inpatient (IN) | payer OTHER ==
[2025-01-23] MEDS: LIDOCAINE HCL 1%, 10 MG/ML (20ML VIAL) NR ONE
[2025-01-23] MEDS: ACETAMINOPHEN 500 MG TABLET (FP) PO PRN (20:25)
[2025-01-23] MEDS: levETIRAcetam 250 MG TABLET PO SCH (21:21)
[2025-01-23] MEDS: GABAPENTIN 300 MG CAPSULE PO SCH (21:21)
[2025-01-24] MEDS: LIDOCAINE HCL 1%, 10 MG/ML (20ML VIAL) NR ONE
[2025-01-24] MEDS: SEVELAMER CARBONATE 800 MG TAB (FP) PO SCH (08:09)
[2025-01-24] MEDS: FINASTERIDE 5 MG TABLET (FP) PO SCH (09:04)
[2025-01-24] MEDS: PARoxetine HCL 10 MG TABLET PO SCH (09:04)
[2025-01-24 14:24] LABS: HEMATOCRIT 28.8 % (35.4-49); HEMOGLOBIN 9.9 GM/dL (11.7-16.9); MCH 32.6 pg (25.7-33.7); MCHC 34.2 g/dl (32.0-35.9); MEAN CELL VOLUME 95.4 fl (80-96); MEAN PLT VOLUME 7.3 fl (7.5-11.1); PLATELET COUNT 243 10^3/uL (134-434); RBC 3.02 M/mm3 (4.00-5.60); RDW 15.8 % (11.9-15.9); WHITE BLOOD COUNT 9.8 K/mm3 (4.0-10.0)
[~2025-01-24 14:26] MED LIST: HEPARIN NA (PORCINE) 5,000 UNITS/ML 1ML VIAL ONE; LIDOCAINE HCL 1%, 10 MG/ML (20ML VIAL) ONE; MIDAZOLAM HCL 2 MG/2 ML SINGLE DOSE VIAL ONE; POVIDONE-IODINE OINTMENT 10% - 28.4 GM TUBE ONE; PROPOFOL 40 ML ONE; SODIUM CHLORIDE 250 ML IV PRN; ceFAZolin SODIUM 1 GM VIAL ONE; traMADol HCL 50 MG TABLET PO PRN
[2025-01-24] MEDS ORDERED: HEPARIN NA (PORCINE) 5,000 UNITS/ML 1ML VIAL ONE (14:42)
[2025-01-24] MEDS ORDERED: LIDOCAINE HCL 1%, 10 MG/ML (20ML VIAL) ONE (14:42)
[2025-01-24 15:02] LABS: CHLORIDE 103 mmol/L (98-107); POTASSIUM 4.7 mmol/L (3.5-5.1); SODIUM 138 mmol/L (136-145)
[2025-01-24 15:03] LABS: CALCIUM 9.1 mg/dL (8.5-10.1)
[2025-01-24 15:04] LABS: ALBUMIN 2.9 g/dl (3.4-5.0); ANION GAP 9 mmol/L (4-13); BLOOD UREA NITROGEN 51.9 mg/dL (7-18); CO2 26 mmol/L (21-32); GLUCOSE,RANDOM 96 mg/dL (74-106)
[2025-01-24 15:08] LABS: SGOT/AST 13 U/L (15-37); SGPT/ALT 11 U/L (13-61)
[2025-01-24 15:09] LABS: BILIRUBIN,TOTAL 0.5 mg/dL (0.2-1); TOT PROT 6.2 g/dl (6.4-8.2)
[2025-01-24 15:11] LABS: ALK PHOS 63 U/L (45-117)
[2025-01-24 15:22] LABS: CREATININE 7.6 mg/dL (0.55-1.3)
[2025-01-24 15:27] LABS: HEPATITIS B SURF AG NON-MATERN NON-REACTIVE (NONREACTIVE)
[2025-01-24 15:56] LABS: HCV DIAGNOSTIC IN-HOUSE W/RFLX NON-REACTIVE (NONREACTIVE)
[2025-01-24 16:53] VITALS: BMI 26.6
[2025-01-24] MEDS ORDERED: PROPOFOL 20 ML ONE (16:58)
[2025-01-24] MEDS ORDERED: MIDAZOLAM HCL 2 MG/2 ML SINGLE DOSE VIAL ONE (16:59)
[2025-01-24] MEDS: ceFAZolin SODIUM 1 GM VIAL IVPB ONE (17:05)
[2025-01-24] MEDS ORDERED: POVIDONE-IODINE OINTMENT 10% - 28.4 GM TUBE ONE (19:17)
[2025-01-24] MEDS ORDERED: BACITRACIN ZINC 15 GM TUBE TOPICAL OINTMENT ONE (19:20)
[2025-01-24] MEDS ORDERED: ONDANSETRON 4 MG/2 ML VIAL IVPUSH PRN (20:21)
[2025-01-24] MEDS ORDERED: SODIUM CHLORIDE 1,000 ML IV SCH (20:30)
[2025-01-24] MEDS: levETIRAcetam 250 MG TABLET PO SCH (22:05)
[2025-01-24] MEDS: GABAPENTIN 300 MG CAPSULE PO SCH (22:05)
[2025-01-24] MEDS: ACETAMINOPHEN 500 MG TABLET (FP) PO PRN (23:26)
[2025-01-25] MEDS: traMADol HCL 50 MG TABLET PO PRN (02:30)
[2025-01-25] MEDS: CEFAZOLIN 1 GM/D5W 1 GM/50 ML BAG IVPB ONE (04:32)
[2025-01-25] MEDS ORDERED: SODIUM CHLORIDE 250 ML IV PRN ×2 (09:57→14:15)
[2025-01-25] MEDS: SEVELAMER CARBONATE 800 MG TAB (FP) PO SCH (10:01)
[2025-01-25] MEDS: PARoxetine HCL 10 MG TABLET PO SCH (10:02)
[2025-01-25] MEDS: FINASTERIDE 5 MG TABLET (FP) PO SCH (10:02)
[2025-01-25 11:27] LABS: BASO % 0.2 % (0-2.0); HEMATOCRIT 28.2 % (35.4-49); HEMOGLOBIN 9.5 GM/dL (11.7-16.9); MCH 32.6 pg (25.7-33.7); MCHC 33.8 g/dl (32.0-35.9); MEAN CELL VOLUME 96.3 fl (80-96); MEAN PLT VOLUME 7.3 fl (7.5-11.1); MONO % 7.9 % (3.8-10.2); NEUT % 79.9 % (42.8-82.8); PLATELET COUNT 212 10^3/uL (134-434); RBC 2.93 M/mm3 (4.00-5.60); RDW 16.1 % (11.9-15.9); WHITE BLOOD COUNT 8.7 K/mm3 (4.0-10.0)
[2025-01-25 11:42] LABS: POTASSIUM 4.4 mmol/L (3.5-5.1)
[2025-01-25 11:45] LABS: BLOOD UREA NITROGEN 34.2 mg/dL (7-18); CALCIUM 8.8 mg/dL (8.5-10.1)
[2025-01-25] MEDS: HEPARIN NA (PORCINE) 5,000 UNITS/ML 1ML VIAL IVPUSH ONE (12:45)
[2025-01-25] MEDS: HEPARIN NA (PORCINE) 5,000 UNITS/ML 1ML VIAL IVPUSH SCH (13:45)
[2025-01-26] MEDS ORDERED: SODIUM CHLORIDE 250 ML IV PRN (11:39)
[2025-01-26] MEDS ORDERED: EPOETIN ALFA-EPBX 10,000 UNIT/ML VIAL IVPUSH ONE (11:39)
[2025-01-26] MEDS ORDERED: HEPARIN NA (PORCINE) 5,000 UNITS/ML 1ML VIAL IVPUSH ONE (11:39)
[2025-01-26] MEDS ORDERED: HEPARIN NA (PORCINE) 5,000 UNITS/ML 1ML VIAL IVPUSH SCH (11:45)
[2025-01-26 17:45] LABS: HEMATOCRIT 26.3 % (35.4-49); HEMOGLOBIN 8.8 GM/dL (11.7-16.9); MCH 32.1 pg (25.7-33.7); MCHC 33.3 g/dl (32.0-35.9); MEAN CELL VOLUME 96.4 fl (80-96); MEAN PLT VOLUME 6.9 fl (7.5-11.1); PLATELET COUNT 206 10^3/uL (134-434); RBC 2.73 M/mm3 (4.00-5.60); RDW 15.8 % (11.9-15.9); WHITE BLOOD COUNT 8.3 K/mm3 (4.0-10.0)
[2025-01-26 18:00] LABS: CALCIUM 9.4 mg/dL (8.5-10.1)
[2025-01-26 18:01] LABS: BLOOD UREA NITROGEN 29.1 mg/dL (7-18)
[2025-01-26 18:04] LABS: CREATININE 4.9 mg/dL (0.55-1.3)
[2025-01-27] MEDS ORDERED: METOPROLOL TARTRATE 5 MG/5 ML VIAL IVPUSH PRN ×2 (12:49→15:25)
[2025-01-27] MEDS: BACITRACIN ZINC 15 GM TUBE TOPICAL OINTMENT TP SCH (13:54)
[2025-01-27] MEDS: INSULIN ASPART SLIDING SCALE (NOVOLOG) 1 VIAL SQ SCH (17:09)
[2025-01-27] MEDS: ATORVASTATIN CA 20 MG TABLET (FP) PO SCH (21:27)
[2025-01-28 10:18] LABS: BASO % 0.2 % (0-2.0); EOS % 3.1 % (0-4.5); HEMATOCRIT 22.8 % (35.4-49); HEMOGLOBIN 7.6 GM/dL (11.7-16.9); LYMPH % 14.7 % (8-40); MCH 32.1 pg (25.7-33.7); MCHC 33.5 g/dl (32.0-35.9); MEAN CELL VOLUME 95.8 fl (80-96); MEAN PLT VOLUME 7.5 fl (7.5-11.1); MONO % 9.9 % (3.8-10.2); NEUT % 72.1 % (42.8-82.8); PLATELET COUNT 191 10^3/uL (134-434); RBC 2.38 M/mm3 (4.00-5.60); RDW 15.8 % (11.9-15.9); WHITE BLOOD COUNT 7.4 K/mm3 (4.0-10.0)
[2025-01-28 10:43] LABS: CHLORIDE 102 mmol/L (98-107); POTASSIUM 3.8 mmol/L (3.5-5.1); SODIUM 138 mmol/L (136-145)
[2025-01-28 10:46] LABS: ANION GAP 10 mmol/L (4-13); CALCIUM 8.8 mg/dL (8.5-10.1); CO2 26 mmol/L (21-32)
[2025-01-28 10:47] LABS: ALBUMIN 2.5 g/dl (3.4-5.0); BLOOD UREA NITROGEN 61.6 mg/dL (7-18); GLUCOSE,RANDOM 88 mg/dL (74-106); MAGNESIUM 2.1 mg/dL (1.8-2.4)
[2025-01-28 10:49] LABS: CREATININE 7.8 mg/dL (0.55-1.3); PHOSPHOROUS 5.1 mg/dL (2.5-4.9); SGOT/AST 15 U/L (15-37); SGPT/ALT < 6 U/L (13-61)
[2025-01-28 10:51] LABS: BILIRUBIN,TOTAL 0.5 mg/dL (0.2-1); TOT PROT 5.8 g/dl (6.4-8.2)
[2025-01-28 10:52] LABS: ALK PHOS 58 U/L (45-117)
[2025-01-28] MEDS ORDERED: SODIUM CHLORIDE 250 ML IV PRN (14:08)
[2025-01-29 09:25] LABS: HEMATOCRIT 22.6 % (35.4-49); HEMOGLOBIN 7.5 GM/dL (11.7-16.9); MCH 31.8 pg (25.7-33.7); MEAN CELL VOLUME 96.4 fl (80-96); MEAN PLT VOLUME 7.6 fl (7.5-11.1); PLATELET COUNT 205 10^3/uL (134-434); RBC 2.34 M/mm3 (4.00-5.60); RDW 15.4 % (11.9-15.9); WHITE BLOOD COUNT 8.1 K/mm3 (4.0-10.0)
[2025-01-29] MEDS: EPOETIN ALFA-EPBX 10,000 UNIT/ML VIAL IVPUSH ONE (09:27)
[2025-01-29 09:53] LABS: CHLORIDE 100 mmol/L (98-107); POTASSIUM 3.4 mmol/L (3.5-5.1); SODIUM 138 mmol/L (136-145)
[2025-01-29 09:58] LABS: BLOOD UREA NITROGEN 72.7 mg/dL (7-18); PHOSPHOROUS 6.2 mg/dL (2.5-4.9); SGPT/ALT < 6 U/L (13-61)
[2025-01-29 09:59] LABS: GLUCOSE,RANDOM 116 mg/dL (74-106)
[2025-01-29 10:00] LABS: BILIRUBIN,TOTAL 0.3 mg/dL (0.2-1); TOT PROT 5.9 g/dl (6.4-8.2)
[2025-01-29 10:01] LABS: ALK PHOS 56 U/L (45-117); ANION GAP 13 mmol/L (4-13); CALCIUM 8.4 mg/dL (8.5-10.1); CO2 25 mmol/L (21-32); MAGNESIUM 2.1 mg/dL (1.8-2.4)
[2025-01-29 10:02] LABS: ALBUMIN 2.5 g/dl (3.4-5.0)
[2025-01-29 10:06] LABS: SGOT/AST 12 U/L (15-37)
[2025-01-29 10:29] LABS: CREATININE 9.2 mg/dL (0.55-1.3)
[2025-01-29 14:04] VITALS: BP 125/76; PULSE 77; RESP 16; TEMP 98.2
== END 2025-01-29 16:00 | disposition home or self-care (01) | DRG 252 ==
LOC: J6S 14:26 → JASUSAT 14:26 → J6S 17:35 → JASUSAT 01-27 12:46
PROVIDERS: ADMIT Student in an Organized Health Care Education/Training Program; ATTEND Internal Medicine
PROC: 03170JV Bypass Right Brachial Artery to Superior Vena Cava with Synthetic Substitute, Open Approach (ICD-10-PCS; 2025-01-24)
PROC: 5A1D70Z Performance of Urinary Filtration, Intermittent, Less than 6 Hours Per Day (ICD-10-PCS; 2025-01-24)
PROC: 03L70ZZ Occlusion of Right Brachial Artery, Open Approach (ICD-10-PCS; principal; 2025-01-24 11:30)
DX: T82.510A Breakdown (mechanical) of surgically created arteriovenous fistula, initial encounter (principal); N18.6 End stage renal disease; I12.0 Hypertensive chronic kidney disease with stage 5 chronic kidney disease or end stage renal disease; L76.22 Postprocedural hemorrhage of skin and subcutaneous tissue following other procedure; E78.5 Hyperlipidemia, unspecified; Z99.2 Dependence on renal dialysis; E11.22 Type 2 diabetes mellitus with diabetic chronic kidney disease; T82.858A Stenosis of other vascular prosthetic devices, implants and grafts, initial encounter; Y83.8 Other surgical procedures as the cause of abnormal reaction of the patient, or of later complication, without mention of misadventure at the time of the procedure; Z86.73 Personal history of transient ischemic attack (TIA), and cerebral infarction without residual deficits; D64.9 Anemia, unspecified; I48.0 Paroxysmal atrial fibrillation; N40.0 Benign prostatic hyperplasia without lower urinary tract symptoms
CPT/HCPCS: 36415; 71045-TC-FY; 76000-TC-FY; 76775-TC; 80048; 80053; 82962; 83036; 83735; 84100; 84132; 85025; 85027; 85730; 86704; 86803; 86850; 86900; 86901; 87340; 87517; 94760; C1768; J1644; J2597; Q5106